=== PATIENT | female | born 1975 | race Caucasian/White ===

== ENCOUNTER 2020-10-21 15:31 | Outpatient (CLI) | payer BC, SELFPAY ==
--- NOTE | ~2020-10-21 | MM_ITS ---
EXAMINATION: MM screening steven BI w teja HISTORY: Screening mammogram TECHNIQUE: Craniocaudal and mediolateral oblique 3-D tomosynthesis images were obtained and synthetic 2-D images were generated. CAD analysis was submitted and interpreted. COMPARISON: 12/16/2018, 11/28/2017 bilateral digital screening mammogram examinations BREAST PARENCHYMAL COMPOSITION: There are scattered areas of fibroglandular density. FINDINGS: There is no evidence of suspicious mass, calcification, or architectural distortion to sugg est malignancy in either breast. There has been no suspicious interval change. IMPRESSION: 1. No mammographic evidence of malignancy. 2. Recommend routine screening mammography in one year. BI-RADS Category 1: Negative Reviewed, dictated and finalized at location A. INUING EDUCATION INSTRUCTOR
== END 2020-10-21 15:32 | disposition home or self-care (01) ==
LOC: ANHIMG 15:34
PROVIDERS: PCP Family Medicine; Visit Provider Obstetrics & Gynecology
DX: Z12.31 Encounter for screening mammogram for malignant neoplasm of breast (principal)
CPT/HCPCS: 77063; 77067

== ENCOUNTER 2021-10-23 10:56 | Outpatient (CLI) | payer BC, SELFPAY ==
--- NOTE | ~2021-10-23 | MM_ITS ---
EXAMINATION: MM screening steven BI w teja HISTORY: Screening mammogram TECHNIQUE: Craniocaudal and mediolateral oblique 3-D tomosynthesis images were obtained and synthetic 2-D images were generated. CAD analysis was submitted and interpreted. COMPARISON: October 21, 2020, December 16, 2018, November 28, 2017 bilateral screening mammogram examinatio ns BREAST PARENCHYMAL COMPOSITION: There are scattered areas of fibroglandular density. FINDINGS: There is no evidence of suspicious mass, calcification, or architectural distortion to sugg est malignancy in either breast. There has been no suspicious interval change. IMPRESSION: 1. No mammographic evidence of malignancy. 2. Recommend routine screening mammography in one year. BI-RADS Category 1: Negative Reviewed, dictated and finalized at location A. ERCIAL LAWN SPECIALIST
== END 2021-10-23 10:57 | disposition home or self-care (01) ==
LOC: ANHIMG 11:00
PROVIDERS: PCP Family Medicine; Visit Provider Obstetrics & Gynecology
DX: Z12.31 Encounter for screening mammogram for malignant neoplasm of breast (principal)
CPT/HCPCS: 77063; 77067

== ENCOUNTER → 2021-10-26 10:31 | Outpatient (CLI) | payer BC, SELFPAY ==
--- NOTE | ~2021-10-26 | XR_ITS ---
EXAMINATION: XR shoulder LT min 2V INDICATION: Left shoulder pain TECHNIQUE: Four views of the left shoulder are submitted. COMPARISON: None FINDINGS: Normal alignment. No fracture. Glenohumeral and acromioclavicular joint spaces are normal. Soft tissues are unremarkable. IMPRESSION: 1. No acute osseous abnormality. Reviewed, dictated and finalized at location A. ATION TEACHER
== END ==
PROVIDERS: Visit Provider Physician Assistant
DX: M25.512 Pain in left shoulder (principal)
CPT/HCPCS: 73030

== ENCOUNTER → 2021-11-02 09:41 | Outpatient (CLI) | payer BC, SELFPAY ==
--- NOTE | ~2021-11-02 | US_ITS ---
EXAMINATION: US soft tissue head and neck EXAM DATE: 11/02/2021 10:19 INDICATION: R22.2 - Localized swelling, mass and lump, trunk. TECHNIQUE: Multiple grayscale and Doppler images of the left supraclavicular palpable region were obt ained (by a technologist who performed the scan) and subsequently reviewed. There is no prior study for comparison. FINDINGS: Scanning in the left supraclavicular palpable region demonstrates possible focal mass, could be jer l sized lymph node measuring 5 x 4 x 7 mm. No pathologically enlarged lymph node or other mass identi fied. Unremarkable subcutaneous fat. IMPRESSION: Possible subcentimeter mass at left supraclavicular palpable abnormality. Could be normal -sized lymph node. Reviewed, dictated and finalized at location A. AL WARDEN IMPRESSION: Possible subcentimeter mass at left supraclavicular palpable abnorm ality. Could be normal-sized lymph node.
--- NOTE | ~2021-11-02 | US_ITS ---
EXAMINATION: US soft tissue groin LT INDICATION: Left lower quadrant pain and left groin mass TECHNIQUE: Targeted ultrasound of the left groin region is performed. COMPARISON: None available FINDINGS: There is an apparent small left inguinal hernia which demonstrates intermittent increase in size with Valsalva. No suspicious mass is identified. IMPRESSION: 1. Likely small left atrial hernia. Reviewed, dictated and finalized at location B. HBORHOOD PLANNER
== END ==
PROVIDERS: PCP Family Medicine; Visit Provider Physician Assistant
DX: R10.32 Left lower quadrant pain (principal); K44.0 Diaphragmatic hernia with obstruction, without gangrene; R22.2 Localized swelling, mass and lump, trunk
CPT/HCPCS: 76536; 76882

== ENCOUNTER → 2021-11-05 16:19 | Outpatient (CLI) | payer BC, SELFPAY ==
--- NOTE | ~2021-11-05 | XR_ITS ---
EXAMINATION: XR chest 2V DATE: 11/05/2021 17:00 INDICATION: Swelling at the left supraclavicular region TECHNIQUE: PA and lateral views of the chest were obtained. COMPARISON: Chest radiograph dated 11/30/2018 FINDINGS: The lungs remain clear with no focal airspace opacities, pulmonary edema, pleural effusion or pneumot horax. The cardiomediastinal silhouette is normal. 18 degrees upper thoracic levoscoliosis measured b etween T1 and T6. Soft tissues are unremarkable. IMPRESSION: 1. No acute cardiopulmonary disease. Reviewed, dictated and finalized at location A. AND LINK KNITTING MACHINE OPERATOR
== END ==
PROVIDERS: PCP Family Medicine; Visit Provider Physician Assistant
DX: R22.2 Localized swelling, mass and lump, trunk (principal)
CPT/HCPCS: 71046

== ENCOUNTER → 2021-12-01 11:39 | Outpatient (CLI) | payer BC, SELFPAY ==
--- NOTE | ~2021-12-01 | XR_ITS ---
EXAM: XR thoracic spine 3V HISTORY: Pain in thoracic spine COMPARISON: None available FINDINGS: Visualized lung parenchyma is clear. Normal vertebral body alignment. Heights are maintain ed. Pedicles are intact. Normal disc spaces. IMPRESSION: Normal thoracic spine radiograph findings. Reviewed, dictated and finalized at location K.
--- NOTE | ~2021-12-01 | XR_ITS ---
EXAM: [id number]_CR HISTORY: Pleurodynia COMPARISON: Chest x-ray 11/05/2021. FINDINGS: Normal cardiomediastinal silhouette. Visualized lung parenchyma is clear. Visualized bones and soft tissues are within normal limits for age. IMPRESSION: No radiographic abnormality in the left ribs. Normal chest radiograph findings. Reviewed, dictated and finalized at location K.
--- NOTE | ~2021-12-01 | XR_ITS ---
EXAM: XR lumbar spine 2-3V HISTORY: Low back pain COMPARISON: None available FINDINGS: 5 nonrib-bearing lumbar-type vertebral bodies with intact pedicles. Alignment and vertebra l body heights are maintained. Mild multilevel marginal osteophytosis. Facets are aligned. IMPRESSION: Mild multilevel degenerative disc disease in the lumbar spine. Reviewed, dictated and finalized at location K.
== END ==
PROVIDERS: PCP Physician Assistant; Visit Provider Physician Assistant
DX: M54.50 Low back pain, unspecified (principal); R07.81 Pleurodynia; R10.9 Unspecified abdominal pain; M51.36 Other intervertebral disc degeneration, lumbar region
CPT/HCPCS: 71101; 72072; 72100

== ENCOUNTER → 2021-12-07 10:41 | Outpatient (CLI) | payer BC, SELFPAY ==
--- NOTE | ~2021-12-07 | CT_ITS ---
EXAMINATION: CT abdomen pelvis w con INDICATION: Left-sided abdominal pain TECHNIQUE: Computed tomographic images of the abdomen and pelvis were obtained after the administrati on of 100 cc of Omnipaque 350 intravenous contrast. The dose-length product (DLP) was 953.89 mGy-cm. Automated exposure control and iterative reconstruction technique were employed. COMPARISON: None available FINDINGS: The lung bases are clear. The heart size is normal. The liver, spleen, pancreas, gallbladde r, and adrenal glands are normal. The kidneys are unremarkable. No pathologically enlarged abdominal or pelvic lymph nodes are identified. There is no free intraperitoneal gas or evidence of bowel obstr uction. There appears to be an enhancing corpus luteum of the left ovary. There is a 4.8 cm soft tiss ue attenuation lesion of the left adnexa. IMPRESSION: 1. Probable complicated cyst or endometrioma of the left adnexa. Further evaluation with pelvic ultra sound is recommended. Reviewed, dictated and finalized at location A. IMPRESSION: 1. Probable complicated cyst or endometrioma of the left adnexa. Further evalua tion with pelvic ultrasound is recommended.
== END ==
PROVIDERS: PCP Physician Assistant; Visit Provider Physician Assistant
DX: R10.9 Unspecified abdominal pain (principal); M54.6 Pain in thoracic spine; M54.50 Low back pain, unspecified; R07.81 Pleurodynia; R93.89 Abnormal findings on diagnostic imaging of other specified body structures
CPT/HCPCS: 74177; Q9967

== ENCOUNTER 2022-01-13 14:47 | Outpatient (CLI) | payer BC, SELFPAY ==
--- NOTE | ~2022-01-13 | MR_ITS ---
EXAMINATION: MR lumbar spine wo/w con DATE: 01/13/2022 16:02 INDICATION: Left lower back mass. TECHNIQUE: Magnetic resonance imaging (MRI) of the lumbar spine was performed without and with 19 mL MultiHance intravenous contrast. COMPARISON: Ultrasound 12/29/2021, CT abdomen and pelvis 12/07/2021 FINDINGS: There is a skin marker on the left. There is no abnormal mass in this area. Bone alignment is normal. Vertebral body heights are normal. Intervertebral disc heights are normal. The distal spin al cord signal intensity is normal. The conus medullaris is at L1. The following disc levels are spec ifically discussed: L1-L2: The disc does not extend beyond the endplate margin. There is mild bilateral facet joint osteo arthritis. There is no neural foraminal stenosis. There is no central canal stenosis. L2-L3: The disc does not extend beyond the endplate margin. There is mild bilateral facet joint osteo arthritis. There is no neural foraminal stenosis. There is no central canal stenosis. L3-L4: The disc is mildly bulging. There is mild right facet joint osteoarthritis. There is mild bila teral neural foraminal stenosis. There is no central canal stenosis. L4-L5: The disc is mildly bulging. There is no facet joint osteoarthritis. There is mild bilateral ne ural foraminal stenosis. There is mild central canal stenosis. L5-S1: The disc does not extend beyond the endplate margin. There is mild bilateral facet joint osteo arthritis. There is no neural foraminal stenosis. There is no central canal stenosis. IMPRESSION: 1. No abnormal mass in the patient's area of concern in left lower back. 2. Mild lumbar spondylosis. Reviewed, dictated and finalized at location B.
[2022-01-13 15:26] LABS: Estimated Glomerular Filt Rate > 60
== END 2022-01-13 14:48 | disposition home or self-care (01) ==
PROVIDERS: PCP Physician Assistant; Visit Provider Physician Assistant
DX: R22.2 Localized swelling, mass and lump, trunk (principal); M47.817 Spondylosis without myelopathy or radiculopathy, lumbosacral region; M48.07 Spinal stenosis, lumbosacral region
CPT/HCPCS: 72158; A9577

== ENCOUNTER 2022-02-25 12:58 | Outpatient (CLI) | payer BC, SELFPAY | END 2022-02-25 12:59 | disposition home or self-care (01) | LOC: ANHSURGERY 13:01 | PROVIDERS: PCP Physician Assistant; Visit Provider Obstetrics & Gynecology | DX: N83.209 Unspecified ovarian cyst, unspecified side (principal); Z01.818 Encounter for other preprocedural examination | CPT/HCPCS: 36415; 86850; 86900; 86901 ==

== ENCOUNTER 2022-03-03 00:54 | Day surgery (SDC) | payer BC, SELFPAY ==
[2022-02-23 16:54] VITALS: BMI 32.3
--- NOTE | 2022-02-23 17:22 | PC.NURSE ---
Report to the Outpatient Waiting Room, entrance under the green pavilion located off [facility], at time _1230 on date 03/03/22. OR Time: 1430_. - You and your visitor will be asked a series of questions to screen for COVID 19 for your protection. - Only one visitor is allowed at this time. - The patient visitor is requested to leave or wait in car when not with patient. - A mask is required within the hospital. Patients may have clear liquids (water, carbonated beverages, clear teas, apple juice) until 3 hours prior to surgery with a maximum of 20 ounces. - No food from midnight until time of surgery - Infants may have breast milk until 4 hours before surgery, formula 6 hours prior to surgery. - Children will be allowed to drink immediately following surgery. If applicable, please bring a bottle or sippy cup to assist with drinking. Juice, water, soda, and popsicles are readily available. For infants on formula, please bring formula the day of surgery. Pacifiers are allowed. Take the following medications with a SIP of water the morning of surgery: Medications to discontinue per physician vitamin Date to take last dose_02/28/22 Please no make-up, nail haitian, hairspray, perfume, deodorant, or body powder the day of surgery. No jewelry (including any body piercings) or valuables the day of surgery, leave them at home. Please take a shower or bath the night before, or the morning of, surgery with an antibacterial soap. Wear comfortable, loose fitting clothing. Children are encouraged to wear pajamas. - Jewelry must be removed prior to entering the operating room. Rings and piercings that are not removed may be cut off. - The hospital will not accept responsibility for valuables. - Please leave all valuables, including medications, at home the day of surgery. If you are going home after surgery, a licensed wheelchair driver must drive you home. - NO public transportation without another adult. - We recommend that an adult stay with you for 24 hours following discharge. - We also recommend that you do not drive, make important decision, drink alcoholic beverages, or take any drugs that were not prescribed by your health care provider for at least 24 hours after your discharge time. For Pediatric surgeries, we recommend two adults accompany the child home (only one inside the building at this time). Follow any additional instructions given to you from your surgeon. If you or anyone in your household have experienced Covid symptoms in the past week, please notify your surgeon or the nurse liaison at the phone number below for possible testing. Telephone instructions given to Rose Banks and asked if any additional questions and then verbalized understanding. Patient advised to call surgeon office or pre surgery nurse liaison [phone] if any additional questions.
--- NOTE | 2022-03-02 14:12 | WPDANESEPPF ---
Anes - Initial Pre Proc Eval Procedure: Operation Date: 03/03/22 14:30 Proposed Procedures p Laparoscopic Left Ovarian Cystectomy, Possible Left Salpingo-oophorectomy - Sammy May MD <Kishore Mayo MD - Last Filed: 03/05/22 10:25> Date/Time: 03/02/22 14:12 <Kishore Mayo MD - Last Filed: 03/05/22 10:25> Surgeon: Sammy May MD <Kishore Mayo MD - Last Filed: 03/05/22 10:25> Pre Op Diagnosis: Pain, Left Ovarian Cyst <Kishore Mayo MD - Last Filed: 03/05/22 10:25> Patient Data Age: 46 Gender: F Height: 1.68 m Weight: 91 kg <Kishore Mayo MD - Last Filed: 03/05/22 10:25> Allergies Allergy/AdvReac Type Severity Reaction Status Date / Time aspartame AdvReac Severe Seizure Verified 02/23/22 16:49 <Kishore Mayo MD - Last Filed: 03/05/22 10:25> Home Medications Medication Instructions Recorded Confirmed Type albuterol sulfate 90 mcg/actuation 2 puff inhalation QID PRN 07/28/19 02/23/22 Rx aerosol inhaler (Ventolin HFA) shortness of breath or wheezing #8 grams calcium carb-vit D3-minerals 600 1 tablet PO DAILY 02/23/22 02/23/22 History mg calcium-400 unit tablet hydrocodone 5 mg-acetaminophen 325 1 - 2 tablet PO Q6H #30 tabs 03/03/22 Rx mg tablet <Kishore Mayo MD - Last Filed: 03/05/22 10:25> Patient hx anesthesia problems: post op nausea/vomiting <Shan Corley MD - Last Filed: 03/03/22 13:45> Family hx anesthesia problems: none <Shan Corley MD - Last Filed: 03/03/22 13:45> Results Review: All pre-operative results and documents have been reviewed as part of the pre-operative evaluation. <Kishore Mayo MD - Last Filed: 03/05/22 10:25> [facility] Past Medical History Medical History: Medical History Obesity <Kishore Mayo MD - Last Filed: 03/05/22 10:25> Family History Family History: Family History Sibling Family history of atrial fibrillation <Kishore Mayo MD - Last Filed: 03/05/22 10:25> Social History Social History: Social History Smoking status: Never smoker Alcohol intake: never Substance use: never Living arrangements: with family Spiritual care concerns: No <Kishore Mayo MD - Last Filed: 03/05/22 10:25> Anes - Eval Final PreProcedure Day of Procedure 03/02/22 14:12 <Kishore Mayo MD - Last Filed: 03/05/22 10:25> Patient weight: overweight <Kishore Mayo MD - Last Filed: 03/05/22 10:25> Heart: regular rate and rhythm <Kishore Mayo MD - Last Filed: 03/05/22 10:25> Lungs: clear to auscultation and normal air movement <Kishore Mayo MD - Last Filed: 03/05/22 10:25> Airway: Mallampati scale class II <Kishore Mayo MD - Last Filed: 03/05/22 10:25> Mallampati scale class 1 <Shan Corley MD - Last Filed: 03/03/22 13:45> Neurological: alert and oriented <Kishore Mayo MD - Last Filed: 03/05/22 10:25> Last oral intake: >/= 8 hours <Kishore Mayo MD - Last Filed: 03/05/22 10:25> ASA classification: II <Kishore Mayo MD - Last Filed: 03/05/22 10:25> Emergent: no <Kishore Mayo MD - Last Filed: 03/05/22 10:25> Anesthetic plan: proceed <Kishore Mayo MD - Last Filed: 03/05/22 10:25> Anesthesia type and monitoring: general ETT <Kishore Mayo MD - Last Filed: 03/05/22 10:25> Results Review: All pre-operative results and documents have been reviewed as part of the pre-operative evaluation. <Kishore Mayo MD - Last Filed: 03/05/22 10:25> Informed Consent: The patient's anesthetic plan and its attendant risks and benefits were discussed with the patient/family/POA. Questions were solicited and answers provided to the satisfaction of t
[2022-03-03] VITALS (11 sets, daily range): BP systolic 102–148; BP diastolic 61–82; PULSE 48–79; RESP 14–20; TEMP 36.1–36.2; O2SAT 93–100
--- NOTE | 2022-03-03 12:39 | PM.IMHP ---
H&P: HPI History of Present Illness Date/Time: 03/03/22 12:39 Chief Complaint: Ovarian cyst Narrative: 46 y/o with left pelvic and flank pain. Ultrasound exams have demonstrated the persistence of a 4 cm simple appearing left adnexal cyst. Her symptoms have been bothersome for several months, and she requests surgical management. Review of Systems Review of Systems: All systems reviewed & are unremarkable except as noted in HPI and below PMFSH Past Medical History Medical History Obesity Family History Family History Sibling Family history of atrial fibrillation Social History Social History Smoking status: Never smoker Alcohol intake: never Substance use: never Living arrangements: with family Spiritual care concerns: No Meds Home Medications and Allergies Home Medications Medication Instructions Recorded Confirmed Type albuterol sulfate 90 mcg/actuation 2 puff inhalation QID PRN 07/28/19 02/23/22 Rx aerosol inhaler (Ventolin HFA) shortness of breath or wheezing #8 grams calcium carb-vit D3-minerals 600 1 tablet PO DAILY 02/23/22 02/23/22 History mg calcium-400 unit tablet Allergies Allergy/AdvReac Type Severity Reaction Status Date / Time aspartame AdvReac Severe Seizure Verified 02/23/22 16:49 Exam Const: Orientation/consciousness: patient oriented x3 Other: Well-developed, well-nourished female in no acute distress. Neck: Thyroid: thyroid normal Lymphatic: no lymphadenopathy noted (in neck, axilla or inguinal nodes) Resp: Effort & Inspection: normal respiratory effort Auscultation: clear to auscultation bilaterally Cardio: Rate: regular rate Rhythm: regular rhythm Heart sounds: S1 normal heart sound present and S2 normal heart sound present GI: Other: ABD: Soft, nontender, nondistended. No guarding or rebound tenderness. No hepatosplenomegaly. : General: Yes no CVA tenderness Other: External genitalia: normal female hair distribution, without lesion. Urethral meatus: no lesion, non prolapsed. Bladder: no mass, nontender Vagina: well-estrogenized, without lesion or discharge. No cystocele or rectocele. Cervix: no lesion or discharge. Uterus: small, anteverted, freely mobile, nontender Adnexa: no mass or tenderness on the right. On the left, there is definite tenderness to deep palpation. Anus/perineum: no lesions, nontender Back/Spine/Pelvis: Back: no CVA tenderness Skin: General skin exam: normal color and no rashes or lesions noted Neuro: General: patient oriented x3 Extrem: Other: Extremities: nontender with no edema Psych: Mental Status: mental status grossly normal Affect: normal affect Assessment and Plan Assessment and plan (1) Left adnexal tenderness: Code(s): R10.2 - Pelvic and perineal pain Status: Acute Assessment and Plan: A: Persistent left pelvic / flank pain in the setting of a persistent 4 cm adnexal cyst. P: Due to the halfway nature of the pain, the patient desires surgical management. I have offered her a diagnostic laparoscopy with left adnexal cystectomy and possible LSO. She understands risks of surgery to include risks of anesthesia, risks of pain, infection, bleeding, blood products, thromboembolic phenomena and damage to adjacent structures such as bowel, bladder, ureters, blood vessels and nerves. She understands all these risks and elects to proceed with surgery. (2) Simple adnexal cyst less than 5 cm in diameter in premenopausal patient: Code(s): N94.89 - Other specified conditions associated with female genital organs and menstrual cycle; N95.8 - Other specified menopausal and perimenopausal disorders Status: Acute
[2022-03-03] MEDS: ACETAMINOPHEN 500 MG TABLET 1000 MG PO (12:50)
--- NOTE | 2022-03-03 12:51 | WPDHPUPDATE1 ---
History and Physical Update Update Date/Time: 03/03/22 12:51 History and Physical has been reviewed, including an updated exam of the patient. There are NO changes in the patient's condition. Risks, benefits, and alternatives have been discussed and questions answered. Patient agrees to proceed with procedure.
[2022-03-03] MEDS: LACTATED RINGERS 1,000 ML 30 ML IV CONT ×2 (13:10→15:06)
[2022-03-03] MEDS: KETOROLAC 15 MG/ML VIAL (*BKC) IV PUSH ×2 (13:12→17:54)
[2022-03-03] MEDS: SCOPOLAMINE 1.5 MG PATCH TRANSDERM (13:53)
--- NOTE | 2022-03-03 15:07 | W.PM.PROC2 ---
Procedure Note - Detailed Date of Procedure 03/03/22 Pre-op Diagnosis Pelvic pain Left adnexal cyst Post-op Diagnosis Same Procedure Performed Laparoscopic left partial salpingectomy Surgeon Sammy May MD Anesthesia General Findings Right upper quadrant anatomy and vermiform appendix are normal in appearance. The uterus, bilateral ovaries, right tube, anterior and posterior cul de sac, bilateral round and uterosacral ligaments were all normal in appearance. A 4 cm cyst arose from the distal left Fallopian tube. Description of Procedure The patient was taken to the operating room where general endotracheal anesthesia was administered. She was prepared and draped in the usual sterile fashion in the dorsal lithotomy position. The bladder was drained with a red rubber catheter. A sterile speculum was inserted into the vagina and the anterior lip of the cervix was grasped with a single-toothed tenaculum. The acorn uterine manipulator was placed. The speculum was withdrawn. Gloves were changed and attention was turned to the abdomen. An infraumbilical skin incision was made with a scalpel. The abdomen was tented and a 5 millimeter bladeless trocar trocar was advanced under direct laparoscopic visualization. Pneumoperitoneum was administered using carbon dioxide gas. A survey of the pelvis and abdomen yielded the findings noted above. A second 5 mm incision was made in the right lower quadrant and a 5 mm bladeless trocar was advanced under direct laparoscopic visualization. An 11 mm port was similarly placed in the left lower quadrant. The left paratubal cyst was elevated. The ligasure device was used to ligate and transect the tube distally, just adjacent to the cyst. The specimen was placed into an endobag, withdrawn, and passed off to be sent to pathology. Using the Damir cone, the fascia at the LLQ incision was reapproximated with a single interrupted suture of 0-vicryl. Hemostasis was excellent. The trocars were withdrawn and the gas was allowed to escape. The skin incisions were reapproximated using 4-0 Vicryl in interrupted subcuticular fashion. Dermaflex was applied externally. The vaginal instrumentation was withdrawn and hemostasis was excellent here as well. Sponge, lap, needle and instrument counts were correct. The patient was awakened and taken to recovery in stable condition. I was present and scrubbed through the entire procedure. Estimated Blood Loss 5 Drains No Packing No Pathology Yes (Distal left Fallopian tube with cyst) Complications None Condition Stable Disposition PACU
[2022-03-03] MEDS: fentaNYL CITRATE INJ (*CRX) 100 MCG/2 ML VIAL 25 MCG IV PUSH ×6 (15:26→15:46)
[2022-03-03] MEDS: ONDANSETRON INJ 4 MG/2 ML VIAL IV PUSH (16:09)
[2022-03-03] MEDS: oxyCODONE HCL (*CRX) 5 MG TAB IR PO (16:53)
== END 2022-03-03 18:30 | disposition home or self-care (01) ==
PROVIDERS: PCP Physician Assistant; Visit Provider Obstetrics & Gynecology
PROC: (CPT 49320; principal; 2022-03-03 14:30)
DX: D28.2 Benign neoplasm of uterine tubes and ligaments (principal); R10.2 Pelvic and perineal pain; E66.9 Obesity, unspecified; Z68.31 Body mass index [BMI] 31.0-31.9, adult; Z79.51 Long term (current) use of inhaled steroids
CPT/HCPCS: 58661; 36415; 86850; 86900; 86901; 88305; A9270; J1100; J1885; J2250; J2405; J2704; J2710; J3010; J7030; J7120

== ENCOUNTER 2022-12-02 16:37 | Outpatient (CLI) | payer BC, SELFPAY ==
--- NOTE | ~2022-12-02 | MM_ITS ---
EXAMINATION: MM screening steven BI w teja HISTORY: Screening TECHNIQUE: Craniocaudal and mediolateral oblique 3-D tomosynthesis images were obtained and synthetic 2-D images were generated. CAD analysis was submitted and interpreted. COMPARISON: Comparison to multiple prior studies sequentially, with oldest reviewed study dated 09/2017. BREAST PARENCHYMAL COMPOSITION: There are scattered areas of fibroglandular density. FINDINGS: There are developing asymmetries/possible mass in the upper outer quadrant of the right [place] ast and lower central aspect of the left breast. IMPRESSION: 1. Developing bilateral breast asymmetries/possible mass 2. Additional mammographic views and possible breast ultrasound are recommended. BI-RADS Category 0: Incomplete: Needs additional imaging evaluation. Reviewed, dictated and finalized at location A. IMPRESSION: 1. Developing bilateral breast asymmetries/possible mass 2. Additional mammographic views and possible breast ultrasound are recommended . BI-RADS Category 0: Incomplete: Needs additional imaging evaluation.
== END 2022-12-02 16:38 | disposition home or self-care (01) ==
PROVIDERS: PCP Physician Assistant; Visit Provider Obstetrics & Gynecology
DX: Z12.31 Encounter for screening mammogram for malignant neoplasm of breast (principal); R92.8 Other abnormal and inconclusive findings on diagnostic imaging of breast
CPT/HCPCS: 77063; 77067

== ENCOUNTER 2022-12-27 11:53 | Outpatient (CLI) | payer BC, SELFPAY ==
--- NOTE | ~2022-12-27 | MM_ITS ---
EXAMINATION: MM diagnostic steven BI w teja HISTORY: Bilateral breast asymmetries on screening mammogram TECHNIQUE: Additional 3-D tomosynthesis images of the breasts were performed and synthetic 2-D images were generated. CAD analysis was submitted and interpreted. COMPARISON: 12/02/2022, 10/23/2021, 10/21/2020 FINDINGS: There is a return to baseline fibroglandular appearance with spot compression of the breast s in the areas questioned on screening mammogram. IMPRESSION: 1. No mammographic evidence of malignancy. 2. Recommend routine screening mammography in one year. BI-RADS Category 1: Negative Reviewed, dictated and finalized at location A.
== END 2022-12-27 11:54 | disposition home or self-care (01) ==
LOC: ANHIMG 11:54
PROVIDERS: PCP Physician Assistant; Visit Provider Obstetrics & Gynecology
DX: R92.8 Other abnormal and inconclusive findings on diagnostic imaging of breast (principal)
CPT/HCPCS: 77062; 77066; G0279

== ENCOUNTER 2023-04-10 01:29 | Observation (INO) | payer BC, SELFPAY ==
[2023-04-10] VITALS (26 sets, daily range): BP systolic 109–154; BP diastolic 68–110; PULSE 52–87; RESP 13–20; TEMP 36.2–36.7; O2SAT 95–100; BMI 32.3
--- NOTE | ~2023-04-10 | US_ITS ---
EXAMINATION: US abdomen limited DATE: 04/10/2023 07:39 INDICATION: Right upper quadrant pain TECHNIQUE: Multiple grayscale and Doppler ultrasound images of the abdomen were obtained. COMPARISON: None available FINDINGS: The head and body of the pancreas are normal. The pancreatic tail is obscured by bowel gas. The liver is normal with normal echogenicity and echotexture. No surface nodularity. Normal hepatope jah flow in the main portal vein. The gallbladder is distended. There is a stone in the gallbladder. No gallbladder wall thickening or pericholecystic fluid are identified. The normal common bile duct m easures 4 mm. There was no sonographic Rodríguez sign. IMPRESSION: 1. Cholelithiasis and gallbladder distention without gallbladder wall thickening, pericholecystic flu id or positive sonographic Rodríguez sign. Findings are equivocal for cholecystitis. Consider nuclear he patobiliary scan if there is high clinical suspicion for cholecystitis. Reviewed, dictated and finalized at location A. IMPRESSION: 1. Cholelithiasis and gallbladder distention without gallbladder wall thickenin g, pericholecystic fluid or positive sonographic Rodríguez sign. Findings are equi vocal for cholecystitis. Consider nuclear hepatobiliary scan if there is high c linical suspicion for cholecystitis.
--- NOTE | ~2023-04-10 | XR_ITS ---
EXAMINATION: XR chest 1V portable INDICATION: Chest pain TECHNIQUE: Portable AP chest at 0259 hours COMPARISON: 12/01/2021 FINDINGS: The lungs are free of acute opacities. No pleural effusion or pneumothorax. The cardiomedia stinal silhouette is normal. The visualized bones and soft tissues are unremarkable. IMPRESSION: 1. No acute cardiopulmonary abnormality. Reviewed, dictated and finalized at location A.
--- NOTE | ~2023-04-10 | CT_ITS ---
EXAMINATION: CTA chest abdomen pelvis DATE: 04/10/2023 03:50 INDICATION: Back pain radiating to the abdomen and chest. TECHNIQUE: Computed tomographic angiography (CTA) of the chest, abdomen, and pelvis was performed wit h 100 mL Omnipaque-350 intravenous contrast. Automated exposure control and iterative reconstruction technique were employed. The dose-length product was 1199.98 mGy-cm. Maximum intensity projection 3D- reconstructions of the aorta and other arteries were constructed by the technologist on a separate wo rkstation. COMPARISON: CT abdomen and pelvis 12/07/2021 FINDINGS: CHEST CTA: The lungs demonstrate mild atelectasis. No pleural effusion. The heart size is normal. No pericardial effusion. Thoracic aorta is normal in caliber. No aneurysm or dissection. There is no pulmonary embo tez. There is a hemangioma in T11 vertebral body. ABDOMEN AND PELVIS CTA: The liver is normal. The gallbladder is distended. The spleen, pancreas, adrenal glands, and kidneys are normal. There is diverticulosis of the colon without evidence of diverticulitis. There are no dil ated loops of bowel. The appendix is normal. There is a small sliding hiatal hernia. There are no pat hologically enlarged lymph nodes. There is no ascites. Abdominal aorta is normal in caliber. No aneur ysm or dissection. There is no significant stenosis of celiac axis, superior mesenteric artery, the r enal arteries, or inferior mesenteric artery. There is mild lumbar spondylosis. There is a hemangioma in L3 vertebral body. IMPRESSION: 1. Normal aorta. 2. Distended gallbladder suspicious for acute cholecystitis. Consider ultrasound. Reviewed, dictated and finalized at location E. IMPRESSION: 1. Normal aorta. 2. Distended gallbladder suspicious for acute cholecystitis. Consider lety haddad
--- NOTE | 2023-04-10 01:37 | ECG_ITS ---
Measurements Intervals [place] Rate: 54 P: 10 MD: 145 QRS: 47 QRSD: 92 T: 19 QT: 416 QTc: 398 Interpretive Statements SINUS BRADYCARDIA MINIMAL ST DEPRESSION [0.025+ mV ST DEPRESSION] NONSPECIFIC T WAVE ABNORMALITY ABNORMAL ECG COMPARED TO ECG 11/30/2018 09:27:20 [address] NOW PRESENT ST (T WAVE) DEVIATION NOW PRESENT Electronically Signed On 04-10-2023 10:05:50 CDT by John Vallejo M.D.
[2023-04-10] MEDS: MAG HYDROX/AL HYDROX/SIMETH 30 ML UDC PO (02:46)
[2023-04-10] MEDS: SODIUM CHLORIDE 0.9% IV 2,000 ML 999 ML IV CONT (02:46)
[2023-04-10] MEDS: PANTOPRAZOLE SODIUM IV 40 MG VIAL IV PUSH (02:46)
[2023-04-10] MEDS: HYDROmorphone HCL INJ (*CRX) 1 MG/ML SYR 0.5 MG IV PUSH ×4 (02:46→11:05)
[2023-04-10 03:05] LABS: Basophils Absolute Auto 0.1 K/mm3 (0.0-0.1); Basophils Percent Auto 0.9 % (0.2-1.2); Eosinophils Percent Auto 0.2 % (0-4.4); Hematocrit 40.4 % (37.0-47.0); Hemoglobin 13.6 g/dL (12.0-15.0); Immature Granulocyte Absolute 0.05 K/mm3 (0.00-0.031); Immature Granulocyte Percent A 0.4 % (0-0.5); Lymphocytes Absolute Auto 2.02 K/mm3 (0.9-3.2); Lymphocytes Percent Auto 16.7 % (18.3-44.2); Mean Corpuscular HGB Conc 33.7 g/dl (32-36); Mean Corpuscular Hemoglobin 30.2 pg (26-34); Mean Corpuscular Volume 89.8 fl (80-100); Monocytes Absolute Auto 0.6 K/mm3 (0.1-0.6); Monocytes Percent Auto 4.6 % (2.6-8.5); Neutrophils Absolute Auto 9.4 K/mm3 (1.3-6.7); Neutrophils Percent Auto 77.2 % (45.5-73.1); Platelet Count Result 400 k/mm3 (150-375); Red Cell Distribution Width 13.2 % (11.5-14.5); White Blood Count 12.1 K/mm3 (4.5-10.0)
[2023-04-10 03:19] LABS: Prothrombin Time 13.1 Seconds (11.1-14.7)
[2023-04-10 03:20] LABS: Partial Thromboplastin Time 29.8 SECONDS (22.3-36.8)
[2023-04-10] MEDS: ONDANSETRON INJ 4 MG/2 ML VIAL (03:20)
[2023-04-10 03:25] LABS: Alanine Aminotransferase 23 U/L (6-35); Albumin Level 4.5 g/dL (3.5-5.1); Alkaline Phosphatase 110 U/L (38-126); Anion Gap 9 mmol/L (8-16); Aspartate Amino Transferase 28 U/L (14-36); Bilirubin,Total 0.4 mg/dL (0.2-1.3); Blood Urea Nitrogen 14 mg/dL (7-17); Calcium 9.9 mg/dL (8.4-10.2); Carbon Dioxide 27 mmol/L (22-30); Chloride 102 mmol/L (98-107); Creatine Kinase 61 U/L (30-135); Estimated CRCL calculation 98 ml/min; Estimated Glomerular Filt Rate > 60; Glucose 112 mg/dL (65-110); Lactic Acid Reflex 2.2 mmol/L (0.7-2.0); Lipase 137 U/L (23-300); Phosphorus 3.7 mg/dL (2.5-4.5); Potassium 3.8 mmol/L (3.4-5.0); Sodium 138 mmol/L (137-145)
[2023-04-10 03:34] LABS: NT Pro B Type Natriuretic Pept 93 pg/mL (19.9-100)
[2023-04-10 03:36] LABS: Troponin I < 0.012 ng/mL (0.000-0.034)
[2023-04-10 04:08] LABS: Appearance Urine Clear (Clear); Bacteria Urine None Seen /hpf; Bilirubin Urine Negative (Negative); Blood Urine 1+ (Negative); Color Urine Yellow (Yellow); Glucose Urine UA Negative (Negative); Ketones Urine Negative (Negative); Leukocyte Esterase Ur Negative LEU/UL (Negative); Nitrate Urine Negative (Negative); Non Pathogenic Casts 0-2; Protein Urine Negative (Negative); Squamous Epithelial Cell Urine Occasional /hpf (Few); Urobilinogen Urine 0.2 mg/dL (<2.0); WBC Urine 0-5 /hpf
[2023-04-10 04:10] LABS: Add Urine Microscopic? YES; Specific Grav Ur 1.051 (1.001-1.035)
[2023-04-10] MEDS: KETOROLAC 15 MG/ML VIAL (*BKC) IV PUSH ×2 (04:12→18:16)
--- NOTE | 2023-04-10 05:35 | ED.GENADULT ---
HPI - General Adult General Chief complaint: Back Pain/Injury <Roby Carrillo MD - Last Filed: 04/10/23 06:28> Stated complaint: back/rib pain <Roby Carrillo MD - Last Filed: 04/10/23 06:28> Time Seen by Provider: 04/10/23 01:46 <Roby Carrillo MD - Last Filed: 04/10/23 06:28> History of Present Illness HPI narrative: This is a 47-year-old female presenting ED with chief complaint of back pain. Patient states that around 9:00 p.m. last night she started having cramping pain in the center of her back that radiated into her epigastric area and up into her chest. She describes the epigastric pain as burning, is severe, constant and she has never experienced pain like this before. There are no exacerbating or alleviating sympoms. pain is associated with 1 episode vomiting, she denies shortness of breath fevers, urinary symptoms. She does say that she had a dark tarry stool yesterday. She has taken Tylenol, omeprazole, Benadryl,and Tums, without relief. <Roby Carrillo MD - Last Filed: 04/10/23 06:28> Related Data Home medications: Home Medications Medication Instructions Recorded Confirmed calcium carb-vit D3-minerals 600 1 tablet PO DAILY 02/23/2228/22 mg calcium-400 unit tablet <Roby Carrillo MD - Last Filed: 04/10/23 06:28> Allergies/adverse reactions: Allergies Allergy/AdvReac Type Severity Reaction Status Date / Time aspartame AdvReac Severe Seizure Verified 04/10/23 01:53 <Roby Carrillo MD - Last Filed: 04/10/23 06:28> [facility] Past Medical History Medical History: Medical History Obesity <Roby Carrillo MD - Last Filed: 04/10/23 06:28> Family History Family History: Family History Sibling Family history of atrial fibrillation <Roby Carrillo MD - Last Filed: 04/10/23 06:28> Social History Social History: Social History Smoking status: Never smoker Alcohol intake: never Substance use: never Living arrangements: with family Spiritual care concerns: No <Roby Carrillo MD - Last Filed: 04/10/23 06:28> Exam Narrative: APPEARANCE: Patient appears uncomfortable Head: atraumatic. EYES: EOMI, NOSE: Atraumatic NECK /back: no tenderness over the spine or paraspinal muscles. RESPIRATORY: No increased rate of breathing, clear to auscultation CARDIOVASCULAR: RRR, no peripheral edema ABDOMINAL: Tenderness to palpation in the epigastric area, no guarding or rebound. MUSCULOSKELETAl: No obvious deformities NEURO: Alert. Moving 4/4 extremities SKIN:: Warm, dry. Normal color PSYCHIATRIC: Normal affect <Roby Carrillo MD - Last Filed: 04/10/23 06:28> Course Course Emergency Course: 07:00 - This patient was signed out to me by previous ED physician, Dr. Carrillo pending ultrasound and disposition. 08:50 - Ultrasound demonstrates gallbladder distention with cholelithiasis without changes concerning for cholecystitis. Despite 3 total doses of 0.5 mg Dilaudid, Tylenol, a total milligrams of Zofran and Toradol, the patient's nausea and pain is not controlled. I discussed the patient with GI, Dr. Bhat, general surgeon, Dr. Rossi and hospitalist Dr. Mata who accepts admission. <Russel Liz MD - Last Filed: 04/10/23 09:25> Vital Signs Vital signs: Vital Signs Temperature 98.1 F 04/10/23 01:34 Pulse Rate 63 04/10/23 01:34 Respiratory Rate 16 04/10/23 01:34 Blood Pressure 154/110 H 04/10/23 01:34 Pulse Oximetry 100 04/10/23 01:34 Oxygen Delivery Room Air 04/10/23 01:34 Temperature 98.1 F 04/10/23 01:34 Pulse Rate 52 L 04/10/23 08:01 Respiratory Rate 18 04/10/23 08:01 Blood Pressure 117/72 04/10/23 08:01 Pulse Oximetry 96 04/10/23 07:00 Oxygen Delivery Room Air 04/10/23 01:50 <Alo
[2023-04-10 06:03] LABS: Reflex Lactic Acid Yes or No Add Lactic
[2023-04-10] MEDS: ACETAMINOPHEN 500 MG TABLET 1000 MG PO (06:33)
[2023-04-10 07:16] LABS: Lactic Acid 2.3 mmol/L (0.7-2.0)
[2023-04-10 07:29] LABS: Troponin I < 0.012 ng/mL (0.000-0.034)
[2023-04-10 07:42] LABS: Influenza A QL RT-PCR Negative (Negative); Influenza B QL RT-PCR Negative (Negative); RSV RNA, RT-PCR Negative (Negative); SARS-CoV-2 RNA PCR Negative (Negative)
[2023-04-10] MEDS: ONDANSETRON INJ 4 MG/2 ML VIAL IV PUSH (07:47)
[2023-04-10] MEDS: PROCHLORPERAZINE EDISYLATE 10 MG/2 ML VIAL IV PUSH (08:55)
[2023-04-10] MEDS: diphenhydrAMINE HCl INJ 50 MG/ML VIAL 12.5 MG IV PUSH (08:55)
[2023-04-10] MEDS: SODIUM CHLORIDE 0.9% IV 1,000 ML 125 ML IV CONT (09:19)
--- NOTE | 2023-04-10 11:13 | ADMGEN ---
This patient, Rose Banks, was admitted to 3 [facility] Surg Room 328-01 at 1025. Patient/family oriented to hospital policies and general routines including ID bracelet, bed and alarms, visiting hours, pain management, procedures, bathroom and other care routines, personal items, smoking policy, room service/diet, and visiting hours. Information on how to activate the Rapid Response Team has been discussed. Patient/Family are encouraged to report perceived risks to care and to ask questions if they do not understand what they are told or what they should do.
--- NOTE | 2023-04-10 11:34 | PM.CNGS ---
Assessment and Plan Assessment and plan (1) Acute calculous cholecystitis: Code(s): K80.00 - Calculus of gallbladder with acute cholecystitis without obstruction Status: Acute Assessment and Plan: exam already improved since presentation, will start clears, cont abx, long d/w pt re: cholecystectomy and timing, she would like to proceed during this admission if possible and I will plan for tomorrow History of Present Illness Consult details Consult date: 04/10/23 Reason for consult: abdominal pain Requesting physician: Russel Liz MD Narrative: The patient is a 47-year-old female presenting to the emergency department complaining of severe upper abdominal pain. The patient reports the pain acutely started about 11:00 p.m. last night and has been progressively worsening. The patient reports the pain radiates to her back in between her shoulder blades and up into her chest. The patient also reports severe bloating, nausea and vomiting. The patient reports that she ate poorly over the day yesterday including having a lot of soda and pizza for dinner. The patient reports milder symptomatology in the past consisting of mild abdominal pain and back pain, bloating. The patient reports that mother had biliary disease requiring cholecystectomy. Review of Systems Review of Systems: All systems reviewed & are unremarkable except as noted in HPI and below PMFSH Past Medical History Medical History Obesity Family History Family History Sibling Family history of atrial fibrillation Social History Social History Smoking status: Never smoker Alcohol intake: never Substance use: never Lack of Transportation: No Lack of Food: Never True Current Housing: I Have Housing Concerned About Future Housing: No Difficulty Paying Gas/Electric Bills: No Difficulty Paying for Meds: No Currently Unemployed: No Education: Trade/Vocational Certificate Difficulty w/ Childcare or Family Care: No Living arrangements: with family Spiritual care concerns: No Comments PSH - tubal ligation, oophrectomy Meds Home Medications and Allergies Home Medications Medication Instructions Recorded Confirmed Type albuterol sulfate 90 mcg/actuation 2 puff inhalation QID PRN 07/28/19 04/10/23 Rx aerosol inhaler (Ventolin HFA) shortness of breath or wheezing #8 grams calcium carb-vit D3-minerals 600 1 tablet PO DAILY 02/23/22 04/10/23 History mg calcium-400 unit tablet Allergies Allergy/AdvReac Type Severity Reaction Status Date / Time aspartame AdvReac Severe Seizure Verified 04/10/23 01:53 Vital Signs Vital Signs - 24 hr 04/10/23 01:34 04/10/23 01:50 04/10/23 07:00 Temperature 36.7 C Pulse Rate 63 55 L Respiratory Rate 16 18 Blood Pressure 154/110 H Pulse Oximetry 100 98 96 Oxygen Delivery Room Air Room Air 04/10/23 07:34 04/10/23 07:40 04/10/23 07:45 Temperature Pulse Rate 58 L 57 L 52 L Respiratory Rate 14 13 19 Blood Pressure 136/87 Pulse Oximetry Oxygen Delivery 04/10/23 08:00 04/10/23 08:01 04/10/23 08:02 Temperature Pulse Rate 54 L 52 L 55 L Respiratory Rate 18 18 18 Blood Pressure 117/72 Pulse Oximetry Oxygen Delivery 04/10/23 08:15 04/10/23 08:30 04/10/23 08:31 Temperature Pulse Rate 56 L 57 L 78 Respiratory Rate 18 17 18 Blood Pressure 114/81 Pulse Oximetry Oxygen Delivery 04/10/23 08:45 04/10/23 09:00 04/10/23 09:01 Temperature Pulse Rate 56 L 66 67 Respiratory Rate 18 18 13 Blood Pressure 109/68 Pulse Oximetry Oxygen Delivery 04/10/23 09:15 04/10/23 09:30 04/10/23 09:31 Temperature Pulse Rate 74 57 L 54 L Respiratory Rate 17 16 Blood Pressure 114/68 Pulse Oximetry 95 96 Oxygen Delivery 04/10/23 09:32 08
--- NOTE | 2023-04-10 13:18 | PM.IMHP ---
H&P: HPI History of Present Illness Date/Time: 04/10/23 13:00 Chief Complaint: Abdominal pain. Narrative: Stay 47-year-old female who presented to the emergency department for evaluation of abdominal pain. The patient provides the following history. She developed sudden onset of upper abdominal pain at about 23:00 last night which has been progressively worsening. The pain radiates through to the back and up into the chest and is associated with bloating, nausea, and vomiting. She describes the pain as burning and sometimes cramping in nature. Thinking back she had a similar episode quite sometime ago though that was not nearly a severe and was self-limiting. Last night she took several medications to attempt to alleviate her symptoms including Tums, omeprazole, acetaminophen, Benadryl, and methocarbamol all without significant relief. She denies fever, chills, sweats, hematemesis, diarrhea, melena, and hematochezia. She also denies exertional chest pain and shortness of breath. Labs in the ED was significant for WBC count of 12.1, lactic acid 2.2, normal LFTs and lipase. CT of the abdomen and pelvis showed a distended gallbladder suspicious for acute cholecystitis and a subsequent ultrasound showed cholelithiasis and gallbladder distention without wall thickening. She has been admitted in this setting for pain control and antibiotics. Review of Systems Review of Systems: Twelve systems were reviewed and are negative except for as per HPI. [facility] Past Medical History Medical History Migraines Obesity Surgical History Surgical History History of ovarian cystectomy (02/2022) History of tubal ligation Family History Family History Sibling Family history of atrial fibrillation Social History Social History Social History: Surrogate medical decision maker: Bernard Jocelyn, spouse. Code status: Full code. Smoking status: Never smoker Alcohol intake: never Substance use: never Lack of Transportation: No Lack of Food: Never True Current Housing: I Have Housing Concerned About Future Housing: No Difficulty Paying Gas/Electric Bills: No Difficulty Paying for Meds: No Currently Unemployed: No Education: Trade/Vocational Certificate Difficulty w/ Childcare or Family Care: No Living arrangements: with family Spiritual care concerns: No Meds Home Medications and Allergies Home Medications Medication Instructions Recorded Confirmed Type albuterol sulfate 90 mcg/actuation 2 puff inhalation QID PRN 07/28/19 04/10/23 Rx aerosol inhaler (Ventolin HFA) shortness of breath or wheezing #8 grams calcium carb-vit D3-minerals 600 1 tablet PO DAILY 02/23/22 04/10/23 History mg calcium-400 unit tablet Allergies Allergy/AdvReac Type Severity Reaction Status Date / Time aspartame AdvReac Severe Seizure Verified 04/10/23 01:53 Vital Signs Vital Signs - 24 hr 04/10/23 01:34 04/10/23 01:50 04/10/23 07:00 Temperature 98.1 F Pulse Rate 63 55 L Respiratory Rate 16 18 Blood Pressure 154/110 H Pulse Oximetry 100 98 96 Oxygen Delivery Room Air Room Air 04/10/23 07:34 04/10/23 07:40 04/10/23 07:45 Temperature Pulse Rate 58 L 57 L 52 L Respiratory Rate 14 13 19 Blood Pressure 136/87 Pulse Oximetry Oxygen Delivery 04/10/23 08:00 04/10/23 08:01 04/10/23 08:02 Temperature Pulse Rate 54 L 52 L 55 L Respiratory Rate 18 18 18 Blood Pressure 117/72 Pulse Oximetry Oxygen Delivery 04/10/23 08:15 04/10/23 08:30 04/10/23 08:31 Temperature Pulse Rate 56 L 57 L 78 Respiratory Rate 18 17 18 Blood Pressure 114/81 Pulse Oximetry Oxygen Delivery 04/10/23 08:45 04/10/23 09:00 04/10/23 09:01 Temperature Pul
[2023-04-10] MEDS: PIPERACILLN/TAZ 3.375GM/NS50ML 3.375 GM/50 ML BAG IVPB ×2 (14:49→17:46)
--- NOTE | 2023-04-10 16:21 | WPDANESEPP ---
Anes - Eval Pre Procedure Procedure: Lap Ewelina Date/Time: 04/10/23 16:21 Surgeon: Dr. Rossi Preop Diagnosis: acute cholecystitis Pre Op Diagnosis: Cholelithiasis Patient Data Age: 47 Gender: F Height: 1.68 m Weight: 90.9 kg Last Vital Signs Temp 97.6 F 04/10/23 12:05 Pulse 87 04/10/23 12:05 Resp 16 04/10/23 12:05 BP 128/70 04/10/23 12:05 Pulse Ox 100 04/10/23 12:05 O2 Del Method Room Air 04/10/23 15:04 Allergies Allergy/AdvReac Type Severity Reaction Status Date / Time aspartame AdvReac Severe Seizure Verified 04/10/23 01:53 Home Medications Medication Instructions Recorded Confirmed Type albuterol sulfate 90 mcg/actuation 2 puff inhalation QID PRN 07/28/19 04/10/23 Rx aerosol inhaler (Ventolin HFA) shortness of breath or wheezing #8 grams calcium carb-vit D3-minerals 600 1 tablet PO DAILY 02/23/22 04/10/23 History mg calcium-400 unit tablet Laboratory Tests 04/10/23 04/10/23 04/10/23 02:57 02:57 02:57 WBC 12.1 H K/mm3 (4.5-10.0) RBC 4.50 M/mm3 (4.2-5.4) Hgb 13.6 g/dL (12.0-15.0) Hct 40.4 % (37.0-47.0) MCV 89.8 fl (80-100) MCH 30.2 pg (26-34) MCHC 33.7 g/dl (32-36) RDW 13.2 % (11.5-14.5) Plt Count 400 H k/mm3 (150-375) MPV 9.0 fl (7.4-10.4) Immature Gran % (Auto) 0.4 % (0-0.5) Neut % (Auto) 77.2 H % (45.5-73.1) Lymph % (Auto) 16.7 L % (18.3-44.2) [place] % (Auto) 4.6 % (2.6-8.5) Eos % (Auto) 0.2 % (0-4.4) Baso % (Auto) 0.9 % (0.2-1.2) Lymph # (Auto) 2.02 K/mm3 (0.9-3.2) [place] # (Auto) 0.6 K/mm3 (0.1-0.6) Eos # (Auto) 0.0 K/mm3 (0-0.3) Baso # (Auto) 0.1 K/mm3 (0.0-0.1) Abs Immat Gran (auto) 0.05 H K/mm3 (0.00-0.031) Absolute Neuts (auto) 9.4 H K/mm3 (1.3-6.7) Absolute Nucleated RBC 0.0 K/mm3 (0.0-0.012) Nucleated RBC % 0.0 % (0.0-0.2) PT 13.1 Seconds (11.1-14.7) INR 1.0 APTT 29.8 SECONDS (22.3-36.8) Sodium 138 mmol/L (137-145) Potassium 3.8 mmol/L (3.4-5.0) Chloride 102 mmol/L (98-107) Carbon Dioxide 27 mmol/L (22-30) Anion Gap 9 mmol/L (8-16) BUN 14 mg/dL (7-17) Creatinine 0.70 mg/dL (0.7-1.0) Estim Creat Clear Calc 98 ml/min Estimated GFR > 60 (59 - ) Glucose 112 H mg/dL (65-110) Lactic Acid 2.2 H mmol/L (0.7-2.0) Calcium 9.9 mg/dL (8.4-10.2) Phosphorus 3.7 mg/dL Cancelled (2.5-4.5) Magnesium 2.0 mg/dL (1.6-2.3) Total Bilirubin 0.4 mg/dL (0.2-1.3) AST 28 U/L (14-36) ALT 23 U/L (6-35) Alkaline Phosphatase 110 U/L (38-126) Total Creatine Kinase 61 U/L (30-135) Troponin I < 0.012 ng/mL Cancelled (0.000-0.034) NT-Pro-B Natriuret Pep 93 pg/mL (19.9-100) Total Protein 8.0 g/dL (6.3-8.2) Albumin 4.5 g/dL (3.5-5.1) Lipase 137 U/L (23-300) TSH (Reflex) 3.080 uIU/mL (0.465-4.68) Urine Color Urine Appearance Urine pH Ur Specific S [place] Urine Protein Urine Glucose (UA) Urine Ketones Ur Blood (Man) Urine Nitrate Urine Bilirubin Urine Urobilinogen Leukocyte Esterase Rfl Urine RBC Urine WBC Ur Squamous Epith Cells Urine Bacteria Urine Casts Influenza A (RT-PCR) Influenza B (RT-PCR) RSV (RT-PCR) SARS-CoV-2 RNA (RT-PCR) 04/10/23 04/10/23 03:56 06:57 WBC RBC Hgb Hct MC
[2023-04-11] VITALS (8 sets, daily range): BP systolic 90–118; BP diastolic 57–72; PULSE 60–76; RESP 11–21; TEMP 36.1–36.8; O2SAT 92–99
[2023-04-11] MEDS: ACETAMINOPHEN 325 MG TABLET 650 MG PO ×2 (00:01→22:23)
[2023-04-11] MEDS: PIPERACILLN/TAZ 3.375GM/NS50ML 3.375 GM/50 ML BAG IVPB ×2 (00:01→05:56)
[2023-04-11] MEDS: HYDROmorphone HCL INJ (*CRX) 1 MG/ML SYR 0.5 MG IV PUSH ×3 (03:48→12:24)
[2023-04-11 06:36] LABS: Basophils Absolute Auto 0.1 K/mm3 (0.0-0.1); Basophils Percent Auto 0.7 % (0.2-1.2); Eosinophils Percent Auto 0.4 % (0-4.4); Hematocrit 33.6 % (37.0-47.0); Hemoglobin 10.9 g/dL (12.0-15.0); Immature Granulocyte Absolute 0.03 K/mm3 (0.00-0.031); Immature Granulocyte Percent A 0.3 % (0-0.5); Lymphocytes Absolute Auto 2.11 K/mm3 (0.9-3.2); Lymphocytes Percent Auto 19.2 % (18.3-44.2); Mean Corpuscular HGB Conc 32.4 g/dl (32-36); Mean Corpuscular Hemoglobin 29.6 pg (26-34); Mean Corpuscular Volume 91.3 fl (80-100); Monocytes Absolute Auto 0.6 K/mm3 (0.1-0.6); Monocytes Percent Auto 5.6 % (2.6-8.5); Neutrophils Absolute Auto 8.1 K/mm3 (1.3-6.7); Neutrophils Percent Auto 73.8 % (45.5-73.1); Platelet Count Result 311 k/mm3 (150-375); Red Blood Count 3.68 M/mm3 (4.2-5.4); Red Cell Distribution Width 13.3 % (11.5-14.5)
[2023-04-11 06:51] LABS: Alanine Aminotransferase 16 U/L (6-35); Alkaline Phosphatase 98 U/L (38-126); Anion Gap 0 mmol/L (8-16); Aspartate Amino Transferase 26 U/L (14-36); Bilirubin,Total 0.6 mg/dL (0.2-1.3); Blood Urea Nitrogen 9 mg/dL (7-17); Calcium 7.5 mg/dL (8.4-10.2); Carbon Dioxide 24 mmol/L (22-30); Chloride 107 mmol/L (98-107); Estimated CRCL calculation 98 ml/min; Estimated Glomerular Filt Rate > 60; Glucose 95 mg/dL (65-110); Potassium 3.5 mmol/L (3.4-5.0); Sodium 131 mmol/L (137-145)
[2023-04-11] MEDS: ONDANSETRON INJ 4 MG/2 ML VIAL IV PUSH (09:18)
--- NOTE | 2023-04-11 09:23 | WPDANESEPPF ---
Anes - Initial Pre Proc Eval Procedure: Operation Date: 04/11/23 10:00 Proposed Procedures p Laparoscopic Cholecystectomy - Anusha Rossi MD Date/Time: 04/11/23 09:23 Surgeon: Delon Mata MD Pre Op Diagnosis: Cholelithiasis Patient Data Age: 47 Gender: F Height: 1.68 m Weight: 90.9 kg Last Vital Signs Temp 97.3 F L 04/11/23 08:55 Pulse 68 04/11/23 08:55 Resp 16 04/11/23 08:55 BP 118/72 04/11/23 08:55 Pulse Ox 94 04/11/23 08:55 O2 Del Method Room Air 04/11/23 08:55 Allergies Allergy/AdvReac Type Severity Reaction Status Date / Time aspartame AdvReac Severe Seizure Verified 04/10/23 01:53 Home Medications Medication Instructions Recorded Confirmed Type albuterol sulfate 90 mcg/actuation 2 puff inhalation QID PRN 07/28/19 04/10/23 Rx aerosol inhaler (Ventolin HFA) shortness of breath or wheezing #8 grams calcium carb-vit D3-minerals 600 1 tablet PO DAILY 02/23/22 04/10/23 History mg calcium-400 unit tablet Laboratory Tests 04/11/23 06:23 WBC 11.0 H K/mm3 (4.5-10.0) RBC 3.68 L M/mm3 (4.2-5.4) Hgb 10.9 L g/dL (12.0-15.0) Hct 33.6 L % (37.0-47.0) MCV 91.3 fl (80-100) MCH 29.6 pg (26-34) MCHC 32.4 g/dl (32-36) RDW 13.3 % (11.5-14.5) Plt Count 311 k/mm3 (150-375) MPV 9.0 fl (7.4-10.4) Immature Gran % (Auto) 0.3 % (0-0.5) Neut % (Auto) 73.8 H % (45.5-73.1) Lymph % (Auto) 19.2 % (18.3-44.2) [place] % (Auto) 5.6 % (2.6-8.5) Eos % (Auto) 0.4 % (0-4.4) Baso % (Auto) 0.7 % (0.2-1.2) Lymph # (Auto) 2.11 K/mm3 (0.9-3.2) [place] # (Auto) 0.6 K/mm3 (0.1-0.6) Eos # (Auto) 0.0 K/mm3 (0-0.3) Baso # (Auto) 0.1 K/mm3 (0.0-0.1) Abs Immat Gran (auto) 0.03 K/mm3 (0.00-0.031) Absolute Neuts (auto) 8.1 H K/mm3 (1.3-6.7) Absolute Nucleated RBC 0.0 K/mm3 (0.0-0.012) Nucleated RBC % 0.0 % (0.0-0.2) Sodium 131 L mmol/L (137-145) Potassium 3.5 mmol/L (3.4-5.0) Chloride 107 mmol/L (98-107) Carbon Dioxide 24 mmol/L (22-30) Anion Gap 0 L mmol/L (8-16) BUN 9 D mg/dL (7-17) Creatinine 0.70 mg/dL (0.7-1.0) Estim Creat Clear Calc 98 ml/min Estimated GFR > 60 (59 - ) Glucose 95 mg/dL (65-110) Calcium 7.5 L mg/dL (8.4-10.2) Magnesium 2.0 mg/dL (1.6-2.3) Total Bilirubin 0.6 mg/dL (0.2-1.3) AST 26 U/L (14-36) ALT 16 U/L (6-35) Alkaline Phosphatase 98 U/L (38-126) Total Protein 6.0 L g/dL (6.3-8.2) Albumin 3.0 L g/dL (3.5-5.1) Patient hx anesthesia problems: post op nausea/vomiting Family hx anesthesia problems: none Results Review: All pre-operative results and documents have been reviewed as part of the pre-operative evaluation. [facility] Past Medical History Medical History Migraines Obesity Surgical History Surgical History History of ovarian cystectomy (02/2022) History of tubal ligation Family History Family History Sibling Family history of atrial fibrillation Social History Social History Social History: Surrogate medical decision maker: Bernard Banks, spouse. Code status: Full code. Smoking status: Never smoker Alcohol intake: never Substance use: never Lack of Transportation: No Lack of Food: Never True Current Housing: I Have Housing Concerned About Future Housing: No Difficulty Paying Gas/Electric Bills: No Difficulty Paying for Meds: No Currently Unemployed: No Education: Trade/Vocational Certificate Difficulty w/ Childcare or Family Care: No Living arrangements: with family Spiritual care concerns: No Anes - Eval Final PreProcedure Day of Procedure
[2023-04-11] MEDS: SCOPOLAMINE 1.5 MG PATCH TRANSDERM (09:27)
--- NOTE | 2023-04-11 09:41 | WPDHPUPDATE1 ---
History and Physical Update Update Date/Time: 04/11/23 09:41 History and Physical has been reviewed, including an updated exam of the patient. There are NO changes in the patient's condition. Risks, benefits, and alternatives have been discussed and questions answered. Patient agrees to proceed with procedure.
[2023-04-11] MEDS: BUPIVACAINE/EPINEPHRINE 0.25% 10 ML VIAL 30 ML INFILTRATE (10:20)
--- NOTE | 2023-04-11 10:47 | W.PM.PROC2 ---
Procedure Note - Detailed Date of Procedure 04/11/23 Pre-op Diagnosis acute hydrops cholecystitis, cholelithiasis Post-op Diagnosis Same Procedure Performed Laparoscopic cholecystectomy Surgeon Anusha Rossi MD Anesthesia General Indications 47-year-old female presented to the hospital complaining of severe right upper quadrant abdominal pain associated with nausea and vomiting. Workup including imaging significant for acute cholecystitis, cholelithiasis. Findings acute hydrops cholecystitis with cholelithiasis Description of Procedure The patient was taken to the operating room placed in the supine position. After adequate induction of general anesthesia, the patient was prepped and draped in normal sterile fashion. A time-out was then performed to verify the patient's identity as well as the procedure being performed. I then made a 5 mm incision in the infraumbilical region. Through this, a Veress needle was placed into the peritoneal cavity and CO2 gas was then insufflated. After adequate pneumoperitoneum was achieved, the Veress needle was removed and a 5 mm optiview trocar was placed through this incision under direct visualization. I then placed the laparoscope through this trocar site and under direct visualization placed a further 12 mm subxiphoid port as well as 2 additional 5 mm ports in the right upper abdomen. The gallbladder was then identified and was noted to be severely inflamed, distended, and full of gallstones. Given these findings, the gallbladder was decompressed with an ovarian needle. Hydrops cholecystitis was noted at this point. I was then able to place a grasper at the dome of the gallbladder and this was retracted anterior and cephalad up over the liver. A 2nd retractor was then placed at the infundibulum and retracted laterally, this allowed visualization of the triangle of Calot. I then was able to visualize the cystic duct in its entirety from its proximal insertion into the gallbladder, to its distal junction with the common hepatic/common bile duct junction. At this point, I carefully skeletonized the proximal cystic duct with the [place] dissector. I then clipped and transected the proximal cystic duct. Next I visualized the cystic artery. Again the artery was skeletonized, clipped, and transected. I then used the Bovie cautery to take down the peritoneal attachments of the gallbladder off the liver bed. This was difficult given the amount of inflammation in the posterior space. Once the gallbladder specimen was completely detached, an endo-pouch was placed through the 12 mm port site. I then placed the gallbladder specimen into the Endo pouch and removed the endo-pouch from the 12 mm port site. The specimen will now be sent to pathology for further review. I then copiously irrigated the right upper quadrant. Some mild oozing was noted in the liver bed and this was controlled with the bovie cautery. Hemostasis was noted in the liver bed, the clips were noted to be in good position on both the cystic duct stump and the cystic artery stump. No other pathology was noted in the right upper quadrant. I then moved the laparoscope to the subxiphoid port. No iatrogenic injury or other pathology was noted in the lower abdomen. I then closed the 12 mm trocar site under direct visualization using the Damir cone and 0 Vicryl suture. At this point, the abdomen was desufflated and all ports removed. All port sites were then closed with 4.O Monocryl subcuticular sutures. Dermabond was placed on each incision. The patient tolerated the procedure well, was extubated in the operating room postoperative and will be transferred to the recovery room in stable condition Estimated Blood Loss 20 Drains No Packing No Pathology Yes Complications No immediate complications Condition Stable Disposition PACU [facility] Billing Surgery - Charge Forward: Surgery Billing
[2023-04-11] MEDS: LACTATED RINGERS 1,000 ML 30 ML IV CONT (10:53)
--- NOTE | 2023-04-11 15:11 | PM.IMPN ---
Progress Note: A&P Assessment and Plan (1) Acute calculous cholecystitis: Code(s): K80.00 - Calculus of gallbladder with acute cholecystitis without obstruction Status: Acute Assessment and Plan: CT abdomen pelvis findings are consistent with it acute cholecystitis with cholelithiasis. She has been started on Zosyn. Continue supportive care with IV fluid rehydration and antiemetics and analgesics as needed. Dr. Rossi has been consulted and cholecystectomy performed today. Postoperatively patient started on clear liquid diet , advance as tolerated. Subjective Date/time seen: 04/11/23 15:11 Interval history: Patient doing well postoperatively. She denies any nausea vomiting and is tolerating liquids well. She has quite a bit of pain that is now well controlled with IV analgesics. Goal is to control patient's pain with oral meds as well as continuation of tolerating diet. Review of Systems Review of Systems: All systems reviewed & are unremarkable except as noted in HPI and below Exam Narrative: GENERAL: Comfortable, no acute distress HENMT: moist mucous membranes EYES: EOM intact b/l NECK: no lymphadenopathy RESPIRATORY: clear to auscultation CARDIO: RRR GI: soft, Tender to touch, bowel sounds present, incision site with mild bruising and mild redness SKIN: no rashes EXTREMITIES: no edema, redness or tenderness Objective Data Vital Signs Vital Signs: Vital Signs - 24 hr 04/10/23 20:25 04/10/23 22:00 04/11/23 06:00 Temperature 97.2 F L 97.0 F L Pulse Rate 69 76 Respiratory Rate 16 16 Blood Pressure 115/71 112/71 Pulse Oximetry 99 98 95 Oxygen Delivery Room Air Oxygen Flow Rate 04/11/23 08:55 04/11/23 10:53 04/11/23 11:05 Temperature 97.3 F L 97.3 F L Pulse Rate 68 60 64 Respiratory Rate 16 11 L 20 Blood Pressure 118/72 90/57 L 100/72 Pulse Oximetry 94 94 94 Oxygen Delivery Room Air Simple Face Mask Simple Face Mask Oxygen Flow Rate 8 8 04/11/23 11:20 04/11/23 11:30 04/11/23 11:35 Temperature Pulse Rate 66 68 Respiratory Rate 20 21 H Blood Pressure 107/71 111/71 Pulse Oximetry 99 94 Oxygen Delivery Simple Face Mask Room Air Room Air Oxygen Flow Rate 8 04/11/23 11:50 Temperature Pulse Rate 65 Respiratory Rate 18 Blood Pressure 114/71 Pulse Oximetry 93 Oxygen Delivery Room Air Oxygen Flow Rate Intake/Output Intake/Output: Intake & Output 04/08/23 04/09/23 04/10/23 04/11/23 23:59 23:59 23:59 23:59 Intake Total 3690 200 Balance 3690 200 Meds/Results Medications: Active Medications Generic Name Dose Route Start Last Admin Trade Name Freq PRN Reason Stop Dose Admin Acetaminophen 650 mg 04/10/23 13:26 04/11/23 00:01 Acetaminophen 325 Mg Tablet PO 650 mg Q6H PRN Administration Mild Pain (1-3) or Fever Hydrocodone Bitart/Acetaminophen 1 tab 04/10/23 13:26 Hydrocodone/Acetaminophen (*Crx) 5-325 Mg Tablet PO Q6H PRN Pain Rated 4-6 Albuterol 2 puff 04/10/23 13:26 Albuterol Sulfate (*Sp) Aerosol 1 Puff INHALATION QID PRN shortness of breath or wheezing Hydromorphone HCl 0.5 mg 04/10/23 08:53 04/11/23 12:24 Hydromorphone Hcl Inj (*Crx) 1 Mg/Ml Syr IV PUSH 0.5 mg Q4H PRN Administration Pain Rated 7-10 Sodium Chloride 1,000 mls @ 125 mls/hr 04/10/23 08:55 04/11/23 00:00 Normal Saline Iv IV CONT 125 mls/hr .Q8H JOHNNIE Administration Radiology Results: ITS Impressions Chest/Abdomen/Pelvis CTA 04/10/23 05:21 IMPRESSION: 1. Normal aorta. 2. Distended gallbladder suspicious for acute cholecystitis. Consider ultrasound. Abdomen Ultrasound 04/10/23 07:43 IMPRESSION: 1. Cholelithiasis and gallbladder distention without gallbladder wall thickening, pericholecystic fluid or positive sonographic Rodríguez sign. Findings are equivocal for cholecystitis. Consider nuclear hepatobiliary scan if there is high clinical suspicion fo
[2023-04-11] MEDS: HYDROmorphone HCL INJ (*CRX) 1 MG/ML SYR IV PUSH ×2 (16:19→20:42)
[2023-04-11] MEDS: SODIUM CHLORIDE 0.9% IV 1,000 ML 125 ML IV CONT ×2 (18:05)
[2023-04-11 22:02] LABS: Glucose Point of Care 111 mg/dl (65-105)
[2023-04-11] MEDS: TEMAZEPAM (*CRX) 15 MG CAPSULE PO (22:24)
[2023-04-12 06:00] VITALS: BP 112/72; PULSE 63; RESP 14; TEMP 36.4; O2SAT 92
[2023-04-12] MEDS: HYDROmorphone HCL INJ (*CRX) 1 MG/ML SYR IV PUSH (06:08)
[2023-04-12] MEDS: SODIUM CHLORIDE 0.9% IV 1,000 ML 125 ML IV CONT (06:13)
[2023-04-12] MEDS: ACETAMINOPHEN 325 MG TABLET 650 MG PO ×2 (06:14→13:40)
[2023-04-12 06:32] LABS: Basophils Absolute Auto 0.1 K/mm3 (0.0-0.1); Basophils Percent Auto 0.5 % (0.2-1.2); Eosinophils Percent Auto 0.2 % (0-4.4); Hematocrit 34.6 % (37.0-47.0); Immature Granulocyte Absolute 0.03 K/mm3 (0.00-0.031); Immature Granulocyte Percent A 0.3 % (0-0.5); Lymphocytes Absolute Auto 2.24 K/mm3 (0.9-3.2); Lymphocytes Percent Auto 20.5 % (18.3-44.2); Mean Corpuscular HGB Conc 31.8 g/dl (32-36); Mean Corpuscular Hemoglobin 29.6 pg (26-34); Monocytes Absolute Auto 0.6 K/mm3 (0.1-0.6); Monocytes Percent Auto 5.9 % (2.6-8.5); Neutrophils Percent Auto 72.6 % (45.5-73.1); Platelet Count Result 293 k/mm3 (150-375); Red Blood Count 3.72 M/mm3 (4.2-5.4); Red Cell Distribution Width 13.7 % (11.5-14.5); White Blood Count 10.9 K/mm3 (4.5-10.0)
[2023-04-12 06:42] LABS: Alanine Aminotransferase 25 U/L (6-35); Albumin Level 3.5 g/dL (3.5-5.1); Alkaline Phosphatase 103 U/L (38-126); Anion Gap 2 mmol/L (8-16); Aspartate Amino Transferase 31 U/L (14-36); Bilirubin,Total 0.5 mg/dL (0.2-1.3); Blood Urea Nitrogen 7 mg/dL (7-17); Calcium 7.9 mg/dL (8.4-10.2); Carbon Dioxide 28 mmol/L (22-30); Chloride 105 mmol/L (98-107); Estimated CRCL calculation 113 ml/min; Estimated Glomerular Filt Rate > 60; Glucose 96 mg/dL (65-110); Potassium 3.3 mmol/L (3.4-5.0); Sodium 135 mmol/L (137-145)
[2023-04-12] MEDS: POTASSIUM CHLORIDE INJ 40 MEQ in SODIUM CHLORIDE 0.9% IV 500 ML 130 MEQ IVPB (08:43)
--- NOTE | 2023-04-12 09:53 | PM.PNGS ---
Progress Note: A&P Assessment and Plan (1) Acute calculous cholecystitis: Code(s): K80.00 - Calculus of gallbladder with acute cholecystitis without obstruction Status: Acute Assessment and Plan: doing well, routine postop care, ok to dc home and f/u 2 wks Subjective Subjective Date/Time Seen: 04/12/23 09:53 Interval history: feels better, mild incisional soreness Review of Systems Review of Systems: All systems reviewed & are unremarkable except as noted in HPI and below Exam Const: General: cooperative, comfortable and no acute distress Resp: Auscultation: clear to auscultation bilaterally Cardio: Rate: regular rate Rhythm: regular rhythm GI: Inspection: normal to inspection, distended and incision GI Palp: Yes abdominal tenderness and Yes Soft to palpation Objective Data Vital Signs Vital Signs: Vital Signs - 24 hr 04/11/23 10:53 04/11/23 11:05 04/11/23 11:20 Temperature 36.3 C L Pulse Rate 60 64 66 Respiratory Rate 11 L 20 20 Blood Pressure 90/57 L 100/72 107/71 Pulse Oximetry 94 94 99 Oxygen Delivery Simple Face Mask Simple Face Mask Simple Face Mask Oxygen Flow Rate 8 8 8 04/11/23 11:30 04/11/23 11:35 04/11/23 11:50 Temperature Pulse Rate 68 65 Respiratory Rate 21 H 18 Blood Pressure 111/71 114/71 Pulse Oximetry 94 93 Oxygen Delivery Room Air Room Air Room Air Oxygen Flow Rate 04/11/23 22:00 04/12/23 06:00 Temperature 36.8 C 36.4 C L Pulse Rate 67 63 Respiratory Rate 16 14 Blood Pressure 116/71 112/72 Pulse Oximetry 92 92 Oxygen Delivery Oxygen Flow Rate Intake/Output Intake/Output: Intake & Output 04/09/23 04/10/23 04/11/23 04/12/23 23:59 23:59 23:59 23:59 Intake Total 3690 1200 1400 Balance 3690 1200 1400 Meds/Results Medications: Active Medications Generic Name Dose Route Start Last Admin Trade Name Freq PRN Reason Stop Dose Admin Acetaminophen 650 mg 04/10/23 13:26 04/12/23 06:14 Acetaminophen 325 Mg Tablet PO 650 mg Q6H PRN Administration Mild Pain (1-3) or Fever Hydrocodone Bitart/Acetaminophen 1 tab 04/10/23 13:26 Hydrocodone/Acetaminophen (*Crx) 5-325 Mg Tablet PO Q6H PRN Pain Rated 4-6 Albuterol 2 puff 04/10/23 13:26 Albuterol Sulfate (*Sp) Aerosol 1 Puff INHALATION QID PRN shortness of breath or wheezing Hydromorphone HCl 1 mg 04/11/23 15:12 04/12/23 06:08 Hydromorphone Hcl Inj (*Crx) 1 Mg/Ml Syr IV PUSH 1 mg Q3H PRN Administration Pain Rated 7-10 Sodium Chloride 1,000 mls @ 125 mls/hr 04/10/23 08:55 04/12/23 06:13 Normal Saline Iv IV CONT 125 mls/hr .Q8H JOHNNIE Administration Potassium Chloride 40 meq/ 520 mls @ 130 mls/hr 04/12/23 08:03 04/12/23 08:43 Sodium Chloride IVPB 04/12/23 12:02 130 mls/hr ONCE ONE Administration Temazepam 15 mg 04/11/23 22:17 04/11/23 22:24 Temazepam (*Crx) 15 Mg Capsule PO 15 mg HS PRN Administration Insomnia Radiology Results: ITS Impressions Chest/Abdomen/Pelvis CTA 04/10/23 05:21 IMPRESSION: 1. Normal aorta. 2. Distended gallbladder suspicious for acute cholecystitis. Consider ultrasound. Abdomen Ultrasound 04/10/23 07:43 IMPRESSION: 1. Cholelithiasis and gallbladder distention without gallbladder wall thickening, pericholecystic fluid or positive sonographic Rodríguez sign. Findings are equivocal for cholecystitis. Consider nuclear hepatobiliary scan if there is high clinical suspicion for cholecystitis. Chest X-Ray 04/10/23 08:21 IMPRESSION: 1. No acute cardiopulmonary abnormality. Labs Labs: Laboratory Results - last 24 hr 04/11/23 04/12/23 21:58 06:19 WBC 10.9 H RBC 3.72 L Hgb 11.0 L Hct 34.6 L MCV 93.0 MCH 29.6 MCHC 31.8 L RDW 13.7 Plt Count 293 MPV 9.0 Immature Gran % (Auto) 0.3 Neut % (Auto) 72.6 Lymph % (Auto) 20.5 [place] % (Auto) 5.9 Eos % (Auto) 0.2 Baso % (Auto) 0.5 Lymph # (Au
--- NOTE | 2023-04-12 11:47 | WPDGICN ---
Assessment and Plan Assessment and plan (1) Acute calculous cholecystitis: Code(s): K80.00 - Calculus of gallbladder with acute cholecystitis without obstruction Status: Acute Assessment and Plan: no complications after cholecystectomy bile duct size normal, also had normal liver enzymes (2) Cholelithiasis: Qualifiers: Cholecystitis presence: without cholecystitis Cholelithiasis location: gallbladder Code(s): K80.20 - Calculus of gallbladder without cholecystitis without obstruction Status: Acute (3) Abdominal pain: Code(s): R10.9 - Unspecified abdominal pain Status: Acute Assessment and Plan: improved after surgery (4) Intractable nausea and vomiting: Code(s): R11.2 - Nausea with vomiting, unspecified Status: Acute Assessment and Plan: resolved (5) Colon cancer screening: Code(s): Z12.11 - Encounter for screening for malignant neoplasm of colon Status: Acute Assessment and Plan: never had colonoscopy, willing to set up one as outpatient in few more months (6) History of ovarian cystectomy: Onset Date: 02/2022 Code(s): Z98.890 - Other specified postprocedural states; Z87.42 - Personal history of other diseases of the female genital tract Status: Acute GI Consult Note Consult date/time: 04/12/23 11:47 Reason for consult: ruq pain, cholecystitis HPI: Rose Banks is a 47 year old female with history of asthma, ovarian surgery 2021 who came to ER with new onset of sever upper abdominal pain, radiation to her back and up into the chest, associated with bloating, nausea, and vomiting. Labs in the ED showed WBC count of 12.1, lactic acid 2.2, normal LFTs and lipase. CT of the abdomen and pelvis showed a distended gallbladder suspicious for acute cholecystitis, then taken to OR for lap tabby, found acute hydrops cholecystitis, cholelithiasis. She is recovering and doing better. Review of Systems Constitutional: Constitutional: Denies chills Eyes: Eyes: Denies blurry vision ENT: Reports Normal hearing present Cardiovascular: Cardiovascular: Denies leg edema Respiratory: Respiratory: Denies cough Gastrointestinal: Gastrointestinal: Reports abdominal pain and Reports nausea Genitourinary: Genitourinary: Denies hematuria Musculoskeletal: Musculoskeletal: Denies neck pain Integumentary/Breasts: Skin/Breast: Denies rash Neurologic: Denies Abnormal speech present Psychiatric: Psychiatric: Denies behavioral changes [facility] Past Medical History Medical History (Updated 04/12/23 @ 11:50 by Severiano Knight MD) Colon cancer screening Migraines Obesity Surgical History Surgical History (Updated 04/12/23 @ 11:50 by Severiano Knight MD) History of ovarian cystectomy (02/2022) History of tubal ligation Family History Family History Sibling Family history of atrial fibrillation Social History Social History Social History: Surrogate medical decision maker: Bernard Banks, spouse. Code status: Full code. Smoking status: Never smoker Alcohol intake: never Substance use: never Lack of Transportation: No Lack of Food: Never True Current Housing: I Have Housing Concerned About Future Housing: No Difficulty Paying Gas/Electric Bills: No Difficulty Paying for Meds: No Currently Unemployed: No Education: Trade/Vocational Certificate Difficulty w/ Childcare or Family Care: No Living arrangements: with family Spiritual care concerns: No Meds Home Medications and Allergies Home Medications Medication Instructions Recorded Confirmed Type albuterol sulfate 90 mcg/actuation 2 puff inhalation QID PRN 07/28/19 04/10/23 Rx aerosol inhaler (Ventolin HFA) shortness of breath or wheezing #8 grams calcium carb-vit D3-
--- NOTE | 2023-04-12 11:47 | PM.DS ---
DS: Admitting Diagnosis Discharge Date 04/12/23 Admitting Diagnosis acute cholecystitis DS: Discharge Diagnosis Discharge Diagnosis (1) Acute calculous cholecystitis: Code(s): K80.00 - Calculus of gallbladder with acute cholecystitis without obstruction Status: Acute DS: Summary Hospital Course Hospital Course: This is a 47-year-old female with a past medical history of asthma the presented to the ED on 04/10/2023 due to evaluation of abdominal pain. Patient's pain radiated to her back and up into her chest associated with nausea, vomiting and abdominal bloating. She was found to have an elevated white blood cell count of 12.1, normal LFTs and normal lipase. CT abdomen pelvis revealed distended gallbladder suspicious for acute cholecystitis and subsequent ultrasound revealed cholelithiasis and gallbladder distention without wall thickening. General surgery was consulted. Patient underwent acute cholecystectomy on 04/11/2023. She was given IV fluids and analgesics as needed. Patient did well postoperatively. Patient tolerated diet well. Her labs and vital signs are stable and she is medically clear for discharge at this time. Time Spent with Patient Time attestation: Total time spent providing and/or coordinating discharge services: Exam Narrative: GENERAL: Comfortable, no acute distress HENMT: moist mucous membranes EYES: EOM intact b/l NECK: no lymphadenopathy RESPIRATORY: clear to auscultation CARDIO: RRR GI: soft, Tender to touch, bowel sounds present, incision site with mild bruising and mild redness SKIN: no rashes EXTREMITIES: no edema, redness or tenderness DS: Data Data Completed and Pending Completed studies during hospitalization: Pending at discharge 04/11/23 10:15 Surgical [PTH] Routine Labs on day of discharge: Labs from last 24 hours 04/12/23 04/11/23 06:19 21:58 WBC 10.9 H RBC 3.72 L Hgb 11.0 L Hct 34.6 L MCV 93.0 MCH 29.6 MCHC 31.8 L RDW 13.7 Plt Count 293 MPV 9.0 Immature Gran % (Auto) 0.3 Neut % (Auto) 72.6 Lymph % (Auto) 20.5 [place] % (Auto) 5.9 Eos % (Auto) 0.2 Baso % (Auto) 0.5 Lymph # (Auto) 2.24 [place] # (Auto) 0.6 Eos # (Auto) 0.0 Baso # (Auto) 0.1 Abs Immat Gran (auto) 0.03 Absolute Neuts (auto) 8.0 H Absolute Nucleated RBC 0.0 Nucleated RBC % 0.0 Sodium 135 L Potassium 3.3 L Chloride 105 Carbon Dioxide 28 Anion Gap 2 L BUN 7 Creatinine 0.60 L Estim Creat Clear Calc 113 Estimated GFR > 60 Glucose 96 POC Capillary Glucose 111 H Calcium 7.9 L Total Bilirubin 0.5 AST 31 ALT 25 Alkaline Phosphatase 103 Total Protein 7.0 Albumin 3.5 Discharge Plan Discharge Attending physician on discharge: Delon Mata Consulting providers: Severiano Knight; Anusha Rossi Discharging Clinician: Judy Lopez Patient Disposition: Home, Self-Care Activity: other - see discharge instructions Diet: other - see discharge instructions Wound Care Instructions: other - see discharge instructions Discharge Instructions: Remove the Scopolamine patch that was placed behind your ear in 72 hours or less. Wash your hands after touching. DISCHARGE INSTRUCTION SHEET FOR HERNIA, GALLBLADDER AND APPENDIX SURGERIES DR. ROSSI PATIENT TO TAKE HOME 1. May shower in 24 hours, no soaking in bath x 2weeks. 2. Call office for: Wound increasingly painful or bleeding Vomiting Fever of greater than 101 degrees 3. If no bowel movement for three days, take 1 oz. (30 ml) Milk of Magnesia or MiraLax 17g 1 to 2 times daily. 4. No heavy lifting > 10-15 pounds x 6 weeks for hernia repairs and 2 weeks for laparoscopic cholecystectomy or appendectomy. 5. No driving for 3 days or while taking narcotic pain medications. 6. Ice to surgical site for 48 hours (30 min on, then 30 min off).
--- NOTE | 2023-04-12 13:56 | WPDANESPN ---
Anes - Prog Note Post-Op Date/Time: 04/12/23 13:56 Cardiovascular status: normal Respiratory status: normal Airway patency: baseline Mental status: baseline Post-Op hydration status: normal Vital Signs: Last Vital Signs Temp 36.4 C L 04/12/23 06:00 Pulse 63 04/12/23 06:00 Resp 14 04/12/23 06:00 BP 112/72 04/12/23 06:00 Pulse Ox 92 04/12/23 06:00 O2 Del Method Room Air 04/12/23 08:40 O2 Flow Rate 8 04/11/23 11:20 Pain Score (VAS): 11/05 I/O: Intake & Output 04/11/23 04/12/23 04/12/23 23:59 07:59 15:59 Intake Total 1400 1030 Balance 1400 1030 Laboratory Tests 04/12/23 06:19 04/12/23 06:19 04/11/23 04/12/23 21:58 06:19 WBC 10.9 H RBC 3.72 L Hgb 11.0 L Hct 34.6 L MCV 93.0 MCH 29.6 MCHC 31.8 L RDW 13.7 Plt Count 293 MPV 9.0 Immature Gran % (Auto) 0.3 Neut % (Auto) 72.6 Lymph % (Auto) 20.5 [place] % (Auto) 5.9 Eos % (Auto) 0.2 Baso % (Auto) 0.5 Lymph # (Auto) 2.24 [place] # (Auto) 0.6 Eos # (Auto) 0.0 Baso # (Auto) 0.1 Abs Immat Gran (auto) 0.03 Absolute Neuts (auto) 8.0 H Absolute Nucleated RBC 0.0 Nucleated RBC % 0.0 Sodium 135 L Potassium 3.3 L Chloride 105 Carbon Dioxide 28 Anion Gap 2 L BUN 7 Creatinine 0.60 L Estim Creat Clear Calc 113 Estimated GFR > 60 Glucose 96 POC Capillary Glucose 111 H Calcium 7.9 L Total Bilirubin 0.5 AST 31 ALT 25 Alkaline Phosphatase 103 Total Protein 7.0 Albumin 3.5 Post-procedural complaints: none Patient Feedback: Patient satisfied with anesthetic care.
[2023-04-12 14:30] VITALS: BP 110/78; PULSE 65; RESP 18; TEMP 36.6; O2SAT 96
== END 2023-04-12 15:30 | disposition home or self-care (01) ==
LOC: ANHED 09:25 → ANH3MEDSUR 09:46
PROVIDERS: Emergency Medicine; Internal Medicine Critical Care Medicine; Surgery; Admitting Provider Internal Medicine; Emergency Provider Preventive Medicine Aerospace Medicine; PCP Physician Assistant; Visit Provider Internal Medicine
PROC: 0FT44ZZ Resection of Gallbladder, Percutaneous Endoscopic Approach (ICD-10-PCS; CPT 47562; principal; 2023-04-11 10:00)
DX: K81.2 Acute cholecystitis with chronic cholecystitis (principal); E66.9 Obesity, unspecified; Z68.32 Body mass index [BMI] 32.0-32.9, adult; Z87.42 Personal history of other diseases of the female genital tract; Z98.890 Other specified postprocedural states; Z20.822 Contact with and (suspected) exposure to COVID-19; Z79.51 Long term (current) use of inhaled steroids
CPT/HCPCS: 47562; 36415; 71045; 71275; 74174; 76705; 80053; 81001; 81025; 82550; 82948; 83605; 83690; 83735; 83880; 84100; 84443; 84484; 85025; 85610; 85730; 87637; 88304; 93005; 96361; 96365; 96366; 96375; 96376; 99285; A9270; C9113; G0378; J0780; J1100; J1170; J1200; J1885; J2250; J2405; J2543; J2704; J3010; J3480; J7030; J7040; J7120; Q9967

== ENCOUNTER 2024-05-21 10:35 | Outpatient (CLI) | payer BC, SELFPAY ==
--- NOTE | ~2024-05-21 | MM_ITS ---
EXAMINATION: MM screening steven BI w teja HISTORY: Screening TECHNIQUE: Craniocaudal and mediolateral oblique 3-D tomosynthesis images were obtained and synthetic 2-D images were generated. CAD analysis was submitted and interpreted. COMPARISON: Comparison to multiple prior studies sequentially, with oldest reviewed study dated 09/2017. BREAST PARENCHYMAL COMPOSITION: Not dense: There are scattered areas of fibroglandular density. FINDINGS: There is no evidence of suspicious mass, calcification, or architectural distortion to sugg est malignancy in either breast. There has been no suspicious interval change. IMPRESSION: 1. No mammographic evidence of malignancy. 2. Recommend routine screening mammography in one year. BI-RADS Category 1: Negative Reviewed, dictated and finalized at location B.
== END 2024-05-21 10:36 | disposition home or self-care (01) ==
LOC: ANHIMG 10:37
PROVIDERS: PCP Physician Assistant; Visit Provider Obstetrics & Gynecology
DX: Z12.31 Encounter for screening mammogram for malignant neoplasm of breast (principal)
CPT/HCPCS: 77063; 77067

== ENCOUNTER 2024-10-05 10:25 | Inpatient (IN) | payer OTHER, SELFPAY ==
[2024-10-05] VITALS (10 sets, daily range): BP systolic 114–134; BP diastolic 71–98; PULSE 95–121; RESP 14–25; TEMP 36.5–37.1; O2SAT 95–96; BMI 33.3
--- NOTE | ~2024-10-05 | CT_ITS ---
EXAMINATION: CTA chest PE protocol DATE: 10/05/2024 17:41 [employer] INDICATION: TECHNIQUE: Computed tomographic angiography (CTA) of the chest was performed with 100 mL Omnipaque-35 0 intravenous contrast. The dose-length product was 331.67 mGy-cm. Maximum intensity projection 3D-re constructions of the aorta and other arteries were constructed by the technologist on a separate work station. COMPARISON: None. FINDINGS/OBSERVATIONS: PULMONARY ARTERIES: No filling defect is identified within the main or proximal pulmonary artery. The main pulmonary artery is not enlarged. THORACIC AORTA: No aneurysmal dilatation or dissection is present. The great vessels are intact LUNGS: Multifocal infiltrates detected bilaterally, consistent with recent chest radiograph. MEDIASTINUM: No morphologically suspicious or pathologically enlarged lymph nodes are identified with in the mediastinum or bilateral axilla. BONES OF THE CHEST: No acute fracture. No significant degenerative disease. No lytic or blastic lesions. HEART: The heart is of normal size, without pericardial effusion. IMPRESSION: No pulmonary embolus. No thoracic aortic dissection. Multifocal infiltrates, as designated on plain film evaluation performed 2 hours earlier. Reviewed, dictated and finalized at location A. [facility] IMPRESSION: No pulmonary embolus. No thoracic aortic dissection. Multifocal infiltrates, as designated on plain film evaluation performed 2 hour s earlier.
--- NOTE | ~2024-10-05 | XR_ITS ---
EXAMINATION: XR chest 2V DATE: 10/05/2024 15:18 INDICATION: Hypoxia. TECHNIQUE: Frontal and lateral views of the chest were obtained. COMPARISON: Chest single view 04/10/2023, chest CT 04/10/2023 FINDINGS: There are airspace opacities in the mid and lower lung zones. No pleural effusion or pneumo thorax. The heart size is normal. Surgical clips in the right upper quadrant are likely from cholecys tectomy. IMPRESSION: 1. Airspace opacities in the mid and lower lung zones, consistent with pneumonia. Reviewed, dictated and finalized at location A. [facility] DEPARTMENT CHAIR IMPRESSION: 1. Airspace opacities in the mid and lower lung zones, consistent with pneumoni a.
--- OUTSIDE RECORDS SUMMARY | 2024-10-05 11:06 | XMS_ITS | Clinical Summary ---
Author Organization [facility] Address [address] [place] [address] Care Team Providers Care Yarn Weigher Name Role Phone Rebeca Hernández Primary Care Pr ovider Source Comments [facility],non-owned Affiliates and Associated Physician Practices is amultiple site organization consisting of ambulatory clinics and hospital sitesin [place], [place], [place] and [place]. This disclosure is being madepursuant to the Care Everywhere program and may not contain all information available regarding this patient. Last updated 18.[facility] [employer] Social History Tobacco Use Types Packs/Day Years Used Date Smoking Tobacco: Never Assessed Sex and Gender Information Value Date Recorded Sex Assigned at Not on file Gender Identity Not on file Sexual Orientation Not on file Plan of Treatment Health Maintenance Due Date Last Done Comments COLOGUARD (AGES 45-75) - COL ON CA SCREENING 1976 COLON MONITORING 1976 COLONOSCOPY - COLON CA SCREENING 1976 CT COLONOGRAPHY - COLON CA SCREENING 1976 Colorectal Cancer Screening 1976 FIT - COLON CA SCREENING 1976 FLEX SIG - COLON CA SCREENING 1976 LIPID TESTING 1976 MAMMOGRAM 1976 PAP SMEAR 1976 HIV SCREENING 11/04/1991 HEPATITIS C SCREENING 10/30/1994 DTAP/TDAP/TD VACCINES (1 - Tdap) 11/04/1995 HEPATITIS B VACCINE (1 of 3 - 19+ 3-dose series) 11/04/1995 COVID-19 VACCINE ( - 2023-2 5 season) 2024 INFLUENZA VACCINE (#1) 2024 DEPRESSION SCREENING 08/29/2024 ZOSTER VACCINE (1 of 2) 2026 HIB VACCINE Aged Out No longer eligi ble based on patient's age to complete this topic HPV VACCINE Aged Out No longer eligi ble based on patient's age to complete this topic MENINGOCOCCAL (Group B) VACCINE Aged Out No longer eligible based on patient's age to complete this topic MENINGOCOCCAL VACCINE Aged Out No supriya chino eligible based on patient's age to complete this topic PNEUMOCOCCAL VACCINE Aged Out No long er eligible based on patient's age to complete this topic Care Teams Yarn Weigher Relationship Specialty Start Date End Date Rebeca Hernández PA [address] [place] [address] [place] [id number] PCP - General 03/18/22
--- OUTSIDE RECORDS SUMMARY | 2024-10-05 11:06 | XMS_ITS | Patient Health Summary ---
Author Organization [facility] Address [address] [place] [address] Care Team Providers Care Medical Billing Supervisor Name Role Phone Rebeca Hernández Primary Care Pr ovider Note from [facility],non-owned Affiliates and Associated Physician Practices is amultiple site organization consisting of ambulatory clinics and hospital sitesin [place], [place], [place] and [place]. This disclosure is being madepursuant to the Care Everywhere program and may not contain all information available regarding this patient. Last updated 18.[facility] Social History Tobacco Use Types Packs/Day Years Used Date Smoking Tobacco: Never Assessed Sex and Gender Information Value Date Recorded Sex Assigned at Not on file Gender Identity Not on file Sexual Orientation Not on file Procedures * DERMATOPATHOLOGY(Performed 05/02/2024) * DERMATOPATHOLOGY(Performed 02/01/2022) Results * DERMATOPATHOLOGY (05/02/2024 12:00 AM CDT) Only the most recent of2 resultswithin the time period is included. Case Report Dermatopathology Report Case: [id number] Authorizing Provider: Dea Camarillo MD Collected: 05/02/2024 12:00 AM Ordering Location: [facility] - Received: 05/03/2024 04:28 PM DermPath Lab Pathologist: Saba Seaman MD Specimen: Skin, right abdomen 2:43 PM CDT DERMATOPATHOLOGY LABORATORY Final Diagnosis Specimen A. SKIN, right abdomen: LENTIGINOUS MELANOCYTIC NEVUS, JUNCTIONAL TYPE, IRRITATED (D22.5) 2:43 PM CDT DERMATOPATHOLOGY LABORATORY Clinical History Nevus r/o atypia 4 2:43 PM CDT DERMATOPATHOLOGY LABORATORY Gross Description Specimen A: Received is one formalin filled container labeled with the patient's name and designated right abdomen. The specimen consists of a shave biopsy measuring 8x5x1 mm. Jar 0. 4 2:43 PM CDT DERMATOPATHOLOGY LABORATORY Microscopic Description Specimen A. SKIN, right abdomen: This is a junctional nevus. There is melanin pigment in the stratum corneum. There is a lentiginous proliferation of melanocytes between nests of cells along the dermal-epidermal junction. There is underlying fibroplasia of the papillary dermis. (Junctional Garcia's Nevus) 4 2:43 PM CDT DERMATOPATHOLOGY LABORATORY Disclaimer An external and internal positive and negative controls are appropriate for the histochemical, immunohistochemical and immunofluorescence stain(s) in this case (if any), except where stated explicitly. The performance characteristics of the stain(s) cited in this report were developed and its performance characteristic determined by the Dermatopathology Laboratory at [facility], directed by Dr. Jimmy Govea. These tests need not be, and therefore are not, approved by the [place] Food and Drug Administration. The tests are used for clinical purposes. Billing Codes Specimen Charges Stain Charges 28194 1 4 2:43 PM CDT DERMATOPATHOLOGY LABORATORY Embedded Images 4 2:43 PM CDT DERMATOPATHOLOGY LABORATORY Pathology/Cytolog y TISSUE SPECIMEN FROM SKIN / Unknown 05/02/2024 05/03/2024 4:28 PM CDT Dea Camarillo MD LAB - PATHOLOGY/CYTO LOGY ORDERABLES DERMATOPATHOLOGY LABORATORY [facility] - Department of Dermatology [facility] Medicine [address] [place] [address], [address] [phone] Care Teams Medical Billing Supervisor Relationship Specialty Start Date End Date Rebeca Hernández PA [address] [place] [address] PCP - General 03/18/22
--- OUTSIDE RECORDS SUMMARY | 2024-10-05 11:06 | XMS_ITS | Referral Summary ---
Author Organization [facility] [address] Address [address] [place] [id number] Care Team Providers Care Class A Truck Driver Name Role Phone Rebeca Jasso Primary Care Pr ovider Encounters Date Type Department Care Team Description 10/04/2024 2:19 PM LOADING MACHINE OPERATOR HELPER - 10/04/2024 11:59 PM LOADING MACHINE OPERATOR HELPER Hospital Encounter [address] [address] Sore throat Discharge Disposition: Discharge to home or self care 10/04/2024 12:15 PM LOADING MACHINE OPERATOR HELPER Ancillary Procedure [facility] at [address] [address] Influenza A 10/04/2024 11:15 AM LOADING MACHINE OPERATOR HELPER Office Visit [facility] at [address] [address] Alyssa Choi, ALISSON Sore throat (Primary Dx); Influenza A; Community acquired pneumonia of left lung, unspecified part of lung 10/03/2024 8:25 AM LOADING MACHINE OPERATOR HELPER Ancillary Procedure [facility] at [address] [address] Influenza A 10/03/2024 8:00 AM LOADING MACHINE OPERATOR HELPER Office Visit [facility] at [address] [address] Alison Castillo NP Influenza A (Primary Dx) from Last 3 Months Allergies Active Allergy Reactions Criticality Noted Date Comments Aspartame Seizures High 02/24/2022 Medications acetaminophen 500 mg capsule Take 2 tablets by mouth as needed for mild pain (pain scale 1-4) Active ibuprofen (ADVIL,MOTRIN) 200 mg tab/cap Take 600 mg by mouth as needed for pain Active beclomethasone dipropionate (QVAR REDIHALER) 40 mcg/actuation inhaler Active methocarbamoL (ROBAXIN) 500 mg tablet Take 1 tablet (500 mg total) by mouth 4 (four) times a day Active benzonatate (TESSALON) 200 mg capsuleIndicatio ns:Influenza A Take 1 capsule (200 mg total) by mouth 3 (three) times a day as needed for cough 30 capsule 10/03/19 25 Active Additional Information Patient not taking.Reported on 10/04/2024 amoxicillin-clav ulanate (Augmentin) 875-125 mg per tabletIndication s:Community acquired pneumonia of left lung, unspecified part of lung Take 1 tablet by mouth 2 (two) times a day for 10 days 20 tablet 10/04/19 25 025 Active azithromycin (ZITHROMAX) 250 mg tabletIndication s:Community acquired pneumonia of left lung, unspecified part of lung Take 2 tabs (500 mg) by mouth today, than 1 tab (250 mg) daily for 4 days. 6 tablet 10/04/19 25 025 Active benzonatate (TESSALON) 200 mg capsule Take 1 capsule (200 mg total) by mouth 3 (three) times a day 09/18/19 23 025 Discontin ued(Thera py completed ) Hospital, Clinic, or Other Facility Administered Medication Ordered Dose Route Frequency Start Date End Date Status ipratropium-albuteroL (DUO-NEB) 0.5-2.5 mg/3 mL nebulizer solution 3 mLIndications:Chronic Obstructive Pulmonary Disease with Bronchospasms 3 mL nebu Once 10/04/2024 5 Active Active Problems Problem Noted Date Diagnosed Date Streptococcal sore throat 11/11/2022 Lumbar spine pain 05/17/2022 Chronic LLQ pain 03/12/2022 Overview (10/18/2022): Added automatically from request for surgery [id number] Lumbar spondylosis 02/10/2022 Mass of subcutaneous tissue of back 01/05/2022 Complex cyst of uterine adnexa 12/21/2021 Degeneration of lumbar intervertebral disc 12/21 Lipoma of lower back 12/21/2021 Acute thoracic back pain 12/01/2021 Left sided abdominal pain 12/01/2021 Rib pain 12/01/2021 Immunizations Name Administration Dates Next Due Influenza, Quadrivalent, Stephenie l Culture-based MDCK, Preservative Free, Antibiotic Free, Intramuscular 06/12/2020 Tetanus Toxoid, Unspecified 08/29/2008 Social History Tobacco Use Types Packs/Day Years Used Date Smoking Tobacco: Never Tobacco Cessation:Counseling Given: Not Answered AUDIT-C Answer Date Recorded Q1: How often do you have a drink containing alc ohol? Never 05/18/2022 Average Number of Drinks Not on file 022 Frequency of Binge Drinking Not on file 04/30 Comments Unknown Sex and Gender Information Value Date Recorded Sex Assigned at Not on file Legal Sex Female 2:29 PM LOADING MACHINE OPERATOR HELPER Gender Identity Not on file Sexual Orientation Not on file Last Filed Vital Signs Vital Sign Reading Time Taken Comments Blood Pressure 122/62 10/04/2024 11:20 AM LOADING MACHINE OPERATOR HELPER Pulse 111 10/04/2024 12:21 PM LOADING MACHINE OPERATOR HELPER Temperature 37.6 C (99.6 F) 10/04/2024 11:20 AM LOADING MACHINE OPERATOR HELPER Respiratory Rate 22 10/04/2024 11:20 AM LOADING MACHINE OPERATOR HELPER Oxygen Saturation 95% 10/04/2024 12:21 PM LOADING MACHINE OPERATOR HELPER after neb tx Inhaled Oxygen Concentration - - Weight 92.5 kg (204 lb) 10/04/2024 11:20 AM LOADING MACHINE OPERATOR HELPER Height 156.2 cm (5' 1.5 ) 06/12/2024 9:56 AM CDT Body Mass Index 37.92 06/12/2024 9:56 AM CDT Plan of Treatment Not on file Procedures Procedure Name Priority Date/Time Associated Diagnosis Comments XR CHEST PA LATERAL 2 VIEWS Schedule SHELLEY, Read SHELLEY (Appt Today, Awaiting Results) 10/04/2024 12:26 PM LOADING MACHINE OPERATOR HELPER Influenza A POCT RAPID STREP Routine 10/04/2024 11:3 2 AM LOADING MACHINE OPERATOR HELPER Sore throat XR CHEST PA LATERAL 2 VIEWS Schedule SHELLEY, Read SHELLEY (Appt Today, Awaiting Results) 10/03/2024 8:32 AM LOADING MACHINE OPERATOR HELPER Influenza A POCT RAPID STREP Routine 10/03/2024 8:18 AM LOADING MACHINE OPERATOR HELPER Influenza A POC INFLUENZA A/B, COVID-19 ANTIGEN Routine 10/03/2024 8:17 AM LOADING MACHINE OPERATOR HELPER Influenza A from Last 3 Months Results * XR Chest Pa Lateral 2 Views (10/04/2024 12:26 PM LOADING MACHINE OPERATOR HELPER) Anatomical Region Laterality Modality Body, Chest N/A Digital Radiogra phy 10/04/2024 1:08 PM LOADING MACHINE OPERATOR HELPER Narrative 10/04/2024 1:12 PM LOADING MACHINE OPERATOR HELPER EXAM DESCRIPTION: XR CHEST PA LATERAL 2 VIEWS REASON FOR STUDY: cough Pt FLU A+. Cough for two weeks, and patient states she is worse from yesterday. No surgery to heart, lungs, or chest. Non-smoker. TECHNIQUE: 2 radiographic view(s) of the chest. COMPARISON: 10/03/2024. FINDINGS: LUNGS: Focal airspace opacity projecting in the perihilar left mid lung on the frontal view. The lateral correlate is unclear. This is suspicious for pneumonia. Recommend radiographic follow-up in 4-6 weeks to assess for resolution. No pleural effusion or pneumothorax is identified. HEART/MEDIASTINUM: The heart size and cardiomediastinal contours are normal. LINES/TUBES: None. BONES: Levocurvature of the upper thoracic spine. No aggressive bone lesion or acute fracture seen radiographically. Cholecystectomy clips are present. No gross acute finding in the visualized upper abdomen. IMPRESSION: Perihilar left mid lung airspace opacity is suspicious for pneumonia. Recommend follow-up two-view chest radiographs in 4-6 weeks to assess for complete resolution. THIS IS AN ELECTRONICALLY VERIFIED FINAL REPORT 10/04/2024 1:12 PM - Electronically signed by Lorenzo Barber M.D. MZ T: Report ID: [id number] Reading Location: [id number] Procedure Note Lorenzo Barber MD - 10/04/2024 EXAM DESCRIPTION: XR CHEST PA LATERAL 2 VIEWS REASON FOR STUDY: cough Pt FLU A+. Cough for two weeks, and patient states she is worse from yesterday. No surgery to heart, lungs, or chest. Non-smoker. TECHNIQUE: 2 radiographic view(s) of the chest. COMPARISON: 10/03/2024. FINDINGS: LUNGS: Focal airspace opacity projecting in the perihilar leftmid lung on the frontal view. The lateral correlate is unclear. This is suspicious for pneumonia. Recommend radiographic follow-up in 4-6 weeksto assess for resolution. No pleural effusion or pneumothorax is identified. HEART/MEDIASTINUM: The heart size and cardiomediastinal contours arenormal. LINES/TUBES: None. BONES: Levocurvature of the upper thoracic spine. No aggressive bonelesion or acute fracture seen radiographically. Cholecystectomy clips are present. No gross acute finding in thevisualized upper abdomen. IMPRESSION: Perihilar left mid lung airspace opacity is suspicious for pneumonia. Recommend follow-up two-view chest radiographs in 4-6 weeks to assess for complete resolution. THIS IS AN ELECTRONICALLY VERIFIED FINAL REPORT 10/04/2024 1:12 PM - Electronically signed by Lorenzo GUSMAN T: Report ID: [id number] Reading Location: [id number] us Alyssa Choi NP IMG XR PROCEDURES Final Re sult * POCT rapid strep A (10/04/2024 11:32 AM LOADING MACHINE OPERATOR HELPER) Rapid Strep A, POC Negative Negative Swab 10/04/2024 11:3 2 AM LOADING MACHINE OPERATOR HELPER us Alyssa Choi NP POINT OF CARE TEST ORDERAB LES Final Result * XR Chest PA Lateral 2 Views (10/03/2024 8:32 AM LOADING MACHINE OPERATOR HELPER) Anatomical Region Laterality Modality Body, Chest N/A Digital Radiogra phy 10/03/2024 8:48 AM LOADING MACHINE OPERATOR HELPER Narrative 10/03/2024 8:50 AM LOADING MACHINE OPERATOR HELPER EXAM DESCRIPTION: XR CHEST PA LATERAL 2 VIEWS REASON FOR STUDY: Cough for 2 weeks. TECHNIQUE: PA and lateral radiographic views of the chest COMPARISON: Chest radiograph 11/05/2021 FINDINGS: LUNGS/PLEURAE: No consolidation or pneumothorax. No pleural effusion. HEART/MEDIASTINUM: Heart size is normal. Normal mediastinal and hilar contours. HARDWARE/LINES/TUBES: None. BONES: No acute findings. IMPRESSION: No acute radiographic abnormality. THIS IS AN ELECTRONICALLY VERIFIED FINAL REPORT 10/03/2024 8:50 AM - Electronically signed by Carmelo Rodriguez M.D. LB T: Report ID: [id number] Reading Location: [id number] Procedure Note Carmelo Rodriguez MD - 10/03/2024 EXAM DESCRIPTION: XR CHEST PA LATERAL 2 VIEWS REASON FOR STUDY: Cough for 2 weeks. TECHNIQUE: PA and lateral radiographic views of the chest COMPARISON: Chest radiograph 11/05/2021 FINDINGS: LUNGS/PLEURAE: No consolidation or pneumothorax. No pleural effusion. HEART/MEDIASTINUM: Heart size is normal. Normal mediastinal and hilar contours. HARDWARE/LINES/TUBES: None. BONES: No acute findings. IMPRESSION: No acute radiographic abnormality. THIS IS AN ELECTRONICALLY VERIFIED FINAL REPORT 10/03/2024 8:50 AM - Electronically signed by Carmelo Rodriguez M.D. LB T: Report ID: [id number] Reading Location: [id number] us Alison Castillo NP IMG XR PROCEDURES Final Result * POCT rapid strep A (10/03/2024 8:18 AM LOADING MACHINE OPERATOR HELPER) Rapid Strep A, POC Negative Negative Swab 10/03/2024 8:18 AM LOADING MACHINE OPERATOR HELPER us Alison Castillo NP POINT OF CARE TEST ORDERABLES Final Result * (ABNORMAL) POC Influenza A/B, COVID-19 antigen (10/03/2024 8:17 AM LOADING MACHINE OPERATOR HELPER) Influenza A Ag, POC Positive(A) Negative [facility] Influenza B Ag, POC Negative Negative [facility] COVID-19 Ag POC Presumptive Negative Presumptive Negative, Invalid [facility] Nasal 10/03/2024 8:17 AM LOADING MACHINE OPERATOR HELPER Alison Castillo NP POINT OF CARE TEST ORDERABLES Final Result [facility] [address] [place] [address], [facility] from Last 3 Months Additional Health Concerns Infection Onset Date Last Indicated Influenza, adult 10/03/2024 10/03/2024 Insurance [facility] [employer] CHOICE [facility] CHOICE PLUS Care Teams Class A Truck Driver Relationship Specialty Start Date End Date Rebeca Jasso PA PCP - General Physician Acting Section Chief 04/09/22
--- OUTSIDE RECORDS SUMMARY | 2024-10-05 11:06 | XMS_ITS | Clinical Summary ---
Author Organization [facility] Address [address] [place] [address] Phone Care Team Providers Care Aquarist Name Role Phone Unavailable Primary Care Provider Unavailabl e Medications methocarbamoL (ROBAXIN) 500 mg tablet Take 1 Tablet (500 mg) by mouth 3 times daily as needed. 30 Tablet 01/12/2022 1:17 PM CDT 01/12/2022 Active sodium, potassium and magnesium sulfates (Suprep Bowel Prep Kit) 17.5-3.13-1.6 gram Recon Soln Take 177 mLs by mouth every 12 (twelve) hours for 1 day. Take as directed in the instructions. 354 mL 03/02/2022 7:41 PM CDT 02/24/2022 Active HYDROcodone-sravan taminophen (NORCO) 5-325 mg tablet Take 1-2 tablets by mouth every 6 hours 30 Tablet 03/03/2022 5:13 PM CDT 03/03/2022 Active gabapentin (NEURONTIN) 300 mg capsule Take 1 Capsule (300 mg) by mouth 3 times daily. 90 Capsule 03/24/2022 2:35 PM CDT 03/24/2022 Active benzonatate (TESSALON) 200 mg capsule Take 1 Capsule (200 mg) by mouth 3 times daily as needed for cough. 42 Capsule 09/18/2022 5:18 PM RESOURCE RECOVERY ENGINEER 09/18/2022 Active azithromycin (Zithromax Z-Latrell) 250 mg tablet TAKE 2 TABLETS (500 MG) BY MOUTH ONCE DAILY FOR 1 DAY THEN 1 TABLET (250 MG) BY BY MOUTH ONCE DAILY FOR 4 DAYS 6 Tablet 11/11/2022 6:54 PM CDT 11/11/2022 Active HYDROcodone-sravan taminophen (NORCO) 7.5-325 mg Tablet Take 1 Tablet by mouth every 6 hours as needed for pain. 20 Tablet 04/12/2023 6:56 PM CDT 04/11/2023 Active azithromycin (Zithromax Z-Latrell) 250 mg tablet Take 2 tablets by mouth today, then take 1 tablet by mouth daily for 4 days. 6 Tablet 07/18/2023 3:02 PM RESOURCE RECOVERY ENGINEER 07/18/2023 Active benzonatate (TESSALON) 200 mg capsule Take 1 Capsule (200 mg) by mouth 3 times daily. 30 Capsule 06/05/2024 5:44 PM CDT 06/05/2024 Active benzonatate (TESSALON) 200 mg capsule Take 1 capsule (200 mg total) by mouth 3 (three) times a day as needed for cough 30 Capsule 10/03/2024 4:28 PM RESOURCE RECOVERY ENGINEER 10/03/2024 Active oseltamivir (Tamiflu) 75 mg capsule Take 1 Capsule (75 mg) by mouth 2 times daily for 5 days. 10 Capsule 10/04/2024 10:21 AM RESOURCE RECOVERY ENGINEER 10/04/2024 10/09/19 25 Active methylPREDNISol one (Medrol, Latrell,) 4 mg Tablets, Dose Pack TAKE DRIECTED ON PACKAGE. 21 Tablet 10/04/2024 10:21 AM RESOURCE RECOVERY ENGINEER 10/04/2024 Active albuterol sulfate HFA 90 mcg/actuation aerosol inhaler Inhale 2 puffs by mouth every 4 hours as needed. 6.7 Gram 10/04/2024 2:28 PM RESOURCE RECOVERY ENGINEER 10/04/2024 Active amoxicillin-cla vulanate (AUGMENTIN) 875-125 mg tablet Take 1 Tablet by mouth 2 times daily for 10 days. 20 Tablet 10/04/2024 2:28 PM RESOURCE RECOVERY ENGINEER 10/04/2024 10/14/19 25 Active azithromycin (ZITHROMAX) 250 mg tablet TAKE 2 TABLETS BY MOUTH A SINGLE DOSE ON DAY 1, THEN TAKE 1 TABLET DAILY ON DAYS 2 THRU 5. 6 Tablet 10/04/2024 2:28 PM RESOURCE RECOVERY ENGINEER 10/04/2024 Active Encounters Date Type Department Care Team Description 09/18/2024 External Device Data [facility] ABSTRACTION Provider, Abstract 09/11/2024 External Device Data [facility] ABSTRACTION Provider, Abstract from Last 3 Months Social History Tobacco Use Types Packs/Day Years Used Date Smoking Tobacco: Never Assessed Comments Unknown Sex and Gender Information Value Date Recorded Sex Assigned at Not on file Legal Sex Female 12:25 PM CDT Gender Identity Not on file Sexual Orientation Not on file Plan of Treatment Health Maintenance Due Date Last Done Comments DTAP/TDAP/TD VACCINES (1 - Tdap) 11/04/1995 HEPATITIS B VACCINES (1 of 3 - 19+ 3-dose series) 03/1996 CERVICAL CANCER SCREENING 2006 BREAST CANCER SCREENING 2016 COLORECTAL SCREENING 2021 Colorectal Cancer Screening 2021 FIT-DNA Q 3 years 2021 FIT/FOBT Q 1 year 2021 Flex Sig/CT Colonography Q 5 years 2021 INFLUENZA VACCINE (#1) 2024 Insurance [employer]
--- OUTSIDE RECORDS SUMMARY | 2024-10-05 11:06 | XMS_ITS | Referral Summary ---
Author Organization [facility] Address [address] [place] [address] Care Team Providers Care Director Of Student Financial Aid Name Role Phone Rebeca Hernández Primary Care Pr ovider Source Comments [facility],non-owned Affiliates and Associated Physician Practices is amultiple site organization consisting of ambulatory clinics and hospital sitesin [place] and [place]. This disclosure is being madepursuant to the Care Everywhere program and may not contain all information available regarding this patient. Last updated 18.[facility] Social History Tobacco Use Types Packs/Day Years Used Date Smoking Tobacco: Never Assessed Sex and Gender Information Value Date Recorded Sex Assigned at Not on file Gender Identity Not on file Sexual Orientation Not on file Plan of Treatment Not on file Care Teams Director Of Student Financial Aid Relationship Specialty Start Date End Date Rebeca Hernández PA [address] [place] [id number] [facility] - General 03/18/22
--- OUTSIDE RECORDS SUMMARY | 2024-10-05 11:07 | XMS_ITS | Encounter Summary ---
Author Organization [facility] Healthcare Address [address] [place] [address] Care Team Providers Care Diesel Trailer Mechanic Name Role Phone Rebeca Jasso Primary Care Pr ovid Reason for Visit * Reason Comments Shortness of Breath SOB, feels like lung s are full of fluid was seen at yesterday and had flu A also c.o sore throat. C/o face being very red and heart racing. Reports her O2 sat at home is upper 80s low 90s Encounter Details Date Type Department Care Team (Late st Contact Info) Description 10/04/2024 11:15 AM SYSTEMS TESTING LABORATORY TECHNICIAN Office Visit [facility] Medical Group Convenient Care at [address] [phone] Alyssa Choi NP [address] [place] [address] [address] [place] [address] Sore throat (Primary Dx); Influenza A; Community acquired pneumonia of left lung, unspecified part of lung Social History Tobacco Use Types Packs/Day Years Used Date Smoking Tobacco: Never AUDIT-C Answer Date Recorded Q1: How often do you have a drink containing alc ohol? Never 05/18/2022 Average Number of Drinks Not on file 022 Frequency of Binge Drinking Not on file 04/30 Comments Unknown Sex and Gender Information Value Date Recorded Sex Assigned at Not on file Legal Sex Female 2:29 PM SYSTEMS TESTING LABORATORY TECHNICIAN Gender Identity Not on file Sexual Orientation Not on file documented as of this encounter Last Filed Vital Signs Vital Sign Reading Time Taken Comments Blood Pressure 122/62 10/04/2024 11:20 AM SYSTEMS TESTING LABORATORY TECHNICIAN Pulse 111 10/04/2024 12:21 PM SYSTEMS TESTING LABORATORY TECHNICIAN Temperature 37.6 C (99.6 F) 10/04/2024 11:20 AM SYSTEMS TESTING LABORATORY TECHNICIAN Respiratory Rate 22 10/04/2024 11:20 AM SYSTEMS TESTING LABORATORY TECHNICIAN Oxygen Saturation 95% 10/04/2024 12:21 PM SYSTEMS TESTING LABORATORY TECHNICIAN after neb tx Inhaled Oxygen Concentration - - Weight 92.5 kg (204 lb) 10/04/2024 11:20 AM SYSTEMS TESTING LABORATORY TECHNICIAN Height - - Body Mass Index 37.92 06/12/2024 9:56 AM CDT documented in this encounter Patient Instructions * Patient Instructions* Alyssa Choi, BUSINESS CONTINUITY COORDINATOR - 10/04/2024 11:15 AM SYSTEMS TESTING LABORATORY TECHNICIAN If you have no improvement or worsening of your symptoms, please follow up with your Primary Care Provider, [facility] and or Emergency Room. I strive to provide you with EXCELLENT service. You may receive a survey after your visit today. If you cannot rate your experience as EXCELLENT, please let us know how we can improve and better meet your needs. Thank you for choosing [facility]! It was my pleasure to see you today, I hope you feel better soon! Alyssa Choi JELLY FILTER TENDER Influenza ?? Supportive care is the focus of care with influenza-make sure to stay well- hydrated and treat symptoms with over the counter medications for symptom relief. ?? Take guaifenesin expectorants, i.e. Maximum Strength Mucinex, Robitussin, or store brand for chest congestion. ?? For cough, dextromethorphan (Delsym syrup, Robitussin cough capsules or store brand). Dextromethorphan is considered safe for and breast feeding women. ?? Antihistamine, i.e. Claritin, Zyrtec or Benadryl for nasal drainage, per package directions. ?? Increase oral fluids to at least 2 liters (2 quarts) of non-caffeinated, non- alcoholic beveragesdaily ?? Increase rest, monitor temperature ?? May alternate acetaminophen (Tylenol) and ibuprofen (Motrin or Advil) with food every 4-6 hours for fever, body aches, headache or sore throat. Do not exceed maximum daily dose per package instructions ?? May use hard candy, throat lozenges, Chloraseptic spray or warm salt water gargles to soothe throat ?? Activity as tolerated, Avoid crowds and large groups ?? Avoid spreading germs by washing hands frequently and covering mouth when coughing ?? People with influenza are contagious 1 day before symptoms begin and up to 7 days after getting sick Influenza Follow-up ?? Follow up with the clinic, primary care provider(Rebeca Jasso PA) or urgent care if symptoms become more severe. ?? If you begin to feel better, then feel significantly worse, see your primary care provider or [facility] urgent care / ER ?? Call 911 or have someone take you to ER/Urgent Care if any difficulty with breathing or shortness of breath, if you develop high fevers that do not respond to ibuprofen (Advil / Motrin) or acetaminophen (Tylenol) , if you have a hard time awakening or staying awake or become lethargic or confused, or if you develop new stiffness in your neck. If you need to be excused from more than 3 days off from work, please follow-up with your PCP. EMS TESTING LABORATORY TECHNICIAN EMS TESTING LABORATORY TECHNICIAN * Attachments The following attachments cannot be sent through Care Everywhere. * Influenza (AfterCare(R) Instructions(ER/ED)) (Hong Konger) documented in this encounter Ordered Prescriptions Prescription Sig Dispense Quantity Refills Last Filled Start Date End Date azithromycin (ZITHROMAX) 250 mg tabletIndications: Community acquired pneumonia of left lung, unspecified part of lung Take 2 tabs (500 mg) by mouth today, than 1 tab (250 mg) daily for 4 days. 6 tablet 10/04/2024 10/09/2024 amoxicillin-clavul anate (Augmentin) 875-125 mg per tabletIndications: Community acquired pneumonia of left lung, unspecified part of lung Take 1 tablet by mouth 2 (two) times a day for 10 days 20 tablet 10/04/2024 10/14/2024 documented in this encounter Miscellaneous Notes * Addendum Note - Dalia Bhat - 10/04/2024 11:15 AM CSTAddended by: DALIA BHAT on: 10/04/2024 09:21 PM Modules accepted: Orders EMS TESTING LABORATORY TECHNICIAN documented in this encounter Plan of Treatment Pending Results Name Type Priority Associated Diagnoses Date /Time Throat culture Throat Microbiology Routine Sore throat 10/04/2024 2:19 PM SYSTEMS TESTING LABORATORY TECHNICIAN Scheduled Orders Name Type Priority Associated Diagnoses Orde r Schedule Throat culture Throat Microbiology Routine Sore throat Expected: 10/04/2024, Expires: 10/04/2025 documented as of this encounter Procedures Procedure Name Priority Date/Time Associated Diagnosis Comments POCT RAPID STREP Routine 10/04/2024 11:3 2 AM SYSTEMS TESTING LABORATORY TECHNICIAN Sore throat documented in this encounter Results * XR Chest Pa Lateral 2 Views (10/04/2024 12:26 PM SYSTEMS TESTING LABORATORY TECHNICIAN) Anatomical Region Laterality Modality Body, Chest N/A Digital Radiogra phy 10/04/2024 1:08 PM SYSTEMS TESTING LABORATORY TECHNICIAN Narrative 10/04/2024 1:12 PM SYSTEMS TESTING LABORATORY TECHNICIAN EXAM DESCRIPTION: XR CHEST PA LATERAL 2 [...] Lorenzo Barber M.D. MZ T: Report ID: [id number] Reading Location: [id number] Procedure Note Lorenzo Barber MD - 10/04/2024 [...] Lorenzo Barber M.D. MZ T: Report ID: [id number] Reading Location: [id number] Alyssa Choi BUSINESS CONTINUITY COORDINATOR IMG XR PROCEDURES Final Re sult * POCT rapid strep A (10/04/2024 11:32 AM SYSTEMS TESTING LABORATORY TECHNICIAN) Rapid Strep A, POC Negative Negative Swab 10/04/2024 11:3 2 AM SYSTEMS TESTING LABORATORY TECHNICIAN us Alyssa Choi NP POINT OF CARE TEST ORDERAB LES Final Result documented in this encounter Visit Diagnoses Diagnosis Sore throat- Primary Acute pharyngitis Influenza A Influenza with other respiratory manifestations Community acquired pneumonia of left lung, unspecified part of lung Influenza A Influenza with other respiratory manifestations documented in this encounter Orders Medications Ordered That José Antonio ht Not Have Been Administered Count Last Ordered Date First Ordered Date ipratropium-albuteroL (DUO-N EB) 0.5-2.5 mg/3 mL nebulizer solution 3 mL 1 10/04/2024 documented in this encounter Additional Health Concerns Infection Onset Date Last Indicated Resolved Time Influenza, adult 10/03/2024 10/03/2024 documented as of this encounter Care Teams Diesel Trailer Mechanic Relationship Specialty Start Date End Date Rebeca Jasso PA PCP - General Physician Stone Carriage Operator 04/09/22 documented as of this encounter
--- OUTSIDE RECORDS SUMMARY | 2024-10-05 11:07 | XMS_ITS | Encounter Summary ---
Author Organization [facility] Healthcare Address [address] [place] [address] Care Team Providers Care Power Transformer Repairer Name Role Phone Rebeca Jasso Primary Care Pr ovid Encounter Details Date Type Department Care Team (Latest Contact Info) Description 10/04/2024 2:19 PM CONTRACTING ANALYST - 10/04/2024 11:59 PM CONTRACTING ANALYST Hospital Encounter [address] [address] Sore throat Discharge Disposition: Discharge to home or self care Social History Tobacco Use Types Packs/Day Years [...] on file Legal Sex Female 2:29 PM CONTRACTING ANALYST Gender Identity Not on file Sexual Orientation Not on file documented as of this encounter Medications at Time of Discharge acetaminophen 500 mg capsule Take 2 tablets by mouth as needed for mild pain (pain scale 1-4) amoxicillin-clavul anate (Augmentin) 875-125 mg per tabletIndications: Community acquired pneumonia of left lung, unspecified part of lung Take 1 tablet by mouth 2 (two) times a day for 10 days 20 tablet 10/04/2024 azithromycin (ZITHROMAX) 250 mg tabletIndications: Community acquired pneumonia of left lung, unspecified part of lung Take 2 tabs (500 mg) by mouth today, than 1 tab (250 mg) daily for 4 days. 6 tablet 10/04/2024 beclomethasone dipropionate (QVAR REDIHALER) 40 mcg/actuation inhaler benzonatate (TESSALON) 200 mg capsuleIndications :Influenza A Take 1 capsule (200 mg total) by mouth 3 (three) times a day as needed for cough 30 capsule 10/03/2024 ibuprofen (ADVIL,MOTRIN) 200 mg tab/cap Take 600 mg by mouth as needed for pain methocarbamoL (ROBAXIN) 500 mg tablet Take 1 tablet (500 mg total) by mouth 4 (four) times a day documented as of this encounter Discharge Disposition Disposition Code Departure Means Destination Discharge to home or self care documented in this encounter Plan of Treatment Pending Results Name Type Priority Associated Diagnoses Date /Time Throat culture Throat Microbiology Routine Sore throat 10/04/2024 2:19 PM CONTRACTING ANALYST Scheduled Orders Name Type Priority Associated Diagnoses Orde r Schedule Throat culture Throat Microbiology Routine Sore throat Once for 1 Occurrences starting 10/04/2024 until 10/04/2024 documented as of this encounter Visit Diagnoses Diagnosis Sore throat Acute pharyngitis documented in this encounter Additional Health Concerns Infection Onset Date Last Indicated Resolved Time Influenza, adult 10/03/2024 10/03/2024 documented as of this encounter Care Teams Power Transformer Repairer Relationship Specialty Start Date End Date Rebeca Jasso PA PCP - General Physician Sausage Maker 04/09/22 documented as of this encounter
--- OUTSIDE RECORDS SUMMARY | 2024-10-05 11:07 | XMS_ITS | Encounter Summary ---
Author Organization [facility] Address [address] [place] [address] Care Team Providers Care Acting Instructor Name Role Phone Rebeca Hernández Primary Care Pr ovider Encounter Details Date Type Department Care Team (Late st Contact Info) Description 05/03/2024 Lab Requisition [facility] - DermPath Lab [address] [place] [id number] [place] [address] [facility] [address] [place] [address] Social History Tobacco Use Types Packs/Day Years Used Date Smoking Tobacco: Never Assessed Sex and Gender Information Value Date Recorded Sex Assigned at Not on file Gender Identity Not on file Sexual Orientation Not on file documented as of this encounter Plan of Treatment Not on file documented as of this encounter Procedures Procedure Name Priority Date/Time Associated Diagnosis Comments DERMATOPATHOLOGY Routine 05/02/2024 12:0 0 AM CDT documented in this encounter Results * DERMATOPATHOLOGY (05/02/2024 12:00 AM CDT) Case Report Dermatopathology Report Case: [id number] Authorizing Provider: Dea Camarillo MD Collected: 05/02/2024 12:00 AM Ordering Location: [facility] - Received: 05/03/2024 04:28 PM DermPath Lab Pathologist: Saba Seaman MD Specimen: Skin, right abdomen 2:43 PM CDT DERMATOPATHOLOGY LABORATORY Final Diagnosis Specimen A. SKIN, right abdomen: LENTIGINOUS MELANOCYTIC NEVUS, JUNCTIONAL TYPE, IRRITATED (D22.5) 4 2:43 PM CDT DERMATOPATHOLOGY LABORATORY Clinical History [...] characteristic determined by the Dermatopathology Laboratory at [facility], directed by Dr. Jimmy Govea. These tests need not be, and therefore are not, approved by the [place] Food and Drug Administration. The tests are used for clinical purposes. Billing Codes Specimen Charges Stain Charges 05293 1 4 2:43 PM CDT DERMATOPATHOLOGY LABORATORY Embedded Images 4 2:43 PM CDT DERMATOPATHOLOGY LABORATORY Pathology/Cytolog y TISSUE SPECIMEN FROM SKIN / Unknown 05/02/2024 05/03/2024 4:28 PM CDT Dea Camarillo MD LAB - PATHOLOGY/CYTO LOGY ORDERABLES DERMATOPATHOLOGY LABORATORY [facility] - Department of Dermatology [address] [phone] documented in this encounter Visit Diagnoses Not on filedocumented in this encounter Care Teams Acting Instructor Relationship Specialty Start Date End Date Rebeca Hernández PA [address] [place] [phone] PCP - General 03/18/22 documented as of this encounter
--- OUTSIDE RECORDS SUMMARY | 2024-10-05 11:07 | XMS_ITS | Clinical Summary ---
Author Organization [facility] [address] Address [address] [place] [phone] Care Team Providers Care Slab Inspector Name Role Phone Rebeca Jasso Primary Care Pr ovider Allergies Active Allergy Reactions Criticality Noted Date [...] mouth 3 (three) times a day 09/18/19 025 Discontin ued(Zurdo judd ) Hospital, Clinic, or Other Facility Administered Medication Ordered Dose Route Frequency Start Date End Date Status ipratropium-albuteroL (DUO-NEB) 0.5-2.5 mg/3 mL nebulizer solution 3 mLIndications:Chronic Obstructive Pulmonary Disease with Bronchospasms 3 mL nebu Once 10/04/2024 Active Active Problems Problem Noted Date Diagnosed Date Streptococcal sore throat 11/11/2022 Lumbar spine pain 05/17/2022 Chronic LLQ pain 03/12/2022 Overview (10/18/2022): Added automatically from request for surgery [id number] Lumbar spondylosis 02/10/2022 Mass of subcutaneous tissue of back 01/05/2022 Complex cyst of uterine adnexa 12/21/2021 Degeneration of lumbar intervertebral disc 12/21 Lipoma of lower back 12/21/2021 Acute thoracic back pain 12/01/2021 Left sided abdominal pain 12/01/2021 Rib pain 12/01/2021 Encounters Date Type Department Care Team Description 10/04/2024 2:19 PM GRAINER MACHINE - 10/04/2024 11:59 PM GRAINER MACHINE Hospital Encounter [address] [address] Sore throat Discharge Disposition: Discharge to home or self care 10/04/2024 12:15 PM GRAINER MACHINE Ancillary Procedure [facility] Medical Group Imaging at [address] [phone] Influenza A 10/04/2024 11:15 AM GRAINER MACHINE Office Visit [facility] Medical Group Convenient Care at [address] [phone] Alyssa Choi NP Sore throat (Primary Dx); Influenza A; Community acquired pneumonia of left lung, unspecified part of lung 10/03/2024 8:25 AM GRAINER MACHINE Ancillary Procedure [facility] Medical Group Imaging at [address] [address] Influenza A 10/03/2024 8:00 AM GRAINER MACHINE Office Visit [facility] Medical Group Convenient Care at [address] [address] Alison Castillo NP Influenza A (Primary Dx) from Last 3 Months Immunizations Name Administration Dates Next Due Influenza, Quadrivalent, Stephenie l Culture-based MDCK, Preservative Free, Antibiotic Free, Intramuscular 06/12/2020 Tetanus Toxoid, Unspecified 08/29/2008 Surgical History Surgery Date Site/Laterality Comments OVARIAN CYST REMOVAL 03/03/2022 Left Fallopian Tube Removal & Cyst Removal Medical History Medical History Date Comments Seizures (HCC) Headache Migraines Family History Medical History Relation Name Comments Diverticulitis Father Heart disease Father Hypertension Father Diverticulitis Mother Hypertension Mother Atrial fibrillation Sister Hypertension Sister Relation Name Status Comments Father Alive Mother Alive Sister Social History Tobacco Use Types Packs/Day Years [...] on file Legal Sex Female 2:29 PM GRAINER MACHINE Gender Identity Not on file Sexual Orientation Not on file Obstetrics History Last Filed Vital Signs Vital Sign Reading Time Taken Comments Blood Pressure 122/62 10/04/2024 11:20 AM GRAINER MACHINE Pulse 111 10/04/2024 12:21 PM GRAINER MACHINE Temperature 37.6 C (99.6 F) 10/04/2024 11:20 AM GRAINER MACHINE Respiratory Rate 22 10/04/2024 11:20 AM GRAINER MACHINE Oxygen Saturation 95% 10/04/2024 12:21 PM GRAINER MACHINE after neb tx Inhaled Oxygen Concentration - - Weight 92.5 kg (204 lb) 10/04/2024 11:20 AM GRAINER MACHINE Height 156.2 cm (5' 1.5 ) 06/12/2024 9:56 AM CDT Body Mass Index 37.92 06/12/2024 9:56 AM CDT Plan of Treatment Health Maintenance Due Date Last Done Comments Breast Cancer Screening-Mammogram 1976 Cervical Cancer Screening 1976 Colon Cancer Screening-Colonoscopy 1976 Depression Screening 1976 Hepatitis C Screening 1976 Hepatitis B Screening 1994 Regular Well Visit/Exam 18-64 1994 Covid-19 Vaccine (3 - 2023-2 5 season) 2024 11/24/2020, 10/27/2020 Influenza Vaccine (#1) 2024 06/12/2020 DTaP/Tdap/Td Vaccine (2 - Td or Tdap) 04/01/2033 04/01/2023 Pneumococcal vaccine <65 Aged Out No longer eligible based on patient's age to complete this topic Procedures Procedure Name Priority Date/Time Associated Diagnosis Comments XR CHEST PA LATERAL 2 VIEWS Schedule SHELLEY, Read SHELLEY (Appt Today, Awaiting Results) 10/04/2024 12:26 PM GRAINER MACHINE Influenza A POCT RAPID STREP Routine 10/04/2024 11:3 2 AM GRAINER MACHINE Sore throat XR CHEST PA LATERAL 2 VIEWS Schedule SHELLEY, Read SHELLEY (Appt Today, Awaiting Results) 10/03/2024 8:32 AM GRAINER MACHINE Influenza A POCT RAPID STREP Routine 10/03/2024 8:18 AM GRAINER MACHINE Influenza A POC INFLUENZA A/B, COVID-19 ANTIGEN Routine 10/03/2024 8:17 AM GRAINER MACHINE Influenza A from Last 3 Months Results * XR Chest Pa Lateral 2 Views (10/04/2024 12:26 PM GRAINER MACHINE) Anatomical Region Laterality Modality Body, Chest N/A Digital Radiogra phy 10/04/2024 1:08 PM GRAINER MACHINE Narrative 10/04/2024 1:12 PM GRAINER MACHINE EXAM DESCRIPTION: XR CHEST PA LATERAL 2 [...] Lorenzo Barber M.D. MZ T: Report ID: [id number] Reading Location: [id number] Procedure Note Lorenzo Barber MD - 10/04/2024 [...] signed by Lorenzo GUSMAN T: Report ID: [id number] Reading Location: [id number] Alyssa Choi ACCOUNTS PAYABLE ACCOUNTANT IMG XR PROCEDURES Final Re sult * POCT rapid strep A (10/04/2024 11:32 AM GRAINER MACHINE) Rapid Strep A, POC Negative Negative Swab 10/04/2024 11:3 2 AM GRAINER MACHINE Alyssa Choi ACCOUNTS PAYABLE ACCOUNTANT POINT OF CARE TEST ORDERAB LES Final Result * XR Chest PA Lateral 2 Views (10/03/2024 8:32 AM GRAINER MACHINE) Anatomical Region Laterality Modality Body, Chest N/A Digital Radiogra phy 10/03/2024 8:48 AM GRAINER MACHINE Narrative 10/03/2024 8:50 AM GRAINER MACHINE EXAM DESCRIPTION: XR CHEST PA LATERAL 2 [...] 8:50 AM - Electronically signed by Carmelo PERERA T: Report ID: [id number] Reading Location: [id number] Procedure Note Carmelo Rodriguez MD - 10/03/2024 [...] Carmelo Rodriguez M.D. LB T: Report ID: [id number] Reading Location: [place] [address] Alison Castillo ACCOUNTS PAYABLE ACCOUNTANT IMG XR PROCEDURES Final Result * POCT rapid strep A (10/03/2024 8:18 AM GRAINER MACHINE) Rapid Strep A, POC Negative Negative Swab 10/03/2024 8:18 AM GRAINER MACHINE Alison Castillo ACCOUNTS PAYABLE ACCOUNTANT POINT OF CARE TEST ORDERABLES Final Result * (ABNORMAL) POC Influenza A/B, COVID-19 antigen (10/03/2024 8:17 AM GRAINER MACHINE) Influenza A Ag, POC Positive(A) Negative [facility] Influenza B Ag, POC Negative Negative [facility] COVID-19 Ag POC Presumptive Negative Presumptive Negative, Invalid [facility] Nasal 10/03/2024 8:17 AM GRAINER MACHINE Alison Castillo ACCOUNTS PAYABLE ACCOUNTANT POINT OF CARE TEST ORDERABLES Final Result [id number] [address] [place] [address], [facility] from Last 3 Months Additional Health Concerns Infection Onset Date Last Indicated Influenza, adult 10/03/2024 10/03/2024 Insurance [facility] Address: [address] [place] [address] [facility]PPO Address: [address] [address] [place] [address] Care Teams Slab Inspector Relationship Specialty Start Date End Date Rebeca Jasso PA PCP - General Physician Molded Rubber Goods Cutter 04/09/22
--- OUTSIDE RECORDS SUMMARY | 2024-10-05 11:07 | XMS_ITS | Continuity of Care Document ---
Author Organization [facility] Address [address] [place] [address] Phone Care Team Providers Care Occupational Therapist Assistants Name Role Phone Dax Diamond MD Unavailable Unavailable Allergies, Adverse Reactions, Alerts Substance Reaction Status Criticality No Known Allergies Active No Inform ation Medications Medication Instructions Dosage Effective Dates (start - stop) Status Comments Protonix 40 mg tablet,delayed release take 1 tablet by oral route every day 40 MG - Active Procedures Procedure Date PREV VISIT, NEW, AGE 40-64 OFFICE/OUTPATIENT VISIT, [facility] [place] Advance Directives Directive Yes / No Effective Date File Name No Information Encounters Encounter Description Practice Location Reason(s) For Visit Diagnoses Date Provider Providers Copied on Encounter PREV VISIT, NEW, AGE 40-64 [facility], [address] [place], [place], [id number], [place] tel:[phone] [facility] PHysical (chief complaint) CoughEssential (primary) hypertensionEncount er for general adult medical exam w abnormal findings [id number] [facility] [place], [id number] , [place]. tel:[phone] Referring Provider: Dax Diamond, [address] [facility] [place], [place], [id number]. tel:[phone] Family History Family Member Type Diagnosis Age At Onset Mother Problem (finding) Alive and well Father Problem (finding) Alive and well Sister Problem (finding) atril fibrillation Payers Payer name Insurance type Covered libertarian ID Authoriza tion(s) No Information Social History Type Description Quantity Date Captured Comments Alcohol Use Details No Caffeine Use Details Unknown Tobacco Use Status Never smoked tobacco 2016 Smoking Status Never smoker Non-Smoking Tobacco Use Details : No Details Available : No Details Available Sex Female Vital Signs Date / Time: Height Weight BMI Pulse Rate Blood Pressure Temperature Respiratory Rate Body Surface Area Head Circumference BMI percentile Pulse Ox Inhaled Ox 4:42 PM 66.00 in 170.20 lbs 27.4 7 kg/m eter (2) 101 /min 150/93 mm[Hg] 97.4 F 16 /min Chief Complaint And Reason For Visit From encounter dated '03/07/2017 15:30'. PHysical (chief complaint). Description: Pt needs annual physical. Pt has been having dry and clearphlegm prouctive cough for 4 months. Pt denies any chest pain or SOB. Pt states that she feels something trickle in the throat area which triggers the cough. Pt denies any coughing at night Pt deniesany GERD symptoms. Pt denies any abd pain. Pt tried Zpak, medrol, delsym, qvar, singulair, claritinand none of them helped. Pt just had a full panel of allergy testing which is all negative. Pt is not allergic to any ourdoor allergens. Pt does not have any pet. Pt denies any postnasal drainage or any sinus congestion. Pt denies any sinus pain Plan Of Treatment Date Type Action Status Referral Ordered: CHEST X-RAY PA/LAT TWO-VIEWS ordered History Of Present Illness Encounter Date Complaint History Of Prese nt Illness PHysical Pt needs annual physical. Pt has been having dry and clear phlegm prouctive cough for 4 months. Pt denies any chest pain or SOB. Pt states that she feels something trickle in the throat area which triggers the cough. Pt denies any coughing at night Pt denies any GERD symptoms. Pt denies any abd pain. Pt tried Zpak, medrol, delsym, qvar, singulair, claritin and none of them helped. Pt just had a full panel of allergy testing which is all negative. Pt is not allergic to any ourdoor allergens. Pt does not have any pet. Pt denies any postnasal drainage or any sinus congestion. Pt denies any sinus pain Instructions Date Instruction Additional Infor mation Prescribed Activity and Exercise Education Related to Dietary Surveillance and Counseling Prescribed Diet Educ ation/Lifestyle Education Regarding Diet Related to Dietary Surveillance and Counseling Assessments Type Assessment Date assessment Cough assessment Essential (primary) hypertension assessment Encounter for general adult medi ej exam w abnormal findings Mental Status Date Cognitive Assessment Orientation - [place] ed to time, place, person, situation.
--- OUTSIDE RECORDS SUMMARY | 2024-10-05 11:07 | XMS_ITS | Data Portability ---
Author Organization [facility], Main Office Address [address] [place] [address] Assessment No assessment recorded. Plan of Treatment Reminders Order Date Submit Date Provider Last Modified By Organization Details Last Modified Time Details Appointments None recorded . Lab TSH + free T4, serum 023 03/28/20 23 [facility], [address], [place], [address], 3 12:16:36 lipid panel, serum 023 03/28/20 23 [employer] [facility], [address], [address], [place], [address], 3 12:16:36 CMP, serum or plasma 023 03/28/20 23 [employer] [facility], [address], [address], [place], [address], 3 12:16:37 CBC w/ auto diff 023 03/28/20 23 [employer], [address], [address], [place], [address], 3 12:16:39 HbA1c (hemoglo bin A1c), blood 023 03/28/20 23 [employer] [facility], [address], [address], [place], [address], 3 12:16:38 mumps igg Ab, serum 023 03/28/20 23 [facility], [address], [place], [address], 3 12:16:40 Referral None recorded . Procedures None recorded . Surgeries None recorded . Imaging None recorded . Medication Orders None recorded . Patient TargetsNo targets recorded. Patient InstructionsNo instructions recorded. Reason for Referral None Reported. Results Created Date Observation Date Name Description Value Unit Range Abnormal Flag Note LastModifiedBy Organization Detail LastModifiedTime 12/03/1912/03/2021 URINA LYSIS ,COMP LETE( REFL) color yellow yellow normal Not Available [address], [address], 12/03/2021 05:05:59 12/03/19 22 12/03/2021 URINA LYSIS ,COMP LETE( REFL) appearance cloudy clear abnormal Not Available [address], [address], 12/03/2021 05:05:59 12/03/19 22 12/03/2021 URINA LYSIS ,COMP LETE( REFL) specific gravity 1.024 1.001- 1.035 normal Not Available [address], [address], 12/03/2021 05:05:59 12/03/19 22 12/03/2021 URINA LYSIS ,COMP LETE( REFL) pH 7.0 5.0-8. 0 normal Not Available [address], [address], 12/03/2021 05:05:59 12/03/19 22 12/03/2021 URINA LYSIS ,COMP LETE( REFL) glucose negati ve negati ve normal Not Available [address], [address], 12/03/2021 05:05:59 12/03/19 22 12/03/2021 URINA LYSIS ,COMP LETE( REFL) bilirubin negati ve negati ve normal Not Available [facility] [address], [address], 12/03/2021 05:05:59 12/03/19 22 12/03/2021 URINA LYSIS ,COMP LETE( REFL) ketones trace negati ve abnormal Not Available [facility] [address], [address], 12/03/2021 05:05:59 12/03/19 22 12/03/2021 URINA LYSIS ,COMP LETE( REFL) occult blood negati ve negati ve normal Not Available [facility] - [address], [address], 12/03/2021 05:05:59 12/03/19 22 12/03/2021 URINA LYSIS ,COMP LETE( REFL) protein negati ve negati ve normal Not Available [facility] [address], [address], 12/03/2021 05:05:59 12/03/19 22 12/03/2021 URINA LYSIS ,COMP LETE( REFL) nitrite negati ve negati ve normal Not Available [facility] [address], [address], 12/03/2021 05:05:59 12/03/19 22 12/03/2021 URINA LYSIS ,COMP LETE( REFL) leukocyte esterase trace negati ve abnormal Not Available [facility] [address], [address], 12/03/2021 05:05:59 12/03/19 22 12/03/2021 URINA LYSIS ,COMP LETE( REFL) WBC none seen /hpf < or = 5 normal Not Available [facility] [address], [address], 12/03/2021 05:05:59 12/03/19 22 12/03/2021 URINA LYSIS ,COMP LETE( REFL) RBC none seen /hpf < or = 2 normal Not Available [address], [address], 12/03/2021 05:05:59 12/03/19 22 12/03/2021 URINA LYSIS ,COMP LETE( REFL) squamous epithelial cells 20-40 /hpf < or = 5 abnormal Not Available [address], [address], 12/03/2021 05:05:59 12/03/19 22 12/03/2021 URINA LYSIS ,COMP LETE( REFL) bacteria modera te /hpf none seen abnormal Not Available [address], [address], 12/03/2021 05:05:59 12/03/19 22 12/03/2021 URINA LYSIS ,COMP LETE( REFL) hyaline cast none seen /lpf none seen normal Not Available [address], [address], 12/03/2021 05:05:59 12/03/19 22 12/03/2021 CBC (INCL UDES DIFF/ PLT) white blood cell count 6.5 thous and/u L 3.8-10 .8 normal Not Available [address], [address], 12/03/2021 05:05:58 12/03/19 22 12/03/2021 CBC (INCL UDES DIFF/ PLT) red blood cell count 4.46 aleta on/uL 3.80-5 .10 normal Not Available [address], [address], 12/03/2021 05:05:58 12/03/19 22 12/03/2021 CBC (INCL UDES DIFF/ PLT) hemoglobin 13.2 g/dL 11.7-1 5.5 normal Not Available [address], [address], 12/03/2021 05:05:58 12/03/19 22 12/03/2021 CBC (INCL UDES DIFF/ PLT) hematocrit 40.4 % 35.0-4 5.0 normal Not Available [address], [address], 12/03/2021 05:05:58 12/03/19 22 12/03/2021 CBC (INCL UDES DIFF/ PLT) MCV 90.6 fL 80.0-1 00.0 normal Not Available [address], [address], 12/03/2021 05:05:58 12/03/19 22 12/03/2021 CBC (INCL UDES DIFF/ PLT) MCH 29.6 pg 27.0-3 3.0 normal Not Available [address], [address], 12/03/2021 05:05:58 12/03/19 22 12/03/2021 CBC (INCL UDES DIFF/ PLT) MCHC 32.7 g/dL 32.0-3 6.0 normal Not Available [address], [address], 12/03/2021 05:05:58 12/03/19 22 12/03/2021 CBC (INCL UDES DIFF/ PLT) RDW 12.8 % 11.0-1 5.0 normal Not Available [address], [address], 12/03/2021 05:05:58 12/03/19 22 12/03/2021 CBC (INCL UDES DIFF/ PLT) platelet count 432 thous and/u L 140-40 0 high Not Available [address], [address], 12/03/2021 05:05:58 12/03/19 22 12/03/2021 CBC (INCL UDES DIFF/ PLT) MPV 9.6 fL 7.5-12 .5 normal Not Available [facility] [address], [address], 12/03/2021 05:05:58 12/03/19 22 12/03/2021 CBC (INCL UDES DIFF/ PLT) absolute neutrophils 3842 cells /uL 1500-7 800 normal Not Available [address], [address], 12/03/2021 05:05:58 12/03/19 22 12/03/2021 CBC (INCL UDES DIFF/ PLT) absolute lymphocytes 2249 cells /uL 850-39 00 normal Not Available [address], [address], 12/03/2021 05:05:58 12/03/19 22 12/03/2021 CBC (INCL UDES DIFF/ PLT) absolute monocytes 286 cells /uL 200-95 0 normal Not Available [address], [address], 12/03/2021 05:05:58 12/03/19 22 12/03/2021 CBC (INCL UDES DIFF/ PLT) absolute eosinophils 13 cells /uL 15-500 low Not Available [facility] [address], [address], 12/03/2021 05:05:58 12/03/19 22 12/03/2021 CBC (INCL UDES DIFF/ PLT) absolute basophils 111 cells /uL 0-200 normal Not Available [facility] [address], [address], 12/03/2021 05:05:58 12/03/19 22 12/03/2021 CBC (INCL UDES DIFF/ PLT) neutrophils 59.1 % normal Not Available [facility] [address], [address], 12/03/2021 05:05:58 12/03/19 22 12/03/2021 CBC (INCL UDES DIFF/ PLT) lymphocytes 34.6 % normal Not Available [address], [address], 12/03/2021 05:05:58 12/03/19 22 12/03/2021 CBC (INCL UDES DIFF/ PLT) monocytes 4.4 % normal Not Available [address], [address], 12/03/2021 05:05:58 12/03/19 22 12/03/2021 CBC (INCL UDES DIFF/ PLT) eosinophils 0.2 % normal Not Available [facility] [address], [address], 12/03/2021 05:05:58 12/03/19 22 12/03/2021 CBC (INCL UDES DIFF/ PLT) basophils 1.7 % normal Not Available [address], [address], 12/03/2021 05:05:58 12/03/19 22 12/03/2021 LIPAS E lipase 26 U/L 7-60 normal Not Available [address], [address], 12/03/2021 05:05:58 12/03/19 22 12/03/2021 AMYLA SE amylase 48 U/L 21-101 normal Not Available [address], [address], 12/03/2021 05:05:57 12/03/19 22 12/03/2021 HEMOG LOBIN A1C hemoglobin A1C 5.4 %_of_ total _HGB <5.7 normal For the purpo se of lynda calhoun for the prese nce of diabe avel: <5.7% Consi stent with the absen ce of diabe avel 5.7-6 .4% Consi stent with incre ased risk for diabe avel (pred iabet es) > or =6.5% Consi stent with diabe avel This assay resul t is consi stent with a decre ased risk of diabe avel. Curre ntly, no conse nsus exist s jonathan small use of hemog lobin A1c for diagn osis of diabe avel in child julia. Accor ding to Ameri can Diabe avel Assoc iatio n (ADA) guide lines , hemog lobin A1c <7.0% repre sents optim al contr ol in non-p regna nt diabe tic patie nts. Diffe rent metri cs may apply to speci fic patie nt popul ation s. Stand ards of Medic al Care in Diabe avel(A DA). Not Available [address] [place], [address], 12/03/2021 05:05:56 12/03/19 22 12/03/2021 COMPR EHENS MADDIE METAB OLIC PANEL glucose 87 mg/dL 65-99 normal Fasti ng refer ence inter belinda Not Available [address] [place], [address], 12/03/2021 05:05:56 12/03/19 22 12/03/2021 COMPR EHENS MADDIE METAB OLIC PANEL urea nitrogen (BUN) 8 mg/dL 7-25 normal Not Available [address] [place], [address], 12/03/2021 05:05:56 12/03/19 22 12/03/2021 COMPR EHENS MADDIE METAB OLIC PANEL creatinine 0.80 mg/dL 0.50-1 .10 normal Not Available [facility] [address], [address], 12/03/2021 05:05:56 12/03/19 22 12/03/2021 COMPR EHENS MADDIE METAB OLIC PANEL eGFR non-afr. swazi 89 mL/mi n/1.7 3m2 > or = 60 normal Not Available [facility] [address] [place], [address], 12/03/2021 05:05:56 12/03/19 22 12/03/2021 COMPR EHENS MADDIE METAB OLIC PANEL eGFR 103 mL/mi n/1.7 3m2 > or = 60 normal Not Available [address], [address], 12/03/2021 05:05:56 12/03/19 22 12/03/2021 COMPR EHENS MADDIE METAB OLIC PANEL BUN/creatini ne ratio not applic able (calc ) 6-22 Not Available [address], [address], 12/03/2021 05:05:56 12/03/19 22 12/03/2021 COMPR EHENS MADDIE METAB OLIC PANEL sodium 139 mmol/ L 135-14 6 normal Not Available [address], [address], 12/03/2021 05:05:56 12/03/19 22 12/03/2021 COMPR EHENS MADDIE METAB OLIC PANEL potassium 4.2 mmol/ L 3.5-5. 3 normal Not Available [address], [address], 12/03/2021 05:05:56 12/03/19 22 12/03/2021 COMPR EHENS MADDIE METAB OLIC PANEL chloride 106 mmol/ L 98-110 normal Not Available [address], [address], 12/03/2021 05:05:56 12/03/19 22 12/03/2021 COMPR EHENS MADDIE METAB OLIC PANEL carbon dioxide 26 mmol/ L 20-32 normal Not Available [address], [address], 12/03/2021 05:05:56 12/03/19 22 12/03/2021 COMPR EHENS MADDIE METAB OLIC PANEL calcium 9.0 mg/dL 8.6-10 .2 normal Not Available [address], [address], 12/03/2021 05:05:56 12/03/19 22 12/03/2021 COMPR EHENS MADDIE METAB OLIC PANEL protein, total 6.8 g/dL 6.1-8. 1 normal Not Available [address], [address], 12/03/2021 05:05:56 12/03/19 22 12/03/2021 COMPR EHENS MADDIE METAB OLIC PANEL albumin 4.2 g/dL 3.6-5. 1 normal Not Available [address], [address], 12/03/2021 05:05:56 12/03/19 22 12/03/2021 COMPR EHENS MADDIE METAB OLIC PANEL globulin 2.6 g/dL_ (calc ) 1.9-3. 7 normal Not Available [address], [address], 12/03/2021 05:05:56 12/03/19 22 12/03/2021 COMPR EHENS MADDIE METAB OLIC PANEL albumin/glob ulin ratio 1.6 (calc ) 1.0-2. 5 normal Not Available [address], [address], 12/03/2021 05:05:56 12/03/19 22 12/03/2021 COMPR EHENS MADDIE METAB OLIC PANEL bilirubin, total 0.5 mg/dL 0.2-1. 2 normal Not Available [address], [address], 12/03/2021 05:05:56 12/03/19 22 12/03/2021 COMPR EHENS MADDIE METAB OLIC PANEL alkaline phosphatase 88 U/L 31-125 normal Not Available [facility] [address], [place], [address], 12/03/2021 05:05:56 12/03/19 22 12/03/2021 COMPR EHENS MADDIE METAB OLIC PANEL AST 23 U/L 10-35 normal Not Available [facility] [address], [address], 12/03/2021 05:05:56 12/03/19 22 12/03/2021 COMPR EHENS MADDIE METAB OLIC PANEL ALT 24 U/L 6-29 normal Not Available [facility] [address], [address], 12/03/2021 05:05:56 12/03/19 22 12/03/2021 LIPID PANEL WITH RATIO S cholesterol, total 185 mg/dL <200 normal Not Available [address], [address], 12/03/2021 05:05:56 12/03/19 22 12/03/2021 LIPID PANEL WITH RATIO S HDL cholesterol 68 mg/dL > or = 50 normal Not Available [address], [address], 12/03/2021 05:05:56 12/03/19 22 12/03/2021 LIPID PANEL WITH RATIO S triglyceride s 186 mg/dL <150 high Not Available [address], [address], 12/03/2021 05:05:56 12/03/19 22 12/03/2021 LIPID PANEL WITH RATIO S LDL-choleste rol 89 mg/dL _(ej c) normal Refer ence range : <100 Jon able range <100 mg/dL for prima ry preve ntion ; <70 mg/dL for patie nts with CHD or diabe tic patie nts with > or = 2 CHD risk facto rs. LDL-C is now calcu lated using the Ness n-Hop kins deepthi correia, which is a valid ated novel metho d provi staci kapil r accur acy than the Fried gem equat ion in the estim ation of LDL-C . Ness n SS et al. JASPER. 2013; 310(1 9): 2061- 2068 (http ://ed ucati on.Qu Quinten rankin [employer]. com/f aq/FA Q164) Not Available [facility] [address] [place] [address] [place], [address], 12/03/2021 05:05:56 12/03/19 22 12/03/2021 LIPID PANEL WITH RATIO S chol/HDLC ratio 2.7 (calc ) <5.0 normal Not Available [facility] [address], [address], 12/03/2021 05:05:56 12/03/19 22 12/03/2021 LIPID PANEL WITH RATIO S LDL/HDL ratio 1.3 (calc ) Below avera ge Risk: <2.34 Cheyney ge Risk: 2.35- 4.12 Moder ate Risk: 4.13- 5.56 High Risk: >5.57 Not Available [facility] [address], [address], 12/03/2021 05:05:56 12/03/19 22 12/03/2021 LIPID PANEL WITH RATIO S non HDL cholesterol 117 mg/dL _(ej c) <130 normal For patie nts with diabe avel plus 1 major ASCVD risk facto r, treat ing to a non-H DL-C goal of <100 mg/dL (LDL- C of <70 mg/dL ) is consi dered a thera peuti c optio n. Not Available [facility] [address] [place] [address] [place], [address], 12/03/2021 05:05:56 12/03/19 22 12/03/2021 TSH+F REE T4 TSH 2.15 mIU/L normal Refer ence Range > or = 20 Years 0.40- 4.50 Pregn luke Range s First trime ster 0.26- 2.66 Secon d trime ster 0.55- 2.73 Third trime ster 0.43- 2.91 Not Available [address], [address], 12/03/2021 05:05:55 12/03/19 22 12/03/2021 TSH+F REE T4 T4, free 1.0 NG/dL 0.8-1. 8 normal Not Available [address], [address], 12/03/2021 05:05:55 03/29/20 23 03/30/2023 TSH+F REE T4 TSH 2.61 mIU/L normal Refer ence Range > or = 20 Years 0.40- 4.50 Pregn luke Range s First trime ster 0.26- 2.66 Secon d trime ster 0.55- 2.73 Third trime ster 0.43- 2.91 Not Available [address], [address], 03/30/2023 12:16:35 03/29/20 23 03/30/2023 TSH+F REE T4 T4, free 0.9 NG/dL 0.8-1. 8 normal Not Available [address], [address], 03/30/2023 12:16:35 03/29/20 23 03/30/2023 LIPID PANEL WITH RATIO S cholesterol, total 221 mg/dL <200 high Not Available [address], [address], 03/30/2023 12:16:36 03/29/20 23 03/30/2023 LIPID PANEL WITH RATIO S HDL cholesterol 58 mg/dL > or = 50 normal Not Available [address], [address], 03/30/2023 12:16:36 03/29/20 23 03/30/2023 LIPID PANEL WITH RATIO S triglyceride s 346 mg/dL <150 high If a non-f astin g speci men was colle cted, consi anyi repea t trigl yceri de testi ng on a fasti ng speci men if clini kacey indic ated. Cheo hess et al. J. of Clin. Lipid ol. 2015; 9:129 -169. Not Available [address], [address], 03/30/2023 12:16:36 03/29/20 23 03/30/2023 LIPID PANEL WITH RATIO S LDL-choleste rol 114 mg/dL _(ej c) high Refer ence range : <100 Jon able range <100 mg/dL for prima ry preve ntion ; <70 mg/dL for patie nts with CHD or diabe tic patie nts with > or = 2 CHD risk facto rs. LDL-C is now calcu lated using the Ness n-Hop kins calcu juana n, which is a valid ated novel florentino dick r accur acy than the Fried gem equat ion in the estim ation of LDL-C . Ness correia SS et al. JASPER. 2013; 310(1 9): 2061- 2068 (http ://ed ucati on.[employer]. [employer]/f aq/FA Q164) Not Available [address] [address] [place], [address], 03/30/2023 12:16:36 03/29/2003/30/2023 LIPID PANEL WITH RATIO S chol/HDLC ratio 3.8 (calc ) <5.0 normal Not Available [address], [address], 03/30/2023 12:16:36 03/29/2003/30/2023 LIPID PANEL WITH RATIO S LDL/HDL ratio 2.0 (calc ) Below avera ge Risk: <2.34 Cheyney ge Risk: 2.35- 4.12 Moder ate Risk: 4.13- 5.56 High Risk: >5.57 Not Available [address] [place], [address], 03/30/2023 12:16:36 03/29/20 23 03/30/2023 LIPID PANEL WITH RATIO S non HDL cholesterol 163 mg/dL _(ej c) <130 high For patie nts with diabe avel plus 1 major ASCVD risk facto r, treat ing to a non-H DL-C goal of <100 mg/dL (LDL- C of <70 mg/dL ) is consi ebonid a thera peuti c optio n. Not Available [address] [place], [address], 03/30/2023 12:16:36 03/29/20 23 03/30/2023 COMPR EHENS MADDIE METAB OLIC PANEL glucose 87 mg/dL 65-99 normal Fasti ng refer ence inter belinda Not Available [address] [address] [place], [address], 03/30/2023 12:16:37 03/29/20 23 03/30/2023 COMPR EHENS MADDIE METAB OLIC PANEL urea nitrogen (BUN) 13 mg/dL 7-25 normal Not Available [address], [address], 03/30/2023 12:16:37 03/29/20 23 03/30/2023 COMPR EHENS MADDIE METAB OLIC PANEL creatinine 0.75 mg/dL 0.50-0 .99 normal Not Available [address], [address], 03/30/2023 12:16:37 03/29/20 23 03/30/2023 COMPR EHENS MADDIE METAB OLIC PANEL eGFR 99 mL/mi n/1.7 3m2 > or = 60 normal Not Available [address] [place], [address], 03/30/2023 12:16:37 03/29/20 23 03/30/2023 COMPR EHENS MADDIE METAB OLIC PANEL BUN/creatini ne ratio SEE NOTE: (calc ) 6-22 Not Repor shantal: BUN and Creat inine are withi n refer ence range . Not Available [address], [address], 03/30/2023 12:16:37 03/29/20 23 03/30/2023 COMPR EHENS MADDIE METAB OLIC PANEL sodium 137 mmol/ L 135-14 6 normal Not Available [address], [address], 03/30/2023 12:16:37 03/29/20 23 03/30/2023 COMPR EHENS MADDIE METAB OLIC PANEL potassium 4.4 mmol/ L 3.5-5. 3 normal Not Available [address], [address], 03/30/2023 12:16:37 03/29/20 23 03/30/2023 COMPR EHENS MADDIE METAB OLIC PANEL chloride 101 mmol/ L 98-110 normal Not Available [address], [address], 03/30/2023 12:16:37 03/29/20 23 03/30/2023 COMPR EHENS MADDIE METAB OLIC PANEL carbon dioxide 26 mmol/ L 20-32 normal Not Available [address], [address], 03/30/2023 12:16:37 03/29/20 23 03/30/2023 COMPR EHENS MADDIE METAB OLIC PANEL calcium 9.7 mg/dL 8.6-10 .2 normal Not Available [address], [address], 03/30/2023 12:16:37 03/29/20 23 03/30/2023 COMPR EHENS MADDIE METAB OLIC PANEL protein, total 7.0 g/dL 6.1-8. 1 normal Not Available [address], [address], 03/30/2023 12:16:37 03/29/20 23 03/30/2023 COMPR EHENS MADDIE METAB OLIC PANEL albumin 4.2 g/dL 3.6-5. 1 normal Not Available [address], [address], 03/30/2023 12:16:37 03/29/20 23 03/30/2023 COMPR EHENS MADDIE METAB OLIC PANEL globulin 2.8 g/dL_ (calc ) 1.9-3. 7 normal Not Available [address], [address], 03/30/2023 12:16:37 03/29/20 23 03/30/2023 COMPR EHENS MADDIE METAB OLIC PANEL albumin/glob ulin ratio 1.5 (calc ) 1.0-2. 5 normal Not Available [address], [address], 03/30/2023 12:16:37 03/29/20 23 03/30/2023 COMPR EHENS MADDIE METAB OLIC PANEL bilirubin, total 0.5 mg/dL 0.2-1. 2 normal Not Available [address], [address], 03/30/2023 12:16:37 03/29/20 23 03/30/2023 COMPR EHENS MADDIE METAB OLIC PANEL alkaline phosphatase 121 U/L 31-125 normal Not Available [address], [address], 03/30/2023 12:16:37 03/29/20 23 03/30/2023 COMPR EHENS MADDIE METAB OLIC PANEL AST 18 U/L 10-35 normal Not Available [address], [address], 03/30/2023 12:16:37 03/29/20 23 03/30/2023 COMPR EHENS MADDIE METAB OLIC PANEL ALT 19 U/L 6-29 normal Not Available [facility] [address] [place] [address], [address], 03/30/2023 12:16:37 03/29/20 23 03/30/2023 HEMOG LOBIN A1C hemoglobin A1C 5.4 %_of_ total _HGB <5.7 normal For the purpo se of scree unique for the prese nce of diabe avel: <5.7% Consi stent with the absen ce of diabe avel 5.7-6 .4% Consi stent with incre ased risk for diabe avel (pred iabet es) > or =6.5% Consi stent with diabe avel This assay resul t is consi stent with a decre ased risk of diabe avel. Curre ntly, no conse nsus exist s jonathan small use of hemog lobin A1c for diagn osis of diabe avel in child julia. Accor ding to Ameri can Diabe avel Assoc iatio n (ADA) guide lines , hemog lobin A1c <7.0% repre sents optim al contr ol in non-p regna nt diabe tic patie nts. Diffe rent ri cs may apply to speci fic patie nt popul ation s. Stand ards of Medic al Care in Diabe avel(A DA). Not Available [address] [address] [place], [address], 03/30/2023 12:16:38 03/29/2003/30/2023 CBC (INCL UDES DIFF/ PLT) white blood cell count 7.9 thous and/u L 3.8-10 .8 normal Not Available [facility] [address] [place] [address], [address], 03/30/2023 12:16:39 03/29/20 23 03/30/2023 CBC (INCL UDES DIFF/ PLT) red blood cell count 4.58 aleta on/uL 3.80-5 .10 normal Not Available [address], [address], 03/30/2023 12:16:39 03/29/2003/30/2023 CBC (INCL UDES DIFF/ PLT) hemoglobin 13.3 g/dL 11.7-1 5.5 normal Not Available [address], [address], 03/30/2023 12:16:39 03/29/20 23 03/30/2023 CBC (INCL UDES DIFF/ PLT) hematocrit 39.8 % 35.0-4 5.0 normal Not Available [address], [address], 03/30/2023 12:16:39 03/29/20 23 03/30/2023 CBC (INCL UDES DIFF/ PLT) MCV 86.9 fL 80.0-1 00.0 normal Not Available [address], [address], 03/30/2023 12:16:39 03/29/20 23 03/30/2023 CBC (INCL UDES DIFF/ PLT) MCH 29.0 pg 27.0-3 3.0 normal Not Available [address], [address], 03/30/2023 12:16:39 03/29/20 23 03/30/2023 CBC (INCL UDES DIFF/ PLT) MCHC 33.4 g/dL 32.0-3 6.0 normal Not Available [address], [address], 03/30/2023 12:16:39 03/29/20 23 03/30/2023 CBC (INCL UDES DIFF/ PLT) RDW 13.1 % 11.0-1 5.0 normal Not Available [facility] [address], [address], 03/30/2023 12:16:39 03/29/20 23 03/30/2023 CBC (INCL UDES DIFF/ PLT) platelet count 386 thous and/u L 140-40 0 normal Not Available [address], [address], 03/30/2023 12:16:39 03/29/20 23 03/30/2023 CBC (INCL UDES DIFF/ PLT) MPV 9.1 fL 7.5-12 .5 normal Not Available [address], [address], 03/30/2023 12:16:39 03/29/2003/30/2023 CBC (INCL UDES DIFF/ PLT) absolute neutrophils 5001 cells /uL 1500-7 800 normal Not Available [address], [address], 03/30/2023 12:16:39 03/29/20 23 03/30/2023 CBC (INCL UDES DIFF/ PLT) absolute lymphocytes 2267 cells /uL 850-39 00 normal Not Available [address], [address], 03/30/2023 12:16:39 03/29/20 23 03/30/2023 CBC (INCL UDES DIFF/ PLT) absolute monocytes 490 cells /uL 200-95 0 normal Not Available [address], [address], 03/30/2023 12:16:39 03/29/20 23 03/30/2023 CBC (INCL UDES DIFF/ PLT) absolute eosinophils 40 cells /uL 15-500 normal Not Available [address], [address], 03/30/2023 12:16:39 03/29/20 23 03/30/2023 CBC (INCL UDES DIFF/ PLT) absolute basophils 103 cells /uL 0-200 normal Not Available [address], [place], [address], 03/30/2023 12:16:39 03/29/20 23 03/30/2023 CBC (INCL UDES DIFF/ PLT) neutrophils 63.3 % normal Not Available [facility] - [address], [address], 03/30/2023 12:16:39 03/29/20 23 03/30/2023 CBC (INCL UDES DIFF/ PLT) lymphocytes 28.7 % normal Not Available [facility] - [address], [address], 03/30/2023 12:16:39 03/29/20 23 03/30/2023 CBC (INCL UDES DIFF/ PLT) monocytes 6.2 % normal Not Available [facility] - [address], [address], 03/30/2023 12:16:39 03/29/20 23 03/30/2023 CBC (INCL UDES DIFF/ PLT) eosinophils 0.5 % normal Not Available [facility] - [address], [address], 03/30/2023 12:16:39 03/29/20 23 03/30/2023 CBC (INCL UDES DIFF/ PLT) basophils 1.3 % normal Not Available [facility] - [address], [address], 03/30/2023 12:16:39 03/29/2003/30/2023 MUMPS VIRUS AB (IGG) , IMMUN E STATU S mumps virus Ab (IgG), immune status <9.00 AU/mL low AU/mL Inter preta tion ----- -- ----- ----- ----- - <9.00 Not consi stent with immun ity 9.00- 10.99 Equiv ocal >10.9 9 Consi stent with immun ity The prese nce of mumps IgG antib sandi sugge sts immun izati on or past or curre nt infec tion with mumps virus . Not Available [facility] [address] , [place], [address], 03/30/2023 12:16:40 12/08/19 22 12/01/2021 XR, ribs, unila teral No observ ation record ed. MIGRATION. [facility] [address], [place], [address], 10/27/2022 18:52:11 12/16/19 22 12/07/2021 CT, abdom en + pelvi s, w/ contr ast No observ ation record ed. MIGRATION. [facility] [address], [place], [address], 10/27/2022 18:52:11 12/30/19 22 12/29/2021 US, lower back No observ ation record ed. MIGRATION. [address], [place], [address], 10/27/2022 18:52:11 01/13/20 22 11/05/2021 XR, chest , 2 view No observ ation record ed. MIGRATION. [facility] [facility] [address], [place], [address], 10/27/2022 18:52:11 01/19/20 22 01/13/2022 MRI, lumba r spine , w/wo contr ast No observ ation record ed. MIGRATION. [address], [place], [address], 10/27/2022 18:52:11 02/23/20 23 12/02/2022 MAMMO , scree unique, digit al, bilat eral No observ ation record ed. [email or web address] [address], [place], [address], 03/28/2023 12:18:32 04/01/20 23 12/27/2022 MAMMO , scree unique, digit al, bilat eral No observ ation record ed. [email or web address] [facility] [address], [place], [address], 04/04/2023 13:51:08 04/11/20 23 04/10/2023 imagi ng/di agnos tic resul t No observ ation record ed. [email or web address] [facility] [address], [place], [address], 04/13/2023 16:17:38 Result Notes None recorded. Problems Name Problem SNOMED Code Status Onset Date Resolution Date Notes Provider Name and Address Organization Details Recorded Time Mass of subcutaneo us tissue of back 4508192844625 03 Active 2021 Not Available [facility] 3 18:51:10 Lumbar spondylosi s 933418159 Active 2021 Not Available [facility] 3 18:51:11 Degenerati on of lumbar interverte bral disc 46763474 Active 2021 Not Available [facility] 3 18:51:11 Acute thoracic back pain 313644935 Active 2021 Not Available [facility] 3 18:51:11 Low back pain 357322831 Active 2021 Not Available [facility] 3 18:51:11 Left sided abdominal pain 904582850 Active 2021 Not Available [facility] 3 18:51:11 Rib pain 154108719 Active 2021 Not Available [facility] 3 18:51:11 Lipoma of lower back 619230124 Active 2021 Not Available [facility] 3 18:51:11 Complex cyst of uterine adnexa 531515509 Active 2021 Not Available [facility] 3 18:51:11 Pain in spine 10074403 Active 2021 Not Available [facility] 3 18:51:11 Streptococ ej sore throat 42916343 Active 2022 RUBENS Sanz [address], [place], [address] , [place] [email or web address] 3 17:44:59 Problem Notes None recorded. Procedures Surgical History Date Name Laterality Status Provider Name and Address Organization Details Recorded Time 2 SALT MACHINE OPERATOR Surgery completed LUCIANO Medina [email or web address] 03/28/2023 12:16:54 Imaging Results Imaging Date Name Status LastModified by Organ [facility] Details LastModified Time 12/01/2021 XR, ribs, unilateral completed [id number] [facility] [address], [place], [address], 10/27/2022 18:52:11 12/07/2021 CT, abdomen + pelvis, w/ contrast completed MIGRATION.[id number] 7528 [facility] [address], [place], [address], 10/27/2022 18:52:11 01/13/2022 MRI, lumbar spine, w/wo contrast completed MIGRATION.[id number] [address] [place] [address], [address], 10/27/2022 18:52:11 11/05/2021 XR, chest, 2 view completed MIGRATION.[id number] 0121 [facility] [address], [place], [address], 10/27/2022 18:52:11 12/29/2021 US, lower back completed MIGRATION.[address] , [place], [address], 10/27/2022 18:52:11 12/02/2022 MAMMO, screening, digital, bilateral completed [email or web address] [address] [place] [address], [address], 03/28/2023 12:18:32 12/27/2022 MAMMO, screening, digital, bilateral completed [email or web address] [facility] [address], [place], [address], 04/04/2023 13:51:08 04/10/2023 imaging/diagnos tic result completed [email or web address] [facility] [address], [place], [address], 04/13/2023 16:17:38 Procedure Notes None recorded. Medical Equipment None Reported. Allergies Allergen ID Allergen Name Allergen Category Reaction Reaction Severity Criticality Documentation Date Start Date Code Code System Note Provider Name and Address Organization Details Recorded Time 17529 aspartame food,medi cation Not available Not available Not available 10/27/2022 91342 24 RxNorm Not Available [facility] 18:52:07 Medications Name Sig Start Date Stop Date Status Note LastModified by Organization Details LastModified Time Singulair 10 mg tablet Take 1 tablet every day by oral route. 03/10 completed Not Available Not Available Not Available methocarbam ol 500 mg tablet Take 1 tablet 3 times a day by oral route as needed. 03/25 completed Not Available Not Available Not Available azelastine 0.05 % eye drops INSTILL 1 DROP INTO AFFECTED EYE(S) BY OPHTHALMI C ROUTE 2 TIMES PER DAY 11/30 completed Not Available Not Available Not Available azithromyci n 250 mg tablet TAKE 2 TABLETS (500 MG) BY ORAL ROUTE ONCE DAILY FOR 1 DAY THEN 1 TABLET (250 MG) BY ORAL ROUTE ONCE DAILY FOR 4 DAYS active Not Available Not Available No t Available benzonatate 200 mg capsule 03/25 completed Not Available Not Available Not Available omeprazole 40 mg capsule,del ayed release active Not Available Not Available Not Available amoxicillin 875 mg tablet 11/15 completed Not Available Not Available Not Available hydrocodone 7.5 mg-acetamin ophen 325 mg tablet active Not Available Not Available No t Available pantoprazol e 40 mg tablet,abhijeet yed release Take 1 tablet every day by oral route. active Not Available Not Available No t Available prednisone 50 mg tablet active Not Available Not Available Not Available Qvar 40 mcg/actuati on Metered Aerosol oral inhaler active Not Available Not Available Not Available mupirocin 2 % topical ointment 11/15 completed Not Available Not Available Not Available ibuprofen 600 mg tablet 11/15 completed Not Available Not Available Not Available methylpredn isolone 4 mg tablets in a dose pack take as directed. start on 12-23-1611/30 completed Not Available Not Available Not Available Vitamin takes one daily 03/28 completed Not Available Not Available Not Available Flonase Allergy Relief 50 mcg/actuati on nasal spray,suspe nsion [place] 1 spray every day by intranasa l route. 11/30 completed Not Available Not Available Not Available Vitals Date Recorded Body mass index (BMI) Body mass index (BMI) Body mass index (BMI) Body height Body height Body height Oxygen saturation Oxygen saturation in Arterial blood by Pulse oximetry Oxygen saturation Oxygen saturation in Arterial blood by Pulse oximetry Oxygen saturation Oxygen saturation in Arterial blood by Pulse oximetry Heart rate Heart rate Heart rate Respiratory rate Respiratory rate Respiratory rate Body temperature Body temperature Body temperature Body weight Body weight Body weight Systolic blood pressure Diastolic blood pressure Systolic blood pressure Diastolic blood pressure Systolic blood pressure Diastolic blood pressure Provider Name and Address Organization Details Last Updated DateTime 3 32.6 kg/m2 32.2 kg/m2 32.3 kg/m2 167.64 cm 167.64 cm 167.64 cm 98 % 98 % 98 % 98 % 98 % 98 % 93 /min 73 /min 88 /min 16 /min 16 /min 16 /min 97.7 [degF] 97.9 [degF] 97.8 [degF] 9162 5.6 6 g 60816.6 g 67222.4 7 g 130 mm[Hg] 80 mm[Hg] 130 mm[Hg] 82 mm[Hg] 122 mm[Hg] 80 mm[Hg] Not Available [facility] 3 18:50:54 Date Recorded Body height Body temperature Body mass index (BMI) Body weight Respiratory rate Oxygen saturation Oxygen saturation in Arterial blood by Pulse oximetry Heart rate Systolic blood pressure Diastolic blood pressure Provider Name and Address Organization Details Last Updated DateTime 3 167.64 cm 97.3 [degF] 32.3 kg/m2 33940.4 7 g 16 /min 97 % 97 % 101 /min 120 mm[Hg] 78 mm[Hg] Laxmi Bender, RMA [place] [facility] 12:17:33 Date Recorded Body height Body temperature Provider Lara [email or web address] and Address Organization Details Last Updated DateTime 04/01/2023 167.64 cm 98.4 [degF] Joya Ponce MA [place] [facility] [employer] [facility] 04/01/2023 10:15:50 Social History Question Answer Notes LastModified by Organizat ion Details LastModified Time Tobacco Smoking Status Never Smoker Not Available [facility] 10/27/2022 18:50:38 Do You Have An Advance Directive? No MIGRATION.[id number] 026 Information not available 10/27/2022 What Is Your Level Of Alcohol Consumption? None MIGRATION.[id number] 026 Information not available 10/27/2022 What Is Your Level Of Caffeine Consumption? None MIGRATION.2301132 026 Information not available 10/27/2022 In The 14 Days Before Symptom Onset, Have You Had Close Contact With A Laboratory-confirm ed COVID-19 While That Case Was Ill? No MIGRATION.[id number] 026 Information not available 10/27/2022 In The 14 Days Before Symptom Onset, Have You Had Close Contact With A Person Who Is Under Investigation For COVID-19 While That Person Was Ill? No MIGRATION.2927289 026 Information not available 10/27/2022 Are You Currently Employed? No [email or web address] Information not available 03/25/2023 What Type Of Diet Are You Following? 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 No MIGRATION.1068268 026 Information not available 10/27/2022 Are There Any Guns Present In Your Home? No MIGRATION.9719191 026 Information not available 10/27/2022 Do You Use Insect Repellent Routinely? No MIGRATION.3587407 026 Information not available 10/27/2022 Do You Have A Medical Power Of Automated Manufacturing Instructor? No MIGRATION.2798655 026 Information not available 10/27/2022 What Is Your Relationship Status? MIGRATION.5329796 026 Information not available 10/27/2022 Do You Use Your Seat Belt Or Car Seat Routinely? Yes MIGRATION.0500059 026 Information not available 10/27/2022 Do You Have Smoke And Carbon Monoxide Detectors In Your Home? Yes MIGRATION.1641648 026 Information not available 10/27/2022 Do You Use Any Illicit Or Recreational Drugs? No MIGRATION.0734721 026 Information not available 10/27/2022 Do You Use Sunscreen Routinely? Yes MIGRATION.8620640 026 Information not available 10/27/2022 Have You Recently Traveled Abroad? No MIGRATION.9228685 026 Information not available 10/27/2022 Do You Have Any Dietary Restrictions? No MIGRATION.1820243 026 Information not available 10/27/2022 Do You Or Have You Ever Used Any Other Forms Of Tobacco Or Nicotine? No MIGRATION.8631158 026 Information not available 10/27/2022 Sex: Unknown Functional Status Question Answer Note LastModified by Organizat ion Details LastModified Time What is your exercise level? Occasional MIGRATION.[id number] 26 Information not available 10/27/2022 Mental Status None recorded. Family History Relationship Description Onset Age of this Age Resolved Age Notes LastModified by Organization Details LastModified Time Father Hyperlipidem ia MIGRATION.178 [id number] Not available 10/27/2022 18:50:42 Father Diverticular disease MIGRATION.087 [id number] Not available 10/27/2022 18:50:42 Mother Hyperlipidem ia MIGRATION.167 [id number] Not available 10/27/2022 18:50:42 Unspecified Relation Malignant tumor of colon MIGRATION.232 [id number] Not available 10/27/2022 18:50:42 Unspecified Relation Dementia MIGRATION.729 [id number] Not available 10/27/2022 18:50:42 Unspecified Relation Alzheimer's disease MIGRATION.939 [id number] Not available 10/27/2022 18:50:42 Sister Atrial fibrillation MIGRATION.839 [id number] Not available 10/27/2022 18:50:42 Medical History Condition Response HEADACHES/MIGRAINES Y Gynecological History Statement/Question Response Menses Monthly Y Date of Last Pap 10/28/2015 Sexually Active? Y Obstetrics History GPAL:G 0 P 0 0 0 0 Immunizations Vaccine Type Date Status Note Provider Nam e and Address Organization Details Recorded Time tetanus toxoid, unspecified formulation 9 completed Not Available [facility] 10/27/2022 18:52:02 Tdap 08/04/202 3 completed RUBENS Sanz [address], [place], [address], [email or web address] 04/01/2023 11:12:19 MMR 3 completed RUBENS Sanz [address], [place], [address], [email or web address] 04/01/2023 11:12:20 Influenza, adjuvanted, quadrivalent, PF 3 completed Aissatou Hale RN null, [email or web address] 06/27/2023 09:29:03 Past Encounters Encounter ID Performer Location Encounter Start Date Encounter Closed Date Diagnosis/Indication Diagnosis SNOMED-CT Code Diagnosis ICD10 Code Diagnosis Note [id number] [facility] [address] [place] [address] 12/01/2021 00:00:00 12/26/2021 15:31:58 [id number] [facility] [address] [place] [address] 12/21/2021 00:00:00 12/25/2021 13:40:15 [id number] [facility] [address] [place] [address] 01/12/2022 00:00:00 01/25/2022 23:25:42 [id number] RUBENS Sanz [facility] [address] [place] [address] 03/28/2023 12:11:31 03/28/2023 12:45:07 Adult health examination 890060000 Z00.00 well exam completed and labs ordered Screening procedure 2013 5006 Z13.9 Cholesterol screening 27 6703567 Z13.220 Diabetes m ellitus screening 121938219 Z13.1 Thyroid di sorder screening 811967930 Z13.29 [id number] RUBENS Sanz [facility] [address] [place] [address] 04/01/2023 09:52:19 04/01/2023 10:38:18 Administration of diphtheria, pertussis, and tetanus vaccine 868869124 Z23 Administra tion of measles and mumps and rubella vaccine 90311815 Z23 Health Concerns Section Related Observation LastModified by Organization Rodríguez moe LastModified Time None Recorded Concern Status LastModified by Organization Details LastModified Time None Recorded Advance Directives Directive N: Payers Encounter Date Sequence Insurance Name Policy Number Policy Castro Covered Member ID Castro Member ID Guarantor Name 03/28/2023 1 [place] [id number] Martin Banks [id number] Rose Banks 04/01/2023 1 [place] [id number] Martin Banks [id number] Rose Banks Notes Date Note Type Note Provider Name and Address Organization Details Recorded Time 12/01/2021 text/html Abdominal PainReported bypatient.Location:[facility] Q; LLQ Quality:bloating;full ness;tender Severity:pain level 5/10 Duration:constant; started: (2-4 months) Onset/Timing:worse Aggravating Factors:touching that spot or laying on that spot Alleviating Factors:tylenol Associated Symptoms:no fever; no chills; no blood in the urine; no heartburn; no shortness of breath; no nausea; no vomiting; no diarrhea; no constipation; normal stool; no blood in stool; normal appetite Other:denies possible Pain Radiation:around the backBack Pain - GeneralReported bypatient.Location:pa in radiating to the left buttock(s);pain radiating to the left leg(s); mid and lower back on L side that radiating around to the L side of abd Quality:sharp;dull;ac aniyah Severity:feeling the same;pain level 5/10;moderate (5-7);interference with sleep;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 Alleviating Factors:heat; tylenol Aggravating Factors:movement/posi tioning(laying on the L side) Associated Symptoms:no fever; no tingling; no numbness of the legs/feet; no incontinence; no shortness of breath;weak limbsNotes:last week went to the ER in [facility] 7 days ago. Dipped her urine and said no UTI. no blood in urine . Several months of this pain, but the last 2 months of worse. Not Available [facility] 12/26/2021 15:31:58 12/21/2021 text/html Abdominal PainReported bypatient.Location:MIGUEL Q; LLQ Quality:bloating;full ness;tender Severity:pain level 1/10 Duration:constant; started: (2-4 months) Onset/Timing:better Aggravating Factors:touching that spot or laying on that spot Alleviating Factors:tylenol Associated Symptoms:no fever; no chills; no blood in the urine; no heartburn; no shortness of breath; no nausea; no vomiting; no diarrhea; no constipation; normal stool; no blood in stool; normal appetite Other:denies possible Pain Radiation:around the back Previous Tests, Treatment and/or Diagnostic Procedures:CT of the abdomenNotes:She is here today for a f/u. She saw SALT MACHINE OPERATOR and they said it seems like its a cyst that will resolve on its on after a few cycles. 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 Alleviating Factors:heat; tylenol Aggravating Factors:movement/posi tioning(laying on the L side) Associated Symptoms:no fever; no weak limbs; no tingling; no numbness of the legs/feet; no incontinence; no shortness of breathNotes:She is here for a f/u. Not Available [email or web address] 12/25/2021 13:40:15 01/12/2022 text/html Back Pain - GeneralReported bypatient.Location:pa in is not radiating Quality:burning;achin g;throbbing;cramping Severity:mild (1-4) Duration:constant Timing:gradual; started feeling bad in sep. some things have gotten better but the back has gotten worse. Alleviating Factors:rest; standing; physical therapy modalities (saw physical therapist for a short time) Aggravating Factors:bending over;twisting;sitting ;activity Associated Symptoms:no fever; no weak limbs; no tingling; no numbness of the legs/feet; no incontinence; no shortness of breathNotes:meds taken currently are advil, tylenol to relive pain Not Available [email or web address] 01/25/2022 23:25:42 03/28/2023 text/html Generic HPI TemplateReported bypatient.Notes:Pt is here to have a wellness and she has a physical form to be filled out and it is in the room w/her. No chronic problems. Wellness RUBENS Sanz [address] [facility] [facility] [address], [place], [address], [email or web address] 03/28/2023 12:44:46 OBGyn Episode No OBEpisode recorded.
--- OUTSIDE RECORDS SUMMARY | 2024-10-05 11:07 | XMS_ITS | Encounter Summary ---
Author Organization [facility] Address [address] [place] [address] Care Team Providers Care Global Compensation Manager Name Role Phone Rebeca Hernández Primary Care Pr ovider Encounter Details Date Type Department Care Team (Late st Contact Info) Description 02/01/2022 Lab Requisition [facility] [address] [facility] [place] [id number] [place] [id number] [address] Social History Tobacco Use Types Packs/Day Years Used Date Smoking Tobacco: Never Assessed Sex and Gender Information Value Date Recorded Sex Assigned at Not on file Gender Identity Not on file Sexual Orientation Not on file documented as of this encounter Plan of Treatment Not on file documented as of this encounter Procedures Procedure Name Priority Date/Time Associated Diagnosis Comments DERMATOPATHOLOGY Routine 02/01/2022 12:0 0 AM CDT documented in this encounter Results * DERMATOPATHOLOGY (02/01/2022 12:00 AM CDT) Case Report Dermatopathology Report Case: [id number] Authorizing Provider: Louise Don MD Collected: 02/01/2022 12:00 AM Ordering Location: [facility] Received: 02/01/2022 02:17 PM Pathologist: Rosario Streeter MD Specimen: Skin, left calf 4:35 PM CDT DERMATOPATHOLOGY LABORATORY Final Diagnosis Specimen A. 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 The specimen consists of a shave biopsy measuring 7x5x1 mm. Jar 0. 2 4:35 PM CDT DERMATOPATHOLOGY LABORATORY Microscopic Description Specimen A. SKIN, left calf: This is a junctional nevus. There is melanin pigment in the stratum corneum. There is architectural disorder characterized by a lentiginous proliferation of melanocytes between irregular nests of cells along the dermal-epidermal junction, highlighted by MART-1/Melan-A immunostain. There is underlying fibroplasia of the papillary dermis. (Junctional Garcia's Nevus or Junctional Dysplastic Nevus) The lesion is inflamed. 2 4:35 PM CDT DERMATOPATHOLOGY LABORATORY Disclaimer An external and internal positive and negative controls are appropriate for the histochemical, immunohistochemical and immunofluorescence stain(s) in this case (if any), except where stated explicitly. The performance characteristics of the stain(s) cited in this report were developed and its performance characteristic determined by the Dermatopathology Laboratory at [facility], directed by Dr. Jimmy Govea. These tests need not be, and therefore are not, approved by the [place] Food and Drug Administration. The tests are used for clinical purposes. Billing Codes Specimen Charges Stain Charges 91887 1 09939 1 2 4:35 PM CDT DERMATOPATHOLOGY LABORATORY Embedded Images 2 4:35 PM CDT DERMATOPATHOLOGY LABORATORY Pathology/Cytolog y TISSUE SPECIMEN FROM SKIN / Unknown 02/01/2022 02/01/2022 2:17 PM CDT Louise Dash MD LAB - PATHOLOGY/CYTO LOGY ORDERABLES DERMATOPATHOLOGY LABORATORY [facility] - Department of Dermatology [address] [place], [place] [id number] [place] [address] documented in this encounter Visit Diagnoses Not on filedocumented in this encounter Care Teams Global Compensation Manager Relationship Specialty Start Date End Date Rebeca Hernández PA [address] [place] [id number] PCP - General 03/18/22 documented as of this encounter
--- OUTSIDE RECORDS SUMMARY | 2024-10-05 11:07 | XMS_ITS | Encounter Summary ---
Author Organization [facility] Healthcare Address [address] [place] [address] Care Team Providers Care Single Resource Boss Name Role Phone Rebeca Jasso Primary Care Pr ovider Encounter Details Date Type Department Care Team (Late st Contact Info) Description 10/04/2024 12:15 PM PUNCHBOARD ASSEMBLER Ancillary Procedure [facility] Medical Group Imaging at [address] [address] Influenza A Social History Tobacco Use Types Packs/Day Years [...] on file Legal Sex Female 2:29 PM PUNCHBOARD ASSEMBLER Gender Identity Not on file Sexual Orientation Not on file documented as of this encounter Plan of Treatment Not on file documented as of this encounter Procedures Procedure Name Priority Date/Time Associated Diagnosis Comments XR CHEST PA LATERAL 2 VIEWS Schedule SHELLEY, Read SHELLEY (Appt Today, Awaiting Results) 10/04/2024 12:26 PM PUNCHBOARD ASSEMBLER Influenza A documented in this encounter Results * XR Chest Pa Lateral 2 Views (10/04/2024 12:26 PM PUNCHBOARD ASSEMBLER) Anatomical Region Laterality Modality Body, Chest N/A Digital Radiogra phy 10/04/2024 1:08 PM PUNCHBOARD ASSEMBLER Narrative 10/04/2024 1:12 PM PUNCHBOARD ASSEMBLER EXAM DESCRIPTION: XR CHEST PA LATERAL 2 [...] Lorenzo Barber M.D. MZ T: Report ID: [id number] Reading Location: [id number] Procedure Note Lorenzo Barber MD - 10/04/2024 [...] signed by Lorenzo GUSMAN T: Report ID: [id number] Reading Location: [place] [address] Alyssa Choi VALUATION CONSULTANT IMG XR PROCEDURES Final Re sult documented in this encounter Visit Diagnoses Diagnosis Influenza A Influenza with other respiratory manifestations documented in this encounter Additional Health Concerns Infection Onset Date Last Indicated Resolved Time Influenza, adult 10/03/2024 10/03/2024 documented as of this encounter Care Teams Single Resource Boss Relationship Specialty Start Date End Date Rebeca Jasso PA PCP - General Physician Ion Exchange Operator 04/09/22 documented as of this encounter
--- OUTSIDE RECORDS SUMMARY | 2024-10-05 11:07 | XMS_ITS | Clinical Summary ---
Author Organization [facility] Address [address] [place] [address] Care Team Providers Care Instrument Fitter Name Role Phone Rebeca Jasso Primary Care Provider [phone] Allergies Active Allergy Reactions Criticality Noted Date Comments Aspartame Seizure 02/24/2022 Medications No known medications Active Problems Problem Noted Date Diagnosed Date Screen for colon cancer 03/12/2022 Overview (03/12/2022): Added automatically from request for surgery [id number] Chronic LLQ pain 03/12/2022 Overview (03/12/2022): Added automatically from request for surgery [id number] Social History Tobacco Use Types Packs/Day Years Used Date Smoking Tobacco: Never Smokeless Tobacco: Never Comments Unknown Sex and Gender Information Value Date Recorded Sex Assigned at Not on file 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 [employer] Gender Identity Not on file Sexual Orientation Not on file Last Filed Vital Signs Vital Sign Reading Time Taken Comments Blood Pressure 132/84 02/24/2022 2:31 PM CDT Pulse 88 02/24/2022 2:31 PM CDT Temperature 36.7 C (98 F) 11/24/2021 4:48 PM CDT Respiratory Rate 18 11/24/2021 4:48 PM CDT Oxygen Saturation 100% 11/24/2021 4:48 PM CDT Inhaled Oxygen Concentration - - Weight 92.1 kg (203 lb) 02/24/2022 2:31 PM CDT Height 167.6 cm (5' 6 ) 02/24/2022 2:31 PM CDT Body Mass Index 32.77 02/24/2022 2:31 PM CDT Plan of Treatment Health Maintenance Due Date Last Done Comments Cervical Cancer Screening Pa p Smear (Age 30 to 64) Every 3 Years 1976 Colorectal Cancer Screening Colonoscopy (10 Years) 1976 Annual Physical 11/04/1979 Hepatitis C 1994 Hepatitis B Vaccines (1 of 3 - 19+ 3-dose series) 11/04/1995 Cervical Cancer Screening Pa p with HPV Testing (Age 30 to 64) Every 5 Years 2006 Cervical Cancer Screening wi th HPV 2006 DTaP, Tdap and Td Vaccines ( 1 - Tdap) 08/30/2008 08/29/2008 Mammogram Screening 2016 COVID-19 Vaccine (2023-2 5 season) 2024 07/29/2021, 11/24/2020, 10/27/2020 Influenza Adult (#1) 2024 06/12/2020 Meningococcal B Vaccine Aged Out No l onger eligible based on patient's age to complete this topic Meningococcal Vaccine Aged Out No supriya chino eligible based on patient's age to complete this topic Pneumococcal Vaccine: Pediatrics (0 to 5 Years) and At-Risk Patients (6 to 64 Years) Aged Out No longer eligible b ased on patient's age to complete this topic RSV Immunizations Under 20 Months Aged Out No longer eligible b ased on patient's age to complete this topic Insurance [facility] Care Teams Instrument Fitter Relationship Specialty Start Date End Date Rebeca Jasso PA [address] [address] [address] [place] [address] PCP - General PHYSICIAN SHEET METAL ERECTOR 02/24/22
--- NOTE | 2024-10-05 14:33 | ECG_ITS ---
Test Date: 2024-10-05 14:51:52 Measurements Intervals [place] Rate: 101 P: 14 [place]: 128 QRS: 44 QRSD: 93 T: 2 QT: 318 QTc: 412 Interpretive Statements SINUS TACHYCARDIA BORDERLINE T WAVE ABNORMALITY- INFERIOR LEADS BORDERLINE ECG No previous ECG available for comparison Electronically Signed On 10-05-2024 15:46:19 [employer] SYSTEMS INSTALLER by Tejinder Zuluaga D.O.
--- NOTE | 2024-10-05 14:35 | ED.URI ---
HPI - URI/Sore Throat General Chief Complaint: Upper Respiratory Infection <Lakisha Martin PA-C - Last Filed: 10/05/24 14:42> Stated Complaint: flu positive, low o2 <Lakisha Martin PA-C - Last Filed: 10/05/24 14:42> Time Seen by Provider: 10/05/24 15:14 <Lakisha Martin PA-C - Last Filed: 10/05/24 14:42> Focused HPI: 48 y/o F with no PMHx presents to the ED for hypoxia. Pt was dx with influenza A 2 days ago and PNA yesterday at urgent care. Patient has been on Augmentin and azithromycin and took 3 doses but has continued to worsen. States she has been taking oxygen at home and has been around 88% which prompted her to come to the ED. She reports generalized malaise, weakness, decreased p.o. intake, 1 episode of vomiting today. She reports chest pain with coughing. Reports her cough is dry. Patient states she has had fevers at home and has been taking Tylenol ibuprofen for these. She reports it is she feels dehydrated her heart rate has been very elevated at home. GENERAL: Well-appearing, well-nourished, and in no acute distress. HEAD: Normocephalic, atraumatic. CHEST: Rhonchi in bilateral lower lung arauz with fine crackles in the left lower lung field. Patient satting 92-91% on room air in triage, placed on 2 L nasal cannula and now satting 95%. HEART: Regular rate and rhythm.? NEURO: ?Alert and oriented x3. Patient screened in triage and initial orders placed.? ?Additional care and disposition to be based upon?diagnostic testing and treatment. <Lakisha Martin PA-C - Last Filed: 10/05/24 14:42> History of Present Illness HPI Narrative: I agree with the above HPI. Patient tested positive for influenza a 2 weeks ago. Patient was started on prednisone, Augmentin and azithromycin approximately 2 days ago and had 3 doses. <Irineo Olson MD - Last Filed: 10/05/24 19:19> Related Data Home Medications: Home Medications ?Medication ?Instructions ?Recorded ?Confirmed ?Last Taken ?Type amoxicillin 875 mg-potassium 1 tablet PO Q12H 10/05/24 10/05/24 10/05/24 History clavulanate 125 mg tablet azithromycin 250 mg tablet See Rx Instructions .Route .COMPLEX 10/05/24 10/05/24 10/05/24 History methylprednisolone 4 mg tablets in See Rx Instructions .Route .COMPLEX 10/05/24 10/05/24 10/05/24 History a dose pack <Lakisha Martin PA-C - Last Filed: 10/05/24 14:42> Allergies/Adverse Reactions: Allergies Allergy/AdvReac Type Severity Reaction Status Date / Time aspartame AdvReac Severe Seizure Verified 10/05/24 15:31 <Lakisha Martin PA-C - Last Filed: 10/05/24 14:42> Review of Systems Review of Systems: All systems reviewed & are unremarkable except as noted in HPI and below <Irineo Olson MD - Last Filed: 10/05/24 19:19> [facility] Past Medical History Medical History: Medical History Colon cancer screening Migraines Obesity <Lakisha Martin PA-C - Last Filed: 10/05/24 14:42> Surgical History Surgical History: Surgical History History of ovarian cystectomy (02/2022) History of tubal ligation <Lakisha Martin PA-C - Last Filed: 10/05/24 14:42> Family History Family History: Family History Sibling Family history of atrial fibrillation <Lakisha Matrin PA-C - Last Filed: 10/05/24 14:42> Social History Social History: Social History Social History: Surrogate medical decision maker: Bernard Allen, spouse. Code status: Full code. Smoking status: Never smoker Alcohol intake: never Substance use: never Lack of Transportation: No Lack of Food: Never True Current Housing: I Have Housing Concerned About Future Housing: No Difficulty Paying Gas/Electric Bills: No Difficulty Paying for Meds: No Currently Unemployed: No Education: Trade/Vocational Certificate Difficulty w/ Childcare or Family Care: No Living arrangements: with family Spiritual care concerns: No <Lakisha Martin PA-C - Last Filed: 10/05/24 14:42> Exam Narrative: APPEARANCE: Ill-appearing HEAD: normocephalic, atraumatic. EYES: PERRLA/EOMI, conjunctivae clear. NOSE: Normal no drainage EARS:TMS clear with good light reflex. THROAT: Pharynx clear, no exudate. NECK: Supple. No adenopathy, no masses. RESPIRATORY: Wheeze and chest and lung sounds bilateral CARDIOVASCULAR: Regular rate and rhythm without murmurs rubs or gallops. ABDOMINAL: Soft, nontender, nondistended, normal bowel sounds MUSCULOSKELETAL: Moves all extremities. Strength/ROM intact, No edema, No calf tenderness. NEURO: Alert. Cranial nerves II through XII intact. SKIN: Warm, dry. Normal Color <Irineo Olson MD - Last Filed: 10/05/24 19:19> Course Vital Signs Vital signs: Vital Signs Temperature 97.7 F 10/05/24 10:30 Pulse Rate 121 H 10/05/24 10:30 Respiratory Rate 14 10/05/24 10:30 Blood Pressure 120/71 10/05/24 10:30 Pulse Oximetry 95 10/05/24 10:30 Oxygen Delivery Room Air 10/05/24 10:30 Temperature 97.9 F 10/05/24 15:31 Pulse Rate 97 10/05/24 18:35 Respiratory Rate 25 H 10/05/24 18:35 Blood Pressure 134/98 H 10/05/24 18:35 Pulse Oximetry 96 10/05/24 18:35 Oxygen Delivery Nasal Cannula 10/05/24 17:07 Oxygen Flow Rate 2 10/05/24 17:07 <Lakisha Martin PA-C - Last Filed: 10/05/24 14:42> Vital Signs Temperature 97.7 F 10/05/24 10:30 Pulse Rate 121 H 10/05/24 10:30 Respiratory Rate 14 10/05/24 10:30 Blood Pressure 120/71 10/05/24 10:30 Pulse Oximetry 95 10/05/24 10:30 Oxygen Delivery Room Air 10/05/24 10:30 Temperature 97.9 F 10/05/24 15:31 Pulse Rate 97 10/05/24 18:35 Respiratory Rate 25 H 10/05/24 18:35 Blood Pressure 134/98 H 10/05/24 18:35 Pulse Oximetry 96 10/05/24 18:35 Oxygen Delivery Nasal Cannula 10/05/24 17:07 Oxygen Flow Rate 2 10/05/24 17:07 <Irineo Olson MD - Last Filed: 10/05/24 19:19> MDM - URI/Sore Throat MDM Narrative Medical decision making narrative: 48-year-old female presenting to the emergency department for evaluation for worsening shortness of breath. Patient reports she did have a upper respiratory infection approximately 2 weeks ago and was started on antibiotics a few days ago. Patient states even since being on the antibiotic she continues to worsen. Patient was saturating at 90% at room air have rest. Patient was afebrile but does have a leukocytosis of 18.7 hemoglobin of 12.9. Patient did have an elevated D-dimer of 3.83. CTA was ordered to evaluate for pulmonary embolism and was negative for PE, patient does have multifocal infiltrates on both chest x-ray and CT scan. ABG does show a pH of 7.47, pCO2 of 31.5 and a PO2 of 68.5 with a O2 saturation of 94.9 on 2 L. patient was treated with albuterol and did feel mildly improved. Patient was started on antibiotics in the emergency department. Patient was also treated with a L of IV fluids. Hospitalist was paged <Irineo Olson MD - Last Filed: 10/05/24 19:19> Differential Diagnosis Differential diagnosis: Likely upper respiratory infection, viral infection and influenza <Irineo Olson MD - Last Filed: 10/05/24 19:19> Lab Data Attestation: I reviewed the patient's lab results. <Irineo Olson MD - Last Filed: 10/05/24 19:19> Result diagrams: 10/05/24 15:02 10/05/24 15:02 <Lakisha Martin PA-C - Last Filed: 10/05/24 14:42> Labs: Lab Results 02/07/25 02/07/25 02/07/25 Range/Units 15:02 15:38 18:34 WBC 18.7 H (4.5-10.0) K/mm3 RBC 4.36 (4.2-5.4) M/mm3 Hgb 12.9 (12.0-15.0) g/dL Hct 38.5 (37.0-47.0) % MCV 88.3 (80-100) fl MCH 29.6 (26-34) pg MCHC 33.5 (32-36) g/dl RDW 13.3 (11.5-14.5) % Plt Count 308 (150-375) k/mm3 MPV 9.2 (7.4-10.4) fl Immature Gran % (Auto) Not Reportable Neut % (Auto) Not Reportable Lymph % (Auto) Not Reportable Kendall % (Auto) Not Reportable Eos % (Auto) Not Reportable Baso % (Auto) Not Reportable Lymph # (Auto) Not Reportable Kendall # (Auto) Not Reportable Eos # (Auto) Not Reportable Baso # (Auto) Not Reportable Abs Immat Gran (auto) Not Reportable Absolute Neuts (auto) Not Reportable Absolute Nucleated RBC Not Reportable Total Counted 100 Neutrophils % (Manual) 60 (46-73) % Band Neutrophils % 35 H (0-6) % Lymphocytes % (Manual) 4.0 L (18-44) % Monocytes % (Manual) 1 L (3-9) % Nucleated RBC % Not Reportable Abs Neuts (Manual) 17.76 H (1.7-7.2) K/mm3 Abs Lymphs (Manual) 0.74 L (1.1-4.5) K/mm3 Abs Monocytes (Manual) 0.18 (0.1-0.90) K/mm3 Platelet Estimate Adequate (Adequate) Clumped Platelets Present Schistocytes None seen D-Dimer 3.83 H (<0.48) ug/mL Sodium 135 L (137-145) mmol/L Potassium 3.8 (3.4-5.0) mmol/L Chloride 99 (98-107) mmol/L Carbon Dioxide 20 L (22-30) mmol/L Anion Gap 16 H (4-12) mmol/L BUN 24 H D (7-17) mg/dL Creatinine 1.11 H (0.7-1.0) mg/dL Estim Creat Clear Calc 63 ml/min Estimated GFR 53 L (59 - ) Glucose 125 H (65-110) mg/dL Lactic Acid 2.1 H (0.7-2.0) mmol/L Calcium 9.3 (8.4-10.2) mg/dL Magnesium 2.0 (1.6-2.3) mg/dL Total Bilirubin 0.6 (0.2-1.3) mg/dL AST 35 (14-36) U/L ALT 38 H (6-35) U/L Alkaline Phosphatase 188 H (38-126) U/L Troponin I < 0.012 (0.000-0.034) ng/mL NT-Pro-B Natriuret Pep 429 H (19.9-100) pg/mL Total Protein 8.0 (6.3-8.2) g/dL Albumin 3.9 (3.5-5.1) g/dL Urine Color Yellow (Yellow) Urine Appearance Cloudy H (Clear) Urine pH 5.5 (5.0-9.0) Ur Specific Butler 1.016 (1.001-1.035) Urine Protein 1+ H (Negative) mg/dL Urine Glucose (UA) Negative (Negative) mg/dL Urine Ketones Negative (Negative) mg/dL Ur Blood (Man) Negative (Negative) Urine Nitrate Negative (Negative) Urine Bilirubin Negative (Negative) Urine Urobilinogen 0.2 (<2.0) mg/dL Add Ur Microanalysis Reviewed Leukocyte Esterase Rfl Trace H (Negative) DALLIN/UL Urine RBC 3-5 H (0-2) /hpf Urine WBC 0-5 (0-3) /hpf Ur Squamous Epith Cells Many H (Few) /hpf Urine Bacteria None seen /hpf Urine Casts 11-20 Nasal MRSA (PCR) Pending Influenza A (RT-PCR) Positive A (Negative) Influenza B (RT-PCR) Negative (Negative) RSV (RT-PCR) Negative (Negative) SARS-CoV-2 RNA (RT-PCR) Negative (Negative) <Lakisha Martin PA-C - Last Filed: 10/05/24 14:42> Lab Results 10/05/24 10/05/24 10/05/24 Range/Units 15:02 15:38 18:34 WBC 18.7 H (4.5-10.0) K/mm3 RBC 4.36 (4.2-5.4) M/mm3 Hgb 12.9 (12.0-15.0) g/dL Hct 38.5 (37.0-47.0) % MCV 88.3 (80-100) fl MCH 29.6 (26-34) pg MCHC 33.5 (32-36) g/dl RDW 13.3 (11.5-14.5) % Plt Count 308 (150-375) k/mm3 MPV 9.2 (7.4-10.4) fl Immature Gran % (Auto) Not Reportable Neut % (Auto) Not Reportable Lymph % (Auto) Not Reportable Kendall % (Auto) Not Reportable Eos % (Auto) Not Reportable Baso % (Auto) Not Reportable Lymph # (Auto) Not Reportable [place] # (Auto) Not Reportable Eos # (Auto) Not Reportable Baso # (Auto) Not Reportable Abs Immat Gran (auto) Not Reportable Absolute Neuts (auto) Not Reportable Absolute Nucleated RBC Not Reportable Total Counted 100 Neutrophils % (Manual) 60 (46-73) % Band Neutrophils % 35 H (0-6) % Lymphocytes % (Manual) 4.0 L (18-44) % Monocytes % (Manual) 1 L (3-9) % Nucleated RBC % Not Reportable Abs Neuts (Manual) 17.76 H (1.7-7.2) K/mm3 Abs Lymphs (Manual) 0.74 L (1.1-4.5) K/mm3 Abs Monocytes (Manual) 0.18 (0.1-0.90) K/mm3 Platelet Estimate Adequate (Adequate) Clumped Platelets Present Schistocytes None seen D-Dimer 3.83 H (<0.48) ug/mL Sodium 135 L (137-145) mmol/L Potassium 3.8 (3.4-5.0) mmol/L Chloride 99 (98-107) mmol/L Carbon Dioxide 20 L (22-30) mmol/L Anion Gap 16 H (4-12) mmol/L BUN 24 H D (7-17) mg/dL Creatinine 1.11 H (0.7-1.0) mg/dL Estim Creat Clear Calc 63 ml/min Estimated GFR 53 L (59 - ) Glucose 125 H (65-110) mg/dL Lactic Acid 2.1 H (0.7-2.0) mmol/L Calcium 9.3 (8.4-10.2) mg/dL Magnesium 2.0 (1.6-2.3) mg/dL Total Bilirubin 0.6 (0.2-1.3) mg/dL AST 35 (14-36) U/L ALT 38 H (6-35) U/L Alkaline Phosphatase 188 H (38-126) U/L Troponin I < 0.012 (0.000-0.034) ng/mL NT-Pro-B Natriuret Pep 429 H (19.9-100) pg/mL Total Protein 8.0 (6.3-8.2) g/dL Albumin 3.9 (3.5-5.1) g/dL Urine Color Yellow (Yellow) Urine Appearance Cloudy H (Clear) Urine pH 5.5 (5.0-9.0) Ur Specific [place] 1.016 (1.001-1.035) Urine Protein 1+ H (Negative) mg/dL Urine Glucose (UA) Negative (Negative) mg/dL Urine Ketones Negative (Negative) mg/dL Ur Blood (Man) Negative (Negative) Urine Nitrate Negative (Negative) Urine Bilirubin Negative (Negative) Urine Urobilinogen 0.2 (<2.0) mg/dL Add Ur Microanalysis Reviewed Leukocyte Esterase Rfl Trace H (Negative) DALLIN/UL Urine RBC 3-5 H (0-2) /hpf Urine WBC 0-5 (0-3) /hpf Ur Squamous Epith Cells Many H (Few) /hpf Urine Bacteria None seen /hpf Urine Casts 11-20 Nasal MRSA (PCR) Pending Influenza A (RT-PCR) Positive A (Negative) Influenza B (RT-PCR) Negative (Negative) RSV (RT-PCR) Negative (Negative) SARS-CoV-2 RNA (RT-PCR) Negative (Negative) <Irineo Olson MD - Last Filed: 10/05/24 19:19> ABG Data ABG results: 10/05/24 15:38 Puncture Site Left brachial ABG pH 7.470 H ABG pCO2 31.5 L ABG pO2 68.5 L ABG PO2/FiO2 Ratio 2.45 ABG HCO3 22.4 ABG O2 Saturation 94.9 L ABG O2 Content 17.5 ABG Base Excess -0.4 A-a Gradient 94.0 Oxyhemoglobin 93.5 Total Hemoglobin 13.3 O2 Delivery Device Nasal cannula O2 Liters/Min 2.0 FiO2 28 <Lakisha Martin PA-C - Last Filed: 10/05/24 14:42> 10/05/24 15:38 Puncture Site Left brachial ABG pH 7.470 H ABG pCO2 31.5 L ABG pO2 68.5 L ABG PO2/FiO2 Ratio 2.45 ABG HCO3 22.4 ABG O2 Saturation 94.9 L ABG O2 Content 17.5 ABG Base Excess -0.4 A-a Gradient 94.0 Oxyhemoglobin 93.5 Total Hemoglobin 13.3 O2 Delivery Device Nasal cannula O2 Liters/Min 2.0 FiO2 28 <Irineo Olson MD - Last Filed: 10/05/24 19:19> Imaging Data Radiologist's impression: Impressions Chest X-Ray 10/05/24 15:18 IMPRESSION: 1. Airspace opacities in the mid and lower lung zones, consistent with pneumonia. Chest CTA 10/05/24 17:41 IMPRESSION: No pulmonary embolus. No thoracic aortic dissection. Multifocal infiltrates, as designated on plain film evaluation performed 2 hours earlier. <Irineo Olson MD - Last Filed: 10/05/24 19:19> Discharge Plan Discharge Clinical Impression: Multifocal pneumonia, Hypoxia, Influenza A <Lakisha Martin PA-C - Last Filed: 10/05/24 14:42> Patient Disposition: Still a Patient <Lakisha Martin PA-C - Last Filed: 10/05/24 14:42> Condition: Serious <Lakisha Martin PA-C - Last Filed: 10/05/24 14:42> Patient Language: Pakistani <Lakisha Martin PA-C - Last Filed: 10/05/24 14:42> Prescriptions: No Action albuterol sulfate [Ventolin HFA] 90 mcg/actuation HFA aerosol inhaler 2 puff INHALATION QID PRN (Reason: shortness of breath or wheezing) Qty: 8 0RF amoxicillin-pot clavulanate 875-125 mg tablet 1 tablet PO Q12H azithromycin 250 mg tablet See Rx Instructions .ROUTE .COMPLEX Rx Instructions: follow rx instructions; methylprednisolone 4 mg tablets,dose pack See Rx Instructions .ROUTE .COMPLEX Rx Instructions: follow rx instructions; <Lakisha Martin PA-C - Last Filed: 10/05/24 14:42> Follow-up/Referrals: Romero,SAIRA Jose [Primary Care Provider] - <Lakisha Martin PA-C - Last Filed: 10/05/24 14:42>
[2024-10-05 15:10] LABS: Hematocrit 38.5 % (37.0-47.0); Hemoglobin 12.9 g/dL (12.0-15.0); Mean Corpuscular HGB Conc 33.5 g/dl (32-36); Mean Corpuscular Hemoglobin 29.6 pg (26-34); Mean Corpuscular Volume 88.3 fl (80-100); Mean Platelet Volume 9.2 fl (7.4-10.4); Platelet Count Result 308 k/mm3 (150-375); Red Blood Count 4.36 M/mm3 (4.2-5.4); Red Cell Distribution Width 13.3 % (11.5-14.5); White Blood Count 18.7 K/mm3 (4.5-10.0)
[2024-10-05 15:22] LABS: Alanine Aminotransferase 38 U/L (6-35); Albumin Level 3.9 g/dL (3.5-5.1); Alkaline Phosphatase 188 U/L (38-126); Anion Gap 16 mmol/L (4-12); Aspartate Amino Transferase 35 U/L (14-36); Bilirubin,Total 0.6 mg/dL (0.2-1.3); Blood Urea Nitrogen 24 mg/dL (7-17); Calcium 9.3 mg/dL (8.4-10.2); Carbon Dioxide 20 mmol/L (22-30); Chloride 99 mmol/L (98-107); Estimated CRCL calculation 63 ml/min; Estimated Glomerular Filt Rate 53; Glucose 125 mg/dL (65-110); Lactic Acid Reflex 2.1 mmol/L (0.7-2.0); Potassium 3.8 mmol/L (3.4-5.0); Sodium 135 mmol/L (137-145)
[2024-10-05 15:30] LABS: NT Pro B Type Natriuretic Pept 429 pg/mL (19.9-100)
[2024-10-05 15:33] LABS: Troponin I < 0.012 ng/mL (0.000-0.034)
[2024-10-05 15:36] LABS: Band Neutrophils Percent 35 % (0-6); Lymphocytes Absolute Manual 0.74 K/mm3 (1.1-4.5); Monocytes Absolute Manual 0.18 K/mm3 (0.1-0.90); Monocytes Percent Manual 1 % (3-9); Neutrophils Absolute Manual 17.76 K/mm3 (1.7-7.2); Neutrophils Percent Manual 60 % (46-73); Platelet Estimate Adequate (Adequate); Schistocytes None Seen; Total Cells Counted 100
[2024-10-05 15:38] LABS: Platelet Clumps Present
[2024-10-05] MEDS: ALBUTEROL SULFATE NEB 2.5 MG/3 ML INH INHALATION (15:45)
[2024-10-05 15:46] LABS: Base Excess ABG -0.4 mEq/l (+/-2.0); Fractional Inspired Oxygen 28 %; HCO3 ABG 22.4 mEq/l (22.0-26.0); Oxygen Content ABG 17.5 %vol (16.0-22.0); Oxygen Saturation ABG 94.9 % (95.0-100.0); Oxyhemoglobin 93.5 % THb (90.0-100.0); PCO2 ABG 31.5 mmHg (35.0-45.0); PO2 ABG 68.5 mmHg (80.0-100.0); PO2 FiO2 Ratio Arterial Blood 2.45 %; Total Hemoglobin 13.3 g/dL (12.0-18.0)
[2024-10-05 15:50] LABS: D Dimer 3.83 ug/mL (<0.48)
[2024-10-05 15:53] LABS: Device NASAL CANNULA; Site Drawn LEFT BRACHIAL
--- OUTSIDE RECORDS SUMMARY | 2024-10-05 16:02 | XMS_ITS | Continuity of Care Document ---
Author Organization [facility] Address [address] [address] [place] [address] Phone Care Team Providers Care Agricultural Equipment Sales Engineer Name Role Phone Dax Diamond MD Unavailable Unavailable Allergies, Adverse Reactions, Alerts Substance Reaction Status Criticality No Known Allergies Active No Inform ation Medications Medication Instructions Dosage Effective Dates (start - stop) Status Comments Protonix 40 mg tablet,delayed release take 1 tablet by oral route every day 40 MG - Active Procedures Procedure Date PREV VISIT, NEW, AGE 40-64 OFFICE/OUTPATIENT VISIT, [facility] Advance Directives Directive Yes / No Effective Date File Name No Information Encounters Encounter Description Practice Location Reason(s) For Visit Diagnoses Date Provider Providers Copied on Encounter PREV VISIT, NEW, AGE 40-64 [facility], [address] [place], [place], [id number], [place] tel:[phone] [facility] PHysical (chief complaint) CoughEssential (primary) hypertensionEncount er for general adult medical exam w abnormal findings [address] [place], [id number] , [place]. tel:[phone] Referring Provider: Dax Diamond, [address] [facility] [address] [place], [place], [id number]. tel:[phone] Family History Family Member Type Diagnosis Age At Onset Mother Problem (finding) Alive and well Father Problem (finding) Alive and well Sister Problem (finding) atril fibrillation Payers Payer name Insurance type Covered alliance party ID Authoriza tion(s) No Information Social History [...] Mental Status Date Cognitive Assessment Orientation - [place] ed to time, place, person, situation.
--- OUTSIDE RECORDS SUMMARY | 2024-10-05 16:02 | XMS_ITS | Clinical Summary ---
Author Organization [facility] Address [address] [place] [address] Care Team Providers Care Director Drug Name Role Phone Rebeca Hernández Primary Care Pr ovider Source Comments [facility],non-owned Affiliates and Associated Physician Practices is amultiple site organization consisting of ambulatory clinics and hospital sitesin [place], [place], [place] and [place]. This disclosure is being madepursuant to the Care Everywhere program and may not contain all information available regarding this patient. Last updated 18.[facility] [place] Social History Tobacco Use Types Packs/Day Years [...] age to complete this topic Care Teams Director Drug Relationship Specialty Start Date End Date Rebeca Hernández PA [address] [place] [address] [place] [id number] PCP - General 03/18/22
--- OUTSIDE RECORDS SUMMARY | 2024-10-05 16:02 | XMS_ITS | Clinical Summary ---
Author Organization [facility], [facility] Address [address] [place] [address] Phone Care Team Providers Care Brick Unloader Tender Name Role Phone Unavailable Primary Care Provider [...] for cough. 42 Capsule 09/18/2022 5:18 PM CREATIVE COORDINATOR 09/18/2022 Active azithromycin (Zithromax Z-Latrell) 250 mg [...] 4 days. 6 Tablet 07/18/2023 3:02 PM CREATIVE COORDINATOR 07/18/2023 Active benzonatate (TESSALON) 200 mg capsule Take 1 Capsule (200 mg) by mouth 3 times daily. 30 Capsule 06/05/2024 5:44 PM CDT 06/05/2024 Active benzonatate (TESSALON) 200 mg capsule Take 1 capsule (200 mg total) by mouth 3 (three) times a day as needed for cough 30 Capsule 10/03/2024 4:28 PM CREATIVE COORDINATOR 10/03/2024 Active oseltamivir (Tamiflu) 75 mg capsule Take 1 Capsule (75 mg) by mouth 2 times daily for 5 days. 10 Capsule 10/04/2024 10:21 AM CREATIVE COORDINATOR 10/04/2024 10/09/19 25 Active methylPREDNISol one (Medrol, Latrell,) 4 mg Tablets, Dose Pack TAKE DRIECTED ON PACKAGE. 21 Tablet 10/04/2024 10:21 AM CREATIVE COORDINATOR 10/04/2024 Active albuterol sulfate HFA 90 mcg/actuation aerosol inhaler Inhale 2 puffs by mouth every 4 hours as needed. 6.7 Gram 10/04/2024 2:28 PM CREATIVE COORDINATOR 10/04/2024 Active amoxicillin-cla vulanate (AUGMENTIN) 875-125 mg tablet Take 1 Tablet by mouth 2 times daily for 10 days. 20 Tablet 10/04/2024 2:28 PM CREATIVE COORDINATOR 10/04/2024 10/14/19 25 Active azithromycin (ZITHROMAX) 250 mg tablet TAKE 2 TABLETS BY MOUTH A SINGLE DOSE ON DAY 1, THEN TAKE 1 TABLET DAILY ON DAYS 2 THRU 5. 6 Tablet 10/04/2024 2:28 PM CREATIVE COORDINATOR 10/04/2024 Active Encounters Date Type Department Care [...]
--- OUTSIDE RECORDS SUMMARY | 2024-10-05 16:03 | XMS_ITS | Clinical Summary ---
Author Organization [facility] Address [address] [place] [address] Care Team Providers Care Cw Operator Name Role Phone Rebeca Jasso Primary Care Provider [phone] Allergies Active Allergy Reactions Criticality Noted Date Comments Aspartame Seizure 02/24/2022 Medications No known medications Active Problems Problem Noted Date Diagnosed Date Screen for colon cancer 03/12/2022 Overview (03/12/2022): Added automatically from request for surgery [id number] Chronic LLQ pain 03/12/2022 Overview (03/12/2022): Added automatically from request for surgery [id number] Social History Tobacco Use Types Packs/Day Years Used Date Smoking Tobacco: Never Smokeless Tobacco: Never Comments Unknown Sex and Gender Information Value Date Recorded Sex Assigned at Not on file Legal Sex 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
--- OUTSIDE RECORDS SUMMARY | 2024-10-05 16:03 | XMS_ITS | Clinical Summary ---
Author Organization [facility] [address] Address [address] [place] [phone] Care Team Providers Care Curriculum Development Manager Name Role Phone Rebeca Jasso Primary Care [...] times a day 09/18/19 23 025 Discontin ued(Zurdo judd ) Hospital, Clinic, or Other Facility Administered Medication Ordered Dose Route Frequency Start Date End Date Status ipratropium-albuteroL (DUO-NEB) 0.5-2.5 mg/3 mL nebulizer solution 3 mLIndications:Chronic Obstructive Pulmonary Disease with Bronchospasms 3 mL nebu Once 10/04/2024 Ended Active Problems Problem Noted Date Diagnosed Date Streptococcal sore throat 11/11/2022 Lumbar spine pain 05/17/2022 Chronic LLQ pain 03/12/2022 Overview (10/18/2022): Added automatically from request for surgery [id number] Lumbar spondylosis 02/10/2022 Mass of subcutaneous tissue of back 01/05/2022 Complex cyst of uterine adnexa 12/21/2021 Degeneration of lumbar intervertebral disc 12/21 Lipoma of lower back 12/21/2021 Acute thoracic back pain 12/01/2021 Left sided abdominal pain 12/01/2021 Rib pain 12/01/2021 Encounters Date Type Department Care Team Description 10/04/2024 2:19 PM HEATING EQUIPMENT REPAIRER - 10/04/2024 11:59 PM HEATING EQUIPMENT REPAIRER Hospital Encounter [address] [address] Sore throat Discharge Disposition: Discharge to home or self care 10/04/2024 12:15 PM HEATING EQUIPMENT REPAIRER Ancillary Procedure [facility] Imaging at [address] [phone] Influenza A 10/04/2024 11:15 AM HEATING EQUIPMENT REPAIRER Office Visit [facility] Convenient Care at [address] [phone] Alyssa Choi NP Sore throat (Primary Dx); Influenza A; Community acquired pneumonia of left lung, unspecified part of lung 10/03/2024 8:25 AM HEATING EQUIPMENT REPAIRER Ancillary Procedure [facility] Imaging at [address] [phone] Influenza A 10/03/2024 8:00 AM HEATING EQUIPMENT REPAIRER Office Visit [facility]ient Care at [address] [address] Alison Castillo NP Influenza A (Primary Dx) [...] on file Legal Sex Female 2:29 PM HEATING EQUIPMENT REPAIRER Gender Identity Not on file Sexual Orientation Not on file Obstetrics History Last Filed Vital Signs Vital Sign Reading Time Taken Comments Blood Pressure 122/62 10/04/2024 11:20 AM HEATING EQUIPMENT REPAIRER Pulse 111 10/04/2024 12:21 PM HEATING EQUIPMENT REPAIRER Temperature 37.6 C (99.6 F) 10/04/2024 11:20 AM HEATING EQUIPMENT REPAIRER Respiratory Rate 22 10/04/2024 11:20 AM HEATING EQUIPMENT REPAIRER Oxygen Saturation 95% 10/04/2024 12:21 PM HEATING EQUIPMENT REPAIRER after neb tx Inhaled Oxygen Concentration - - Weight 92.5 kg (204 lb) 10/04/2024 11:20 AM HEATING EQUIPMENT REPAIRER Height 156.2 cm (5' 1.5 ) 06/12/2024 [...] (Appt Today, Awaiting Results) 10/04/2024 12:26 PM HEATING EQUIPMENT REPAIRER Influenza A POCT RAPID STREP Routine 10/04/2024 11:3 2 AM HEATING EQUIPMENT REPAIRER Sore throat XR CHEST PA LATERAL 2 VIEWS Schedule SHELLEY, Read SHELLEY (Appt Today, Awaiting Results) 10/03/2024 8:32 AM HEATING EQUIPMENT REPAIRER Influenza A POCT RAPID STREP Routine 10/03/2024 8:18 AM HEATING EQUIPMENT REPAIRER Influenza A POC INFLUENZA A/B, COVID-19 ANTIGEN Routine 10/03/2024 8:17 AM HEATING EQUIPMENT REPAIRER Influenza A from Last 3 Months Results * XR Chest Pa Lateral 2 Views (10/04/2024 12:26 PM HEATING EQUIPMENT REPAIRER) Anatomical Region Laterality Modality Body, Chest N/A Digital Radiogra phy 10/04/2024 1:08 PM HEATING EQUIPMENT REPAIRER Narrative 10/04/2024 1:12 PM HEATING EQUIPMENT REPAIRER EXAM DESCRIPTION: XR CHEST PA LATERAL 2 [...] Lorenzo Barber M.D. MZ T: Report ID: [id number] Reading Location: [id number] Procedure Note Lorenzo Barber MD - 10/04/2024 [...] signed by Lorenzo GUSMAN T: Report ID: [id number] Reading Location: [id number] Alyssa Choi STRUCTURAL STEEL DETAILER IMG XR PROCEDURES Final Re sult * POCT rapid strep A (10/04/2024 11:32 AM HEATING EQUIPMENT REPAIRER) Rapid Strep A, POC Negative Negative Swab 10/04/2024 11:3 2 AM HEATING EQUIPMENT REPAIRER Alyssa Choi STRUCTURAL STEEL DETAILER POINT OF CARE TEST ORDERAB LES Final Result * XR Chest PA Lateral 2 Views (10/03/2024 8:32 AM HEATING EQUIPMENT REPAIRER) Anatomical Region Laterality Modality Body, Chest N/A Digital Radiogra phy 10/03/2024 8:48 AM HEATING EQUIPMENT REPAIRER Narrative 10/03/2024 8:50 AM HEATING EQUIPMENT REPAIRER EXAM DESCRIPTION: XR CHEST PA LATERAL 2 [...] signed by Carmelo PERERA T: Report ID: [id number] Reading Location: [id number] Procedure Note Carmelo Rodriguez MD - 10/03/2024 [...] Carmelo Rodriguez M.D. LB T: Report ID: [id number] Reading Location: [place] [address] Alison Castillo STRUCTURAL STEEL DETAILER IMG XR PROCEDURES Final Result * POCT rapid strep A (10/03/2024 8:18 AM HEATING EQUIPMENT REPAIRER) Rapid Strep A, POC Negative Negative Swab 10/03/2024 8:18 AM HEATING EQUIPMENT REPAIRER Alison Castillo STRUCTURAL STEEL DETAILER POINT OF CARE TEST ORDERABLES Final Result * (ABNORMAL) POC Influenza A/B, COVID-19 antigen (10/03/2024 8:17 AM HEATING EQUIPMENT REPAIRER) Influenza A Ag, POC Positive(A) Negative [facility] Influenza B Ag, POC Negative Negative [facility] COVID-19 Ag POC Presumptive Negative Presumptive Negative, Invalid [facility] Nasal 10/03/2024 8:17 AM HEATING EQUIPMENT REPAIRER Alison Castillo STRUCTURAL STEEL DETAILER POINT OF CARE TEST ORDERABLES Final Result [id number] [address] [place] [address], [facility] from Last 3 Months Additional Health Concerns Infection Onset Date Last Indicated Influenza, adult 10/03/2024 10/03/2024 Insurance [facility] Care Teams Curriculum Development Manager Relationship Specialty Start Date End Date Rebeca Jasso PA PCP - General Physician Quiller Tender 04/09/22
--- OUTSIDE RECORDS SUMMARY | 2024-10-05 16:03 | XMS_ITS | Encounter Summary ---
Author Organization [facility] Address [address] [place] [address] Care Team Providers Care Integrated Logistics Operations Manager Name Role Phone Rebeca Hernández Primary Care Pr ovider Encounter Details Date Type Department Care Team (Late st Contact Info) Description 05/03/2024 Lab Requisition [facility] - DermPath Lab [address] [place] [phone] [place] [address] [facility] [address] [place] [address] Social History Tobacco Use Types [...] AM CDT) Case Report Dermatopathology Report Case: [id number] Authorizing Provider: Dea Camarillo MD Collected: 05/02/2024 12:00 AM Ordering Location: [facility] - Received: 05/03/2024 04:28 PM [...] characteristic determined by the Dermatopathology Laboratory at [facility], directed by Dr. Jimmy Govea. These tests need not be, and therefore are not, approved by the [place] Food and Drug Administration. The tests are used for clinical purposes. Billing Codes Specimen Charges Stain Charges 33937 1 4 2:43 PM CDT DERMATOPATHOLOGY LABORATORY Embedded Images 4 2:43 PM CDT DERMATOPATHOLOGY LABORATORY Pathology/Cytolog y TISSUE SPECIMEN FROM SKIN / Unknown 05/02/2024 05/03/2024 4:28 PM CDT Dea Camarillo MD LAB - PATHOLOGY/CYTO LOGY ORDERABLES DERMATOPATHOLOGY LABORATORY [facility] - Department of Dermatology [address], [address] [phone] documented in this encounter Visit Diagnoses Not on filedocumented in this encounter Care Teams Integrated Logistics Operations Manager Relationship Specialty Start Date End Date Rebeca Hernández PA [address] [place] [phone] PCP - General 03/18/22 documented as of this encounter
--- OUTSIDE RECORDS SUMMARY | 2024-10-05 16:03 | XMS_ITS | Patient Health Summary ---
Author Organization [facility] Address [address] [place] [address] Care Team Providers Care Water Fitness Instructor Name Role Phone Rebeca Hernández Primary Care Pr ovider Note from [facility],non-owned Affiliates and Associated Physician Practices is amultiple site organization consisting of ambulatory clinics and hospital sitesin [place], [place], [place] and [place]. This disclosure is being madepursuant to the Care Everywhere program and may not contain all information available regarding this patient. Last updated 18.[facility] [employer] Social History Tobacco Use Types Packs/Day Years [...] is included. Case Report Dermatopathology Report Case: [id number] Authorizing Provider: Dea Camarillo MD Collected: 05/02/2024 12:00 AM Ordering Location: [facility] - Received: 05/03/2024 04:28 [...] characteristic determined by the Dermatopathology Laboratory at [facility], directed by Dr. Jimmy Govea. These tests need not be, and therefore are not, approved by the [place] Food and Drug Administration. The tests are used for clinical purposes. Billing Codes Specimen Charges Stain Charges 83529 1 4 2:43 PM CDT DERMATOPATHOLOGY LABORATORY Embedded Images 4 2:43 PM CDT DERMATOPATHOLOGY LABORATORY Pathology/Cytolog y TISSUE SPECIMEN FROM SKIN / Unknown 05/02/2024 05/03/2024 4:28 PM CDT Dea Camarillo MD LAB - PATHOLOGY/CYTO LOGY ORDERABLES DERMATOPATHOLOGY LABORATORY [facility] - Department of Dermatology [facility] [address] [place] [address], [address] [phone] Care Teams Water Fitness Instructor Relationship Specialty Start Date End Date Rebeca Hernández PA [address] [place] [address] PCP - General 03/18/22
--- OUTSIDE RECORDS SUMMARY | 2024-10-05 16:03 | XMS_ITS | Encounter Summary ---
Author Organization [facility] Address [address] [place] [address] Care Team Providers Care Reading Interventionist Name Role Phone Rebeca Jasso Primary Care Pr ovid Encounter Details Date Type Department Care Team (Latest Contact Info) Description 10/04/2024 2:19 PM REAL ESTATE BRANCH MANAGER - 10/04/2024 11:59 PM REAL ESTATE BRANCH MANAGER Hospital Encounter [address] [address] Sore throat Discharge Disposition: Discharge to home [...] on file Legal Sex Female 2:29 PM REAL ESTATE BRANCH MANAGER Gender Identity Not on file Sexual Orientation [...] Microbiology Routine Sore throat 10/04/2024 2:19 PM REAL ESTATE BRANCH MANAGER Scheduled Orders Name Type Priority Associated Diagnoses Orde r Schedule Throat culture Throat Microbiology Routine Sore throat Once for 1 Occurrences starting 10/04/2024 until 10/04/2024 documented as of this encounter Visit Diagnoses Diagnosis Sore throat Acute pharyngitis documented in this encounter Additional Health Concerns Infection Onset Date Last Indicated Resolved Time Influenza, adult 10/03/2024 10/03/2024 documented as of this encounter Care Teams Reading Interventionist Relationship Specialty Start Date End Date Rebeca Jasso PA PCP - General Physician Ostomy Care Nurse 04/09/22 documented as of this encounter
--- OUTSIDE RECORDS SUMMARY | 2024-10-05 16:03 | XMS_ITS | Encounter Summary ---
Author Organization [facility] Address [address] [place] [address] Care Team Providers Care Serging Machine Operator Name Role Phone Rebeca Jasso Primary [...] st Contact Info) Description 10/04/2024 11:15 AM CENTER HUMAN RESOURCES MANAGER Office Visit [facility] Convenient Care at [address] [phone] Alyssa Choi NP [address] [place] [address] [address] [place] [address] Sore throat (Primary Dx); Influenza [...] on file Legal Sex Female 2:29 PM CENTER HUMAN RESOURCES MANAGER Gender Identity Not on file Sexual Orientation Not on file documented as of this encounter Last Filed Vital Signs Vital Sign Reading Time Taken Comments Blood Pressure 122/62 10/04/2024 11:20 AM CENTER HUMAN RESOURCES MANAGER Pulse 111 10/04/2024 12:21 PM CENTER HUMAN RESOURCES MANAGER Temperature 37.6 C (99.6 F) 10/04/2024 11:20 AM CENTER HUMAN RESOURCES MANAGER Respiratory Rate 22 10/04/2024 11:20 AM CENTER HUMAN RESOURCES MANAGER Oxygen Saturation 95% 10/04/2024 12:21 PM CENTER HUMAN RESOURCES MANAGER after neb tx Inhaled Oxygen Concentration - - Weight 92.5 kg (204 lb) 10/04/2024 11:20 AM CENTER HUMAN RESOURCES MANAGER Height - - Body Mass Index 37.92 06/12/2024 9:56 AM CDT documented in this encounter Patient Instructions * Patient Instructions* Alyssa Choi, BLUEPRINTING MACHINE OPERATOR - 10/04/2024 11:15 AM CENTER HUMAN RESOURCES MANAGER If you have no improvement or worsening of your symptoms, please follow up with your Primary Care Provider, [facility] Care and or Emergency Room. I strive to provide you with EXCELLENT service. You may receive a survey after your visit today. If you cannot rate your experience as EXCELLENT, please let us know how we can improve and better meet your needs. Thank you for choosing [facility]! It was my pleasure to see you today, I hope you feel better soon! Alyssa Choi ENTRY ENGINEER Influenza ?? Supportive care is the focus [...] worse, see your primary care provider [facility] ER ?? Call 911 [...] from work, please follow-up with your PCP. ER HUMAN RESOURCES MANAGER ER HUMAN RESOURCES MANAGER * Attachments The following attachments cannot be sent through Care Everywhere. * Influenza (AfterCare(R) Instructions(ER/ED)) (Citizen Of [place]) documented in this encounter Ordered Prescriptions Prescription [...] on: 10/04/2024 09:21 PM Modules accepted: Orders ER HUMAN RESOURCES MANAGER documented in this encounter Plan of Treatment Pending Results Name Type Priority Associated Diagnoses Date /Time Throat culture Throat Microbiology Routine Sore throat 10/04/2024 2:19 PM CENTER HUMAN RESOURCES MANAGER Scheduled Orders Name Type Priority Associated Diagnoses Orde r Schedule Throat culture Throat Microbiology Routine Sore throat Expected: 10/04/2024, Expires: 10/04/2025 documented as of this encounter Procedures Procedure Name Priority Date/Time Associated Diagnosis Comments POCT RAPID STREP Routine 10/04/2024 11:3 2 AM CENTER HUMAN RESOURCES MANAGER Sore throat documented in this encounter Results * XR Chest Pa Lateral 2 Views (10/04/2024 12:26 PM CENTER HUMAN RESOURCES MANAGER) Anatomical Region Laterality Modality Body, Chest N/A Digital Radiogra phy 10/04/2024 1:08 PM CENTER HUMAN RESOURCES MANAGER Narrative 10/04/2024 1:12 PM CENTER HUMAN RESOURCES MANAGER EXAM DESCRIPTION: XR CHEST PA LATERAL 2 [...] Lorenzo Barber M.D. MZ T: Report ID: [id number] Reading Location: [id number] Procedure Note Lorenzo Barber MD - 10/04/2024 [...] Lorenzo Barber M.D. MZ T: Report ID: [id number] Reading Location: [id number] Alyssa Choi BLUEPRINTING MACHINE OPERATOR IMG XR PROCEDURES Final Re sult * POCT rapid strep A (10/04/2024 11:32 AM CENTER HUMAN RESOURCES MANAGER) Rapid Strep A, POC Negative Negative Swab 10/04/2024 11:3 2 AM CENTER HUMAN RESOURCES MANAGER us Alyssa Choi NP POINT OF CARE [...] documented as of this encounter Care Teams Serging Machine Operator Relationship Specialty Start Date End Date Rebeca Jasso PA PCP - General Physician Office Messenger Helper 04/09/22 documented as of this encounter
--- OUTSIDE RECORDS SUMMARY | 2024-10-05 16:03 | XMS_ITS | Encounter Summary ---
Author Organization [facility] Address [address] [place] [address] Care Team Providers Care Screw Machine Hand Name Role Phone Rebeca Jasso Primary Care Pr ovider Encounter Details Date Type Department Care Team (Late st Contact Info) Description 10/04/2024 12:15 PM ERRAND RUNNER Ancillary Procedure [facility] Imaging at [address] [phone] Influenza A Social History Tobacco [...] on file Legal Sex Female 2:29 PM ERRAND RUNNER Gender Identity Not on file Sexual Orientation Not on file documented as of this encounter Plan of Treatment Not on file documented as of this encounter Procedures Procedure Name Priority Date/Time Associated Diagnosis Comments XR CHEST PA LATERAL 2 VIEWS Schedule SHELLEY, Read SHELLEY (Appt Today, Awaiting Results) 10/04/2024 12:26 PM ERRAND RUNNER Influenza A documented in this encounter Results * XR Chest Pa Lateral 2 Views (10/04/2024 12:26 PM ERRAND RUNNER) Anatomical Region Laterality Modality Body, Chest N/A Digital Radiogra phy 10/04/2024 1:08 PM ERRAND RUNNER Narrative 10/04/2024 1:12 PM ERRAND RUNNER EXAM DESCRIPTION: XR CHEST PA LATERAL 2 [...] Lorenzo Barber M.D. MZ T: Report ID: [id number] Reading Location: [id number] Procedure Note Lorenzo Barber MD - 10/04/2024 [...] signed by Lorenzo GUSMAN T: Report ID: [id number] Reading Location: [place] [address] Alyssa Choi MANAGER CARE MANAGEMENT IMG XR PROCEDURES Final Re sult documented in this encounter Visit Diagnoses Diagnosis Influenza A Influenza with other respiratory manifestations documented in this encounter Additional Health Concerns Infection Onset Date Last Indicated Resolved Time Influenza, adult 10/03/2024 10/03/2024 documented as of this encounter Care Teams Screw Machine Hand Relationship Specialty Start Date End Date Rebeca Jasso PA PCP - General Physician Heel Finisher 04/09/22 documented as of this encounter
--- OUTSIDE RECORDS SUMMARY | 2024-10-05 16:03 | XMS_ITS | Data Portability ---
Author Organization [facility] [place], Main Office Address [address] [place] [address] Assessment No assessment recorded. Plan of Treatment Reminders Order Date Submit Date Provider Last Modified By Organization Details Last Modified Time Details Appointments None recorded . Lab TSH + free T4, serum 023 03/28/20 23 [facility], [address], [address], [place], [address], 3 12:16:36 lipid panel, serum 023 03/28/20 23 [facility], [address], [address], [place], [address], 3 12:16:36 CMP, serum or plasma 023 03/28/20 23 [facility], [address], [address], [place], [address], 3 12:16:37 CBC w/ auto diff 023 03/28/20 23 [facility], [address], [address], [place], [address], 3 12:16:39 HbA1c (hemoglo bin A1c), blood 023 03/28/20 23 [facility], [address], [address], [place], [address], 3 12:16:38 mumps igg Ab, serum 023 03/28/20 23 [facility], [address], [place], [address], 3 12:16:40 Referral None recorded . Procedures [...] REFL) color yellow yellow normal Not Available [address], [address], 12/03/2021 05:05:59 12/03/19 22 12/03/2021 URINA LYSIS ,COMP LETE( REFL) appearance cloudy clear abnormal Not Available [address], [address], 12/03/2021 05:05:59 12/03/19 22 12/03/2021 URINA LYSIS ,COMP LETE( REFL) specific gravity 1.024 1.001- 1.035 normal Not Available [address], [address], 12/03/2021 05:05:59 12/03/19 22 12/03/2021 URINA LYSIS ,COMP LETE( REFL) pH 7.0 5.0-8. 0 normal Not Available [address], [address], 12/03/2021 05:05:59 12/03/19 22 12/03/2021 URINA LYSIS ,COMP LETE( REFL) glucose negati ve negati ve normal Not Available [address], [address], 12/03/2021 05:05:59 12/03/19 22 12/03/2021 URINA LYSIS ,COMP LETE( REFL) bilirubin negati ve negati ve normal Not Available [facility] [address], [address], 12/03/2021 05:05:59 12/03/19 22 12/03/2021 URINA LYSIS ,COMP LETE( REFL) ketones trace negati ve abnormal Not Available [facility] [address], [address], 12/03/2021 05:05:59 12/03/19 22 12/03/2021 URINA LYSIS ,COMP LETE( REFL) occult blood negati ve negati ve normal Not Available [facility] - [address], [address], 12/03/2021 05:05:59 12/03/19 22 12/03/2021 URINA LYSIS ,COMP LETE( REFL) protein negati ve negati ve normal Not Available [facility] [address], [address], 12/03/2021 05:05:59 12/03/19 22 12/03/2021 URINA LYSIS ,COMP LETE( REFL) nitrite negati ve negati ve normal Not Available [facility] [address], [address], 12/03/2021 05:05:59 12/03/19 22 12/03/2021 URINA LYSIS ,COMP LETE( REFL) leukocyte esterase trace negati ve abnormal Not Available [facility] [address], [address], 12/03/2021 05:05:59 12/03/19 22 12/03/2021 URINA LYSIS ,COMP LETE( REFL) WBC none seen /hpf < or = 5 normal Not Available [facility] [address], [address], 12/03/2021 05:05:59 12/03/19 22 12/03/2021 URINA LYSIS ,COMP LETE( REFL) RBC none seen /hpf < or = 2 normal Not Available [address], [address], 12/03/2021 05:05:59 12/03/19 22 12/03/2021 URINA LYSIS ,COMP LETE( REFL) squamous epithelial cells 20-40 /hpf < or = 5 abnormal Not Available [address], [address], 12/03/2021 05:05:59 12/03/19 22 12/03/2021 URINA LYSIS ,COMP LETE( REFL) bacteria modera te /hpf none seen abnormal Not Available [address], [address], 12/03/2021 05:05:59 12/03/19 22 12/03/2021 URINA LYSIS ,COMP LETE( REFL) hyaline cast none seen /lpf none seen normal Not Available [address], [address], 12/03/2021 05:05:59 12/03/19 22 12/03/2021 CBC (INCL UDES DIFF/ PLT) white blood cell count 6.5 thous and/u L 3.8-10 .8 normal Not Available [address], [address], 12/03/2021 05:05:58 12/03/19 22 12/03/2021 CBC (INCL UDES DIFF/ PLT) red blood cell count 4.46 aleta on/uL 3.80-5 .10 normal Not Available [address], [address], 12/03/2021 05:05:58 12/03/19 22 12/03/2021 CBC (INCL UDES DIFF/ PLT) hemoglobin 13.2 g/dL 11.7-1 5.5 normal Not Available [address], [address], 12/03/2021 05:05:58 12/03/19 22 12/03/2021 CBC (INCL UDES DIFF/ PLT) hematocrit 40.4 % 35.0-4 5.0 normal Not Available [address], [address], 12/03/2021 05:05:58 12/03/19 22 12/03/2021 CBC (INCL UDES DIFF/ PLT) MCV 90.6 fL 80.0-1 00.0 normal Not Available [address], [address], 12/03/2021 05:05:58 12/03/19 22 12/03/2021 CBC (INCL UDES DIFF/ PLT) MCH 29.6 pg 27.0-3 3.0 normal Not Available [address], [address], 12/03/2021 05:05:58 12/03/19 22 12/03/2021 CBC (INCL UDES DIFF/ PLT) MCHC 32.7 g/dL 32.0-3 6.0 normal Not Available [address], [address], 12/03/2021 05:05:58 12/03/19 22 12/03/2021 CBC (INCL UDES DIFF/ PLT) RDW 12.8 % 11.0-1 5.0 normal Not Available [address], [address], 12/03/2021 05:05:58 12/03/19 22 12/03/2021 CBC (INCL UDES DIFF/ PLT) platelet count 432 thous and/u L 140-40 0 high Not Available [address], [address], 12/03/2021 05:05:58 12/03/19 22 12/03/2021 CBC (INCL UDES DIFF/ PLT) MPV 9.6 fL 7.5-12 .5 normal Not Available [facility] [address], [address], 12/03/2021 05:05:58 12/03/19 22 12/03/2021 CBC (INCL UDES DIFF/ PLT) absolute neutrophils 3842 cells /uL 1500-7 800 normal Not Available [address], [address], 12/03/2021 05:05:58 12/03/19 22 12/03/2021 CBC (INCL UDES DIFF/ PLT) absolute lymphocytes 2249 cells /uL 850-39 00 normal Not Available [address], [address], 12/03/2021 05:05:58 12/03/19 22 12/03/2021 CBC (INCL UDES DIFF/ PLT) absolute monocytes 286 cells /uL 200-95 0 normal Not Available [address], [address], 12/03/2021 05:05:58 12/03/19 22 12/03/2021 CBC (INCL UDES DIFF/ PLT) absolute eosinophils 13 cells /uL 15-500 low Not Available [facility] [address], [address], 12/03/2021 05:05:58 12/03/19 22 12/03/2021 CBC (INCL UDES DIFF/ PLT) absolute basophils 111 cells /uL 0-200 normal Not Available [facility] [address], [address], 12/03/2021 05:05:58 12/03/19 22 12/03/2021 CBC (INCL UDES DIFF/ PLT) neutrophils 59.1 % normal Not Available [facility] [address], [address], 12/03/2021 05:05:58 12/03/19 22 12/03/2021 CBC (INCL UDES DIFF/ PLT) lymphocytes 34.6 % normal Not Available [address], [address], 12/03/2021 05:05:58 12/03/19 22 12/03/2021 CBC (INCL UDES DIFF/ PLT) monocytes 4.4 % normal Not Available [address], [address], 12/03/2021 05:05:58 12/03/19 22 12/03/2021 CBC (INCL UDES DIFF/ PLT) eosinophils 0.2 % normal Not Available [facility] [address], [address], 12/03/2021 05:05:58 12/03/19 22 12/03/2021 CBC (INCL UDES DIFF/ PLT) basophils 1.7 % normal Not Available [address], [address], 12/03/2021 05:05:58 12/03/19 22 12/03/2021 LIPAS E lipase 26 U/L 7-60 normal Not Available [address], [address], 12/03/2021 05:05:58 12/03/19 22 12/03/2021 AMYLA SE amylase 48 U/L 21-101 normal Not Available [address], [address], 12/03/2021 05:05:57 12/03/19 22 12/03/2021 HEMOG LOBIN [...] Care in Diabe avel(A DA). Not Available [address] [place], [address], 12/03/2021 05:05:56 12/03/19 22 12/03/2021 COMPR EHENS MADDIE METAB OLIC PANEL glucose 87 mg/dL 65-99 normal Fasti ng refer ence inter belinda Not Available [address] [place], [address], 12/03/2021 05:05:56 12/03/19 22 12/03/2021 COMPR EHENS MADDIE METAB OLIC PANEL urea nitrogen (BUN) 8 mg/dL 7-25 normal Not Available [address] [place], [address], 12/03/2021 05:05:56 12/03/19 22 12/03/2021 COMPR EHENS MADDIE METAB OLIC PANEL creatinine 0.80 mg/dL 0.50-1 .10 normal Not Available [facility] [address], [address], 12/03/2021 05:05:56 12/03/19 22 12/03/2021 COMPR EHENS MADDIE METAB OLIC PANEL eGFR non-afr. scottish 89 mL/mi n/1.7 3m2 > or = 60 normal Not Available [facility] [address] [place], [address], 12/03/2021 05:05:56 12/03/19 22 12/03/2021 COMPR EHENS MADDIE METAB OLIC PANEL eGFR 103 mL/mi n/1.7 3m2 > or = 60 normal Not Available [address], [address], 12/03/2021 05:05:56 12/03/19 22 12/03/2021 COMPR EHENS MADDIE METAB OLIC PANEL BUN/creatini ne ratio not applic able (calc ) 6-22 Not Available [address], [address], 12/03/2021 05:05:56 12/03/19 22 12/03/2021 COMPR EHENS MADDIE METAB OLIC PANEL sodium 139 mmol/ L 135-14 6 normal Not Available [address], [address], 12/03/2021 05:05:56 12/03/19 22 12/03/2021 COMPR EHENS MADDIE METAB OLIC PANEL potassium 4.2 mmol/ L 3.5-5. 3 normal Not Available [address], [address], 12/03/2021 05:05:56 12/03/19 22 12/03/2021 COMPR EHENS MADDIE METAB OLIC PANEL chloride 106 mmol/ L 98-110 normal Not Available [address], [address], 12/03/2021 05:05:56 12/03/19 22 12/03/2021 COMPR EHENS MADDIE METAB OLIC PANEL carbon dioxide 26 mmol/ L 20-32 normal Not Available [address], [address], 12/03/2021 05:05:56 12/03/19 22 12/03/2021 COMPR EHENS MADDIE METAB OLIC PANEL calcium 9.0 mg/dL 8.6-10 .2 normal Not Available [address], [address], 12/03/2021 05:05:56 12/03/19 22 12/03/2021 COMPR EHENS MADDIE METAB OLIC PANEL protein, total 6.8 g/dL 6.1-8. 1 normal Not Available [address], [address], 12/03/2021 05:05:56 12/03/19 22 12/03/2021 COMPR EHENS MADDIE METAB OLIC PANEL albumin 4.2 g/dL 3.6-5. 1 normal Not Available [address], [address], 12/03/2021 05:05:56 12/03/19 22 12/03/2021 COMPR EHENS MADDIE METAB OLIC PANEL globulin 2.6 g/dL_ (calc ) 1.9-3. 7 normal Not Available [address], [address], 12/03/2021 05:05:56 12/03/19 22 12/03/2021 COMPR EHENS MADDIE METAB OLIC PANEL albumin/glob ulin ratio 1.6 (calc ) 1.0-2. 5 normal Not Available [address], [address], 12/03/2021 05:05:56 12/03/19 22 12/03/2021 COMPR EHENS MADDIE METAB OLIC PANEL bilirubin, total 0.5 mg/dL 0.2-1. 2 normal Not Available [address], [address], 12/03/2021 05:05:56 12/03/19 22 12/03/2021 COMPR EHENS MADDIE METAB OLIC PANEL alkaline phosphatase 88 U/L 31-125 normal Not Available [facility] [employer] [address], [place], [address], 12/03/2021 05:05:56 12/03/19 22 12/03/2021 COMPR EHENS MADDIE METAB OLIC PANEL AST 23 U/L 10-35 normal Not Available [facility] [address], [address], 12/03/2021 05:05:56 12/03/19 22 12/03/2021 COMPR EHENS MADDIE METAB OLIC PANEL ALT 24 U/L 6-29 normal Not Available [facility] [address], [address], 12/03/2021 05:05:56 12/03/19 22 12/03/2021 LIPID PANEL WITH RATIO S cholesterol, total 185 mg/dL <200 normal Not Available [address], [address], 12/03/2021 05:05:56 12/03/19 22 12/03/2021 LIPID PANEL WITH RATIO S HDL cholesterol 68 mg/dL > or = 50 normal Not Available [address], [address], 12/03/2021 05:05:56 12/03/19 22 12/03/2021 LIPID PANEL WITH RATIO S triglyceride s 186 mg/dL <150 high Not Available [address], [address], 12/03/2021 05:05:56 12/03/19 22 12/03/2021 LIPID PANEL [...] 2068 (http ://ed ucati on.Qu Quinten rankin [place] [employer] 911. com/f aq/FA Q164) Not Available [facility] [address] [address] [place], [address], 12/03/2021 05:05:56 12/03/19 22 12/03/2021 LIPID PANEL WITH RATIO S chol/HDLC ratio 2.7 (calc ) <5.0 normal Not Available [facility] [address], [address], 12/03/2021 05:05:56 12/03/19 22 12/03/2021 LIPID PANEL WITH RATIO S LDL/HDL ratio 1.3 (calc ) Below avera ge Risk: <2.34 [place] ge Risk: 2.35- 4.12 Moder ate Risk: 4.13- 5.56 High Risk: >5.57 Not Available [facility] [address], [address], 12/03/2021 05:05:56 12/03/19 22 12/03/2021 LIPID PANEL WITH RATIO S non HDL cholesterol 117 mg/dL _(ej c) <130 normal For patie nts with diabe avel plus 1 major ASCVD risk facto r, treat ing to a non-H DL-C goal of <100 mg/dL (LDL- C of <70 mg/dL ) is consi dered a thera peuti c optio n. Not Available [facility] [address] [address] [place], [address], 12/03/2021 05:05:56 12/03/19 22 12/03/2021 TSH+F REE T4 TSH 2.15 mIU/L normal Refer ence Range > or = 20 Years 0.40- 4.50 Pregn luke Range s First trime ster 0.26- 2.66 Secon d trime ster 0.55- 2.73 Third trime ster 0.43- 2.91 Not Available [address], [address], 12/03/2021 05:05:55 12/03/19 22 12/03/2021 TSH+F REE T4 T4, free 1.0 NG/dL 0.8-1. 8 normal Not Available [address], [address], 12/03/2021 05:05:55 03/29/20 23 03/30/2023 TSH+F REE T4 TSH 2.61 mIU/L normal Refer ence Range > or = 20 Years 0.40- 4.50 Pregn luke Range s First trime ster 0.26- 2.66 Secon d trime ster 0.55- 2.73 Third trime ster 0.43- 2.91 Not Available [address], [address], 03/30/2023 12:16:35 03/29/20 23 03/30/2023 TSH+F REE T4 T4, free 0.9 NG/dL 0.8-1. 8 normal Not Available [address], [address], 03/30/2023 12:16:35 03/29/20 23 03/30/2023 LIPID PANEL WITH RATIO S cholesterol, total 221 mg/dL <200 high Not Available [address], [address], 03/30/2023 12:16:36 03/29/20 23 03/30/2023 LIPID PANEL WITH RATIO S HDL cholesterol 58 mg/dL > or = 50 normal Not Available [address], [address], 03/30/2023 12:16:36 03/29/20 23 03/30/2023 LIPID PANEL WITH RATIO S triglyceride s 346 mg/dL <150 high If a non-f astin g speci men was colle cted, consi anyi repea t trigl yceri de testi ng on a fasti ng speci men if clini kacey indic ated. Cheo hess et al. J. of Clin. Lipid ol. 2015; 9:129 -169. Not Available [address], [address], 03/30/2023 12:16:36 03/29/20 23 03/30/2023 LIPID PANEL [...] 310(1 9): 2061- 2068 (http ://ed ucati on.[employer] mollyReeher. [employer]/f aq/FA Q164) Not Available [address] [address] [place], [address], 03/30/2023 12:16:36 03/29/2003/30/2023 LIPID PANEL WITH RATIO S chol/HDLC ratio 3.8 (calc ) <5.0 normal Not Available [address], [address], 03/30/2023 12:16:36 03/29/2003/30/2023 LIPID PANEL WITH RATIO S LDL/HDL ratio 2.0 (calc ) Below avera ge Risk: <2.34 [place] ge Risk: 2.35- 4.12 Moder ate Risk: 4.13- 5.56 High Risk: >5.57 Not Available [address] [place], [address], 03/30/2023 12:16:36 03/29/20 23 03/30/2023 LIPID PANEL WITH RATIO S non HDL cholesterol 163 mg/dL _(ej c) <130 high For patie nts with diabe avel plus 1 major ASCVD risk facto r, treat ing to a non-H DL-C goal of <100 mg/dL (LDL- C of <70 mg/dL ) is consi ebonid a thera peuti c optio n. Not Available [address] [place], [address], 03/30/2023 12:16:36 03/29/20 23 03/30/2023 COMPR EHENS MADDIE METAB OLIC PANEL glucose 87 mg/dL 65-99 normal Fasti ng refer ence inter belinda Not Available [address] [address] [place], [address], 03/30/2023 12:16:37 03/29/20 23 03/30/2023 COMPR EHENS MADDIE METAB OLIC PANEL urea nitrogen (BUN) 13 mg/dL 7-25 normal Not Available [address], [address], 03/30/2023 12:16:37 03/29/20 23 03/30/2023 COMPR EHENS MADDIE METAB OLIC PANEL creatinine 0.75 mg/dL 0.50-0 .99 normal Not Available [address], [address], 03/30/2023 12:16:37 03/29/20 23 03/30/2023 COMPR EHENS MADDIE METAB OLIC PANEL eGFR 99 mL/mi n/1.7 3m2 > or = 60 normal Not Available [address] [place], [address], 03/30/2023 12:16:37 03/29/20 23 03/30/2023 COMPR EHENS MADDIE METAB OLIC PANEL BUN/creatini ne ratio SEE NOTE: (calc ) 6-22 Not Repor shantal: BUN and Creat inine are withi n refer ence range . Not Available [address], [address], 03/30/2023 12:16:37 03/29/20 23 03/30/2023 COMPR EHENS MADDIE METAB OLIC PANEL sodium 137 mmol/ L 135-14 6 normal Not Available [address], [address], 03/30/2023 12:16:37 03/29/20 23 03/30/2023 COMPR EHENS MADDIE METAB OLIC PANEL potassium 4.4 mmol/ L 3.5-5. 3 normal Not Available [address], [address], 03/30/2023 12:16:37 03/29/20 23 03/30/2023 COMPR EHENS MADDIE METAB OLIC PANEL chloride 101 mmol/ L 98-110 normal Not Available [address], [address], 03/30/2023 12:16:37 03/29/20 23 03/30/2023 COMPR EHENS MADDIE METAB OLIC PANEL carbon dioxide 26 mmol/ L 20-32 normal Not Available [address], [address], 03/30/2023 12:16:37 03/29/20 23 03/30/2023 COMPR EHENS MADDIE METAB OLIC PANEL calcium 9.7 mg/dL 8.6-10 .2 normal Not Available [address], [address], 03/30/2023 12:16:37 03/29/20 23 03/30/2023 COMPR EHENS MADDIE METAB OLIC PANEL protein, total 7.0 g/dL 6.1-8. 1 normal Not Available [address], [address], 03/30/2023 12:16:37 03/29/20 23 03/30/2023 COMPR EHENS MADDIE METAB OLIC PANEL albumin 4.2 g/dL 3.6-5. 1 normal Not Available [address], [address], 03/30/2023 12:16:37 03/29/20 23 03/30/2023 COMPR EHENS MADDIE METAB OLIC PANEL globulin 2.8 g/dL_ (calc ) 1.9-3. 7 normal Not Available [address], [address], 03/30/2023 12:16:37 03/29/20 23 03/30/2023 COMPR EHENS MADDIE METAB OLIC PANEL albumin/glob ulin ratio 1.5 (calc ) 1.0-2. 5 normal Not Available [address], [address], 03/30/2023 12:16:37 03/29/20 23 03/30/2023 COMPR EHENS MADDIE METAB OLIC PANEL bilirubin, total 0.5 mg/dL 0.2-1. 2 normal Not Available [address], [address], 03/30/2023 12:16:37 03/29/20 23 03/30/2023 COMPR EHENS MADDIE METAB OLIC PANEL alkaline phosphatase 121 U/L 31-125 normal Not Available [address], [address], 03/30/2023 12:16:37 03/29/20 23 03/30/2023 COMPR EHENS MADDIE METAB OLIC PANEL AST 18 U/L 10-35 normal Not Available [address], [address], 03/30/2023 12:16:37 03/29/20 23 03/30/2023 COMPR EHENS MADDIE METAB OLIC PANEL ALT 19 U/L 6-29 normal Not Available [facility] [id number] [place] [address], [address], 03/30/2023 12:16:37 03/29/20 23 03/30/2023 HEMOG LOBIN [...] Care in Diabe avel(A DA). Not Available [address] [address] [place], [address], 03/30/2023 12:16:38 03/29/2003/30/2023 CBC (INCL UDES DIFF/ PLT) white blood cell count 7.9 thous and/u L 3.8-10 .8 normal Not Available [facility] [address] [place] [address], [address], 03/30/2023 12:16:39 03/29/20 23 03/30/2023 CBC (INCL UDES DIFF/ PLT) red blood cell count 4.58 aleta on/uL 3.80-5 .10 normal Not Available [address], [address], 03/30/2023 12:16:39 03/29/2003/30/2023 CBC (INCL UDES DIFF/ PLT) hemoglobin 13.3 g/dL 11.7-1 5.5 normal Not Available [address], [address], 03/30/2023 12:16:39 03/29/20 23 03/30/2023 CBC (INCL UDES DIFF/ PLT) hematocrit 39.8 % 35.0-4 5.0 normal Not Available [address], [address], 03/30/2023 12:16:39 03/29/20 23 03/30/2023 CBC (INCL UDES DIFF/ PLT) MCV 86.9 fL 80.0-1 00.0 normal Not Available [address], [address], 03/30/2023 12:16:39 03/29/20 23 03/30/2023 CBC (INCL UDES DIFF/ PLT) MCH 29.0 pg 27.0-3 3.0 normal Not Available [address], [address], 03/30/2023 12:16:39 03/29/20 23 03/30/2023 CBC (INCL UDES DIFF/ PLT) MCHC 33.4 g/dL 32.0-3 6.0 normal Not Available [address], [address], 03/30/2023 12:16:39 03/29/20 23 03/30/2023 CBC (INCL UDES DIFF/ PLT) RDW 13.1 % 11.0-1 5.0 normal Not Available [facility] [address], [address], 03/30/2023 12:16:39 03/29/20 23 03/30/2023 CBC (INCL UDES DIFF/ PLT) platelet count 386 thous and/u L 140-40 0 normal Not Available [address], [address], 03/30/2023 12:16:39 03/29/20 23 03/30/2023 CBC (INCL UDES DIFF/ PLT) MPV 9.1 fL 7.5-12 .5 normal Not Available [address], [address], 03/30/2023 12:16:39 03/29/2003/30/2023 CBC (INCL UDES DIFF/ PLT) absolute neutrophils 5001 cells /uL 1500-7 800 normal Not Available [address], [address], 03/30/2023 12:16:39 03/29/20 23 03/30/2023 CBC (INCL UDES DIFF/ PLT) absolute lymphocytes 2267 cells /uL 850-39 00 normal Not Available [address], [address], 03/30/2023 12:16:39 03/29/20 23 03/30/2023 CBC (INCL UDES DIFF/ PLT) absolute monocytes 490 cells /uL 200-95 0 normal Not Available [address], [address], 03/30/2023 12:16:39 03/29/20 23 03/30/2023 CBC (INCL UDES DIFF/ PLT) absolute eosinophils 40 cells /uL 15-500 normal Not Available [address], [address], 03/30/2023 12:16:39 03/29/20 23 03/30/2023 CBC (INCL UDES DIFF/ PLT) absolute basophils 103 cells /uL 0-200 normal Not Available [address], [place], [address], 03/30/2023 12:16:39 03/29/20 23 03/30/2023 CBC (INCL UDES DIFF/ PLT) neutrophils 63.3 % normal Not Available [facility] - [address], [address], 03/30/2023 12:16:39 03/29/20 23 03/30/2023 CBC (INCL UDES DIFF/ PLT) lymphocytes 28.7 % normal Not Available [facility] - [address], [address], 03/30/2023 12:16:39 03/29/20 23 03/30/2023 CBC (INCL UDES DIFF/ PLT) monocytes 6.2 % normal Not Available [facility] - [address], [address], 03/30/2023 12:16:39 03/29/20 23 03/30/2023 CBC (INCL UDES DIFF/ PLT) eosinophils 0.5 % normal Not Available [facility] - [address], [address], 03/30/2023 12:16:39 03/29/20 23 03/30/2023 CBC (INCL UDES DIFF/ PLT) basophils 1.3 % normal Not Available [facility] - [address], [address], 03/30/2023 12:16:39 03/29/2003/30/2023 MUMPS VIRUS AB (IGG) [...] tion with mumps virus . Not Available [facility] [address] [address] , [place], [address], 03/30/2023 12:16:40 12/08/19 22 12/01/2021 XR, ribs, unila teral No observ ation record ed. MIGRATION. [facility] [address], [place], [address], 10/27/2022 18:52:11 12/16/19 22 12/07/2021 CT, abdom en + pelvi s, w/ contr ast No observ ation record ed. MIGRATION. [facility] [address], [place], [address], 10/27/2022 18:52:11 12/30/19 22 12/29/2021 US, lower back No observ ation record ed. MIGRATION. [address], [place], [address], 10/27/2022 18:52:11 01/13/20 22 11/05/2021 XR, chest , 2 view No observ ation record ed. MIGRATION. [facility] [address], [place], [address], 10/27/2022 18:52:11 01/19/20 22 01/13/2022 MRI, lumba r spine , w/wo contr ast No observ ation record ed. MIGRATION. [address], [place], [address], 10/27/2022 18:52:11 02/23/20 23 12/02/2022 MAMMO , scree unique, digit al, bilat eral No observ ation record ed. [email or web address] [address], [place], [address], 03/28/2023 12:18:32 04/01/20 23 12/27/2022 MAMMO , scree unique, digit al, bilat eral No observ ation record ed. [email or web address] [facility] [address], [place], [address], 04/04/2023 13:51:08 04/11/20 23 04/10/2023 imagi ng/di agnos tic resul t No observ ation record ed. [email or web address] [facility] [address], [place], [address], 04/13/2023 16:17:38 Result Notes None recorded. Problems Name Problem SNOMED Code Status Onset Date Resolution Date Notes Provider Name and Address Organization Details Recorded Time Mass of subcutaneo us tissue of back 6601850532595 03 Active 2021 Not Available [facility] 3 18:51:10 Lumbar spondylosi s 736407964 Active 2021 Not Available [facility] 3 18:51:11 Degenerati on of lumbar interverte bral disc 35644176 Active 2021 Not Available [facility] 3 18:51:11 Acute thoracic back pain 332264575 Active 2021 Not Available [facility] 3 18:51:11 Low back pain 194866025 Active 2021 Not Available [facility] 3 18:51:11 Left sided abdominal pain 713803406 Active 2021 Not Available [facility] 3 18:51:11 Rib pain 539935106 Active 2021 Not Available [facility] 3 18:51:11 Lipoma of lower back 394346008 Active 2021 Not Available [facility] 3 18:51:11 Complex cyst of uterine adnexa 063913484 Active 2021 Not Available [facility] 3 18:51:11 Pain in spine 38806005 Active 2021 Not Available [facility] 3 18:51:11 Streptococ ej sore throat 03525961 Active 2022 RUBENS Sanz [address], [place], [address] , [place] [employer] 3 17:44:59 Problem Notes None recorded. Procedures Surgical History Date Name Laterality Status Provider Name and Address Organization Details Recorded Time 2 [employer] Surgery completed LUCIANO [facility] [employer] 03/28/2023 12:16:54 Imaging Results Imaging Date Name Status [facility] by [facility] Details LastModified Time 12/01/2021 XR, ribs, unilateral completed [id number] [facility] [address], [place], [address], 10/27/2022 18:52:11 12/07/2021 CT, abdomen + pelvis, w/ contrast completed [id number] [facility] [address], [place], [address], 10/27/2022 18:52:11 01/13/2022 MRI, lumbar spine, w/wo contrast completed [id number] [address] [place] [address], [id number], 10/27/2022 18:52:11 11/05/2021 XR, chest, 2 view completed [id number] [address] [facility] [address], [place], [address], 10/27/2022 18:52:11 12/29/2021 US, lower back completed MIGRATION.[address] , [place], [address], 10/27/2022 18:52:11 12/02/2022 MAMMO, screening, digital, bilateral completed [email or web address] [address] [place] [address], [address], 03/28/2023 12:18:32 12/27/2022 MAMMO, screening, digital, bilateral completed [email or web address] [facility] [address], [place], [address], 04/04/2023 13:51:08 04/10/2023 imaging/diagnos tic result completed [email or web address] [facility] [address], [place], [address], 04/13/2023 16:17:38 Procedure Notes None recorded. Medical Equipment None Reported. Allergies Allergen ID Allergen Name Allergen Category Reaction Reaction Severity Criticality Documentation Date Start Date Code Code System Note Provider Name and Address Organization Details Recorded Time 30822 aspartame food,medi cation Not available Not available Not available 10/27/2022 83502 24 RxNorm Not Available [facility] 18:52:07 Medications Name Sig [...] Relief 50 mcg/actuati on nasal spray,suspe nsion Benedicta 1 spray every day by intranasa l [...] [degF] 97.8 [degF] 9162 5.6 6 g 47754.6 g 05889.4 7 g 130 mm[Hg] 80 mm[Hg] 130 [...] 3 167.64 cm 97.3 [degF] 32.3 kg/m2 20671.4 7 g 16 /min 97 % 97 % 101 /min 120 mm[Hg] 78 mm[Hg] Laxmi Bender, RMA [place] [facility] 12:17:33 Date Recorded Body height Body temperature Provider Lara [email or web address] and Address Organization Details Last Updated DateTime 04/01/2023 167.64 cm 98.4 [degF] Joya Ponce MA [place] - [facility] 04/01/2023 10:15:50 Social History Question Answer Notes LastModified by Organizat ion Details LastModified Time Tobacco Smoking Status Never Smoker Not Available [employer] 10/27/2022 18:50:38 Do You Have An Advance Directive? No MIGRATION.[id number] 026 Information not available 10/27/2022 What Is Your Level Of Alcohol Consumption? None MIGRATION.9078040 026 Information not available 10/27/2022 What Is Your Level Of Caffeine Consumption? None MIGRATION.0813379 026 Information not available 10/27/2022 In The 14 Days Before Symptom Onset, Have You Had Close Contact With A Laboratory-confirm ed COVID-19 While That Case Was Ill? No MIGRATION.1710810 026 Information not available 10/27/2022 In The 14 Days Before Symptom Onset, Have You Had Close Contact With A Person Who Is Under Investigation For COVID-19 While That Person Was Ill? No MIGRATION.1129774 026 Information not available 10/27/2022 Are You Currently Employed? No [email or web address] Information not available 03/25/2023 What Type Of Diet Are You Following? REGULAR MIGRATION.8294771 026 Information not available 10/27/2022 What Is Your Occupation? Stay At Home Mom MIGRATION.6376677 026 Information not available 10/27/2022 Have There Been Any Changes To Your Family Or Social Situation? No MIGRATION.8266224 026 Information not available 10/27/2022 Are There Any Guns Present In Your Home? No MIGRATION.8789523 026 Information not available 10/27/2022 Do You Use Insect Repellent Routinely? No MIGRATION.7066546 026 Information not available 10/27/2022 Do You Have A Medical Power Of Code Enforcement Officer? No MIGRATION.0886437 026 Information not available 10/27/2022 What Is Your Relationship Status? MIGRATION.9524945 026 Information not available 10/27/2022 Do You Use Your Seat Belt Or Car Seat Routinely? Yes MIGRATION.2943297 026 Information not available 10/27/2022 Do You Have Smoke And Carbon Monoxide Detectors In Your Home? Yes MIGRATION.1621579 026 Information not available 10/27/2022 Do You Use Any Illicit Or Recreational Drugs? No MIGRATION.9797690 026 Information not available 10/27/2022 Do You Use Sunscreen Routinely? Yes MIGRATION.1237551 026 Information not available 10/27/2022 Have You Recently Traveled Abroad? No MIGRATION.1507246 026 Information not available 10/27/2022 Do You Have Any Dietary Restrictions? No MIGRATION.3722930 026 Information not available 10/27/2022 Do You Or Have You Ever Used Any Other Forms Of Tobacco Or Nicotine? No MIGRATION.8995168 026 Information not available 10/27/2022 Sex: Unknown Functional Status Question Answer Note LastModified by Organizat ion Details LastModified Time What is your exercise level? Occasional MIGRATION.69201935 26 Information not available 10/27/2022 Mental Status None recorded. Family History Relationship Description Onset Age of this Age Resolved Age Notes LastModified by Organization Details LastModified Time Father Hyperlipidem ia MIGRATION.211 [id number] Not available 10/27/2022 18:50:42 Father Diverticular disease MIGRATION.868 9125745 Not available 10/27/2022 18:50:42 Mother Hyperlipidem ia MIGRATION.758 4672053 Not available 10/27/2022 18:50:42 Unspecified Relation Malignant tumor of colon MIGRATION.860 0883572 Not available 10/27/2022 18:50:42 Unspecified Relation Dementia MIGRATION.980 5996536 Not available 10/27/2022 18:50:42 Unspecified Relation Alzheimer's disease MIGRATION.077 8571541 Not available 10/27/2022 18:50:42 Sister Atrial fibrillation MIGRATION.115 6569806 Not available 10/27/2022 18:50:42 Medical History Condition [...] RUBENS Sanz [address], [place], [address], [employer] 04/01/2023 11:12:19 MMR 3 completed RUBENS Sanz [address], [address], [place], [address], [employer] 04/01/2023 11:12:20 Influenza, adjuvanted, quadrivalent, PF 3 completed Aissatou Hale RN null, [employer] 06/27/2023 09:29:03 Past Encounters Encounter ID Performer Location Encounter Start Date Encounter Closed Date Diagnosis/Indication Diagnosis SNOMED-CT Code Diagnosis ICD10 Code Diagnosis Note [id number] [facility] [address] [place] [address] 12/01/2021 00:00:00 12/26/2021 15:31:58 [id number] [facility] [address] [place] [address] 12/21/2021 00:00:00 12/25/2021 13:40:15 [id number] [facility] [address] [place] [address] 01/12/2022 00:00:00 01/25/2022 23:25:42 [id number] RUBENS Sanz [facility] [address] [place] [address] 03/28/2023 12:11:31 03/28/2023 12:45:07 Adult health examination 543678350 Z00.00 well exam completed and labs ordered Screening procedure 2013 5006 Z13.9 Cholesterol screening 27 8636133 Z13.220 Diabetes m ellitus screening 504474341 Z13.1 Thyroid di sorder screening 900644019 Z13.29 [id number] RUBENS Sanz [facility] [address] [place] [address] 04/01/2023 09:52:19 04/01/2023 10:38:18 Administration of diphtheria, pertussis, and tetanus vaccine 632398522 Z23 Administra tion of measles and mumps and rubella vaccine 17697748 Z23 Health Concerns Section Related Observation LastModified by Organization Rodríguez moe LastModified Time None Recorded Concern Status LastModified by Organization Details LastModified Time None Recorded Advance Directives Directive N: Payers Encounter Date Sequence Insurance Name Policy Number Policy Castro Covered Member ID Castro Member ID Guarantor Name 03/28/2023 1 [place] [id number] 3 Martin Banks [id number] Rose Banks 04/01/2023 1 [place] [id number] 3 Martin Banks [id number] Rose Banks Notes Date Note Type [...] limbsNotes:last week went to the ER in [facility] 7 days ago. Dipped her urine and said no UTI. no blood in urine . Several months of this pain, but the last 2 months of worse. Not Available [facility] [employer] [facility] 12/26/2021 15:31:58 12/21/2021 text/html Abdominal [...] here today for a f/u. She saw [facility] and they said it seems like its [...] is here for a f/u. Not Available [employer] 12/25/2021 13:40:15 01/12/2022 text/html Back Pain - [...] advil, tylenol to relive pain Not Available [employer] 01/25/2022 23:25:42 03/28/2023 text/html Generic HPI TemplateReported bypatient.Notes:Pt is here to have a wellness and she has a physical form to be filled out and it is in the room w/her. No chronic problems. Wellness RUBENS Sanz [address] [facility], [facility] [address], [place], [address], [employer] 03/28/2023 12:44:46 OBGyn Episode No OBEpisode recorded.
--- OUTSIDE RECORDS SUMMARY | 2024-10-05 16:03 | XMS_ITS | Encounter Summary ---
Author Organization [facility] Address [address] [place] [address] Care Team Providers Care Environmental Compliance Inspector Name Role Phone Rebeca Hernández Primary Care Pr ovider Encounter Details Date Type Department Care Team (Late st Contact Info) Description 02/01/2022 Lab Requisition [facility] DermPath Lab [address] [facility] [place] [address] [place] [address] [address] Social History Tobacco Use Types [...] AM CDT) Case Report Dermatopathology Report Case: [id number] Authorizing Provider: Louise Don MD Collected: 02/01/2022 12:00 AM Ordering Location: [facility] DermPath Lab Received: 02/01/2022 02:17 PM [...] determined by the Dermatopathology Laboratory at [facility], directed by Dr. Jimmy Govea. These tests need not be, and therefore are not, approved by the [place] Food and Drug Administration. The tests are used for clinical purposes. Billing Codes Specimen Charges Stain Charges 15100 1 35908 1 2 4:35 PM CDT DERMATOPATHOLOGY LABORATORY Embedded Images 2 4:35 PM CDT DERMATOPATHOLOGY LABORATORY Pathology/Cytolog y TISSUE SPECIMEN FROM SKIN / Unknown 02/01/2022 02/01/2022 2:17 PM CDT Louise Dash MD LAB - PATHOLOGY/CYTO LOGY ORDERABLES DERMATOPATHOLOGY LABORATORY [facility] - Department of Dermatology [address], [address] Floor [place], [place] [address] [place] [address] documented in this encounter Visit Diagnoses Not on filedocumented in this encounter Care Teams Environmental Compliance Inspector Relationship Specialty Start Date End Date Rebeca Hernández PA [address] [place] [phone] PCP - General 03/18/22 documented as of this encounter
--- OUTSIDE RECORDS SUMMARY | 2024-10-05 16:03 | XMS_ITS | Referral Summary ---
Author Organization [facility] Address [address] [facility] [place] [address] Care Team Providers Care Power Technician Name Role Phone Rebeca Hernández Primary Care Pr ovider Source Comments [facility],non-owned Affiliates and Associated Physician Practices is amultiple site organization consisting of ambulatory clinics and hospital sitesin [place], [place], [place] and [place]. This disclosure is being madepursuant to the Care Everywhere program and may not contain all information available regarding this patient. Last updated 18.[facility] Social History Tobacco Use Types Packs/Day Years Used Date Smoking Tobacco: Never Assessed Sex and Gender Information Value Date Recorded Sex Assigned at Not on file Gender Identity Not on file Sexual Orientation Not on file Plan of Treatment Not on file Care Teams Power Technician Relationship Specialty Start Date End Date Rebeca Hernández PA [address] [place] [phone] [facility] - General 03/18/22
--- OUTSIDE RECORDS SUMMARY | 2024-10-05 16:03 | XMS_ITS | Referral Summary ---
Author Organization [facility] [address] Address [address] [place] [address] Care Team Providers Care Computer Numerical Control Machinist Name Role Phone Rebeca Jasso Primary Care Pr ovider Encounters Date Type Department Care Team Description 10/04/2024 2:19 PM DIGITAL PRINTER OPERATOR - 10/04/2024 11:59 PM DIGITAL PRINTER OPERATOR Hospital Encounter [address] [id number] Sore throat Discharge Disposition: Discharge to home or self care 10/04/2024 12:15 PM DIGITAL PRINTER OPERATOR Ancillary Procedure [facility] Imaging at [address] [address] Influenza A 10/04/2024 11:15 AM DIGITAL PRINTER OPERATOR Office Visit [facility] Convenient Care at [address] [address] Alyssa Choi, ALISSON Sore throat (Primary Dx); Influenza A; Community acquired pneumonia of left lung, unspecified part of lung 10/03/2024 8:25 AM DIGITAL PRINTER OPERATOR Ancillary Procedure [facility] Imaging at [address] [address] Influenza A 10/03/2024 8:00 AM DIGITAL PRINTER OPERATOR Office Visit [facility]ient [facility] at [address] [address] Alison Castillo NP Influenza A [...] Bronchospasms 3 mL nebu Once 10/04/2024 5 Ended Active Problems Problem Noted Date Diagnosed Date Streptococcal sore throat 11/11/2022 Lumbar spine pain 05/17/2022 Chronic LLQ pain 03/12/2022 Overview (10/18/2022): Added automatically from request for surgery [id number] Lumbar spondylosis 02/10/2022 Mass of subcutaneous tissue of back 01/05/2022 Complex cyst of uterine adnexa 12/21/2021 Degeneration of lumbar intervertebral disc 12/21 Lipoma of lower back 12/21/2021 Acute thoracic back pain 12/01/2021 Left sided abdominal pain 12/01/2021 Rib pain 12/01/2021 Immunizations Name Administration Dates Next Due Influenza, Quadrivalent, Tsephenie l Culture-based MDCK, Preservative Free, Antibiotic Free, [...] on file Legal Sex Female 2:29 PM DIGITAL PRINTER OPERATOR Gender Identity Not on file Sexual Orientation Not on file Last Filed Vital Signs Vital Sign Reading Time Taken Comments Blood Pressure 122/62 10/04/2024 11:20 AM DIGITAL PRINTER OPERATOR Pulse 111 10/04/2024 12:21 PM DIGITAL PRINTER OPERATOR Temperature 37.6 C (99.6 F) 10/04/2024 11:20 AM DIGITAL PRINTER OPERATOR Respiratory Rate 22 10/04/2024 11:20 AM DIGITAL PRINTER OPERATOR Oxygen Saturation 95% 10/04/2024 12:21 PM DIGITAL PRINTER OPERATOR after neb tx Inhaled Oxygen Concentration - - Weight 92.5 kg (204 lb) 10/04/2024 11:20 AM DIGITAL PRINTER OPERATOR Height 156.2 cm (5' 1.5 ) 06/12/2024 9:56 AM CDT Body Mass Index 37.92 06/12/2024 9:56 AM CDT Plan of Treatment Not on file Procedures Procedure Name Priority Date/Time Associated Diagnosis Comments XR CHEST PA LATERAL 2 VIEWS Schedule SHELLEY, Read SHELLEY (Appt Today, Awaiting Results) 10/04/2024 12:26 PM DIGITAL PRINTER OPERATOR Influenza A POCT RAPID STREP Routine 10/04/2024 11:3 2 AM DIGITAL PRINTER OPERATOR Sore throat XR CHEST PA LATERAL 2 VIEWS Schedule SHELLEY, Read SHELLEY (Appt Today, Awaiting Results) 10/03/2024 8:32 AM DIGITAL PRINTER OPERATOR Influenza A POCT RAPID STREP Routine 10/03/2024 8:18 AM DIGITAL PRINTER OPERATOR Influenza A POC INFLUENZA A/B, COVID-19 ANTIGEN Routine 10/03/2024 8:17 AM DIGITAL PRINTER OPERATOR Influenza A from Last 3 Months Results * XR Chest Pa Lateral 2 Views (10/04/2024 12:26 PM DIGITAL PRINTER OPERATOR) Anatomical Region Laterality Modality Body, Chest N/A Digital Radiogra phy 10/04/2024 1:08 PM DIGITAL PRINTER OPERATOR Narrative 10/04/2024 1:12 PM DIGITAL PRINTER OPERATOR EXAM DESCRIPTION: XR CHEST PA LATERAL 2 [...] Lorenzo Barber M.D. MZ T: Report ID: [id number] Reading Location: [id number] Procedure Note Lorenzo Barber MD - 10/04/2024 [...] signed by Lorenzo GUSMAN T: Report ID: [id number] Reading Location: [id number] us Alyssa Choi NP IMG XR PROCEDURES Final Re sult * POCT rapid strep A (10/04/2024 11:32 AM DIGITAL PRINTER OPERATOR) Rapid Strep A, POC Negative Negative Swab 10/04/2024 11:3 2 AM DIGITAL PRINTER OPERATOR us Alyssa Choi NP POINT OF CARE TEST ORDERAB LES Final Result * XR Chest PA Lateral 2 Views (10/03/2024 8:32 AM DIGITAL PRINTER OPERATOR) Anatomical Region Laterality Modality Body, Chest N/A Digital Radiogra phy 10/03/2024 8:48 AM DIGITAL PRINTER OPERATOR Narrative 10/03/2024 8:50 AM DIGITAL PRINTER OPERATOR EXAM DESCRIPTION: XR CHEST PA LATERAL 2 [...] Carmelo Rodriguez M.D. LB T: Report ID: [id number] Reading Location: [id number] Procedure Note Carmelo Rodriguez MD - 10/03/2024 [...] Carmelo Rodriguez M.D. LB T: Report ID: [id number] Reading Location: [id number] us Alison Castillo NP IMG XR PROCEDURES Final Result * POCT rapid strep A (10/03/2024 8:18 AM DIGITAL PRINTER OPERATOR) Rapid Strep A, POC Negative Negative Swab 10/03/2024 8:18 AM DIGITAL PRINTER OPERATOR us Alison Castillo NP POINT OF CARE TEST ORDERABLES Final Result * (ABNORMAL) POC Influenza A/B, COVID-19 antigen (10/03/2024 8:17 AM DIGITAL PRINTER OPERATOR) Influenza A Ag, POC Positive(A) Negative [facility] Influenza B Ag, POC Negative Negative [facility] COVID-19 Ag POC Presumptive Negative Presumptive Negative, Invalid [facility] Nasal 10/03/2024 8:17 AM DIGITAL PRINTER OPERATOR Alison Castillo NP POINT OF CARE TEST ORDERABLES Final Result [facility] [address] [place] [address], [facility] from Last 3 Months Additional Health Concerns Infection Onset Date Last Indicated Influenza, adult 10/03/2024 10/03/2024 Insurance [facility] [employer] CHOICE [facility] CHOICE PLUS Care Teams Computer Numerical Control Machinist Relationship Specialty Start Date End Date Rebeca Jasso PA PCP - General Physician Clock And Watch Hands Painter 04/09/22
[2024-10-05 16:18] LABS: Add Urine Microscopic? YES; Appearance Urine Cloudy (Clear); Bacteria Urine None Seen /hpf; Bilirubin Urine Negative (Negative); Blood Urine Negative (Negative); Color Urine Yellow (Yellow); Glucose Urine UA Negative (Negative); Ketones Urine Negative (Negative); Leukocyte Esterase Ur Trace LEU/UL (Negative); Need Manual Microscopic Reviewed; Nitrate Urine Negative (Negative); Protein Urine 1+ mg/dL (Negative); Specific Grav Ur 1.016 (1.001-1.035); Squamous Epithelial Cell Urine Many /hpf (Few); Urobilinogen Urine 0.2 mg/dL (<2.0); WBC Urine 0-5 /hpf (0-3); pH Urine 5.5 (5.0-9.0)
[2024-10-05] MEDS: SODIUM CHLORIDE 0.9% IV 1,000 ML 999 ML IV CONT (16:20)
[2024-10-05] MEDS: ACETAMINOPHEN 500 MG TABLET 1000 MG PO (17:18)
[2024-10-05] MEDS: LORazepam INJ (*CRX) 2 MG/ML VIAL 1 MG IV PUSH (17:19)
[2024-10-05] MEDS: AZITHROMYCIN 500 MG/NS 250 ML 500 MG/250 ML BAG 250 MG IVPB (17:44)
[2024-10-05 18:08] LABS: Reflex Lactic Acid Yes or No Add Lactic
[2024-10-05 19:16] LABS: Influenza A QL RT-PCR Positive (Negative); Influenza B QL RT-PCR Negative (Negative); RSV RNA, RT-PCR Negative (Negative); SARS-CoV-2 RNA PCR Negative (Negative)
--- NOTE | 2024-10-05 19:25 | PM.IMHP ---
H&P: HPI History of Present Illness Date/Time: 10/05/24 19:25 Chief Complaint: Pneumonia, fever, cough, Influenza A Narrative: This is a 48-year-old female patient reports she is previously healthy only takes Tylenol and Benadryl daily for headaches no other prescribed medications. Patient began feeling bad 3 days ago on Tuesday. The [facility] was diagnosed with [facility] A and prescribed Tamiflu. Patient states she did not initiate Tamiflu because she has given it to her children and it has made him vomit and she did not want to feel worse. [facility] because she was having pain with coughing. Chest x-ray obtained on both [facility] initially appeared normal and 2nd visit appear to have pneumonia. Patient was started on Augmentin and azithromycin. She was also started on a Medrol Dosepak. She reports she has taken 3 doses of Augmentin to a vase at her mycin and was on day 2 of the methylprednisolone when she came into the ER today with reports of worsening difficulty breathing and low oxygen level. Patient's oxygen was 88% at rest at home. Patient reports she has continued to have fevers T-max over 102. She reports an episode of vomiting today as well as continued chest pain with coughing. Her cough has been dry and nonproductive. Patient stated that her heart rate was very fast and that she had not been able to keep hydrated at home. While in the emergency department today patient had to receive a mg of Ativan for anxiety and she states that she definitely is feeling somewhat better after this medication. 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 Patient does not want to take Tamiflu because it has previously made her children vomit and feel worse after taking it and she does not want to feel worse. I discussed that it is still recommended to initiate if influenza is causing hospitalization but she does not want to have this prescribed at this time. She did receive IV Rocephin and IV azithromycin which will be continued on admission. Chest x-ray showed multifocal pneumonia. D-dimer was elevated so patient received CTA which was negative for PE but confirmed multifocal pneumonia. Patient is saturating in the mid 90s on 2 liters/minute nasal cannula. Patient still has significant wheezing and prolonged expiratory phase with frequent bronchospastic cough. She did improve somewhat after nebulizer treatment earlier. Laboratory findings show KIRSTIE with a creatinine of 1.11 her previous have been 0.6-0.7. Additionally, leukocytosis of 18.7 noted. Patient is on steroids and still has significant wheezing so we will give IV steroids and IV magnesium. Review of Systems Review of Systems: All systems reviewed & are unremarkable except as noted in HPI and below PMFSH Past Medical History Medical History Colon cancer screening Migraines Obesity Surgical History Surgical History History of ovarian cystectomy (02/2022) History of tubal ligation Family History Family History Sibling Family history of atrial fibrillation Social History Social History Social History: Surrogate medical decision maker: Bernard Banks, spouse. Code status: Full code. Smoking status: Never smoker Alcohol intake: never Substance use: never Lack of Transportation: No Lack of Food: Never True Current Housing: I Have Housing Concerned About Future Housing: No Difficulty Paying Gas/Electric Bills: No Difficulty Paying for Meds: No Currently Unemployed: No Education: Trade/Vocational Certificate Difficulty w/ Childcare or Family Care: No Living arrangements: with family Spiritual care concerns: No Meds Home Medications and Allergies Home Medications ?Medication ?Instructions ?Recorded ?Confirmed ?Type albuterol sulfate 90 mcg/actuation 2 puff inhalation QID PRN 07/28/19 10/05/24 Rx aerosol inhaler (Ventolin HFA) shortness of breath or wheezing #8 grams amoxicillin 875 mg-potassium 1 tablet PO Q12H 10/05/24 10/05/24 History clavulanate 125 mg tablet azithromycin 250 mg tablet See Rx Instructions .Route .COMPLEX 10/05/24 10/05/24 History methylprednisolone 4 mg tablets in See Rx Instructions .Route .COMPLEX 10/05/24 10/05/24 History a dose pack Allergies Allergy/AdvReac Type Severity Reaction Status Date / Time aspartame AdvReac Severe Seizure Verified 10/05/24 15:31 Vital Signs Vital Signs - 24 hr 10/05/24 10:30 10/05/24 15:31 10/05/24 15:37 Temperature 36.5 C 36.6 C Pulse Rate 121 H 109 H Respiratory Rate 14 24 H Blood Pressure 120/71 133/96 H Pulse Oximetry 95 95 95 Oxygen Delivery Room Air Nasal Cannula Nasal Cannula Oxygen Flow Rate 2 2 10/05/24 15:45 10/05/24 15:55 10/05/24 17:07 Temperature Pulse Rate 101 H 103 H Respiratory Rate 18 18 Blood Pressure Pulse Oximetry 96 Oxygen Delivery Nasal Cannula Oxygen Flow Rate 2 10/05/24 17:07 10/05/24 18:35 Temperature Pulse Rate 97 97 Respiratory Rate 23 H 25 H Blood Pressure 123/97 H 134/98 H Pulse Oximetry 96 96 Oxygen Delivery Oxygen Flow Rate Exam Narrative: APPEARANCE: Ill-appearing, mildly anxious, frequent cough on supplemental oxygen HEAD: normocephalic, atraumatic. EYES: PERRLA/EOMI, conjunctivae clear. NOSE: Nasal congestion noted NECK: Supple. No adenopathy, no masses. RESPIRATORY: Prolonged expiratory phase, very tight sound in with expiratory wheeze and frequent cough on supplemental oxygen at 2 L minute saturating 94% CARDIOVASCULAR: Regular rate and rhythm without murmurs rubs or gallops. Sinus tachycardia rate of 106 noted on bedside telemetry monitoring per my independent interpretation at time of examination ABDOMINAL: Soft, nontender, nondistended, normal bowel sounds MUSCULOSKELETAL: Moves all extremities. Strength/ROM intact, No edema, No calf tenderness. NEURO: Alert. Cranial nerves II through XII intact. Patient ambulatory to the restroom with a steady gait SKIN: Warm, dry. Normal Color H&P: Results Labs Labs: Short CBC 10/05/24 Range/Units 15:02 WBC 18.7 H (4.5-10.0) K/mm3 Hgb 12.9 (12.0-15.0) g/dL Hct 38.5 (37.0-47.0) % Plt Count 308 (150-375) k/mm3 BMP 10/05/24 15:02 Sodium 135 L Potassium 3.8 Chloride 99 Carbon Dioxide 20 L BUN 24 H D Creatinine 1.11 H Glucose 125 H Calcium 9.3 Cardiac Enzymes 10/05/24 Range/Units 15:02 Troponin I < 0.012 (0.000-0.034) ng/mL Liver Function 10/05/24 Range/Units 15:02 Total Bilirubin 0.6 (0.2-1.3) mg/dL AST 35 (14-36) U/L ALT 38 H (6-35) U/L Alkaline Phosphatase 188 H (38-126) U/L Albumin 3.9 (3.5-5.1) g/dL Urine 10/05/24 Range/Units 15:38 Urine Color Yellow (Yellow) Urine Appearance Cloudy H (Clear) Urine pH 5.5 (5.0-9.0) Ur Specific [place] 1.016 (1.001-1.035) Urine Protein 1+ H (Negative) mg/dL Urine Glucose (UA) Negative (Negative) mg/dL ABG ABG results: PH 7.47 pCO2 31.5 PaO2 68.5 HC03 22.4 on 2 liters/minute Attestation: I personally reviewed and interpreted this ABG as follows: Interpretation: ABG confirms hypoxemia and shows a very mild respiratory alkalosis Pulse Oximetry SpO2 results: 88-91% on room air, 94-96% on 2 liters/minute nasal cannula Attestation: I personally reviewed and interpreted this pulse oximetry as follows: Interpretation: Patient continues to require supplemental oxygen by nasal cannula ECG Attestation: I personally reviewed and interpreted this ECG as follows: ECG completion date: 10/05/24 ECG completion time: 14:51 Prior ECG tracings: not available for review Interpretation: Sinus tachycardia rate of 101 AK interval 128 QRS duration 93 QTC 412 QRS axis 44 low voltage QRS with inverted T-wave in lead 3, no STEMI Imaging Chest x-ray: Radiologist's impression: EXAMINATION: XR chest 2V DATE: 10/05/2024 15:18 INDICATION: Hypoxia. TECHNIQUE: Frontal and lateral views of the chest were obtained. COMPARISON: Chest single view 04/10/2023, chest CT 04/10/2023 FINDINGS: There are airspace opacities in the mid and lower lung zones. No pleural effusion or pneumothorax. The heart size is normal. Surgical clips in the right upper quadrant are likely from cholecystectomy. IMPRESSION: 1. Airspace opacities in the mid and lower lung zones, consistent with pneumonia. Reviewed, dictated and finalized at location [facility]. [facility] scan - chest: Radiologist's impression: EXAMINATION: CTA chest PE protocol DATE: 10/05/2024 17:41 [facility] INDICATION: TECHNIQUE: Computed tomographic angiography (CTA) of the chest was performed with 100 mL Omnipaque-350 intravenous contrast. The dose-length product was 331.67 mGy-cm. Maximum intensity projection 3D-reconstructions of the aorta and other arteries were constructed by the technologist on a separate workstation. COMPARISON: None. FINDINGS/OBSERVATIONS: PULMONARY ARTERIES: No filling defect is identified within the main or proximal pulmonary artery. The main pulmonary artery is not enlarged. THORACIC AORTA: No aneurysmal dilatation or dissection is present. The great vessels are intact LUNGS: Multifocal infiltrates detected bilaterally, consistent with recent chest radiograph. MEDIASTINUM: No morphologically suspicious or pathologically enlarged lymph nodes are identified within the mediastinum or bilateral axilla. BONES OF THE CHEST: No acute fracture. No significant degenerative disease. No lytic or blastic lesions. HEART: The heart is of normal size, without pericardial effusion. IMPRESSION: No pulmonary embolus. No thoracic aortic dissection. Multifocal infiltrates, as designated on plain film evaluation performed 2 hours earlier. Reviewed, dictated and finalized at location [facility] Assessment and Plan Assessment and plan (1) Acute hypoxemic respiratory failure: Code(s): J96.01 - Acute respiratory failure with hypoxia Status: Acute Assessment and Plan: Pulse oximetry 88-91% on room air at rest ABG shows hypoxemia on 2 liters/minute nasal cannula Patient diagnosed with multifocal pneumonia and Influenza A Admit to med/surg on isolation or cohort status for Influenza A Oxygen at 2 LPM, titrate as tolerated Significant wheezing noted throughout with prolonged exhalation phase IV steroids, Duonebs, IV magnesium 2 grams over 15-20 minutes x1 Continue IV Rocephin and azithromycin Patient refused Tamiflu Encourage cough/deep breathe, ordered incentive spirometer (2) Multifocal pneumonia: Code(s): J18.9 - Pneumonia, unspecified organism Status: Acute Assessment and Plan: See above (3) Influenza A: Code(s): J10.1 - Influenza due to other identified influenza virus with other respiratory manifestations Status: Acute Assessment and Plan: See above (4) KIRSTIE (acute kidney injury): Code(s): N17.9 - Acute kidney failure, unspecified Status: Acute Assessment and Plan: Cr 1.11, baseline 0.6-0.9 S/P 1 liter IV fluid bolus in ER Nausea present, decreased appetite LR at 100 mL/hr overnight, re-evaluate on rounds AM labs ordered Quality VTE Prophylaxis VTE prophylaxis: pharmacologic ordered Hospitalist MIPS Advance Care Plan I have confirmed that the patient's Advanced Care Plan is present, code status is documented, or surrogate decision maker is listed in patient medical record.: Yes Medication Reconciliation I have utilized all available resources to obtain, update and review the patients current medications (includes all prescriptions, OTC, herbals, cannabis, and nutritional supplements).: Yes
[2024-10-05 19:41] LABS: Lactic Acid 1.3 mmol/L (0.7-2.0)
[2024-10-05 19:48] LABS: MRSA (PCR) NOT DETECTED (NOT DETECTE)
[2024-10-05] MEDS: LACTATED RINGERS 1,000 ML 100 ML IV CONT (21:40)
[2024-10-05] MEDS: methylPREDNISolone SOD SUCC 125 MG VIAL IV PUSH (21:40)
--- NOTE | 2024-10-05 21:40 | ADMGEN ---
This patient, Rose Banks, was admitted to Medical Room 349-01. Patient/family oriented to hospital policies and general routines including ID bracelet, bed and alarms, visiting hours, pain management, procedures, bathroom and other care routines, personal items, smoking policy, room service/diet, and visiting hours. Information on how to activate the Rapid Response Team has been discussed. Patient/Family are encouraged to report perceived risks to care and to ask questions if they do not understand what they are told or what they should do.
[2024-10-05] MEDS: MAGNESIUM SULF 2 GM/WATER 50ML 2 GM/50 ML BAG IVPB (21:41)
[2024-10-06] VITALS (17 sets, daily range): BP systolic 115–129; BP diastolic 57–90; PULSE 80–100; RESP 16–19; TEMP 36.2–36.9; O2SAT 86–98
[2024-10-06] MEDS: IPRATROPIUM 0.5 MG/ALBUTEROL SULFATE 2.5 MG AMPUL.NEB 3 ML INHALATION ×4 (02:00→22:29)
[2024-10-06] MEDS: methylPREDNISolone SOD SUCC 40 MG VIAL IV PUSH (05:40)
[2024-10-06 05:47] LABS: Hematocrit 34.8 % (37.0-47.0); Hemoglobin 11.3 g/dL (12.0-15.0); Mean Corpuscular HGB Conc 32.5 g/dl (32-36); Mean Corpuscular Volume 89.5 fl (80-100); Mean Platelet Volume 9.3 fl (7.4-10.4); Platelet Count Result 289 k/mm3 (150-375); Red Blood Count 3.89 M/mm3 (4.2-5.4); Red Cell Distribution Width 13.6 % (11.5-14.5)
[2024-10-06 05:54] LABS: Alanine Aminotransferase 27 U/L (6-35); Albumin Level 3.3 g/dL (3.5-5.1); Alkaline Phosphatase 157 U/L (38-126); Anion Gap 11 mmol/L (4-12); Aspartate Amino Transferase 24 U/L (14-36); Bilirubin,Total 0.5 mg/dL (0.2-1.3); Blood Urea Nitrogen 16 mg/dL (7-17); Calcium 8.3 mg/dL (8.4-10.2); Carbon Dioxide 21 mmol/L (22-30); Chloride 104 mmol/L (98-107); Estimated CRCL calculation 106 ml/min; Estimated Glomerular Filt Rate > 60; Glucose 149 mg/dL (65-110); Magnesium 2.3 mg/dL (1.6-2.3); Potassium 4.1 mmol/L (3.4-5.0); Sodium 136 mmol/L (137-145)
--- NOTE | 2024-10-06 06:46 | PM.IMPN ---
Progress Note: A&P Assessment and Plan (1) Sepsis: Code(s): A41.9 - Sepsis, unspecified organism Status: Acute Assessment and Plan: Meets SIRS criteria: Leukocytosis with bands, fever, tachycardia - lactic acid: 1.3 - received sepsis bolus in the ED - suspected source: pneumonia - blood cultures drawn on 10/05: pending - UA non concerning for infection - CXR: Airspace opacities in the mid and lower lung zones, consistent with pneumonia. - Chest CTA: No pulmonary embolus. No thoracic aortic dissection. Multifocal infiltrates, as designated on plain film evaluation performed 2 hours earlier. (2) Acute hypoxemic respiratory failure: Code(s): J96.01 - Acute respiratory failure with hypoxia Status: Acute Assessment and Plan: Pulse oximetry 88-91% on room air at rest ABG shows hypoxemia on 2 liters/minute nasal cannula Patient diagnosed with multifocal pneumonia and Influenza A Admit to med/surg on isolation or cohort status for Influenza A Oxygen supplementation: 4L NC (baseline RA). Wean as tolerated. Keep SpO2 greater than 90% Duonebs Continue IV Rocephin and azithromycin Patient refused Tamiflu Encourage cough/deep breathe, ordered incentive spirometer (3) Multifocal pneumonia: Code(s): J18.9 - Pneumonia, unspecified organism Status: Acute Assessment and Plan: CXR: Airspace opacities in the mid and lower lung zones, consistent with pneumonia. Chest CTA: No pulmonary embolus. No thoracic aortic dissection. Multifocal infiltrates, as designated on plain film evaluation performed 2 hours earlier. - Complicating Factors: cocurrent flu - started on CAP tx: azithromycin ceftriaxone started on 10/06 - Viral PCR: Flu - Blood cultures obtained on 10/05: pending - Send sputum cultures - Consider ordering legionella, mycoplasma and pneumococcal - Oxygen supplementation: 4L NC (baseline RA). Wean as tolerated. Keep SpO2 greater than 90% - Monitor vital signs, I&Os, neuro status and patient is a fall risk - Follow WBC, serum electrolytes, temperature curves and cultures (4) Influenza A: Code(s): J10.1 - Influenza due to other identified influenza virus with other respiratory manifestations Status: Acute Assessment and Plan: Viral panel positive for Flu Patient refused Tamiflu Continue supportive therapy (5) KIRSTIE (acute kidney injury): Code(s): N17.9 - Acute kidney failure, unspecified Status: Acute Assessment and Plan: Cr 1.11 on admission, baseline 0.6-0.9. S/P 1 liter IV fluid bolus in ER Nausea present, decreased appetite LR at 100 mL/hr overnight on 10/05, discontinued - BUN/Cr 16/0.65 on am labs - Avoid nephrotoxic medications - Renally dose medications Time Spent With Patient Time with patient: 25 - 35 minutes Subjective Date/time seen: 10/06/24 06:46 Interval history: 48 year old female with no significant past medical history presents to the hospital for dyspnea, low oxygen level (88% at rest at home) and continued fevers (T max over 102 at home) after being diagnosed with the flu at an outpatient facility. Patient is pleasant sitting up in bed. Per respiratory therapy patient was having increased dyspnea prior to her breathing treatments and is now requiring 4 L nasal cannula to maintain oxygen saturations. Patient continues to endorse shortness of breath but notes that it has improved since the breathing treatment. She has no other complaints denying chest pain, palpitations, nausea/ vomiting, and abdominal pain. Review of Systems Review of Systems: All systems reviewed & are unremarkable except as noted in HPI and below Exam Narrative: AF HR 87 RR 18 SpO2 92 4L NC BP 129/90 General: Female in no acute respiratory distress who is nontoxic appearing, sitting up in bed. HEENT: Normocephalic. Atraumatic. Extraocular movement intact. Sclera clear and anicteric.No facial asymmetry. Chest: Lungs are coarse rhonchi to the middle lobe and bases to auscultation bilaterally. No wheezes. CV: Heart was regular rate and rhythm. S1-S2. No murmurs, gallops, or rubs. Abd: Abdomen was soft. Nontender. Nondistended. Positive bowel sounds. Ext: No clubbing, cyanosis, or edema. 2+ DP pulses bilaterally. Neuro: Patient is alert and oriented x4. Speech is clear. Objective Data Vital Signs Vital Signs: Vital Signs - 24 hr 10/05/24 10:30 10/05/24 15:31 10/05/24 15:37 Temperature 97.7 F 97.9 F Pulse Rate 121 H 109 H Respiratory Rate 14 24 H Blood Pressure 120/71 133/96 H Pulse Oximetry 95 95 95 Oxygen Delivery Room Air Nasal Cannula Nasal Cannula Oxygen Flow Rate 2 2 10/05/24 15:45 10/05/24 15:55 10/05/24 17:07 Temperature Pulse Rate 101 H 103 H Respiratory Rate 18 18 Blood Pressure Pulse Oximetry 96 Oxygen Delivery Nasal Cannula Oxygen Flow Rate 2 10/05/24 17:07 10/05/24 18:35 10/05/24 19:15 Temperature Pulse Rate 97 97 95 Respiratory Rate 23 H 25 H 24 H Blood Pressure 123/97 H 134/98 H 114/97 H Pulse Oximetry 96 96 95 Oxygen Delivery Oxygen Flow Rate 10/05/24 21:59 10/05/24 22:00 10/06/24 05:41 Temperature 98.8 F 98.4 F Pulse Rate 100 98 Respiratory Rate 18 18 Blood Pressure 130/72 129/90 Pulse Oximetry 95 95 91 Oxygen Delivery Nasal Cannula Oxygen Flow Rate 2 Intake/Output Intake/Output: Intake & Output 10/03/24 10/04/24 10/05/24 10/06/24 23:59 23:59 23:59 23:59 Intake Total 1350 500 Output Total 600 Balance 1350 -100 Meds/Results Medications: Active Medications Generic Name Dose Route Start Last Admin Trade Name Freq PRN Reason Stop Dose Admin Acetaminophen 650 mg 10/05/24 18:17 Acetaminophen 325 Mg Tablet PO Q4H PRN Mild Pain (1-3) or Fever Albuterol 2.5 mg 10/05/24 20:00 10/06/24 06:43 Albuterol Sulfate Neb 2.5 Mg/3 Ml Inh INHALATION Not Given Q6HRT [facility] Albuterol 2 puff 10/05/24 20:58 Albuterol Sulfate (*Sp) Aerosol 1 Puff INHALATION QID PRN shortness of breath or wheezing Albuterol/Ipratropium 3 ml 10/06/24 02:00 10/06/24 02:00 Ipratropium 0.5 Mg/Albuterol Sulfate 2.5 Mg Ampul.Neb 3 Ml INHALATION 3 ml Q6HRT [facility] Administration Enoxaparin Sodium 40 mg 10/06/24 09:00 Enoxaparin 40 Mg/0.4 Ml Syringe SUB-Q DAILY [facility] Ceftriaxone Sodium 1 gm in 50 mls @ 100 mls/hr 10/06/24 12:00 Rocephin 1 Gm/Ns 50 Ml IVPB 10/10/24 12:29 Q24H JOHNNIE Azithromycin 500 mg in 250 mls @ 250 mls/hr 10/06/24 12:00 Zithromax IVPB 10/08/24 12:59 Q24H JOHNNIE Lactated Ringer's 1,000 mls @ 100 mls/hr 10/05/24 21:05 10/05/24 21:40 Lr - Lactated Ringers Iv IV CONT 100 mls/hr .Q10H JOHNNIE Administration Ipratropium [place] 0.5 mg 10/05/24 20:00 10/06/24 06:44 Ipratropium Br 0.02% Inh Soln 0.5 Mg/2.5 Ml Vial INHALATION Not Given Q6HRT JOHNNIE Lorazepam 1 mg 10/05/24 21:04 Lorazepam Inj (*Crx) 2 Mg/Ml Vial IV PUSH Q6H PRN Anxiety Methylprednisolone Sodium Succinate 40 mg 10/06/24 06:00 10/06/24 05:40 Methylprednisolone Sod Succ 40 Mg Vial IV PUSH 40 mg Q8H JOHNNIE Administration Radiology Results: ITS Impressions Chest X-Ray 10/05/24 15:18 IMPRESSION: 1. Airspace opacities in the mid and lower lung zones, consistent with pneumonia. Chest CTA 10/05/24 17:41 IMPRESSION: No pulmonary embolus. No thoracic aortic dissection. Multifocal infiltrates, as designated on plain film evaluation performed 2 hours earlier. Labs Labs: Laboratory Results - last 24 hr 10/05/24 10/05/24 10/05/24 15:02 15:38 18:34 WBC 18.7 H RBC 4.36 Hgb 12.9 Hct 38.5 MCV 88.3 MCH 29.6 MCHC 33.5 RDW 13.3 Plt Count 308 MPV 9.2 Immature Gran % (Auto) Not Reportable Neut % (Auto) Not Reportable Lymph % (Auto) Not Reportable [place] % (Auto) Not Reportable Eos % (Auto) Not Reportable Baso % (Auto) Not Reportable Lymph # (Auto) Not Reportable [place] # (Auto) Not Reportable Eos # (Auto) Not Reportable Baso # (Auto) Not Reportable Abs Immat Gran (auto) Not Reportable Absolute Neuts (auto) Not Reportable Absolute Nucleated RBC Not Reportable Total Counted 100 Neutrophils % (Manual) 60 Band Neutrophils % 35 H Lymphocytes % (Manual) 4.0 L Monocytes % (Manual) 1 L Nucleated RBC % Not Reportable Abs Neuts (Manual) 17.76 H Abs Lymphs (Manual) 0.74 L Abs Monocytes (Manual) 0.18 Platelet Estimate Adequate Clumped Platelets Present Schistocytes None seen D-Dimer 3.83 H Puncture Site Left brachial ABG pH 7.470 H ABG pCO2 31.5 L ABG pO2 68.5 L ABG PO2/FiO2 Ratio 2.45 ABG HCO3 22.4 ABG O2 Saturation 94.9 L ABG O2 Content 17.5 ABG Base Excess -0.4 A-a Gradient 94.0 Oxyhemoglobin 93.5 Total Hemoglobin 13.3 O2 Delivery Device Nasal cannula O2 Liters/Min 2.0 FiO2 28 Sodium 135 L Potassium 3.8 Chloride 99 Carbon Dioxide 20 L Anion Gap 16 H BUN 24 H D Creatinine 1.11 H Estim Creat Clear Calc 63 Estimated GFR 53 L Glucose 125 H Lactic Acid 2.1 H Calcium 9.3 Magnesium 2.0 Total Bilirubin 0.6 AST 35 ALT 38 H Alkaline Phosphatase 188 H Troponin I < 0.012 NT-Pro-B Natriuret Pep 429 H Total Protein 8.0 Albumin 3.9 Urine Color Yellow Urine Appearance Cloudy H Urine pH 5.5 Ur Specific [place] 1.016 Urine Protein 1+ H Urine Glucose (UA) Negative Urine Ketones Negative Ur Blood (Man) Negative Urine Nitrate Negative Urine Bilirubin Negative Urine Urobilinogen 0.2 Add Ur Microanalysis Reviewed Leukocyte Esterase Rfl Trace H Urine RBC 3-5 H Urine WBC 0-5 Ur Squamous Epith Cells Many H Urine Bacteria None seen Urine Casts 11-20 Nasal MRSA (PCR) Not detected Influenza A (RT-PCR) Positive A Influenza B (RT-PCR) Negative RSV (RT-PCR) Negative SARS-CoV-2 RNA (RT-PCR) Negative 10/05/24 10/06/24 19:24 05:34 WBC RBC Hgb Hct MCV MCH MCHC RDW Plt Count MPV Immature Gran % (Auto) Neut % (Auto) Lymph % (Auto) [place] % (Auto) Eos % (Auto) Baso % (Auto) Lymph # (Auto) [place] # (Auto) Eos # (Auto) Baso # (Auto) Abs Immat Gran (auto) Absolute Neuts (auto) Absolute Nucleated RBC Total Counted Neutrophils % (Manual) Band Neutrophils % Lymphocytes % (Manual) Monocytes % (Manual) Nucleated RBC % Abs Neuts (Manual) Abs Lymphs (Manual) Abs Monocytes (Manual) Platelet Estimate Clumped Platelets Schistocytes D-Dimer Puncture Site ABG pH ABG pCO2 ABG pO2 ABG PO2/FiO2 Ratio ABG HCO3 ABG O2 Saturation ABG O2 Content ABG Base Excess A-a Gradient Oxyhemoglobin Total Hemoglobin O2 Delivery Device O2 Liters/Min FiO2 Sodium 136 L Potassium 4.1 Chloride 104 Carbon Dioxide 21 L Anion Gap 11 BUN 16 Creatinine 0.65 L Estim Creat Clear Calc 106 Estimated GFR > 60 Glucose 149 H Lactic Acid 1.3 Calcium 8.3 L Magnesium 2.3 Total Bilirubin 0.5 AST 24 ALT 27 Alkaline Phosphatase 157 H Troponin I NT-Pro-B Natriuret Pep Total Protein 7.0 Albumin 3.3 L Urine Color Urine Appearance Urine pH Ur Specific [place] Urine Protein Urine Glucose (UA) Urine Ketones Ur Blood (Man) Urine Nitrate Urine Bilirubin Urine Urobilinogen Add Ur Microanalysis Leukocyte Esterase Rfl Urine RBC Urine WBC Ur Squamous Epith Cells Urine Bacteria Urine Casts Nasal MRSA (PCR) Influenza A (RT-PCR) Influenza B (RT-PCR) RSV (RT-PCR) SARS-CoV-2 RNA (RT-PCR) Quality VTE Prophylaxis VTE prophylaxis: pharmacologic ordered
[2024-10-06 07:14] LABS: Band Neutrophils Percent 12 % (0-6); Lymphocytes Absolute Manual 0.45 K/mm3 (1.1-4.5); Monocytes Absolute Manual 0.15 K/mm3 (0.1-0.90); Monocytes Percent Manual 1 % (3-9); Neutrophils Percent Manual 84 % (46-73); Platelet Estimate Adequate (Adequate); Schistocytes None Seen; Total Cells Counted 100
[2024-10-06] MEDS: LACTATED RINGERS 1,000 ML 100 ML IV CONT (08:33)
[2024-10-06] MEDS: ACETAMINOPHEN 325 MG TABLET 650 MG PO ×2 (08:38→18:19)
[2024-10-06] MEDS: AZITHROMYCIN 500 MG/NS 250 ML 500 MG/250 ML BAG 250 MG IVPB (11:39)
[2024-10-06] MEDS: LORazepam INJ (*CRX) 2 MG/ML VIAL 1 MG IV PUSH (18:27)
[2024-10-06] MEDS: LOPERAMIDE HCL 2 MG CAPSULE PO (22:23)
[2024-10-07] VITALS (18 sets, daily range): BP systolic 131–147; BP diastolic 93–95; PULSE 74–103; RESP 16; TEMP 36.2; O2SAT 91–97
[2024-10-07] MEDS: IPRATROPIUM 0.5 MG/ALBUTEROL SULFATE 2.5 MG AMPUL.NEB 3 ML INHALATION ×4 (02:45→19:43)
[2024-10-07 05:38] LABS: Basophils Percent Auto 0.3 % (0.2-1.2); Hematocrit 34.5 % (37.0-47.0); Hemoglobin 11.4 g/dL (12.0-15.0); Immature Granulocyte Absolute 0.13 K/mm3 (0.00-0.031); Immature Granulocyte Percent A 0.8 % (0-0.5); Lymphocytes Absolute Auto 1.98 K/mm3 (0.9-3.2); Lymphocytes Percent Auto 12.7 % (18.3-44.2); Mean Corpuscular Hemoglobin 29.5 pg (26-34); Mean Corpuscular Volume 89.4 fl (80-100); Mean Platelet Volume 9.2 fl (7.4-10.4); Monocytes Absolute Auto 0.6 K/mm3 (0.1-0.6); Monocytes Percent Auto 3.9 % (2.6-8.5); Neutrophils Absolute Auto 12.9 K/mm3 (1.3-6.7); Neutrophils Percent Auto 82.3 % (45.5-73.1); Platelet Count Result 293 k/mm3 (150-375); Red Blood Count 3.86 M/mm3 (4.2-5.4); Red Cell Distribution Width 13.7 % (11.5-14.5); White Blood Count 15.6 K/mm3 (4.5-10.0)
[2024-10-07 05:51] LABS: Albumin Level 3.4 g/dL (3.5-5.1); Alkaline Phosphatase 137 U/L (38-126); Anion Gap 12 mmol/L (4-12); Aspartate Amino Transferase 21 U/L (14-36); Bilirubin,Total 0.4 mg/dL (0.2-1.3); Blood Urea Nitrogen 11 mg/dL (7-17); Calcium 8.8 mg/dL (8.4-10.2); Carbon Dioxide 22 mmol/L (22-30); Chloride 104 mmol/L (98-107); Estimated CRCL calculation 115 ml/min; Estimated Glomerular Filt Rate > 60; Glucose 111 mg/dL (65-110); Potassium 3.6 mmol/L (3.4-5.0); Sodium 138 mmol/L (137-145)
[2024-10-07 06:08] LABS: Alanine Aminotransferase 31 U/L (6-35)
--- NOTE | 2024-10-07 07:54 | P.PNIM_ITS ---
Progress Note: A&P Assessment and Plan (1) Sepsis: Code(s): A41.9 - Sepsis, unspecified organism Status: Acute Assessment and Plan: Meets SIRS criteria: Leukocytosis with bands, fever, tachycardia - lactic acid: 1.3 - received sepsis bolus in the ED - suspected source: pneumonia - blood cultures drawn on 10/05: NGTD - Antibiotics: azithromycin ceftriaxone started on 10/06 - UA non concerning for infection - CXR: Airspace opacities in the mid and lower lung zones, consistent with pneumonia. - Chest CTA: No pulmonary embolus. No thoracic aortic dissection. Multifocal infiltrates, as designated on plain film evaluation performed 2 hours earlier. (2) Acute hypoxemic respiratory failure: Code(s): J96.01 - Acute respiratory failure with hypoxia Status: Acute Assessment and Plan: Pulse oximetry 88-91% on room air at rest ABG shows hypoxemia on 2 liters/minute nasal cannula Patient diagnosed with multifocal pneumonia and Influenza A Admit to med/surg on isolation or cohort status for Influenza A Oxygen supplementation: 4L NC (baseline RA). Wean as tolerated. Keep SpO2 greater than 90% Duonebs Continue IV Rocephin and azithromycin Patient refused Tamiflu Encourage cough/deep breathe, ordered incentive spirometer and PEP therapy (3) Multifocal pneumonia: Code(s): J18.9 - Pneumonia, unspecified organism Status: Acute Assessment and Plan: CXR: Airspace opacities in the mid and lower lung zones, consistent with pneumonia. Chest CTA: No pulmonary embolus. No thoracic aortic dissection. Multifocal infiltrates, as designated on plain film evaluation performed 2 hours earlier. - Complicating Factors: cocurrent flu - started on CAP tx: azithromycin ceftriaxone started on 10/06 - Viral PCR: Flu - MRSA negative - Blood cultures obtained on 10/05: NGTD - Sputum cultures: pending - legionella, mycoplasma and pneumococcal ordered - Oxygen supplementation: 4L NC (baseline RA). Wean as tolerated. Keep SpO2 greater than 90% - Monitor vital signs, I&Os, neuro status and patient is a fall risk - Follow WBC, serum electrolytes, temperature curves and cultures (4) Influenza A: Code(s): J10.1 - Influenza due to other identified influenza virus with other respiratory manifestations Status: Acute Assessment and Plan: Viral panel positive for Flu Patient refused Tamiflu Continue supportive therapy (5) KIRSTIE (acute kidney injury): Code(s): N17.9 - Acute kidney failure, unspecified Status: Acute Assessment and Plan: Cr 1.11 on admission, baseline 0.6-0.9. S/P 1 liter IV fluid bolus in ER Nausea present, decreased appetite LR at 100 mL/hr overnight on 10/05, discontinued - BUN/Cr 11/0.59 on am labs - Avoid nephrotoxic medications - Renally dose medications Resolved. Time Spent With Patient Time with patient: 25 - 35 minutes Subjective Date/time seen: 10/07/24 07:54 Interval history: 48 year old female with no significant past medical history presents to the hospital for dyspnea, low oxygen level (88% at rest at home) and continued fevers (T max over 102 at home) after being diagnosed with the flu at an outpatient facility. Patient is pleasant sitting up comfortably in bed. She states that her shortness of breath and cough has improved since yesterday. She notes that she feels congested but her cough remains unproductive. Started PEP therapy. She remains on 4L NC at this time, will continue to try to wean. She has no other complaints denying chest pain, palpitations, nausea/vomiting and abdominal pain. Review of Systems Review of Systems: All systems reviewed & are unremarkable except as noted in HPI and below Exam Narrative: AF HR 86 RR 16 SPO2 93 4L NC (baseline RA) BP 131/93 General: Female in no acute respiratory distress who is nontoxic appearing, sitting up in bed. HEENT: Normocephalic. Atraumatic. Extraocular movement intact. Sclera clear and anicteric.No facial asymmetry. Chest: Lungs with rhonchi to the middle lobe and bases to auscultation bilaterally. No wheezes. CV: Heart was regular rate and rhythm. S1-S2. No murmurs, gallops, or rubs. Abd: Abdomen was soft. Nontender. Nondistended. Positive bowel sounds. Ext: No clubbing, cyanosis, or edema. 2+ DP pulses bilaterally. Neuro: Patient is alert and oriented x4. Speech is clear. Objective Data Vital Signs Vital Signs: Vital Signs - 24 hr 10/06/24 08:00 10/06/24 08:31 10/06/24 08:31 Temperature Pulse Rate 99 99 Respiratory Rate 18 18 Blood Pressure Pulse Oximetry 96 86 L Oxygen Delivery Nasal Cannula Nasal Cannula Oxygen Flow Rate 3 1 10/06/24 08:43 10/06/24 09:00 10/06/24 12:00 Temperature Pulse Rate 100 87 Respiratory Rate 18 Blood Pressure Pulse Oximetry 92 Oxygen Delivery Nasal Cannula Oxygen Flow Rate 4 10/06/24 13:59 10/06/24 14:43 10/06/24 14:43 Temperature 97.1 F L Pulse Rate 91 82 Respiratory Rate 19 18 Blood Pressure 122/75 Pulse Oximetry 92 92 Oxygen Delivery Nasal Cannula Oxygen Flow Rate 4 10/06/24 14:53 10/06/24 16:00 10/06/24 20:00 Temperature Pulse Rate 94 94 Respiratory Rate 18 Blood Pressure Pulse Oximetry 95 Oxygen Delivery Nasal Cannula Oxygen Flow Rate 4 10/06/24 20:00 10/06/24 22:12 10/06/24 22:30 Temperature 97.4 F L Pulse Rate 94 88 Respiratory Rate 16 Blood Pressure 115/57 L Pulse Oximetry 93 93 Oxygen Delivery Nasal Cannula Oxygen Flow Rate 4 10/06/24 22:30 10/07/24 00:00 10/07/24 02:48 Temperature Pulse Rate 80 74 103 H Respiratory Rate 16 16 Blood Pressure Pulse Oximetry Oxygen Delivery Oxygen Flow Rate 10/07/24 02:54 10/07/24 04:00 10/07/24 06:00 Temperature 97.1 F L Pulse Rate 92 80 86 Respiratory Rate 16 16 Blood Pressure 131/93 H Pulse Oximetry 92 Oxygen Delivery Oxygen Flow Rate Intake/Output Intake/Output: Intake & Output 10/04/24 10/05/24 10/06/24 10/07/24 23:59 23:59 23:59 23:59 Intake Total 1350 2280 400 Output Total 600 1400 Balance 1350 1680 -1000 Meds/Results Medications: Active Medications Generic Name Dose Route Start Last Admin Trade Name Freq PRN Reason Stop Dose Admin Acetaminophen 650 mg 10/05/24 18:17 10/06/24 18:19 Acetaminophen 325 Mg Tablet PO 650 mg Q4H PRN Administration Mild Pain (1-3) or Fever Albuterol 2 puff 10/05/24 20:58 Albuterol Sulfate (*Sp) Aerosol 1 Puff INHALATION QID PRN shortness of breath or wheezing Albuterol/Ipratropium 3 ml 10/06/24 02:00 10/07/24 02:45 Ipratropium 0.5 Mg/Albuterol Sulfate 2.5 Mg Ampul.Neb 3 Ml INHALATION 3 ml Q6HRT JOHNNIE Administration Enoxaparin Sodium 40 mg 10/06/24 09:00 10/06/24 08:41 Enoxaparin 40 Mg/0.4 Ml Syringe SUB-Q Not Given DAILY JOHNNIE Ceftriaxone Sodium 1 gm in 50 mls @ 100 mls/hr 10/06/24 12:00 10/06/24 11:38 Rocephin 1 Gm/Ns 50 Ml IVPB 10/10/24 12:29 100 mls/hr Q24H JOHNNIE Administration Azithromycin 500 mg in 250 mls @ 250 mls/hr 10/06/24 12:00 10/06/24 11:39 Zithromax IVPB 10/08/24 12:59 250 mls/hr Q24H JOHNNIE Administration Lorazepam 1 mg 10/05/24 21:04 10/06/24 18:27 Lorazepam Inj (*Crx) 2 Mg/Ml Vial IV PUSH 1 mg Q6H PRN Administration Anxiety Radiology Results: ITS Impressions Chest X-Ray 10/05/24 15:18 IMPRESSION: 1. Airspace opacities in the mid and lower lung zones, consistent with pneumonia. Chest CTA 10/05/24 17:41 IMPRESSION: No pulmonary embolus. No thoracic aortic dissection. Multifocal infiltrates, as designated on plain film evaluation performed 2 hours earlier. Labs Labs: Laboratory Results - last 24 hr 10/07/24 05:31 WBC 15.6 H RBC 3.86 L Hgb 11.4 L Hct 34.5 L MCV 89.4 MCH 29.5 MCHC 33.0 RDW 13.7 Plt Count 293 MPV 9.2 Immature Gran % (Auto) 0.8 H Neut % (Auto) 82.3 H Lymph % (Auto) 12.7 L [place] % (Auto) 3.9 Eos % (Auto) 0.0 Baso % (Auto) 0.3 Lymph # (Auto) 1.98 [place] # (Auto) 0.6 Eos # (Auto) 0.0 Baso # (Auto) 0.0 Abs Immat Gran (auto) 0.13 H Absolute Neuts (auto) 12.9 H Absolute Nucleated RBC 0.000 Nucleated RBC % 0.0 Sodium 138 Potassium 3.6 Chloride 104 Carbon Dioxide 22 Anion Gap 12 BUN 11 D Creatinine 0.59 L Estim Creat Clear Calc 115 Estimated GFR > 60 Glucose 111 H Calcium 8.8 Magnesium 2.0 Total Bilirubin 0.4 AST 21 ALT 31 Alkaline Phosphatase 137 H Total Protein 7.0 Albumin 3.4 L Quality VTE Prophylaxis VTE prophylaxis: pharmacologic ordered
[2024-10-07] MEDS: ACETAMINOPHEN 325 MG TABLET 650 MG PO ×2 (12:37→18:10)
[2024-10-07] MEDS: AZITHROMYCIN 500 MG/NS 250 ML 500 MG/250 ML BAG 250 MG IVPB (12:38)
[2024-10-07] MEDS: LORazepam INJ (*CRX) 2 MG/ML VIAL 1 MG IV PUSH (21:19)
[2024-10-08] VITALS (20 sets, daily range): BP systolic 117–145; BP diastolic 60–88; PULSE 64–91; RESP 16–18; TEMP 36.2–36.6; O2SAT 94–98
[2024-10-08] MEDS: IPRATROPIUM 0.5 MG/ALBUTEROL SULFATE 2.5 MG AMPUL.NEB 3 ML INHALATION ×4 (02:49→20:19)
[2024-10-08] MEDS: ACETAMINOPHEN 325 MG TABLET 650 MG PO ×3 (03:40→21:40)
[2024-10-08] MEDS: LORazepam INJ (*CRX) 2 MG/ML VIAL 1 MG IV PUSH ×2 (03:40→21:39)
[2024-10-08 06:04] LABS: Basophils Percent Auto 0.4 % (0.2-1.2); Eosinophils Percent Auto 0.2 % (0-4.4); Hematocrit 31.8 % (37.0-47.0); Hemoglobin 10.4 g/dL (12.0-15.0); Immature Granulocyte Absolute 0.21 K/mm3 (0.00-0.031); Immature Granulocyte Percent A 2.1 % (0-0.5); Lymphocytes Percent Auto 33.6 % (18.3-44.2); Mean Corpuscular HGB Conc 32.7 g/dl (32-36); Mean Corpuscular Hemoglobin 29.2 pg (26-34); Mean Corpuscular Volume 89.3 fl (80-100); Mean Platelet Volume 9.1 fl (7.4-10.4); Monocytes Absolute Auto 0.6 K/mm3 (0.1-0.6); Monocytes Percent Auto 6.2 % (2.6-8.5); Neutrophils Absolute Auto 5.8 K/mm3 (1.3-6.7); Neutrophils Percent Auto 57.5 % (45.5-73.1); Platelet Count Result 227 k/mm3 (150-375); Red Blood Count 3.56 M/mm3 (4.2-5.4); Red Cell Distribution Width 13.8 % (11.5-14.5); White Blood Count 10.1 K/mm3 (4.5-10.0)
[2024-10-08 06:11] LABS: Alanine Aminotransferase 21 U/L (6-35); Albumin Level 2.9 g/dL (3.5-5.1); Alkaline Phosphatase 105 U/L (38-126); Anion Gap 9 mmol/L (4-12); Aspartate Amino Transferase 20 U/L (14-36); Bilirubin,Total 0.3 mg/dL (0.2-1.3); Blood Urea Nitrogen 12 mg/dL (7-17); Calcium 8.2 mg/dL (8.4-10.2); Carbon Dioxide 25 mmol/L (22-30); Chloride 102 mmol/L (98-107); Estimated CRCL calculation 114 ml/min; Estimated Glomerular Filt Rate > 60; Glucose 84 mg/dL (65-110); Magnesium 1.9 mg/dL (1.6-2.3); Sodium 136 mmol/L (137-145)
--- NOTE | 2024-10-08 08:24 | P.PNIM_ITS ---
Progress Note: A&P Assessment and Plan (1) Sepsis: Code(s): A41.9 - Sepsis, unspecified organism Status: Acute Assessment and Plan: Meets SIRS criteria: Leukocytosis with bands, fever, tachycardia - lactic acid: 1.3 - received sepsis bolus in the ED - suspected source: pneumonia - blood cultures drawn on 10/05: NGTD - Antibiotics: azithromycin ceftriaxone started on 10/06 - UA non concerning for infection - CXR: Airspace opacities in the mid and lower lung zones, consistent with pneumonia. - Chest CTA: No pulmonary embolus. No thoracic aortic dissection. Multifocal infiltrates, as designated on plain film evaluation performed 2 hours earlier. Resolved. Vitals remain stable and WBC improving. (2) Acute hypoxemic respiratory failure: Code(s): J96.01 - Acute respiratory failure with hypoxia Status: Acute Assessment and Plan: Pulse oximetry 88-91% on room air at rest ABG shows hypoxemia on 2 liters/minute nasal cannula Patient diagnosed with multifocal pneumonia and Influenza A Admit to med/surg on isolation or cohort status for Influenza A Oxygen supplementation: 2L NC (baseline RA). Wean as tolerated. Keep SpO2 greater than 90% Duonebs Continue IV Rocephin and azithromycin Patient refused Tamiflu Encourage cough/deep breathe, ordered incentive spirometer and PEP therapy (3) Multifocal pneumonia: Code(s): J18.9 - Pneumonia, unspecified organism Status: Acute Assessment and Plan: CXR: Airspace opacities in the mid and lower lung zones, consistent with pneumonia. Chest CTA: No pulmonary embolus. No thoracic aortic dissection. Multifocal infiltrates, as designated on plain film evaluation performed 2 hours earlier. 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 Wean as tolerated. Keep SpO2 greater than 90% - Monitor vital signs, I&Os, neuro status and patient is a fall risk - Follow WBC, serum electrolytes, temperature curves and cultures (4) Influenza A: Code(s): J10.1 - Influenza due to other identified influenza virus with other respiratory manifestations Status: Acute Assessment and Plan: Viral panel positive for Flu Patient refused Tamiflu Continue supportive therapy (5) KIRSTIE (acute kidney injury): Code(s): N17.9 - Acute kidney failure, unspecified Status: Acute Assessment and Plan: Cr 1.11 on admission, baseline 0.6-0.9. S/P 1 liter IV fluid bolus in ER Nausea present, decreased appetite LR at 100 mL/hr overnight on 10/05, discontinued - BUN/Cr 12/0.6 on am labs - Avoid nephrotoxic medications - Renally dose medications Resolved. Time Spent With Patient Time with patient: 25 - 35 minutes Subjective Date/time seen: 10/08/24 08:24 Interval history: 48 year old female with no significant past medical history presents to the hospital for dyspnea, low oxygen level (88% at rest at home) and continued fevers (T max over 102 at home) after being diagnosed with the flu at an outpatient facility. Patient is pleasant lying comfortably in bed. She continues to endorse shortness of breath and cough but has been able to be weaned down to 2 L nasal cannula. She has no other complaints denying chest pain, palpitations, nausea/vomiting, abdominal pain. Patient's sputum culture is growing Gram- positive cocci in clusters however this is primarily motor vehicle field representative of the lower respiratory tract on gram stain. Spoke with ID pharmacy and will continue current antibiotic regimen given that patient continues to improve. Review of Systems Review of Systems: All systems reviewed & are unremarkable except as noted in HPI and below Exam Narrative: AF HR 78 RR 16 SpO2 94 2L NC BP 117/72 General: Female in no acute respiratory distress who is nontoxic appearing, sitting up in bed. HEENT: Normocephalic. Atraumatic. Extraocular movement intact. Sclera clear and anicteric.No facial asymmetry. Chest: Lungs with rhonchi to the middle lobe and bases to auscultation bilaterally. No wheezes. CV: Heart was regular rate and rhythm. S1-S2. No murmurs, gallops, or rubs. Abd: Abdomen was soft. Nontender. Nondistended. Positive bowel sounds. Ext: No clubbing, cyanosis, or edema. 2+ DP pulses bilaterally. Neuro: Patient is alert and oriented x4. Speech is clear. Objective Data Vital Signs Vital Signs: Vital Signs - 24 hr 10/07/24 08:40 10/07/24 09:00 10/07/24 12:00 Temperature Pulse Rate 98 82 Respiratory Rate 16 Blood Pressure Pulse Oximetry 91 Oxygen Delivery Nasal Cannula Oxygen Flow Rate 4 10/07/24 15:00 10/07/24 15:15 10/07/24 16:00 Temperature Pulse Rate 81 84 78 Respiratory Rate 16 16 Blood Pressure Pulse Oximetry Oxygen Delivery Oxygen Flow Rate 10/07/24 19:43 10/07/24 19:46 10/07/24 19:53 Temperature Pulse Rate 75 83 Respiratory Rate 16 16 Blood Pressure Pulse Oximetry 97 Oxygen Delivery Nasal Cannula Oxygen Flow Rate 3 10/07/24 19:54 10/07/24 20:00 10/07/24 20:00 Temperature 97.1 F L Pulse Rate 81 84 Respiratory Rate 16 Blood Pressure 147/95 H Pulse Oximetry 95 92 Oxygen Delivery Nasal Cannula Oxygen Flow Rate 4 10/08/24 00:00 10/08/24 02:49 10/08/24 02:58 Temperature Pulse Rate 73 67 71 Respiratory Rate 16 16 Blood Pressure Pulse Oximetry Oxygen Delivery Oxygen Flow Rate 10/08/24 04:00 10/08/24 06:00 10/08/24 08:09 Temperature 97.2 F L Pulse Rate 68 74 Respiratory Rate 18 Blood Pressure 117/72 Pulse Oximetry 97 94 Oxygen Delivery Nasal Cannula Oxygen Flow Rate 3 10/08/24 08:09 10/08/24 08:18 Temperature Pulse Rate 65 64 Respiratory Rate 16 16 Blood Pressure Pulse Oximetry Oxygen Delivery Oxygen Flow Rate Intake/Output Intake/Output: Intake & Output 10/05/24 10/06/24 10/07/24 10/08/24 23:59 23:59 23:59 23:59 Intake Total 1350 2580 1360 500 Output Total 600 1800 1400 Balance 1350 8663 -007 -900 Meds/Results Medications: Active Medications Generic Name Dose Route Start Last Admin Trade Name Freq PRN Reason Stop Dose Admin Acetaminophen 650 mg 10/05/24 18:17 10/08/24 03:40 Acetaminophen 325 Mg Tablet PO 650 mg Q4H PRN Administration Mild Pain (1-3) or Fever Albuterol 2 puff 10/05/24 20:58 Albuterol Sulfate (*Sp) Aerosol 1 Puff INHALATION QID PRN shortness of breath or wheezing Albuterol/Ipratropium 3 ml 10/06/24 02:00 10/08/24 08:08 Ipratropium 0.5 Mg/Albuterol Sulfate 2.5 Mg Ampul.Neb 3 Ml INHALATION 3 ml Q6HRT JOHNNIE Administration Enoxaparin Sodium 40 mg 10/06/24 09:00 10/07/24 09:52 Enoxaparin 40 Mg/0.4 Ml Syringe SUB-Q Not Given DAILY JOHNNIE Ceftriaxone Sodium 1 gm in 50 mls @ 100 mls/hr 10/06/24 12:00 10/07/24 11:55 Rocephin 1 Gm/Ns 50 Ml IVPB 10/10/24 12:29 100 mls/hr Q24H JOHNNIE Administration Azithromycin 500 mg in 250 mls @ 250 mls/hr 10/06/24 12:00 10/07/24 12:38 Zithromax IVPB 10/08/24 12:59 250 mls/hr Q24H JOHNNIE Administration Lorazepam 1 mg 10/05/24 21:04 10/08/24 03:40 Lorazepam Inj (*Crx) 2 Mg/Ml Vial IV PUSH 1 mg Q6H PRN Administration Anxiety Radiology Results: ITS Impressions Chest X-Ray 10/05/24 15:18 IMPRESSION: 1. Airspace opacities in the mid and lower lung zones, consistent with pneumonia. Chest CTA 10/05/24 17:41 IMPRESSION: No pulmonary embolus. No thoracic aortic dissection. Multifocal infiltrates, as designated on plain film evaluation performed 2 hours earlier. Labs Labs: Laboratory Results - last 24 hr 10/08/24 05:47 WBC 10.1 H RBC 3.56 L Hgb 10.4 L Hct 31.8 L MCV 89.3 MCH 29.2 MCHC 32.7 RDW 13.8 Plt Count 227 MPV 9.1 Immature Gran % (Auto) 2.1 H Neut % (Auto) 57.5 Lymph % (Auto) 33.6 [place] % (Auto) 6.2 Eos % (Auto) 0.2 Baso % (Auto) 0.4 Lymph # (Auto) 3.40 H [place] # (Auto) 0.6 Eos # (Auto) 0.0 Baso # (Auto) 0.0 Abs Immat Gran (auto) 0.21 H Absolute Neuts (auto) 5.8 Absolute Nucleated RBC 0.000 Nucleated RBC % 0.0 Sodium 136 L Potassium 3.0 L Chloride 102 Carbon Dioxide 25 Anion Gap 9 BUN 12 Creatinine 0.60 L Estim Creat Clear Calc 114 Estimated GFR > 60 Glucose 84 Calcium 8.2 L Magnesium 1.9 Total Bilirubin 0.3 AST 20 ALT 21 Alkaline Phosphatase 105 Total Protein 6.0 L Albumin 2.9 L Quality VTE Prophylaxis VTE prophylaxis: pharmacologic ordered
[2024-10-08] MEDS: POTASSIUM CHLORIDE 20 MEQ ER TABLET 40 MEQ PO (09:50)
[2024-10-08] MEDS: AZITHROMYCIN 500 MG/NS 250 ML 500 MG/250 ML BAG 250 MG IVPB (13:11)
[2024-10-08] MEDS: LOPERAMIDE HCL 2 MG CAPSULE 4 MG PO (21:40)
[2024-10-08 22:22] LABS: Toxigenic C. Diff NEGATIVE (NEGATIVE)
[2024-10-09] VITALS (18 sets, daily range): BP systolic 123–132; BP diastolic 70–82; PULSE 66–83; RESP 16–20; TEMP 35.7–36.7; O2SAT 91–100
[2024-10-09] MEDS: ACETAMINOPHEN 325 MG TABLET 650 MG PO ×4 (02:22→18:55)
[2024-10-09] MEDS: IPRATROPIUM 0.5 MG/ALBUTEROL SULFATE 2.5 MG AMPUL.NEB 3 ML INHALATION ×4 (02:27→21:18)
--- NOTE | 2024-10-09 07:20 | PM.IMPN ---
Progress Note: A&P Assessment and Plan (1) Sepsis: Code(s): A41.9 - Sepsis, unspecified organism Status: Acute Assessment and Plan: Meets SIRS criteria: Leukocytosis with bands, fever, tachycardia - lactic acid: 1.3 - received sepsis bolus in the ED - suspected source: pneumonia - blood cultures drawn on 10/05: NGTD - started on CAP tx: azithromycin ceftriaxone started on 10/06, discussed abx with ID pharm and since pt continues to improve will continue current regimen. Azithromycin course completed on 10/09. Continue rocephin. - UA non concerning for infection - CXR: Airspace opacities in the mid and lower lung zones, consistent with pneumonia. - Chest CTA: No pulmonary embolus. No thoracic aortic dissection. Multifocal infiltrates, as designated on plain film evaluation performed 2 hours earlier. Resolved. Vitals remain stable and WBC WNL. (2) Acute hypoxemic respiratory failure: Code(s): J96.01 - Acute respiratory failure with hypoxia Status: Acute Assessment and Plan: Pulse oximetry 88-91% on room air at rest ABG shows hypoxemia on 2 liters/minute nasal cannula Patient diagnosed with multifocal pneumonia and Influenza A Admit to med/surg on isolation or cohort status for Influenza A Oxygen supplementation: 1L NC (baseline RA). Wean as tolerated. Keep SpO2 greater than 90% Duonebs Started on CAP tx: azithromycin ceftriaxone started on 10/06, discussed abx with ID pharm and since pt continues to improve will continue current regimen Patient refused Tamiflu Encourage cough/deep breathe, ordered incentive spirometer and PEP therapy 10/09: Patient continues to require 1L NC. Attempted to wean but desatted into the upper 80s. (3) Multifocal pneumonia: Code(s): J18.9 - Pneumonia, unspecified organism Status: Acute Assessment and Plan: CXR: Airspace opacities in the mid and lower lung zones, consistent with pneumonia. Chest CTA: No pulmonary embolus. No thoracic aortic dissection. Multifocal infiltrates, as designated on plain film evaluation performed 2 hours earlier. - Complicating Factors: cocurrent flu - started on CAP tx: azithromycin ceftriaxone started on 10/06, discussed abx with ID pharm and since pt continues to improve will continue current regimen. Azithromycin course completed on 10/09. Continue rocephin. 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 Wean as tolerated. Keep SpO2 greater than 90% - Monitor vital signs, I&Os, neuro status and patient is a fall risk - Follow WBC, serum electrolytes, temperature curves and cultures (4) Influenza A: Code(s): J10.1 - Influenza due to other identified influenza virus with other respiratory manifestations Status: Acute Assessment and Plan: Viral panel positive for Flu Patient refused Tamiflu Continue supportive therapy (5) KIRSTIE (acute kidney injury): Code(s): N17.9 - Acute kidney failure, unspecified Status: Acute Assessment and Plan: Cr 1.11 on admission, baseline 0.6-0.9. S/P 1 liter IV fluid bolus in ER Nausea present, decreased appetite LR at 100 mL/hr overnight on 10/05, discontinued - BUN/Cr 9/0.59 on am labs - Avoid nephrotoxic medications - Renally dose medications Resolved. Time Spent With Patient Time with patient: 25 - 35 minutes Subjective Date/time seen: 10/09/24 07:20 Interval history: 48 year old female with no significant past medical history presents to the hospital for dyspnea, low oxygen level (88% at rest at home) and continued fevers (T max over 102 at home) after being diagnosed with the flu at an outpatient facility. Patient is pleasant sitting up in bed. She states that her shortness of breath has improved since admission but is still present. She continues to endorse a cough but notes that it is primarily due to a tickle in her throat and is not productive. Attempted to wean to room air but she desatted to the upper 80s per RN. Patient has no other complaints denying chest pain, palpitations, nausea/vomiting and abdominal pain. Review of Systems Review of Systems: All systems reviewed & are unremarkable except as noted in HPI and below Exam Narrative: AF HR 79 RR 20 SPO2 93 1L NC BP 123/70 General: Female in no acute respiratory distress who is nontoxic appearing, sitting up in bed. HEENT: Normocephalic. Atraumatic. Extraocular movement intact. Sclera clear and anicteric.No facial asymmetry. Chest: Lungs clear to the uppers with improving rhonchi to the middle lobe and bases to auscultation bilaterally. No wheezes. CV: Heart was regular rate and rhythm. S1-S2. No murmurs, gallops, or rubs. Abd: Abdomen was soft. Nontender. Nondistended. Positive bowel sounds. Ext: No clubbing, cyanosis, or edema. 2+ DP pulses bilaterally. Neuro: Patient is alert and oriented x4. Speech is clear. Objective Data Vital Signs Vital Signs: Vital Signs - 24 hr 10/08/24 08:00 10/08/24 08:09 10/08/24 08:09 Temperature Pulse Rate 72 65 Respiratory Rate 16 Blood Pressure Pulse Oximetry 94 Oxygen Delivery Nasal Cannula Oxygen Flow Rate 3 Fraction of Inspired Oxygen 10/08/24 08:18 10/08/24 09:50 10/08/24 12:00 Temperature Pulse Rate 64 80 Respiratory Rate 16 Blood Pressure Pulse Oximetry 96 Oxygen Delivery Nasal Cannula Oxygen Flow Rate 2 Fraction of Inspired Oxygen 10/08/24 14:00 10/08/24 14:21 10/08/24 14:24 Temperature 97.8 F Pulse Rate 85 75 Respiratory Rate 16 16 Blood Pressure 121/60 Pulse Oximetry 95 94 Oxygen Delivery Nasal Cannula Oxygen Flow Rate 2 Fraction of Inspired Oxygen 10/08/24 14:32 10/08/24 16:00 10/08/24 20:00 Temperature Pulse Rate 78 91 Respiratory Rate 16 Blood Pressure Pulse Oximetry 95 Oxygen Delivery Nasal Cannula Oxygen Flow Rate 2 Fraction of Inspired Oxygen 10/08/24 20:00 10/08/24 20:19 10/08/24 20:19 Temperature Pulse Rate 73 77 Respiratory Rate 18 Blood Pressure Pulse Oximetry 94 Oxygen Delivery Nasal Cannula Oxygen Flow Rate 2 Fraction of Inspired Oxygen 28 10/08/24 20:32 10/08/24 21:41 10/08/24 22:20 Temperature 97.1 F L Pulse Rate 84 81 Respiratory Rate 18 18 Blood Pressure 145/88 H Pulse Oximetry 97 98 Oxygen Delivery Nasal Cannula Oxygen Flow Rate 1 Fraction of Inspired Oxygen 10/09/24 00:00 10/09/24 02:27 10/09/24 02:36 Temperature Pulse Rate 68 83 76 Respiratory Rate 18 18 Blood Pressure Pulse Oximetry Oxygen Delivery Oxygen Flow Rate Fraction of Inspired Oxygen 10/09/24 04:00 Temperature Pulse Rate 66 Respiratory Rate Blood Pressure Pulse Oximetry Oxygen Delivery Oxygen Flow Rate Fraction of Inspired Oxygen Intake/Output Intake/Output: Intake & Output 10/06/24 10/07/24 10/08/24 10/09/24 23:59 23:59 23:59 23:59 Intake Total 2580 1660 3420 Output Total 600 1800 3200 Balance 1980 -140 220 Meds/Results Medications: Active Medications Generic Name Dose Route Start Last Admin Trade Name Freq PRN Reason Stop Dose Admin Acetaminophen 650 mg 10/05/24 18:17 10/09/24 02:22 Acetaminophen 325 Mg Tablet PO 650 mg Q4H PRN Administration Mild Pain (1-3) or Fever Albuterol 2 puff 10/05/24 20:58 Albuterol Sulfate (*Sp) Aerosol 1 Puff INHALATION QID PRN shortness of breath or wheezing Albuterol/Ipratropium 3 ml 10/06/24 02:00 10/09/24 02:27 Ipratropium 0.5 Mg/Albuterol Sulfate 2.5 Mg Ampul.Neb 3 Ml INHALATION 3 ml Q6HRT JOHNNIE Administration Azithromycin 500 mg 10/09/24 09:00 Azithromycin 250 Mg Tablet PO 10/09/24 09:01 ONCE ONE Enoxaparin Sodium 40 mg 10/06/24 09:00 10/08/24 12:04 Enoxaparin 40 Mg/0.4 Ml Syringe SUB-Q Not Given DAILY JOHNNIE Ceftriaxone Sodium 1 gm in 50 mls @ 100 mls/hr 10/06/24 12:00 10/08/24 12:18 Rocephin 1 Gm/Ns 50 Ml IVPB 10/10/24 12:29 100 mls/hr Q24H JOHNNIE Administration Lorazepam 1 mg 10/05/24 21:04 10/08/24 21:39 Lorazepam Inj (*Crx) 2 Mg/Ml Vial IV PUSH 1 mg Q6H PRN Administration Anxiety Radiology Results: ITS Impressions Chest X-Ray 10/05/24 15:18 IMPRESSION: 1. Airspace opacities in the mid and lower lung zones, consistent with pneumonia. Chest CTA 10/05/24 17:41 IMPRESSION: No pulmonary embolus. No thoracic aortic dissection. Multifocal infiltrates, as designated on plain film evaluation performed 2 hours earlier. Labs Labs: Laboratory Results - last 24 hr 10/08/24 21:02 C. difficile (PCR) Negative Quality VTE Prophylaxis VTE prophylaxis: pharmacologic ordered
[2024-10-09 07:38] LABS: Basophils Absolute Auto 0.1 K/mm3 (0.0-0.1); Eosinophils Absolute Auto 0.2 K/mm3 (0-0.3); Eosinophils Percent Auto 1.7 % (0-4.4); Hematocrit 39.1 % (37.0-47.0); Hemoglobin 12.5 g/dL (12.0-15.0); Immature Granulocyte Absolute 0.39 K/mm3 (0.00-0.031); Immature Granulocyte Percent A 4.4 % (0-0.5); Lymphocytes Absolute Auto 3.49 K/mm3 (0.9-3.2); Lymphocytes Percent Auto 39.7 % (18.3-44.2); Mean Corpuscular Hemoglobin 28.9 pg (26-34); Mean Corpuscular Volume 90.5 fl (80-100); Mean Platelet Volume 10.5 fl (7.4-10.4); Monocytes Absolute Auto 0.5 K/mm3 (0.1-0.6); Neutrophils Absolute Auto 4.1 K/mm3 (1.3-6.7); Neutrophils Percent Auto 47.2 % (45.5-73.1); Platelet Count Result 145 k/mm3 (150-375); Red Blood Count 4.32 M/mm3 (4.2-5.4); Red Cell Distribution Width 13.5 % (11.5-14.5); White Blood Count 8.8 K/mm3 (4.5-10.0)
[2024-10-09] MEDS: AZITHROMYCIN 250 MG TABLET 500 MG PO (08:11)
[2024-10-09] MEDS: ENOXAPARIN 40 MG/0.4 ML SYRINGE SUB-Q (08:18)
[2024-10-09 08:47] LABS: Alanine Aminotransferase 21 U/L (6-35); Albumin Level 3.4 g/dL (3.5-5.1); Alkaline Phosphatase 114 U/L (38-126); Anion Gap 11 mmol/L (4-12); Aspartate Amino Transferase 23 U/L (14-36); Bilirubin,Total 0.5 mg/dL (0.2-1.3); Blood Urea Nitrogen 9 mg/dL (7-17); Calcium 8.9 mg/dL (8.4-10.2); Carbon Dioxide 25 mmol/L (22-30); Chloride 101 mmol/L (98-107); Estimated CRCL calculation 115 ml/min; Estimated Glomerular Filt Rate > 60; Glucose 80 mg/dL (65-110); Potassium 4.1 mmol/L (3.4-5.0); Sodium 137 mmol/L (137-145)
[2024-10-09 11:18] LABS: Large Platelets Present; Platelet Estimate Adequate (Adequate)
[2024-10-09 11:19] LABS: Anisocytosis 1+; Schistocytes None Seen
[2024-10-09] MEDS: LORazepam INJ (*CRX) 2 MG/ML VIAL 0.5 MG IV PUSH (18:56)
[2024-10-09] MEDS: ACETAMINOPHEN/BUTALBITAL/CAFFEINE 325-50-40 MG TABLET (FIORICET) 1 TAB PO (21:02)
[2024-10-10] VITALS (11 sets, daily range): BP systolic 130; BP diastolic 82; PULSE 61–89; RESP 16–18; TEMP 37; O2SAT 95
[2024-10-10] MEDS: IPRATROPIUM 0.5 MG/ALBUTEROL SULFATE 2.5 MG AMPUL.NEB 3 ML INHALATION ×3 (02:46→13:05)
[2024-10-10] MEDS: ACETAMINOPHEN 325 MG TABLET 650 MG PO (03:00)
[2024-10-10] MEDS: LORazepam INJ (*CRX) 2 MG/ML VIAL 0.5 MG IV PUSH (03:00)
[2024-10-10 06:42] LABS: Basophils Absolute Auto 0.1 K/mm3 (0.0-0.1); Basophils Percent Auto 0.6 % (0.2-1.2); Eosinophils Absolute Auto 0.3 K/mm3 (0-0.3); Eosinophils Percent Auto 3.2 % (0-4.4); Hematocrit 35.1 % (37.0-47.0); Hemoglobin 11.8 g/dL (12.0-15.0); Immature Granulocyte Absolute 0.29 K/mm3 (0.00-0.031); Immature Granulocyte Percent A 3.5 % (0-0.5); Lymphocytes Absolute Auto 3.28 K/mm3 (0.9-3.2); Lymphocytes Percent Auto 39.9 % (18.3-44.2); Mean Corpuscular HGB Conc 33.6 g/dl (32-36); Mean Corpuscular Hemoglobin 29.3 pg (26-34); Mean Corpuscular Volume 87.1 fl (80-100); Mean Platelet Volume 8.8 fl (7.4-10.4); Monocytes Absolute Auto 0.6 K/mm3 (0.1-0.6); Monocytes Percent Auto 6.9 % (2.6-8.5); Neutrophils Absolute Auto 3.8 K/mm3 (1.3-6.7); Neutrophils Percent Auto 45.9 % (45.5-73.1); Platelet Count Result 313 k/mm3 (150-375); Red Blood Count 4.03 M/mm3 (4.2-5.4); Red Cell Distribution Width 13.2 % (11.5-14.5); White Blood Count 8.2 K/mm3 (4.5-10.0)
[2024-10-10 06:56] LABS: Alanine Aminotransferase 26 U/L (6-35); Albumin Level 3.2 g/dL (3.5-5.1); Alkaline Phosphatase 107 U/L (38-126); Anion Gap 8 mmol/L (4-12); Aspartate Amino Transferase 33 U/L (14-36); Bilirubin,Total 0.4 mg/dL (0.2-1.3); Blood Urea Nitrogen 9 mg/dL (7-17); Calcium 8.5 mg/dL (8.4-10.2); Carbon Dioxide 25 mmol/L (22-30); Chloride 102 mmol/L (98-107); Estimated CRCL calculation 119 ml/min; Estimated Glomerular Filt Rate > 60; Glucose 89 mg/dL (65-110); Magnesium 2.1 mg/dL (1.6-2.3); Potassium 3.8 mmol/L (3.4-5.0); Sodium 135 mmol/L (137-145)
[2024-10-10] MEDS: ACETAMINOPHEN/BUTALBITAL/CAFFEINE 325-50-40 MG TABLET (FIORICET) 1 TAB PO (10:37)
--- NOTE | 2024-10-10 11:59 | PM.DS ---
DS: Admitting Diagnosis Discharge Date 10/10 Admitting Diagnosis cough, pneumionia, flu DS: Discharge Diagnosis Discharge Diagnosis (1) Sepsis: Code(s): A41.9 - Sepsis, unspecified organism Status: Acute (2) Acute hypoxemic respiratory failure: Code(s): J96.01 - Acute respiratory failure with hypoxia Status: Acute (3) Multifocal pneumonia: Code(s): J18.9 - Pneumonia, unspecified organism Status: Acute (4) Influenza A: Code(s): J10.1 - Influenza due to other identified influenza virus with other respiratory manifestations Status: Acute (5) KIRSTIE (acute kidney injury): Code(s): N17.9 - Acute kidney failure, unspecified Status: Acute DS: Summary Hospital Course Hospital Course: 48 year old female with no significant past medical history presents to the hospital for dyspnea, low oxygen level (88% at rest at home) and continued fevers (T max over 102 at home) after being diagnosed with the flu at an outpatient facility. # sepsis lactic acid: 1.3 - received sepsis bolus in the ED - suspected source: pneumonia - blood cultures drawn on 10/05: NGTD - started on CAP tx: azithromycin ceftriaxone started on 10/06, discussed abx with ID pharm and since pt continues to improve will continue current regimen. Azithromycin course completed on 10/09. Completed rocephin. FINISHED ANTIBIOTIC THERAPY. - UA non concerning for infection - CXR: Airspace opacities in the mid and lower lung zones, consistent with pneumonia. - Chest CTA: No pulmonary embolus. No thoracic aortic dissection. Multifocal infiltrates, as designated on plain film evaluation performed 2 hours earlier. Resolved. # Pneumonia CXR: Airspace opacities in the mid and lower lung zones, consistent with pneumonia. Chest CTA: No pulmonary embolus. No thoracic aortic dissection. Multifocal infiltrates, as designated on plain film evaluation performed 2 hours earlier. - Complicating Factors: cocurrent flu - started on CAP tx: azithromycin ceftriaxone started on 10/06, discussed abx with ID pharm and since pt continues to improve will continue current regimen. Azithromycin course completed on 10/09. Completed rocephin. 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 Wean as tolerated. Keep SpO2 greater than 90% - Monitor vital signs, I&Os, neuro status and patient is a fall risk - Follow WBC, serum electrolytes, temperature curves and cultures #Influenza A Viral panel positive for Flu Patient refused Tamiflu Continue supportive therapy # KIRSTIE resolved Status at Discharge Functional status at discharge: independent ambulation Overall status at discharge: patient is progressing back to baseline Time Spent with Patient Time attestation: Total time spent providing and/or coordinating discharge services: Time spent: Greater than 30 minutes Exam Narrative: Pt is off oxygen, feeling better. General: Female in no acute respiratory distress who is nontoxic appearing, sitting up in bed. HEENT: Normocephalic. Atraumatic. Extraocular movement intact. Sclera clear and anicteric.No facial asymmetry. Chest: Lungs clear to the uppers with improving rhonchi to the middle lobe and bases to auscultation bilaterally. No wheezes. CV: Heart was regular rate and rhythm. S1-S2. No murmurs, gallops, or rubs. Abd: Abdomen was soft. Nontender. Nondistended. Positive bowel sounds. Ext: No clubbing, cyanosis, or edema. 2+ DP pulses bilaterally. Neuro: Patient is alert and oriented x4. Speech is clear. Const: General: comfortable Resp: Effort & Inspection: normal respiratory effort DS: Data Data Completed and Pending Completed studies during hospitalization: chest xray, chest CTA Labs on day of discharge: Labs from last 24 hours 10/10/24 06:35 WBC 8.2 RBC 4.03 L Hgb 11.8 L Hct 35.1 L MCV 87.1 MCH 29.3 MCHC 33.6 RDW 13.2 Plt Count 313 D MPV 8.8 Immature Gran % (Auto) 3.5 H Neut % (Auto) 45.9 Lymph % (Auto) 39.9 [place] % (Auto) 6.9 Eos % (Auto) 3.2 Baso % (Auto) 0.6 Lymph # (Auto) 3.28 H [place] # (Auto) 0.6 Eos # (Auto) 0.3 Baso # (Auto) 0.1 Abs Immat Gran (auto) 0.29 H Absolute Neuts (auto) 3.8 Absolute Nucleated RBC 0.000 Nucleated RBC % 0.0 Sodium 135 L Potassium 3.8 Chloride 102 Carbon Dioxide 25 Anion Gap 8 BUN 9 Creatinine 0.57 L Estim Creat Clear Calc 119 Estimated GFR > 60 Glucose 89 Calcium 8.5 Magnesium 2.1 Total Bilirubin 0.4 AST 33 ALT 26 Alkaline Phosphatase 107 Total Protein 6.0 L Albumin 3.2 L Preliminary micro results at discharge 10/05/24 16:12 Blood Culture - Preliminary Blood 10/05/24 16:32 Blood Culture - Preliminary Blood Discharge Plan Discharge Attending physician on discharge: Hernando Valdovinos Discharging Clinician: Sabra Christianson Patient Disposition: Home, Self-Care Activity: may shower Diet: regular Discharge Instructions: You completed a course of antibiotics: azithromycin and cetriaxone. We will give you work excuse for few days- if you need more than that, please reach out to your PCP. Please, use incentive spirometry, rest, stay hydrated. Patient Instructions: Antibiotic Form Patient Language: Somali Stand Alone Forms: General Discharge Information Follow-up/Referrals: Alvin,SAIRA Jose [Primary Care Provider] - 1 Week Discharge Medications: Continued albuterol sulfate [Ventolin HFA] 90 mcg/actuation HFA aerosol inhaler 2 puff INHALATION QID PRN (Reason: shortness of breath or wheezing) Qty: 8 0RF methylprednisolone 4 mg tablets,dose pack See Rx Instructions .ROUTE .COMPLEX Rx Instructions: follow rx instructions; acetaminophen 325 mg capsule 650 mg PO QID PRN (Reason: pain) diphenhydramine HCl [Allergy (diphenhydramine)] 25 mg capsule 25 mg PO TID PRN (Reason: allergy symptoms) Discontinued amoxicillin-pot clavulanate 875-125 mg tablet 1 tablet PO Q12H azithromycin 250 mg tablet See Rx Instructions .ROUTE .COMPLEX Rx Instructions: follow rx instructions; Date of admission: 10/06/24 08:38 Primary Care Provider: AlvinRebeca Admitting Provider: Delon Mata Attending physician on admission: Delon Mata Condition: Serious Quality VTE Prophylaxis VTE prophylaxis: pharmacologic ordered Hospitalist MIPS Heart Failure (Exclusion) Patient has history of Heart Transplant or Left Ventricular Assistive Device?: No IF YES, STOP HERE Heart Failure (Qualifier) Patient has current or prior documentation of LVEF less than or equal to 40%, or mod/servere depressed LVSF?: No IF NO, STOP HERE
[2024-10-10 23:48] LABS: Pneumococcal Antigen Urine NOT DETECTED
[2024-10-12 21:47] LABS: Mycoplasma IgM Antibody Titer 55 U/mL
== END 2024-10-10 14:20 | disposition home or self-care (01) | DRG 871 ==
LOC: ANHED 19:19 → ANH3MEDSUR 20:14 → ANH3MED 21:09
PROVIDERS: Nurse Practitioner; Physician Assistant; Student in an Organized Health Care Education/Training Program; Admitting Provider Internal Medicine; Emergency Provider Emergency Medicine; PCP Physician Assistant; Visit Provider Nurse Practitioner
DX: A41.89 Other specified sepsis (principal); J10.00 Influenza due to other identified influenza virus with unspecified type of pneumonia; J96.01 Acute respiratory failure with hypoxia; N17.9 Acute kidney failure, unspecified; E86.0 Dehydration; E66.9 Obesity, unspecified; Z68.33 Body mass index [BMI] 33.0-33.9, adult
CPT/HCPCS: 36415; 36600; 71046; 71275; 80053; 81001; 82805; 83605; 83735; 83880; 84484; 85018; 85025; 85380; 86738; 87040; 87070; 87205; 87449; 87493; 87637; 87641; 87899; 93005; 94640; 94667; 96361; 96365; 96367; 96374; 96375; 96376; 99285; A9270; G0378; J0456; J0696; J1650; J2060; J2919; J3475; J7030; J7120; Q9967

== ENCOUNTER 2024-12-12 10:49 | Outpatient (CLI) | payer OTHER, SELFPAY ==
--- NOTE | ~2024-12-12 | XR_ITS ---
Clinical Indication: Pneumonia PA and lateral views of the chest: Comparison: 10/05/2024 Findings: The lungs are clear, without evidence of focal consolidation or pleural effusion. Cardiome diastinal silhouette is within normal limits. Bones and soft tissues are unremarkable. Impression: Normal chest. Reviewed, dictated and finalized at location . Impression: Normal chest.
== END 2024-12-12 10:50 | disposition home or self-care (01) ==
PROVIDERS: PCP Physician Assistant; Visit Provider Physician Assistant
DX: J18.9 Pneumonia, unspecified organism (principal)
CPT/HCPCS: 71046

== ENCOUNTER 2025-02-06 00:56 | Day surgery (SDC) | payer OTHER, SELFPAY ==
[2025-01-25 15:13] VITALS: BMI 32.3
--- OUTSIDE RECORDS SUMMARY | 2025-02-06 00:58 | XMS_ITS | Clinical Summary ---
Author Organization [facility] Address [address] [place] [address] Care Team Providers Care Phlebotomy Director Name Role Phone Rebeca Hernández Primary Care Pr ovider Source Comments [facility] Affiliates and Associated Physician Practices is amultiple site organization consisting of ambulatory clinics and hospital sitesin [place], [place], [place] and [place]. This disclosure is being madepursuant to the Care Everywhere program and may not contain all information available regarding this patient. Last updated 18.[facility] [employer] Social History Tobacco Use Types Packs/Day Years Used Date Smoking Tobacco: Never Assessed Comments Unknown Sex and Gender Information Value Date Recorded Sex Assigned at Not on file Legal Sex Female 1:51 PM CDT Gender Identity Not on file [...] - 19+ 3-dose series) 11/04/1995 COVID-19 VACCINE (2023-2 5 season) 2024 DEPRESSION SCREENING 08/29/2024 INFLUENZA VACCINE (Season Ended) 2025 ZOSTER VACCINE (1 of 2) 2026 HIB VACCINE Aged Out No longer eligi ble based on patient's age to complete this topic HPV VACCINE Aged Out No longer eligi ble based on patient's age to complete this topic MENINGOCOCCAL (Group B) VACC INE SHARED DECISION-MAKING Aged Out No longer eligibl e based on patient's age to complete this topic MENINGOCOCCAL GROUPS A/C/Y/W VACCINE Aged Out No longer eligible b ased on patient's age to complete this topic PNEUMOCOCCAL VACCINE Aged Out No long er eligible based on patient's age to complete this topic Insurance ANTH SELF PAY NO INSURANCE Member Subscriber Plan / Payer (Ef fective for All Dates) Name:Rose Banks Member ID:Not on file Relation to Subscriber:Not on file Name:ROSE BANKS Subscriber ID:Not on file (Home) Address: [address] [place] [id number] Payer ID:Not on file Group ID:Not on file Type:Self Pay Address: [facility] ANTHEM ANTHEM Care Teams Phlebotomy Director Relationship Specialty Start Date End Date Rebeca Hernández PA [address] [place] [address] [place] [phone] PCP - General 03/18/22
--- OUTSIDE RECORDS SUMMARY | 2025-02-06 00:58 | XMS_ITS | Clinical Summary ---
Author Organization [facility] Address [address] [place] [address] Phone Care Team Providers Care Legal Paraprofessional Name Role Phone Unavailable Primary Care Provider Unavailabl e Medications methocarbamoL (ROBAXIN) 500 mg tablet Take 1 Tablet (500 mg) by mouth 3 times daily as needed. 30 Tablet 01/12/2022 1:17 PM CDT 2 Active sodium, potassium and magnesium sulfates (Suprep Bowel Prep Kit) 17.5-3.13-1.6 gram Recon Soln Take 177 mLs by mouth every 12 (twelve) hours for 1 day. Take as directed in the instructions. 354 mL 03/02/2022 7:41 PM CDT 2 Active HYDROcodone-sravan taminophen (NORCO) 5-325 mg tablet Take 1-2 tablets by mouth every 6 hours 30 Tablet 03/03/2022 5:13 PM CDT 2 Active gabapentin (NEURONTIN) 300 mg capsule Take 1 Capsule (300 mg) by mouth 3 times daily. 90 Capsule 03/24/2022 2:35 PM CDT 2 Active benzonatate (TESSALON) 200 mg capsule Take 1 Capsule (200 mg) by mouth 3 times daily as needed for cough. 42 Capsule 09/18/2022 5:18 PM NUMERICAL CONTROL PROGRAMMER 3 Active azithromycin (Zithromax Z-Latrell) 250 mg tablet TAKE 2 TABLETS (500 MG) BY MOUTH ONCE DAILY FOR 1 DAY THEN 1 TABLET (250 MG) BY BY MOUTH ONCE DAILY FOR 4 DAYS 6 Tablet 11/11/2022 6:54 PM CDT 3 Active HYDROcodone-sravan taminophen (NORCO) 7.5-325 mg Tablet Take 1 Tablet by mouth every 6 hours as needed for pain. 20 Tablet 04/12/2023 6:56 PM CDT 3 Active azithromycin (Zithromax Z-Latrell) 250 mg tablet Take 2 tablets by mouth today, then take 1 tablet by mouth daily for 4 days. 6 Tablet 07/18/2023 3:02 PM NUMERICAL CONTROL PROGRAMMER 3 Active benzonatate (TESSALON) 200 mg capsule Take 1 capsule (200 mg total) by mouth 3 (three) times a day as needed for cough 30 Capsule 10/03/2024 4:28 PM NUMERICAL CONTROL PROGRAMMER 5 Active albuterol sulfate HFA 90 mcg/actuation aerosol inhaler Inhale 2 puffs by mouth every 4 hours as needed. 6.7 Gram 10/04/2024 2:28 PM NUMERICAL CONTROL PROGRAMMER 5 Active azithromycin (ZITHROMAX) 250 mg tablet TAKE 2 TABLETS BY MOUTH A SINGLE DOSE ON DAY 1, THEN TAKE 1 TABLET DAILY ON DAYS 2 THRU 5. 6 Tablet 10/04/2024 2:28 PM NUMERICAL CONTROL PROGRAMMER 5 Active albuterol sulfate HFA 90 mcg/actuation aerosol inhaler Take 2 Puffs by inhalation every 4 hours as needed. 8.5 Gram 10/14/2024 12:58 PM NUMERICAL CONTROL PROGRAMMER 5 Active azithromycin (Zithromax Z-Latrell) 250 mg tablet TAKE 2 TABLETS (500 MG) BY MOUTH ONCE DAILY FOR 1 DAY, THEN 1 TABLET (250 MG) BY MOUTH ONCE DAILY FOR 4 DAYS. 6 Tablet 01/17/2025 7:19 PM CDT 5 01/23/20 25 Encounters Date Type Department Care Team Description 01/17/2025 External Device Data [facility] ABSTRACTION Provider, Abstract 01/15/2025 External Device Data [facility] ABSTRACTION Provider, Abstract 12/11/2024 External Device Data [facility] ABSTRACTION Provider, Abstract 11/14/2024 External Device Data [facility] ABSTRACTION Provider, Abstract [...] of 3 - 19+ 3-dose series) 03/1996 HPV/Cotest (21-29) 1997 CERVICAL CANCER SCREENING 2006 HPV/Cotest (30-65) 2006 PAP SMEAR 2006 BREAST CANCER SCREENING 2016 COLORECTAL SCREENING 2021 Colorectal Cancer Screening 2021 FIT-DNA Q 3 years 2021 FIT/FOBT Q 1 year 2021 Flex Sig/CT Colonography Q 5 years 2021 INFLUENZA VACCINE (#1) 2024 Insurance RX [employer]
--- OUTSIDE RECORDS SUMMARY | 2025-02-06 00:59 | XMS_ITS | Clinical Summary ---
Author Organization [facility] [address] Address [address] [place] [phone] Care Team Providers Care Cylinder Press Operator Name Role Phone Rebeca Jasso Primary [...] day as needed for cough 30 capsule Active Additional Information Patient not taking.Reported on 10/04/2024 Active Problems Problem Noted Date Diagnosed Date Streptococcal sore throat 11/11/2022 Lumbar spine pain 05/17/2022 Chronic LLQ pain 03/12/2022 Overview (10/18/2022): Added automatically from request for surgery [id number] Lumbar spondylosis 02/10/2022 Mass of subcutaneous tissue of back 01/05/2022 Complex cyst of uterine adnexa 12/21/2021 Degeneration of lumbar intervertebral disc 12/21 Lipoma of lower back 12/21/2021 Acute thoracic back pain 12/01/2021 Left sided abdominal pain 12/01/2021 Rib pain 12/01/2021 Immunizations Immunization Administration Dates Next Due Influenza, Quadrivalent, Stephenie [...] on file Legal Sex Female 2:29 PM MARKSMANSHIP INSTRUCTOR Gender Identity Not on file Sexual Orientation Not on file Obstetrics History Last Filed Vital Signs Vital Sign Reading Time Taken Comments Blood Pressure 122/62 10/04/2024 11:20 AM MARKSMANSHIP INSTRUCTOR Pulse 111 10/04/2024 12:21 PM MARKSMANSHIP INSTRUCTOR Temperature 37.6 C (99.6 F) 10/04/2024 11:20 AM MARKSMANSHIP INSTRUCTOR Respiratory Rate 22 10/04/2024 11:20 AM MARKSMANSHIP INSTRUCTOR Oxygen Saturation 95% 10/04/2024 12:21 PM MARKSMANSHIP INSTRUCTOR after neb tx Inhaled Oxygen Concentration - - Weight 92.5 kg (204 lb) 10/04/2024 11:20 AM MARKSMANSHIP INSTRUCTOR Height 156.2 cm (5' 1.5) 06/12/2024 9:56 AM CDT Body Mass Index 37.92 06/12/2024 9:56 AM CDT Plan of Treatment Health Maintenance Due Date Last Done Comments Breast Cancer Screening-Mammogram 1976 Cervical Cancer Screening 1976 Colon Cancer Screening-Colonoscopy 1976 Depression Screening 1976 Hepatitis C Screening 1976 Hepatitis B Screening 1994 Regular Well Visit/Exam 18-64 1994 Covid-19 Vaccine (3 - 2023-2 5 season) 2024 11/24/2020, 10/27/2020 Influenza Vaccine (Season Ended) 2025 06/12/2020 DTaP/Tdap/Td Vaccine (2 - Td or Tdap) 04/01/2033 04/01/2023 Pneumococcal vaccine <65 Aged Out No longer eligible based on patient's age to complete this topic Insurance [facility] ACCESS CHOICE [facility] CHOICE PLUS Care Teams Cylinder Press Operator Relationship Specialty Start Date End Date Rebeca Jasso PA PCP - General Physician Retail General Manager 04/09/22
--- OUTSIDE RECORDS SUMMARY | 2025-02-06 00:59 | XMS_ITS | Referral Summary ---
Author Organization [facility] [address] Address [address] [place] [phone] Care Team Providers Care Technology And Engineering Teacher Name Role Phone Rebeca Jasso Primary Care [...] (10/18/2022): Added automatically from request for surgery [id number] Lumbar spondylosis 02/10/2022 Mass of subcutaneous tissue [...] on file Legal Sex Female 2:29 PM PAN RECLAIM PROCESSOR Gender Identity Not on file Sexual Orientation Not on file Last Filed Vital Signs Vital Sign Reading Time Taken Comments Blood Pressure 122/62 10/04/2024 11:20 AM PAN RECLAIM PROCESSOR Pulse 111 10/04/2024 12:21 PM PAN RECLAIM PROCESSOR Temperature 37.6 C (99.6 F) 10/04/2024 11:20 AM PAN RECLAIM PROCESSOR Respiratory Rate 22 10/04/2024 11:20 AM PAN RECLAIM PROCESSOR Oxygen Saturation 95% 10/04/2024 12:21 PM PAN RECLAIM PROCESSOR after neb tx Inhaled Oxygen Concentration - - Weight 92.5 kg (204 lb) 10/04/2024 11:20 AM PAN RECLAIM PROCESSOR Height 156.2 cm (5' 1.5) 06/12/2024 9:56 AM CDT Body Mass Index 37.92 06/12/2024 9:56 AM CDT Plan of Treatment Not on file Insurance [facility] ACCESS CHOICE [facility] CHOICE PLUS Care Teams Technology And Engineering Teacher Relationship Specialty Start Date End Date Rebeca Jasso PA PCP - General Physician Health Promoter 04/09/22
--- OUTSIDE RECORDS SUMMARY | 2025-02-06 00:59 | XMS_ITS | Encounter Summary ---
Author Organization [facility] Address [address] [place] [address] Care Team Providers Care Metal Molder Name Role Phone Rebeca Hernández Primary Care Pr ovider Encounter Details Date Type Department Care Team (Late st Contact Info) Description 02/01/[address] [facility] DermPath Lab [address] [facility] [facility] [place] [phone] [place] [id number] [address] Social History Tobacco Use Types [...] AM CDT) Case Report Dermatopathology Report Case: [id number] Authorizing Provider: Louise Don MD Collected: 02/01/2022 12:00 AM Ordering Location: [facility] Derm[facility] Lab Received: 02/01/2022 02:17 PM Pathologist: Rosario Streeter MD Specimen: Skin, left calf 4:35 PM CDT DERMATOPATHOLOGY LABORATORY Final Diagnosis Specimen A. 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 Jimmy Govea. These tests need not be, and therefore are not, approved by the [place] Food and Drug Administration. The tests are used for clinical purposes. Billing Codes Specimen Charges Stain Charges 95395 1 35307 1 2 4:35 PM CDT DERMATOPATHOLOGY LABORATORY Embedded Images 2 4:35 PM CDT DERMATOPATHOLOGY LABORATORY Pathology/Cytolog y TISSUE SPECIMEN FROM SKIN / Unknown 02/01/2022 02/01/2022 2:17 PM CDT us Louise Dash MD LAB - PATHOLOGY/CYTOLOGY ORDER BEN Final Result DERMATOPATHOLOGY LABORATORY [facility] - Department of Dermatology [facility] [address] [facility] [facility] [phone] documented in this encounter Visit Diagnoses Not on filedocumented in this encounter Care Teams Metal Molder Relationship Specialty Start Date End Date Rebeca Hernández PA [address] [place] [phone] PCP - General 03/18/22 documented as of this encounter
--- OUTSIDE RECORDS SUMMARY | 2025-02-06 00:59 | XMS_ITS | Encounter Summary ---
Author Organization [facility] Address [address] [place] [address] Care Team Providers Care Operations Support Representative Name Role Phone Rebeca Hernández Primary Care Pr ovider Encounter Details Date Type Department Care Team (Late st Contact Info) Description 05/03/2024 Lab Requisition [facility] - DermPath Lab [address] [facility] [place] [phone] [place] [address] [facility] [address] [place] [phone] Social History Tobacco Use Types Packs/Day Years [...] AM CDT) Case Report Dermatopathology Report Case: [id number] Authorizing Provider: Dea Camarillo MD Collected: 05/02/2024 12:00 AM Ordering Location: [facility] - Received: 05/03/2024 04:28 PM DermPath Lab Pathologist: Saba Seaman MD Specimen: Skin, right abdomen 2:43 PM CDT DERMATOPATHOLOGY LABORATORY Final Diagnosis Specimen A. SKIN, right abdomen: LENTIGINOUS MELANOCYTIC NEVUS, JUNCTIONAL TYPE, IRRITATED (D22.5) 4 2:43 PM CDT DERMATOPATHOLOGY LABORATORY at 1443 CDT Clinical History Nevus r/o atypia 4 2:43 [...] characteristic determined by the Dermatopathology Laboratory at [facility], directed by Dr. Jimmy Govea. These tests need not be, and therefore are not, approved by the [place] Food and Drug Administration. The tests are used for clinical purposes. Billing Codes Specimen Charges Stain Charges 46906 1 4 2:43 PM CDT DERMATOPATHOLOGY LABORATORY Embedded Images 4 2:43 PM CDT DERMATOPATHOLOGY LABORATORY Pathology/Cytolog y TISSUE SPECIMEN FROM SKIN / Unknown 05/02/2024 05/03/2024 4:28 PM CDT us Dea Camarillo MD LAB - PATHOLOGY/CYTOLOGY ORDE CHUYITA Final Result DERMATOPATHOLOGY LABORATORY [facility] - Department of Dermatology [address], [address] [phone] documented in this encounter Visit Diagnoses Not on filedocumented in this encounter Care Teams Operations Support Representative Relationship Specialty Start Date End Date Rebeca Hernández PA [address] [place] [phone] PCP - General 03/18/22 documented as of this encounter
--- OUTSIDE RECORDS SUMMARY | 2025-02-06 00:59 | XMS_ITS | Continuity of Care Document ---
Author Organization [facility] Address [address] [place] [address] [place] [address] Phone Care Team Providers Care Manager Financial Name Role Phone Dax Diamond MD Unavailable Unavailable Allergies, Adverse Reactions, Alerts Substance Reaction Status Criticality No Known Allergies Active No Inform ation Medications Medication Instructions Dosage Effective Dates (start - stop) Status Comments Protonix 40 mg tablet,delayed release take 1 tablet by oral route every day 40 MG - Active Procedures Procedure Date PREV VISIT, NEW, AGE 40-64 OFFICE/OUTPATIENT VISIT, [facility] Advance Directives Directive Yes / No Effective Date File Name No Information Encounters Encounter Description Practice Location Reason(s) For Visit Diagnoses Date Provider Providers Copied on Encounter PREV VISIT, NEW, AGE 40-64 [facility], [address] [place], [place], [id number], [place] tel:[phone] [facility] PHysical (chief complaint) CoughEssential (primary) hypertensionEncount er for general adult medical exam w abnormal findings [address] [place], [place], [id number] , [place]. tel:[phone] Referring Provider: Dax Diamond, [address] [facility] [place], [place], [id number]. tel:[phone] Family History Family Member Type Diagnosis Age [...] Mental Status Date Cognitive Assessment Orientation - [facility] ed to time, place, person, situation.
--- OUTSIDE RECORDS SUMMARY | 2025-02-06 00:59 | XMS_ITS | Data Portability ---
[facility] Address [address] [place] [address] Care Team Providers Care Edge Grinder Machine Name Role Phone MARTIN WORTHY Primary Care Provider Unavailab le Assessment No assessment recorded. Plan of Treatment Reminders Order Date Submit Date Provider Last Modified By Organization Details Last Modified Time Details Appointments None recorded. Lab CMP, serum or plasma 2024 025 [email or web address] [facility], [address], [place], [address], 5 15:25:05 CBC w/ auto diff 2024 025 [email or web address] [facility], [address], [place], [address], 5 15:25:05 lipid panel, serum 2024 025 [email or web address] [facility], [address], [place], [address], 5 15:25:05 HbA1c (hemoglobin A1c), blood 2024 025 [email or web address] [facility], [address], [place], [address], 5 15:25:05 vitamin D, 25-hydroxy, total, serum 2024 025 [email or web address] [facility], Dia [address], [place], [address], 5 15:25:05 vitamin B12 + folate, serum or blood 2024 025 [email or web address] [facility], [address], [place], [address], 5 15:25:05 iron + TIBC + ferritin, serum 2024 025 [email or web address] [facility], [address], [place], [address], 5 15:25:05 TSH + free T4, serum 2024 025 [email or web address] [facility], [address], [place], [address], 5 15:25:05 TSH + free T4, serum 2023 024 [email or web address], [address], [place], [address], 4 14:39:44 CMP, serum or plasma 2023 024 [email or web address], [address], [place], [address], 4 14:39:44 CBC w/ auto diff 2023 024 [email or web address], [address], [place], [address], 4 14:39:44 vitamin B12 + folate, serum or blood 2023 024 [email or web address], [address], [place], [address], 4 14:39:45 lipid panel, serum 2023 024 [email or web address] [facility], [address], [place], [address], 4 14:39:44 HbA1c (hemoglobin A1c), blood 2023 024 [email or web address] [facility], [address], [place], [address], 4 14:39:44 insulin, serum 2023 024 [email or web address] [facility], [address], [place], [address], 4 14:39:45 Referral None recorded. Procedures colonoscopy screening (PROC) [address] [facility], [address], [address], [place], [address], 5 11:47:28 Surgeries None recorded. Imaging XR, chest, 2 view 2024 025 [facility] (Imaging), [address], [place], [address], 5 14:10:00 Medication Orders None recorded. Patient TargetsNo targets recorded. Patient Instructions Encounter Date Encounter Id Patient Instructions Last Modified By Organization Details Last Modified Time 01/16/2024 [id number] A healthy lifestyle: care instructions Not available 01/29/2024 23:08:55 10/22/2024 [id number] A healthy lifestyle: care instructions Not available 10/22/2024 12:48:24 01/25/2025 [id number] A healthy lifestyle: care instructions Not available 01/25/2025 15:24:46 Reason for Referral None Reported. Results Created Date Observation Date Name Description Value Unit Range Abnormal Flag Note LastModifiedBy Organization Detail LastModifiedTime 10/03/19 25 10/03/2024 SARS- CoV+S ARS-C oV-2 (COVI D-19) Ag [Pres ence] in Respi rator y syste m speci men by Rapid immun oassa y influenza A Ag, POC Positi ve text: negati ve abnormal Influ compa A Ag, POC Posit archana (A) Negat archana [facility] EDW Not Available Not Available 10/19/2024 10:50:13 10/03/19 25 10/03/2024 SARS- CoV+S ARS-C oV-2 (COVI D-19) Ag [Pres ence] in Respi rator y syste m speci men by Rapid immun oassa y influenza B Ag, POC Negati ve text: negati ve Influ compa B Ag, POC Negat archana Negat archana [facility] CC EDW Not Available Not Available 10/19/2024 10:50:13 10/03/19 25 10/03/2024 SARS- CoV+S ARS-C oV-2 (COVI D-19) Ag [Pres ence] in Respi rator y syste m speci men by Rapid immun oassa y covid-19 Ag POC Presum ptive Negati ve text: presum ptive negati ve, invali d COVID -19 Ag POC Presu mptiv e Negat archana Presu mptiv e Negat archana, Inval id [facility] EDW Not Available Not Available 10/19/2024 10:50:13 10/03/19 25 10/03/2024 SARS- CoV+S ARS-C oV-2 (COVI D-19) Ag [Pres ence] in Respi rator y syste m speci men by Rapid immun oassa y interpretati on and review of laboratory results Abnorm al Not Available Not Available 10:50:13 05/21/20 24 05/21/2024 MAMMO , scree unique, digit al, bilat eral No observ ation record ed. [place] [address], [place], [address], 05/21/2024 14:57:01 10/05/19 25 10/05/2024 XR, chest , 2 view No observ ation record ed. [address] [facility] [address], [place], [address], 10/07/2024 10:22:00 10/06/19 25 10/05/2024 CT, angio gram, chest , w/ contr ast No observ ation record ed. [email or web address] [facility] [address], [place], [address], 10/07/2024 10:21:15 12/13/19 25 12/12/2024 XR, chest , 2 view No observ ation record ed. [email or web address] [facility] [address], [place], [address], 01/01/2025 14:49:48 Result Notes None recorded. Problems Name Problem SNOMED Code Status Onset Date Resolution Date Notes Provider Name and Address Organization Details Recorded Time Obesity 878105943 Active 2023 RUBENS Sanz Attn: Juan mathis,[address] [place], [address], [facility] 4 23:08:56 Body mass index 30+ - obesity 904990772 Active 2023 RUBENS Sanz Attn: Juan mathis,[address] [place], [address], [place] [facility] 4 23:08:57 Long-ter m drug therapy Active 2023 RUBENS Sanz Attn: Juan g,[address] [place], [address], [place] [facility] 4 23:08:58 Obese class I 652909737084360 Active 2024 RUBENS Sanz Attn: Juan mathis,[address] [place], [address], [place] [facility] 5 15:24:37 Fatigue 79063752 Active 2024 RUBENS Sanz Attn: Juan mathis,[address] [place], [address] [place] [address] 15:24:39 Problem Notes None recorded. Procedures Surgical History Date Name Laterality Status Provider Name and Address Organization Details Recorded Time Cholecystectomy completed Angela guillaume MA [facility] 01/16/2024 11:42:42 Tubal Ligation completed Angela hinton MA [facility] 01/16/2024 11:42:53 Imaging Results None recorded. Procedure Notes None recorded. Medical Equipment None Reported. Allergies No known drug allergies Medications Name Sig Start Date Stop Date Status Note LastModified by Organization Details LastModified Time benzonatate 200 mg capsule 10/22 completed Not Available Not Available Not Available Zithromax Z-Latrell 250 mg tablet TAKE 2 TABLETS (500 MG) BY ORAL ROUTE ONCE DAILY FOR 1 DAY THEN 1 TABLET (250 MG) BY ORAL ROUTE ONCE DAILY FOR 4 DAYS 01/25 completed Not Available Not Available Not Available Tamiflu 75 mg capsule Take 1 capsule twice a day by oral route for 5 days. 10/22 completed Not Available Not Available Not Available hydrocodone 7.5 mg-acetamin ophen 325 mg tablet 01/15 completed Not Available Not Available Not Available albuterol sulfate HFA 90 mcg/actuati on aerosol inhaler Inhale 2 puffs every 4 hours by inhalatio n route as needed. 2024 active Not Available Not Available Not Avai lable amoxicillin 875 mg-potassiu m clavulanate 125 mg tablet Take 1 tablet every 12 hours by oral route. 10/22 completed Not Available Not Available Not Available Vitals Date Recorded Body height Body mass index (BMI) Body weight Oxygen saturation Oxygen saturation in Arterial blood by Pulse oximetry Heart rate Respiratory rate Systolic blood pressure Diastolic blood pressure Provider Name and Address Organization Details Last Updated DateTime 5 167.64 cm 32.9 kg/m2 09409.8 4 g 99 % 99 % 86 /min 18 /min 130 mm[Hg] 82 mm[Hg] Carroll Reich MA [facility] 5 12:19:34 Date Recorded Respiratory rate Systolic blood pressure Diastolic blood pressure Systolic blood pressure Diastolic blood pressure Provider Name and Address Organization Details Last Updated DateTime 4 18 /min 128 mm[Hg] 90 mm[Hg] 140 mm[Hg] 90 mm[Hg] RUBENS Sanz Attn: Accountin g,[address] [place], [address], [facility] 4 12:02:16 Date Recorded Body weight Body mass index (BMI) Body height Heart rate Oxygen saturation Oxygen saturation in Arterial blood by Pulse oximetry Systolic blood pressure Diastolic blood pressure Provider Name and Address Organization Details Last Updated DateTime 4 15294.7 5 g 33.3 kg/m2 167.64 cm 71 /min 99 % 99 % 140 mm[Hg] 86 mm[Hg] Angela Calhoun MA [facility] 4 11:45:07 Date Recorded Systolic blood pressure Diastolic blood pressure Provider Name and Address Organization Details Last Updated DateTime 01/25/2025 120 mm[Hg] 80 mm[Hg] RUBENS Sanz Attn: Accounting, [place], [address], [facility] 01/25/2025 15:58:18 Date Recorded Body height Body mass index (BMI) Body weight Respiratory rate Oxygen saturation Oxygen saturation in Arterial blood by Pulse oximetry Heart rate Systolic blood pressure Diastolic blood pressure Provider Name and Address Organization Details Last Updated DateTime 5 167.64 cm 32.6 kg/m2 21883.6 6 g 18 /min 97 % 97 % 70 /min 126 mm[Hg] 82 mm[Hg] Carroll Reich MA [facility] 5 15:01:30 Social History Question Answer Notes LastModified by Organizat ion Details LastModified Time Tobacco Smoking Status Never Smoker Angela Calhoun MA null, [facility] 01/16/2024 11:40:58 Do You Have An Advance Directive? No Information n ot available 01/16/2024 Are You Blind Or Do You Have Difficulty Seeing? No Information n ot available 01/16/2024 What Is Your Level Of Caffeine Consumption? Moderate Information not available 01/16/2024 In The 14 Days Before Symptom Onset, Have You Had Close Contact With A Laboratory-confirm ed COVID-19 While That Case Was Ill? No Information n ot available 01/16/2024 In The 14 Days Before Symptom Onset, Have You Had Close Contact With A Person Who Is Under Investigation For COVID-19 While That Person Was Ill? No Information not available 01/16/2024 Have You Been To An Area Known To Be High Risk For COVID-19? No Information not available 01/16/2024 Are You Deaf Or Do You Have Serious Difficulty Hearing? No Information not available 01/16/2024 What Type Of Diet Are You Following? REGULAR Information n ot available 01/16/2024 Are There Any Guns Present In Your Home? No Information not available 01/16/2024 What Was The Date Of Your Most Recent Tobacco Screening? 01/25/2025 [email or web address] Information not available 01/25/2025 What Is Your Relationship Status? Information not available 01/16/2024 Do You Use Your Seat Belt Or Car Seat Routinely? Yes Information not available 01/16/2024 Do You Have Smoke And Carbon Monoxide Detectors In Your Home? Yes Information not available 01/16/2024 Do You Use Sunscreen Routinely? No Information not available 01/16/2024 Has Tobacco Cessation Counseling Been Provided? No Information not available 01/16/2024 Sex: Female Functional Status Question Answer Note LastModified by Organizat ion Details LastModified Time Do you use any illicit or recreational drugs? No Information not available 01/16/2024 Do you or have you ever used any other forms of tobacco or nicotine? No Information not available 01/16/2024 What is your level of alcohol consumption? None Information not available 01/16/2024 Are you currently employed? Yes Information not available 01/16/2024 Are you able to care for yourself? Yes Information n ot available 01/16/2024 What is your occupation? [employer] Information not available 01/16/2024 What is your exercise level? None Information not available 01/16/2024 Mental Status Question Answer Note LastModified by Organization D etails LastModified Time Do you feel stressed (tense, restless, nervous, or anxious, or unable to sleep at night)? [id number] Information not available 01/16/2024 Family History Relationship Description Onset Age of this Age Resolved Age Notes LastModified by Organization Details LastModified Time Father Marcio [email or web address] Not available 2023 11:39:52 Mother Hypercholest ramonolemia mebyma Not available 2023 11:39:52 Sister Migraine mebyma Not available 0 01/16/2024 11:39:59 Medical History Condition Response Coronary Artery Disease N Other N Atrial Fibrillation N High Blood Pressure N Thyroid Problems N Kidney or Bladder Problems N Depression N COPD N Blood Clots N GI Problems N Skin Problems N Anemia N Heart Attack (IA) N Diabetes N Anxiety Disorder N Muscle, Joint, or Bone Problems N Seizures/Epilepsy N Acid Reflux (GERD) N Cancer N Stroke N Allergies N Asthma N High Cholesterol N Hepatitis N Liver Disease N Headaches N Osteoporosis N Heart Failure N Gynecological History Statement/Question Response Flow Moderate Date of LMP 01/04/2025 On BCP's at Conception? N Menses Monthly Y Duration of Flow (days) 5 Current Control Method None LMP Definite Obstetrics History GPAL:G 0 P 0 0 0 0 Immunizations Vaccine Type Date Status Note Provider Leonel oden and Address Organization Details Recorded Time Influenza, MDCK, quadrivalent, PF 06/12/2020 completed RAJESH [place], [place] - [facility] 07/25/2024 12:21:59 Influenza, MDCK, quadrivalent, PF 06/25/2023 completed Carroll Reich [place], [place] [facility] 07/25/2024 12:21:59 Influenza, MDCK, quadrivalent, PF 07/06/2022 binta Reich [place], [place] [facility] 07/25/2024 12:21:59 COVID-19, mRNA, LNP-S, PF, 100 mcg/0.5mL dose or 50 mcg/0.25mL dose 10/27/2020 completed RAJESH [place], [place] [facility] 07/25/2024 12:21:59 COVID-19, mRNA, LNP-S, PF, 100 mcg/0.5mL dose or 50 mcg/0.25mL dose 11/24/2020 completed Carroll Reich [place], [place] [facility] 07/25/2024 12:21:59 COVID-19, mRNA, LNP-S, PF, 100 mcg/0.5mL dose or 50 mcg/0.25mL dose 07/29/2021 completed Carroll Reich [place] [facility] 07/25/2024 12:21:59 influenza, unspecified formulation 07/25/2024 completed Carroll Reich [place] [facility] 07/25/2024 12:22:41 Past Encounters Encounter ID Performer Location Encounter Start Date Encounter Closed Date Diagnosis/Indication Diagnosis SNOMED-CT Code Diagnosis ICD10 Code Diagnosis Note [id number] Sebastian Carbone MD [facility] [employer] [address] [place] [address] 01/16/2024 11:25:10 01/16/2024 12:13:39 Adult health examination 293802664 Z00.00 annual wellness exam completed. fasting labs ordered. Cholesterol screening 27 0951900 Z13.220 fasting lipids due. Diabetes m ellitus screening 573400804 Z13.1 a1c screening due. Thyroid di sorder screening 915118330 Z13.29 thyroid function panel due. Long-term drug therapy 036005596 Z79.899 cmp, cbc and b12, folate labs are due Body mass index 30+ - obesity 256958023 Z68.33 bmi 33.3 Obesity 450684099 E66.9 discussed healthy diet, exercise, controllin g carbohydra avel and added sugars in the diet [id number] Sebastian Carbone MD [facility] [employer] [address] [place] [address] 10/22/2024 11:56:18 10/22/2024 12:53:16 Body mass index 30+ - obesity 325099413 Z68.32 bmi 32.9 Obesity 319303951 E66.9 discussed healthy diet, exercise, controllin g carbohydra avel and added sugars in the diet Community acquired pneumonia 286463094 J18.9 Follow-up chest x-ray ordered to complete in the next 2 weeks Screening for malignant neoplasm of colon 140491014 Z12.11 Patient also happens to be due for her routine colonoscop y and needs another order sent [id number] Sebastian Carbone MD [facility] [employer] [facility] [place] [address] [place] [address] 01/25/2025 14:40:07 01/25/2025 16:13:43 Adult health examination 409220863 Z00.00 annual wellness exam completed. fasting labs ordered. Cholesterol screening 27 3628243 Z13.220 fasting lipids due. Diabetes m ellitus screening 030882846 Z13.1 a1c screening due. Long-term drug therapy 218512975 Z79.899 cmp, cbc and b12, folate labs are due Body mass index 30+ - obesity 790816375 Z68.32 bmi 32.6 Obese class I 0633360509 49768 E66.811 discussed healthy diet, exercise, controllin g carbohydra avel and added sugars in the diet Fatigue 02073417 R53.83 Vitamins D, B12, folate iron studies and thyroid requested for lab review Health Concerns Section Related Observation LastModified by Organization Detai ls LastModified Time None Recorded Concern Status LastModified by Organization Details LastModified Time None Recorded Advance Directives Directive N: Payers Encounter Date Sequence Insurance Name Policy Number Policy Castro Covered Member ID Castro Member ID Guarantor Name 01/16/2024 1 [employer] (PPO) [id number] Rose Helms [id number] Rose Helms 10/22/2024 1 [facility] [id number] Rose Helms [id number] Rose Helms 01/25/2025 1 [facility] [id number] Rose Helms [id number] Rose Helms Notes Date Note Type Note Provider Name and Address Organization Details Recorded Time 01/16/2024 text/html Generic HPI TemplateReported bypatient.Notes:pt here for annual wellness exam. due for annual labs. no complaints. RUBENS Sanz Attn: Accounting,[address], [place], [address], [facility] - [facility] 01/29/2024 23:09:42 10/22/2024 text/html Upper Respirator y SymptomsReported bypatient.Location:[facility] Severity:no pain Duration:symptoms lasting over 2 weeks Context:no sick contacts Associated Symptoms:no sputum production; no fever; no sore throat; no nauseaNotes:Patient is now almost back to normal from her pneumonia episode. She has completed her antibiotic and she has a very slight residual cough at times RUBENS Sanz Attn: Accounting,[address] [place], [address], [facility] 10/24/2024 23:51:30 01/25/2025 text/html Generic HPI TemplateReported bypatient.Notes:pt here for annual wellness exam. due for annual labs. no complaints. RUBENS Sanz Attn: Accounting,[address] [place], [address], [facility] 01/25/2025 15:59:14 OBGyn Episode No OBEpisode recorded.
--- OUTSIDE RECORDS SUMMARY | 2025-02-06 00:59 | XMS_ITS | Data Portability ---
Author Organization [facility], Main Office Address [address] [place] [address] Assessment No assessment recorded. Plan of Treatment Reminders Order Date Submit Date Provider Last Modified By Organization Details Last Modified Time Details Appointments None recorded . Lab TSH + free T4, serum 023 03/28/20 23 [facility], [address], [address], [place], [address], 3 12:16:36 lipid panel, serum 023 03/28/20 23 [facility], [address], [address], [place], [address], 3 12:16:36 CMP, serum or plasma 023 03/28/20 23 [facility], [address], [address], [place], [address], 3 12:16:37 CBC w/ auto diff 023 03/28/20 23 [facility], [address], [address], [place], [address], 3 12:16:39 HbA1c (hemoglo bin A1c), blood 023 03/28/20 23 [facility], [address], [address], [place], [address], 3 12:16:38 mumps igg Ab, serum 023 03/28/20 23 [facility], [address], [place], [address], 3 12:16:40 Referral None recorded . Procedures [...] REFL) color yellow yellow normal Not Available [address], [address], 12/03/2021 05:05:59 12/03/19 22 12/03/2021 URINA LYSIS ,COMP LETE( REFL) appearance cloudy clear abnormal Not Available [address], [address], 12/03/2021 05:05:59 12/03/19 22 12/03/2021 URINA LYSIS ,COMP LETE( REFL) specific gravity 1.024 1.001- 1.035 normal Not Available [address], [address], 12/03/2021 05:05:59 12/03/19 22 12/03/2021 URINA LYSIS ,COMP LETE( REFL) pH 7.0 5.0-8. 0 normal Not Available [address], [address], 12/03/2021 05:05:59 12/03/19 22 12/03/2021 URINA LYSIS ,COMP LETE( REFL) glucose negati ve negati ve normal Not Available [address], [address], 12/03/2021 05:05:59 12/03/19 22 12/03/2021 URINA LYSIS ,COMP LETE( REFL) bilirubin negati ve negati ve normal Not Available [facility] [address], [address], 12/03/2021 05:05:59 12/03/19 22 12/03/2021 URINA LYSIS ,COMP LETE( REFL) ketones trace negati ve abnormal Not Available [facility] [address], [address], 12/03/2021 05:05:59 12/03/19 22 12/03/2021 URINA LYSIS ,COMP LETE( REFL) occult blood negati ve negati ve normal Not Available [facility] - [address], [address], 12/03/2021 05:05:59 12/03/19 22 12/03/2021 URINA LYSIS ,COMP LETE( REFL) protein negati ve negati ve normal Not Available [facility] [address], [address], 12/03/2021 05:05:59 12/03/19 22 12/03/2021 URINA LYSIS ,COMP LETE( REFL) nitrite negati ve negati ve normal Not Available [facility] [address], [address], 12/03/2021 05:05:59 12/03/19 22 12/03/2021 URINA LYSIS ,COMP LETE( REFL) leukocyte esterase trace negati ve abnormal Not Available [facility] [address], [address], 12/03/2021 05:05:59 12/03/19 22 12/03/2021 URINA LYSIS ,COMP LETE( REFL) WBC none seen /hpf < or = 5 normal Not Available [facility] [address], [address], 12/03/2021 05:05:59 12/03/19 22 12/03/2021 URINA LYSIS ,COMP LETE( REFL) RBC none seen /hpf < or = 2 normal Not Available [address], [address], 12/03/2021 05:05:59 12/03/19 22 12/03/2021 URINA LYSIS ,COMP LETE( REFL) squamous epithelial cells 20-40 /hpf < or = 5 abnormal Not Available [address], [address], 12/03/2021 05:05:59 12/03/19 22 12/03/2021 URINA LYSIS ,COMP LETE( REFL) bacteria modera te /hpf none seen abnormal Not Available [address], [address], 12/03/2021 05:05:59 12/03/19 22 12/03/2021 URINA LYSIS ,COMP LETE( REFL) hyaline cast none seen /lpf none seen normal Not Available [address], [address], 12/03/2021 05:05:59 12/03/19 22 12/03/2021 CBC (INCL UDES DIFF/ PLT) white blood cell count 6.5 thous and/u L 3.8-10 .8 normal Not Available [address], [address], 12/03/2021 05:05:58 12/03/19 22 12/03/2021 CBC (INCL UDES DIFF/ PLT) red blood cell count 4.46 aleta on/uL 3.80-5 .10 normal Not Available [address], [address], 12/03/2021 05:05:58 12/03/19 22 12/03/2021 CBC (INCL UDES DIFF/ PLT) hemoglobin 13.2 g/dL 11.7-1 5.5 normal Not Available [address], [address], 12/03/2021 05:05:58 12/03/19 22 12/03/2021 CBC (INCL UDES DIFF/ PLT) hematocrit 40.4 % 35.0-4 5.0 normal Not Available [address], [address], 12/03/2021 05:05:58 12/03/19 22 12/03/2021 CBC (INCL UDES DIFF/ PLT) MCV 90.6 fL 80.0-1 00.0 normal Not Available [address], [address], 12/03/2021 05:05:58 12/03/19 22 12/03/2021 CBC (INCL UDES DIFF/ PLT) MCH 29.6 pg 27.0-3 3.0 normal Not Available [address], [address], 12/03/2021 05:05:58 12/03/19 22 12/03/2021 CBC (INCL UDES DIFF/ PLT) MCHC 32.7 g/dL 32.0-3 6.0 normal Not Available [address], [address], 12/03/2021 05:05:58 12/03/19 22 12/03/2021 CBC (INCL UDES DIFF/ PLT) RDW 12.8 % 11.0-1 5.0 normal Not Available [address], [address], 12/03/2021 05:05:58 12/03/19 22 12/03/2021 CBC (INCL UDES DIFF/ PLT) platelet count 432 thous and/u L 140-40 0 high Not Available [address], [address], 12/03/2021 05:05:58 12/03/19 22 12/03/2021 CBC (INCL UDES DIFF/ PLT) MPV 9.6 fL 7.5-12 .5 normal Not Available [facility] [address], [address], 12/03/2021 05:05:58 12/03/19 22 12/03/2021 CBC (INCL UDES DIFF/ PLT) absolute neutrophils 3842 cells /uL 1500-7 800 normal Not Available [address], [address], 12/03/2021 05:05:58 12/03/19 22 12/03/2021 CBC (INCL UDES DIFF/ PLT) absolute lymphocytes 2249 cells /uL 850-39 00 normal Not Available [address], [address], 12/03/2021 05:05:58 12/03/19 22 12/03/2021 CBC (INCL UDES DIFF/ PLT) absolute monocytes 286 cells /uL 200-95 0 normal Not Available [address], [address], 12/03/2021 05:05:58 12/03/19 22 12/03/2021 CBC (INCL UDES DIFF/ PLT) absolute eosinophils 13 cells /uL 15-500 low Not Available [facility] [address], [address], 12/03/2021 05:05:58 12/03/19 22 12/03/2021 CBC (INCL UDES DIFF/ PLT) absolute basophils 111 cells /uL 0-200 normal Not Available [facility] [address], [address], 12/03/2021 05:05:58 12/03/19 22 12/03/2021 CBC (INCL UDES DIFF/ PLT) neutrophils 59.1 % normal Not Available [facility] [address], [address], 12/03/2021 05:05:58 12/03/19 22 12/03/2021 CBC (INCL UDES DIFF/ PLT) lymphocytes 34.6 % normal Not Available [address], [address], 12/03/2021 05:05:58 12/03/19 22 12/03/2021 CBC (INCL UDES DIFF/ PLT) monocytes 4.4 % normal Not Available [address], [address], 12/03/2021 05:05:58 12/03/19 22 12/03/2021 CBC (INCL UDES DIFF/ PLT) eosinophils 0.2 % normal Not Available [facility] [address], [address], 12/03/2021 05:05:58 12/03/19 22 12/03/2021 CBC (INCL UDES DIFF/ PLT) basophils 1.7 % normal Not Available [address], [address], 12/03/2021 05:05:58 12/03/19 22 12/03/2021 LIPAS E lipase 26 U/L 7-60 normal Not Available [address], [address], 12/03/2021 05:05:58 12/03/19 22 12/03/2021 AMYLA SE amylase 48 U/L 21-101 normal Not Available [address], [address], 12/03/2021 05:05:57 12/03/19 22 12/03/2021 HEMOG LOBIN [...] Care in Diabe avel(A DA). Not Available [address] [place], [address], 12/03/2021 05:05:56 12/03/19 22 12/03/2021 COMPR EHENS MADDIE METAB OLIC PANEL glucose 87 mg/dL 65-99 normal Fasti ng refer ence inter belinda Not Available [address] [place], [address], 12/03/2021 05:05:56 12/03/19 22 12/03/2021 COMPR EHENS MADDIE METAB OLIC PANEL urea nitrogen (BUN) 8 mg/dL 7-25 normal Not Available [address] [place], [address], 12/03/2021 05:05:56 12/03/19 22 12/03/2021 COMPR EHENS MADDIE METAB OLIC PANEL creatinine 0.80 mg/dL 0.50-1 .10 normal Not Available [facility] [address], [address], 12/03/2021 05:05:56 12/03/19 22 12/03/2021 COMPR EHENS MADDIE METAB OLIC PANEL eGFR non-afr. kazakh 89 mL/mi n/1.7 3m2 > or = 60 normal Not Available [facility] [address] [place], [address], 12/03/2021 05:05:56 12/03/19 22 12/03/2021 COMPR EHENS MADDIE METAB OLIC PANEL eGFR 103 mL/mi n/1.7 3m2 > or = 60 normal Not Available [address], [address], 12/03/2021 05:05:56 12/03/19 22 12/03/2021 COMPR EHENS MADDIE METAB OLIC PANEL BUN/creatini ne ratio not applic able (calc ) 6-22 Not Available [address], [address], 12/03/2021 05:05:56 12/03/19 22 12/03/2021 COMPR EHENS MADDIE METAB OLIC PANEL sodium 139 mmol/ L 135-14 6 normal Not Available [address], [address], 12/03/2021 05:05:56 12/03/19 22 12/03/2021 COMPR EHENS MADDIE METAB OLIC PANEL potassium 4.2 mmol/ L 3.5-5. 3 normal Not Available [address], [address], 12/03/2021 05:05:56 12/03/19 22 12/03/2021 COMPR EHENS MADDIE METAB OLIC PANEL chloride 106 mmol/ L 98-110 normal Not Available [address], [address], 12/03/2021 05:05:56 12/03/19 22 12/03/2021 COMPR EHENS MADDIE METAB OLIC PANEL carbon dioxide 26 mmol/ L 20-32 normal Not Available [address], [address], 12/03/2021 05:05:56 12/03/19 22 12/03/2021 COMPR EHENS MADDIE METAB OLIC PANEL calcium 9.0 mg/dL 8.6-10 .2 normal Not Available [address], [address], 12/03/2021 05:05:56 12/03/19 22 12/03/2021 COMPR EHENS MADDIE METAB OLIC PANEL protein, total 6.8 g/dL 6.1-8. 1 normal Not Available [address], [address], 12/03/2021 05:05:56 12/03/19 22 12/03/2021 COMPR EHENS MADDIE METAB OLIC PANEL albumin 4.2 g/dL 3.6-5. 1 normal Not Available [address], [address], 12/03/2021 05:05:56 12/03/19 22 12/03/2021 COMPR EHENS MADDIE METAB OLIC PANEL globulin 2.6 g/dL_ (calc ) 1.9-3. 7 normal Not Available [address], [address], 12/03/2021 05:05:56 12/03/19 22 12/03/2021 COMPR EHENS MADDIE METAB OLIC PANEL albumin/glob ulin ratio 1.6 (calc ) 1.0-2. 5 normal Not Available [address], [address], 12/03/2021 05:05:56 12/03/19 22 12/03/2021 COMPR EHENS MADDIE METAB OLIC PANEL bilirubin, total 0.5 mg/dL 0.2-1. 2 normal Not Available [address], [address], 12/03/2021 05:05:56 12/03/19 22 12/03/2021 COMPR EHENS MADDIE METAB OLIC PANEL alkaline phosphatase 88 U/L 31-125 normal Not Available [facility] [address], [place], [address], 12/03/2021 05:05:56 12/03/19 22 12/03/2021 COMPR EHENS MADDIE METAB OLIC PANEL AST 23 U/L 10-35 normal Not Available [facility] [address], [address], 12/03/2021 05:05:56 12/03/19 22 12/03/2021 COMPR EHENS MADDIE METAB OLIC PANEL ALT 24 U/L 6-29 normal Not Available [facility] [address], [address], 12/03/2021 05:05:56 12/03/19 22 12/03/2021 LIPID PANEL WITH RATIO S cholesterol, total 185 mg/dL <200 normal Not Available [address], [address], 12/03/2021 05:05:56 12/03/19 22 12/03/2021 LIPID PANEL WITH RATIO S HDL cholesterol 68 mg/dL > or = 50 normal Not Available [address], [address], 12/03/2021 05:05:56 12/03/19 22 12/03/2021 LIPID PANEL WITH RATIO S triglyceride s 186 mg/dL <150 high Not Available [address], [address], 12/03/2021 05:05:56 12/03/19 22 12/03/2021 LIPID PANEL [...] 2068 (http ://ed ucati on.Qu Quinten rankin happn. com/f aq/FA Q164) Not Available [facility] [address] [address] [place], [address], 12/03/2021 05:05:56 12/03/19 22 12/03/2021 LIPID PANEL WITH RATIO S chol/HDLC ratio 2.7 (calc ) <5.0 normal Not Available [facility] [address], [address], 12/03/2021 05:05:56 12/03/19 22 12/03/2021 LIPID PANEL WITH RATIO S LDL/HDL ratio 1.3 (calc ) Below avera ge Risk: <2.34 Erin ge Risk: 2.35- 4.12 Moder ate Risk: 4.13- 5.56 High Risk: >5.57 Not Available [facility] [address], [address], 12/03/2021 05:05:56 12/03/19 22 12/03/2021 LIPID PANEL WITH RATIO S non HDL cholesterol 117 mg/dL _(ej c) <130 normal For patie nts with diabe avel plus 1 major ASCVD risk facto r, treat ing to a non-H DL-C goal of <100 mg/dL (LDL- C of <70 mg/dL ) is consi dered a thera peuti c optio n. Not Available [facility] [address] [address] [place], [address], 12/03/2021 05:05:56 12/03/19 22 12/03/2021 TSH+F REE T4 TSH 2.15 mIU/L normal Refer ence Range > or = 20 Years 0.40- 4.50 Pregn luke Range s First trime ster 0.26- 2.66 Secon d trime ster 0.55- 2.73 Third trime ster 0.43- 2.91 Not Available [address], [address], 12/03/2021 05:05:55 12/03/19 22 12/03/2021 TSH+F REE T4 T4, free 1.0 NG/dL 0.8-1. 8 normal Not Available [address], [address], 12/03/2021 05:05:55 03/29/20 23 03/30/2023 TSH+F REE T4 TSH 2.61 mIU/L normal Refer ence Range > or = 20 Years 0.40- 4.50 Pregn luke Range s First trime ster 0.26- 2.66 Secon d trime ster 0.55- 2.73 Third trime ster 0.43- 2.91 Not Available [address], [address], 03/30/2023 12:16:35 03/29/20 23 03/30/2023 TSH+F REE T4 T4, free 0.9 NG/dL 0.8-1. 8 normal Not Available [address], [address], 03/30/2023 12:16:35 03/29/20 23 03/30/2023 LIPID PANEL WITH RATIO S cholesterol, total 221 mg/dL <200 high Not Available [address], [address], 03/30/2023 12:16:36 03/29/20 23 03/30/2023 LIPID PANEL WITH RATIO S HDL cholesterol 58 mg/dL > or = 50 normal Not Available [address], [address], 03/30/2023 12:16:36 03/29/20 23 03/30/2023 LIPID PANEL WITH RATIO S triglyceride s 346 mg/dL <150 high If a non-f astin g speci men was colle cted, consi anyi repea t trigl yceri de testi ng on a fasti ng speci men if clini kacey indic ated. Cheo hess et al. J. of Clin. Lipid ol. 2015; 9:129 -169. Not Available [address], [address], 03/30/2023 12:16:36 03/29/20 23 03/30/2023 LIPID PANEL [...] 310(1 9): 2061- 2068 (http ://ed ucati on.H[address] mollyFavorite Words. Liveset/f aq/FA Q164) Not Available [address] [address] [place], [address], 03/30/2023 12:16:36 03/29/2003/30/2023 LIPID PANEL WITH RATIO S chol/HDLC ratio 3.8 (calc ) <5.0 normal Not Available [address], [address], 03/30/2023 12:16:36 03/29/2003/30/2023 LIPID PANEL WITH RATIO S LDL/HDL ratio 2.0 (calc ) Below avera ge Risk: <2.34 Erin ge Risk: 2.35- 4.12 Moder ate Risk: 4.13- 5.56 High Risk: >5.57 Not Available [address] [place], [address], 03/30/2023 12:16:36 03/29/20 23 03/30/2023 LIPID PANEL WITH RATIO S non HDL cholesterol 163 mg/dL _(ej c) <130 high For patie nts with diabe avel plus 1 major ASCVD risk facto r, treat ing to a non-H DL-C goal of <100 mg/dL (LDL- C of <70 mg/dL ) is consi ebonid a thera peuti c optio n. Not Available [address] [place], [address], 03/30/2023 12:16:36 03/29/20 23 03/30/2023 COMPR EHENS MADDIE METAB OLIC PANEL glucose 87 mg/dL 65-99 normal Fasti ng refer ence inter belinda Not Available [address] [address] [place], [address], 03/30/2023 12:16:37 03/29/20 23 03/30/2023 COMPR EHENS MADDIE METAB OLIC PANEL urea nitrogen (BUN) 13 mg/dL 7-25 normal Not Available [address], [address], 03/30/2023 12:16:37 03/29/20 23 03/30/2023 COMPR EHENS MADDIE METAB OLIC PANEL creatinine 0.75 mg/dL 0.50-0 .99 normal Not Available [address], [address], 03/30/2023 12:16:37 03/29/20 23 03/30/2023 COMPR EHENS MADDIE METAB OLIC PANEL eGFR 99 mL/mi n/1.7 3m2 > or = 60 normal Not Available [address] [place], [address], 03/30/2023 12:16:37 03/29/20 23 03/30/2023 COMPR EHENS MADDIE METAB OLIC PANEL BUN/creatini ne ratio SEE NOTE: (calc ) 6-22 Not Repor shantal: BUN and Creat inine are withi n refer ence range . Not Available [address], [address], 03/30/2023 12:16:37 03/29/20 23 03/30/2023 COMPR EHENS MADDIE METAB OLIC PANEL sodium 137 mmol/ L 135-14 6 normal Not Available [address], [address], 03/30/2023 12:16:37 03/29/20 23 03/30/2023 COMPR EHENS MADDIE METAB OLIC PANEL potassium 4.4 mmol/ L 3.5-5. 3 normal Not Available [address], [address], 03/30/2023 12:16:37 03/29/20 23 03/30/2023 COMPR EHENS MADDIE METAB OLIC PANEL chloride 101 mmol/ L 98-110 normal Not Available [address], [address], 03/30/2023 12:16:37 03/29/20 23 03/30/2023 COMPR EHENS MADDIE METAB OLIC PANEL carbon dioxide 26 mmol/ L 20-32 normal Not Available [address], [address], 03/30/2023 12:16:37 03/29/20 23 03/30/2023 COMPR EHENS MADDIE METAB OLIC PANEL calcium 9.7 mg/dL 8.6-10 .2 normal Not Available [address], [address], 03/30/2023 12:16:37 03/29/20 23 03/30/2023 COMPR EHENS MADDIE METAB OLIC PANEL protein, total 7.0 g/dL 6.1-8. 1 normal Not Available [address], [address], 03/30/2023 12:16:37 03/29/20 23 03/30/2023 COMPR EHENS MADDIE METAB OLIC PANEL albumin 4.2 g/dL 3.6-5. 1 normal Not Available [address], [address], 03/30/2023 12:16:37 03/29/20 23 03/30/2023 COMPR EHENS MADDIE METAB OLIC PANEL globulin 2.8 g/dL_ (calc ) 1.9-3. 7 normal Not Available [address], [address], 03/30/2023 12:16:37 03/29/20 23 03/30/2023 COMPR EHENS MADDIE METAB OLIC PANEL albumin/glob ulin ratio 1.5 (calc ) 1.0-2. 5 normal Not Available [address], [address], 03/30/2023 12:16:37 03/29/20 23 03/30/2023 COMPR EHENS MADDIE METAB OLIC PANEL bilirubin, total 0.5 mg/dL 0.2-1. 2 normal Not Available [address], [address], 03/30/2023 12:16:37 03/29/20 23 03/30/2023 COMPR EHENS MADDIE METAB OLIC PANEL alkaline phosphatase 121 U/L 31-125 normal Not Available [address], [address], 03/30/2023 12:16:37 03/29/20 23 03/30/2023 COMPR EHENS MADDIE METAB OLIC PANEL AST 18 U/L 10-35 normal Not Available [address], [address], 03/30/2023 12:16:37 03/29/20 23 03/30/2023 COMPR EHENS MADDIE METAB OLIC PANEL ALT 19 U/L 6-29 normal Not Available [facility] [id number] [place] [address], [address], 03/30/2023 12:16:37 03/29/20 23 03/30/2023 HEMOG LOBIN [...] Care in Diabe avel(A DA). Not Available [address] [address] [place], [address], 03/30/2023 12:16:38 03/29/2003/30/2023 CBC (INCL UDES DIFF/ PLT) white blood cell count 7.9 thous and/u L 3.8-10 .8 normal Not Available [facility] [id number] [place] [address], [address], 03/30/2023 12:16:39 03/29/20 23 03/30/2023 CBC (INCL UDES DIFF/ PLT) red blood cell count 4.58 aleta on/uL 3.80-5 .10 normal Not Available [address], [address], 03/30/2023 12:16:39 03/29/2003/30/2023 CBC (INCL UDES DIFF/ PLT) hemoglobin 13.3 g/dL 11.7-1 5.5 normal Not Available [address], [address], 03/30/2023 12:16:39 03/29/20 23 03/30/2023 CBC (INCL UDES DIFF/ PLT) hematocrit 39.8 % 35.0-4 5.0 normal Not Available [address], [address], 03/30/2023 12:16:39 03/29/20 23 03/30/2023 CBC (INCL UDES DIFF/ PLT) MCV 86.9 fL 80.0-1 00.0 normal Not Available [address], [address], 03/30/2023 12:16:39 03/29/20 23 03/30/2023 CBC (INCL UDES DIFF/ PLT) MCH 29.0 pg 27.0-3 3.0 normal Not Available [address], [address], 03/30/2023 12:16:39 03/29/20 23 03/30/2023 CBC (INCL UDES DIFF/ PLT) MCHC 33.4 g/dL 32.0-3 6.0 normal Not Available [address], [address], 03/30/2023 12:16:39 03/29/20 23 03/30/2023 CBC (INCL UDES DIFF/ PLT) RDW 13.1 % 11.0-1 5.0 normal Not Available [facility] [address], [address], 03/30/2023 12:16:39 03/29/20 23 03/30/2023 CBC (INCL UDES DIFF/ PLT) platelet count 386 thous and/u L 140-40 0 normal Not Available [address], [address], 03/30/2023 12:16:39 03/29/20 23 03/30/2023 CBC (INCL UDES DIFF/ PLT) MPV 9.1 fL 7.5-12 .5 normal Not Available [address], [address], 03/30/2023 12:16:39 03/29/2003/30/2023 CBC (INCL UDES DIFF/ PLT) absolute neutrophils 5001 cells /uL 1500-7 800 normal Not Available [address], [address], 03/30/2023 12:16:39 03/29/20 23 03/30/2023 CBC (INCL UDES DIFF/ PLT) absolute lymphocytes 2267 cells /uL 850-39 00 normal Not Available [address], [address], 03/30/2023 12:16:39 03/29/20 23 03/30/2023 CBC (INCL UDES DIFF/ PLT) absolute monocytes 490 cells /uL 200-95 0 normal Not Available [address], [address], 03/30/2023 12:16:39 03/29/20 23 03/30/2023 CBC (INCL UDES DIFF/ PLT) absolute eosinophils 40 cells /uL 15-500 normal Not Available [address], [address], 03/30/2023 12:16:39 03/29/20 23 03/30/2023 CBC (INCL UDES DIFF/ PLT) absolute basophils 103 cells /uL 0-200 normal Not Available [address], [place], [address], 03/30/2023 12:16:39 03/29/20 23 03/30/2023 CBC (INCL UDES DIFF/ PLT) neutrophils 63.3 % normal Not Available [facility] - [address], [address], 03/30/2023 12:16:39 03/29/20 23 03/30/2023 CBC (INCL UDES DIFF/ PLT) lymphocytes 28.7 % normal Not Available [facility] - [address], [address], 03/30/2023 12:16:39 03/29/20 23 03/30/2023 CBC (INCL UDES DIFF/ PLT) monocytes 6.2 % normal Not Available [facility] - [address], [address], 03/30/2023 12:16:39 03/29/20 23 03/30/2023 CBC (INCL UDES DIFF/ PLT) eosinophils 0.5 % normal Not Available [facility] - [address], [address], 03/30/2023 12:16:39 03/29/20 23 03/30/2023 CBC (INCL UDES DIFF/ PLT) basophils 1.3 % normal Not Available [facility] - [address], [address], 03/30/2023 12:16:39 03/29/2003/30/2023 MUMPS VIRUS AB (IGG) [...] tion with mumps virus . Not Available [facility] [id number] , [place], [address], 03/30/2023 12:16:40 12/08/19 22 12/01/2021 XR, ribs, unila teral No observ ation record ed. MIGRATION. [facility] [address], [place], [address], 10/27/2022 18:52:11 12/16/19 22 12/07/2021 CT, abdom en + pelvi s, w/ contr ast No observ ation record ed. MIGRATION. [facility] [address], [place], [address], 10/27/2022 18:52:11 12/30/19 22 12/29/2021 US, lower back No observ ation record ed. MIGRATION. [address], [place], [address], 10/27/2022 18:52:11 01/13/20 22 11/05/2021 XR, chest , 2 view No observ ation record ed. MIGRATION. [facility] [address], [place], [address], 10/27/2022 18:52:11 01/19/20 22 01/13/2022 MRI, lumba r spine , w/wo contr ast No observ ation record ed. MIGRATION. [address], [place], [address], 10/27/2022 18:52:11 02/23/20 23 12/02/2022 MAMMO , scree unique, digit al, bilat eral No observ ation record ed. [email or web address] [address], [place], [address], 03/28/2023 12:18:32 04/01/20 23 12/27/2022 MAMMO , scree unique, digit al, bilat eral No observ ation record ed. [email or web address] [facility] [address], [place], [address], 04/04/2023 13:51:08 04/11/20 23 04/10/2023 imagi ng/di agnos tic resul t No observ ation record ed. [email or web address] [facility] [address], [place], [address], 04/13/2023 16:17:38 Result Notes None recorded. Problems Name Problem SNOMED Code Status Onset Date Resolution Date Notes Provider Name and Address Organization Details Recorded Time Mass of subcutaneo us tissue of back 0969307852280 03 Active 2021 Not Available [facility] 3 18:51:10 Lumbar spondylosi s 838768895 Active 2021 Not Available [facility] 3 18:51:11 Degenerati on of lumbar interverte bral disc 72960885 Active 2021 Not Available [facility] 3 18:51:11 Acute thoracic back pain 509660275 Active 2021 Not Available [facility] 3 18:51:11 Low back pain 943971884 Active 2021 Not Available [facility] 3 18:51:11 Left sided abdominal pain 220842213 Active 2021 Not Available [facility] 3 18:51:11 Rib pain 838967712 Active 2021 Not Available [facility] 3 18:51:11 Lipoma of lower back 912890173 Active 2021 Not Available [facility] 3 18:51:11 Complex cyst of uterine adnexa 860482771 Active 2021 Not Available [facility] 3 18:51:11 Pain in spine 28010261 Active 2021 Not Available [facility] 3 18:51:11 Streptococ ej sore throat 87121430 Active 2022 RUBENS Sanz [address] [facility], [facility] [address], [place], [address] , [employer] 3 17:44:59 Problem Notes None recorded. Procedures Surgical History Date Name Laterality Status Provider Name and Address Organization Details Recorded Time 2 DIETITIAN CONSULTANT Surgery completed LUCIANO Medina [employer] 03/28/2023 12:16:54 Imaging Results None recorded. Procedure Notes None recorded. Medical Equipment None Reported. Allergies Allergen ID Allergen Name Allergen Category Reaction Reaction Severity Criticality Documentation Date Start Date Code Code System Note Provider Name and Address Organization Details Recorded Time 67140 aspartame food,medi cation Not available Not available Not available 10/27/2022 18062 24 RxNorm Not Available [facility] 18:52:07 Medications Name Sig Start Date Stop [...] Relief 50 mcg/actuati on nasal spray,suspe nsion [place] 1 spray every day by intranasa l route. 11/30 completed Not Available Not Available Not Available Vitals Date Recorded Body mass index (BMI) Body height Oxygen saturation Oxygen saturation in Arterial blood by Pulse oximetry Heart rate Respiratory rate Body temperature Body weight Systolic blood pressure Diastolic blood pressure Provider Name and Address Organization Details Last Updated DateTime 2 32.6 kg/m2 167.64 cm 98 % 98 % 93 /min 16 /min 97.7 [degF] 00354.6 6 g 130 mm[Hg] 80 mm[Hg] Not Available [facility] 3 18:50:53 Date Recorded Body mass index (BMI) Body height Oxygen saturation Oxygen saturation in Arterial blood by Pulse oximetry Heart rate Respiratory rate Body temperature Body weight Systolic blood pressure Diastolic blood pressure Provider Name and Address Organization Details Last Updated DateTime 2 32.2 kg/m2 167.64 cm 98 % 98 % 73 /min 16 /min 97.9 [degF] 92794.6 g 130 mm[Hg] 82 mm[Hg] Not Available [facility] 3 18:50:53 Date Recorded Body mass index (BMI) Body height Oxygen saturation Oxygen saturation in Arterial blood by Pulse oximetry Heart rate Respiratory rate Body temperature Body weight Systolic blood pressure Diastolic blood pressure Provider Name and Address Organization Details Last Updated DateTime 2 32.3 kg/m2 167.64 cm 98 % 98 % 88 /min 16 /min 97.8 [degF] 10580.4 7 g 122 mm[Hg] 80 mm[Hg] Not Available [facility] 3 18:50:54 Date Recorded Body height Body temperature Body mass index (BMI) Body weight Respiratory rate Oxygen saturation Oxygen saturation in Arterial blood by Pulse oximetry Heart rate Systolic blood pressure Diastolic blood pressure Provider Name and Address Organization Details Last Updated DateTime 3 167.64 cm 97.3 [degF] 32.3 kg/m2 78776.4 7 g 16 /min 97 % 97 % 101 /min 120 mm[Hg] 78 mm[Hg] LUCIANO Medina [facility] [employer] [facility] 3 12:17:33 Date Recorded Body height Body temperature Provider N oj and Address Organization Details Last Updated DateTime 04/01/2023 167.64 cm 98.4 [degF] Joya Ponce MA [facility] [employer] 04/01/2023 10:15:50 Social History Question Answer Notes LastModified by Organizat ion Details LastModified Time Tobacco Smoking Status Never Smoker Not Available [facility] 10/27/2022 18:50:38 Do You Have An Advance Directive? No [id number] Information not available 10/27/2022 What Is Your Level Of Caffeine Consumption? None [id number] 026 Information not available 10/27/2022 In The 14 Days Before Symptom Onset, Have You Had Close Contact With A Laboratory-confirm ed COVID-19 While That Case Was Ill? No [id number] 026 Information not available 10/27/2022 In The 14 Days Before Symptom Onset, Have You Had Close Contact With A Person Who Is Under Investigation For COVID-19 While That Person Was Ill? No [id number] 026 Information not available 10/27/2022 What Type Of Diet Are You Following? REGULAR [id number].[id number] 026 Information not available 10/27/2022 Have There Been Any Changes To Your Family Or Social Situation? No [id number] 026 Information not available 10/27/2022 Are There Any Guns Present In Your Home? No [id number] 026 Information not available 10/27/2022 Do You Use Insect Repellent Routinely? No [id number] 026 Information not available 10/27/2022 Do You Have A Medical Power Of Laboratory Inspector? No [id number] 026 Information not available 10/27/2022 What Is Your Relationship Status? [id number] 026 Information not available 10/27/2022 Do You Use Your Seat Belt Or Car Seat Routinely? Yes [id number] 026 Information not available 10/27/2022 Do You Have Smoke And Carbon Monoxide Detectors In Your Home? Yes [id number] 026 Information not available 10/27/2022 Do You Use Sunscreen Routinely? Yes [id number].[id number] 026 Information not available 10/27/2022 Have You Recently Traveled Abroad? No MIGRATION.[id number] 026 Information not available 10/27/2022 Do You Have Any Dietary Restrictions? No MIGRATION.[id number] 026 Information not available 10/27/2022 Sex: Unknown Functional Status Question Answer Note LastModified by Organizat ion Details LastModified Time Do you use any illicit or recreational drugs? No [id number].[id number] 0970 Information not available 10/27/2022 Do you or have you ever used any other forms of tobacco or nicotine? No MIGRATION.[id number] 1825 Information not available 10/27/2022 What is your level of alcohol consumption? None MIGRATION.[id number] 7925 Information not available 10/27/2022 Are you currently employed? No [email or web address] Information not available 03/25/2023 What is your occupation? Stay at home mom MIGRATION.[id number] 6023 Information not available 10/27/2022 What is your exercise level? Occasional MIGRATION.[id number] 0203 Information not available 10/27/2022 Mental Status None recorded. Family History Relationship Description Onset Age of this Age Resolved Age Notes LastModified by Organization Details LastModified Time Father Hyperlipidem ia [id number] Not available 10/27/2022 18:50:42 Father Diverticular disease MIGRATION.209 [id number] Not available 10/27/2022 18:50:42 Mother Hyperlipidem ia MIGRATION.594 [id number] Not available 10/27/2022 18:50:42 Unspecified Relation Malignant tumor of colon MIGRATION.363 [id number] Not available 10/27/2022 18:50:42 Unspecified Relation Dementia MIGRATION.692 [id number] Not available 10/27/2022 18:50:42 Unspecified Relation Alzheimer's disease MIGRATION.583 [id number] Not available 10/27/2022 18:50:42 Sister Atrial fibrillation MIGRATION.810 [id number] Not available 10/27/2022 18:50:42 Medical History Condition Response HEADACHES/MIGRAINES Y Gynecological History Statement/Question Response Menses Monthly Y Date of Last Pap 10/28/2015 Sexually Active? Y Obstetrics History GPAL:G 0 P 0 0 0 0 Immunizations Vaccine Type Date Status Note Provider Nam e and Address Organization Details Recorded Time tetanus toxoid, unspecified formulation 9 completed Not Available [employer] 10/27/2022 18:52:02 Tdap 3 completed RUBENS Sanz [address], [place], [address], [employer] 04/01/2023 11:12:19 MMR 3 completed RUBENS Sanz [address], [place], [address], [employer] 04/01/2023 11:12:20 Influenza, adjuvanted, quadrivalent, PF 3 completed Aissatou Hale RN [facility], [employer] 06/27/2023 09:29:03 Past Encounters Encounter ID Performer Location Encounter Start Date Encounter Closed Date Diagnosis/Indication Diagnosis SNOMED-CT Code Diagnosis ICD10 Code Diagnosis Note [id number] RUBENS Sanz [facility] [place] [address] [place] [address] 12/01/2021 00:00:00 12/26/2021 15:31:58 [id number] Sebastian Carbone MD [facility] [place] [address] [place] [address] 12/21/2021 00:00:00 12/25/2021 13:40:15 [id number] Sebastian Carbone MD [facility] Internal [facility] [place] [address] [place] [address] 01/12/2022 00:00:00 01/25/2022 23:25:42 [id number] RUBENS Sanz [place] Internal [facility] [place] [address] [place] [address] 03/28/2023 12:11:31 03/28/2023 12:45:07 Adult health examination 374489293 Z00.00 well exam completed and labs ordered Screening procedure 2013 5006 Z13.9 Cholesterol screening 27 7238367 Z13.220 Diabetes m ellitus screening 709146824 Z13.1 Thyroid di sorder screening 493775332 Z13.29 [id number] RUBENS Sanz [facility] [place] [address] [place] [address] 04/01/2023 09:52:19 04/01/2023 10:38:18 Administration of diphtheria, pertussis, and tetanus vaccine 489311933 Z23 Administra tion of measles and mumps and rubella vaccine 05513519 Z23 Health Concerns Section Related Observation LastModified by Organization Detai ls LastModified Time None Recorded Concern Status LastModified by Organization Details LastModified Time None Recorded Advance Directives Directive N: Payers Encounter Date Sequence Insurance Name Policy Number Policy Castro Covered Member ID Castro Member ID Guarantor Name 03/28/2023 1 [employer] [id number] 3 Salazar Helms [id number] Rose Juliana Helms 04/01/2023 1 [employer] [id number] 3 Salazar Helms [id number] Rose Juliana Helms Notes Date Note Type Note Provider [...] limbsNotes:last week went to the ER in [facility] 7 days ago. Dipped her urine and said no UTI. no blood in urine. Several months of this pain, but the last 2 months of worse. Not Available [facility] 12/26/2021 15:31:58 12/21/2021 text/html Abdominal PainReported bypatient.Location:[facility] [...] here today for a f/u. She saw DIETIT[facility] CONSULT[facility] and they said it seems like its [...] is here for a f/u. Not Available [employer] 12/25/2021 13:40:15 01/12/2022 text/html Back Pain - [...] advil, tylenol to relive pain Not Available [employer] 01/25/2022 23:25:42 03/28/2023 text/html Generic HPI TemplateReported bypatient.Notes:Pt is here to have a wellness and she has a physical form to be filled out and it is in the room w/her. No chronic problems. Wellness RUBENS Sanz [address], [place], [address], [employer] 03/28/2023 12:44:46 OBGyn Episode No OBEpisode recorded.
[2025-02-06 06:37] VITALS: BP 132/90; PULSE 69; RESP 16; TEMP 35.9; O2SAT 100; BMI 32.1
[2025-02-06] MEDS: LACTATED RINGERS 1,000 ML 150 ML IV CONT (07:06)
[2025-02-06 07:11] LABS: BEDSIDEPREGUCG Negative (Negative)
--- NOTE | 2025-02-06 07:46 | WPDANESEPPF ---
Anes - Initial Pre Proc Eval Procedure: Operation Date: 02/06/25 08:00 Proposed Procedures p Screening Colonoscopy - Severiano Knight MD Date/Time: 02/06/25 07:46 Surgeon: Severiano Knight MD Pre Op Diagnosis: Screening Patient Data Age: 49 Gender: F Height: 1.68 m Weight: 90.4 kg Last Vital Signs Temp 35.9 C L 02/06/25 06:37 Pulse 69 02/06/25 06:37 Resp 16 02/06/25 06:37 BP 132/90 02/06/25 06:37 Pulse Ox 100 02/06/25 06:37 O2 Del Method Room Air 02/06/25 06:37 Allergies Allergy/AdvReac Type Severity Reaction Status Date / Time aspartame AdvReac Severe Seizure Verified 01/25/25 15:09 Home Medications ?Medication ?Instructions ?Recorded ?Confirmed ?Type albuterol sulfate 90 mcg/actuation 2 puff inhalation QID PRN 07/28/19 01/25/25 Rx aerosol inhaler (Ventolin HFA) shortness of breath or wheezing #8 grams acetaminophen 325 mg capsule 650 mg PO QID PRN pain 10/05/24 02/06/25 History diphenhydramine HCl 25 mg capsule 25 mg PO TID PRN allergy symptoms 10/05/24 01/25/25 History (Allergy (diphenhydramine)) Laboratory Tests 02/06/25 07:07 POC Urine HCG, Qual Negative (Negative) Patient hx anesthesia problems: none Family hx anesthesia problems: none Results Review: All pre-operative results and documents have been reviewed as part of the pre-operative evaluation. [facility] Past Medical History Medical History Colon cancer screening Migraines Obesity Surgical History Surgical History History of ovarian cystectomy (02/2022) History of tubal ligation Family History Family History Sibling Family history of atrial fibrillation Social History Social History Social History: Surrogate medical decision maker: Bernard Helms, spouse. Code status: Full code. Smoking status: Never smoker Alcohol intake: never Substance use: never Substance use type: does not use Do You Feel Safe in your Home?: Yes Lack of Transportation: No Lack of Food: Never True Current Housing: I Have Housing Concerned About Future Housing: No Difficulty Paying Gas/Electric Bills: No Difficulty Paying for Meds: No Currently Unemployed: No Education: Bachelor's Degree Difficulty w/ Childcare or Family Care: No Living arrangements: with family Spiritual care concerns: No Anes - Eval Final PreProcedure Day of Procedure 02/06/25 07:46 Patient weight: obese Heart: regular rate and rhythm Lungs: clear to auscultation Airway: Mallampati scale class II Neurological: alert and oriented Last oral intake: >/= 8 hours ASA classification: II Emergent: no Anesthetic plan: proceed Anesthesia type and monitoring: general GIVS and standard monitoring Results Review: All pre-operative results and documents have been reviewed as part of the pre-operative evaluation. Informed Consent: The patient's anesthetic plan and its attendant risks and benefits were discussed with the patient/family/POA. Questions were solicited and answers provided to the satisfaction of the patient/family/POA.
--- NOTE | 2025-02-06 07:49 | PM.HPGS ---
History of Present Illness History of Present Illness Consent: Risks, benefits, and alternatives have been discussed and questions answered. Patient agrees to proceed with procedure. Chief complaint: Screening Narrative: Rose Banks is a 49 year old female here for first screening colonoscopy Review of Systems Review of Systems: All systems reviewed & are unremarkable except as noted in HPI and below PMFSH Past Medical History Medical History Colon cancer screening Migraines Obesity Surgical History Surgical History History of ovarian cystectomy (02/2022) History of tubal ligation Family History Family History Sibling Family history of atrial fibrillation Social History Social History Social History: Surrogate medical decision maker: Bernard Banks, spouse. Code status: Full code. Smoking status: Never smoker Alcohol intake: never Substance use: never Substance use type: does not use Do You Feel Safe in your Home?: Yes Lack of Transportation: No Lack of Food: Never True Current Housing: I Have Housing Concerned About Future Housing: No Difficulty Paying Gas/Electric Bills: No Difficulty Paying for Meds: No Currently Unemployed: No Education: Bachelor's Degree Difficulty w/ Childcare or Family Care: No Living arrangements: with family Spiritual care concerns: No Meds Home Medications and Allergies Home Medications ?Medication ?Instructions ?Recorded ?Confirmed ?Type albuterol sulfate 90 mcg/actuation 2 puff inhalation QID PRN 07/28/19 01/25/25 Rx aerosol inhaler (Ventolin HFA) shortness of breath or wheezing #8 grams acetaminophen 325 mg capsule 650 mg PO QID PRN pain 10/05/24 02/06/25 History diphenhydramine HCl 25 mg capsule 25 mg PO TID PRN allergy symptoms 10/05/24 01/25/25 History (Allergy (diphenhydramine)) Allergies Allergy/AdvReac Type Severity Reaction Status Date / Time aspartame AdvReac Severe Seizure Verified 01/25/25 15:09 Vital Signs Vital Signs - 24 hr 02/06/25 06:37 Temperature 96.6 F L Pulse Rate 69 Respiratory Rate 16 Blood Pressure 132/90 Pulse Oximetry 100 Oxygen Delivery Room Air Exam Const: General: comfortable and no acute distress HENMT: Face/Nose/Sinus: Normal nares present Eyes: General: appearance normal, both eyes and all related structures Neck: Neck: no JVD Resp: Auscultation: clear to auscultation bilaterally Cardio: Rate: regular rate Rhythm: regular rhythm GI: Inspection: non-distended GI Palp: Yes Soft to palpation Skin: General skin exam: normal color Neuro: General: gait normal Speech: normal speech Extrem: General: normal to inspection Psych: Mental Status: mental status grossly normal Assessment and Plan Assessment and plan (1) Colon cancer screening: Code(s): Z12.11 - Encounter for screening for malignant neoplasm of colon Status: Acute Assessment and Plan: colonoscopy
[2025-02-06 08:07] VITALS: BP 97/62; PULSE 63; RESP 16; O2SAT 94
[2025-02-06 08:17] VITALS: BP 96/59; PULSE 60; RESP 16; O2SAT 95
[2025-02-06 08:24] VITALS: BP 92/57; PULSE 60; RESP 16; O2SAT 98
== END 2025-02-06 08:39 | disposition home or self-care (01) ==
PROVIDERS: Anesthesiology; PCP Physician Assistant; Referring Provider Physician Assistant; Visit Provider Internal Medicine Gastroenterology
PROC: 0DJD8ZZ Inspection of Lower Intestinal Tract, Via Natural or Artificial Opening Endoscopic (ICD-10-PCS; CPT 45378; principal; 2025-02-06 08:00)
DX: Z12.11 Encounter for screening for malignant neoplasm of colon (principal); K57.30 Diverticulosis of large intestine without perforation or abscess without bleeding; E66.9 Obesity, unspecified; Z68.32 Body mass index [BMI] 32.0-32.9, adult
CPT/HCPCS: 45378; J2003; J2704; J7120